=== PATIENT | female | born 1995 | race Caucasian/White ===

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

== ENCOUNTER 2017-04-21 12:26 | Emergency (ER) | payer OTHER ==
[~2017-04-21] VITALS: Ht 170.2 cm; Wt 113.4 kg
[~2017-04-21 12:26] MED LIST changes: -HYDR-2666 PO; +HYDR-2758 PO; +OXYC5CAP PO; -OXYC5CAP3 PO; +SULF1TAB24 PO
[2017-04-21 12:40] VITALS: BP 128/71
[2017-04-21] MEDS ORDERED: HYDROcodone/APAP 5/325MG 1 TAB TABLET PO ONE (13:15)
--- NOTE | 2017-04-21 14:08 | RAD ---
Indication fall, pain. Axial images through the lower thoracic and lumbar spine were obtained. The examination is limited. There is moderately extensive streak artifact associated with lower thoracic and lumbar spinal fixation hardware. Images were reformatted in the coronal and sagittal planes. No soft tissue finding is seen in the visualized abdomen or pelvis. No acute bony finding is seen. A small bone fragment, probably reflecting a calcified disc, is noted at L4-5 similar to an examination 10/02/2016. IMPRESSION: Limited study secondary to spinal fixation hardware. No acute finding seen in the visualized thoracic or lumbar spine PQRS Compliance Statement: One or more of the following individualized dose reduction techniques were utilized for this examination: 1. Automated exposure control 2. Adjustment of the mA and/or kV according to patient size 3. Use of iterative reconstruction technique
--- NOTE | 2017-04-21 14:37 | PHYS DOC ---
Past Medical History Past Medical History: Asthma Additional Past Medical Histor: RECTAL BLEEDING, HYPERKYPHOSIS, high liver enzymes, PCOS Past Surgical History: Appendectomy, Cholecystectomy, Tonsillectomy, Other Additional Past Surgical Histo: spinal fusion, LEFT ELBOW, pylonydal cyst Alcohol Use: None Drug Use: None Adult General Chief Complaint Chief Complaint: HIP PAIN HPI HPI Patient is a pleasant 21-year-old female with a history of PCO S and chronic lower back pain after complete spinal fusion which he was younger presents with a fall from standing landing on her left hip. Patient was in her normal state health when she lost her balance twisting and landing on her left hip and lower back. She's had 8 of 10 pain since. Pain is worse with range of motion and movement secondary to pain and inability to move in time patient actually urinate on herself. She denies any new numbness and tingling to her legs or bowel incontinence patient's main complaint primary is back pain with radiation to the left lower flank. She is in severe discomfort when she moves. Described as continuous and sharp. She denies any nausea, vomiting or diarrhea. Denies any night sweats, weight loss or other symptoms. Review of Systems Review of Systems Constitutional: Denies fever or chills [] Eyes: Denies change in visual acuity, redness, or eye pain [] HENT: Denies nasal congestion or sore throat [] Respiratory: Denies cough or shortness of breath [] Cardiovascular: No additional information not addressed in HPI [] GI: Denies abdominal pain, nausea, vomiting, bloody stools or diarrhea [] : Denies dysuria or hematuria [] Musculoskeletal: Denies back pain or joint pain [] Integument: Denies rash or skin lesions [] Neurologic: Denies headache, focal weakness or sensory changes [] Endocrine: Denies polyuria or polydipsia [] Current Medications Current Medications Current Medications Medications (Trade) Dose Ordered Sig/Kaelyn Start Time Stop Time Status Last Admin Dose Admin Acetaminophen/ Hydrocodone Bitart (Lortab 5/325) 2 tab 1X ONCE 04/21/17 13:15 04/21/17 13:17 DC 04/21/17 13:45 2 TAB Diazepam (Valium) 5 mg 1X ONCE 04/21/17 14:45 04/21/17 14:46 DC 04/21/17 15:12 5 MG Hydromorphone HCl (Dilaudid) 1 mg 1X ONCE 04/21/17 14:45 04/21/17 14:46 DC 04/21/17 15:13 1 MG Ondansetron HCl (Zofran) 4 mg 1X ONCE 04/21/17 14:45 04/21/17 14:46 DC 04/21/17 15:12 4 MG Allergies Allergies Allergies Coded Allergies Type Severity Reaction Last Updated Verified Fish Containing Products Allergy Intermediate Rash 12/09/16 Yes coconut oil Allergy Intermediate 12/09/16 Yes iodine Allergy Intermediate Rash 12/09/16 Yes ketorolac Allergy Intermediate Rash 12/09/16 Yes latex Allergy Intermediate Rash 12/07/16 Yes tramadol Allergy Intermediate RASH/ITCHING 12/07/16 Yes mold Allergy Unknown 12/07/16 Yes shellfish derived Adverse Reaction Intermediate 12/07/16 Yes Uncoded Allergies Type Severity Reaction Last Updated Verified INSECT BITES,DUST MITES Allergy Unknown 04/08/16 Physical Exam Physical Exam Constitutional: Well developed, well nourished, no acute distress, non-toxic appearance. [] HENT: Normocephalic, atraumatic, bilateral external ears normal, oropharynx moist, no oral exudates, nose normal. [] Eyes: PERRLA, EOMI, conjunctiva normal, no discharge. [] Neck: Normal range of motion, no tenderness, supple, no stridor. [] Cardiovascular:Heart rate regular rhythm, no murmur [] Lungs & Thorax: Bilateral breath sounds clear to auscultation [] Abdomen: Bowel sounds normal, soft, no tenderness, no masses, no pulsatile masses. [] Skin: Warm, dry, no erythema, no rash. [] Back: No tenderness, no CVA tenderness. [] Extremities: No tenderness, no cyanosis, no clubbing, ROM intact, no edema. [] Neurologic: Alert and oriented X 3, normal motor function, normal sensory function, no focal deficits noted. [] Psychologic: Affect normal, judgement normal, mood normal. [] Current Patient Data Vital Signs Vital Signs Date Time Temp Pulse Resp B/P (MAP) Pulse Ox O2 Delivery O2 Flow Rate FiO2 04/21/17 15:13 Room Air 04/21/17 13:45 18 97 04/21/17 13:30 82 04/21/17 12:40 98.5 128/71 (90 98.5 Lab Values Laboratory Tests Test 04/21/17 12:39 POC Urine HCG, Qualitative Hcg negative (Negative) EKG EKG [] Radiology/Procedures Radiology/Procedures [] [facility] [address] [place] [address] IMAGING REPORT Signed PATIENT: IRAJ MONET ACCOUNT: [id number] : 1995 LOCATION: ER AGE: 21 SEX: F EXAM STATUS: REG ER ORD. PHYSICIAN: DANTE KRAUSE MD REASON: fall trauma PROCEDURE: CT LUMBAR SPINE WO CONTRAST Indication fall, pain. Axial images through the lower thoracic and lumbar spine were obtained. The examination is limited. There is moderately extensive streak artifact associated with lower thoracic and lumbar spinal fixation hardware. Images were reformatted in the coronal and sagittal planes. No soft tissue finding is seen in the visualized abdomen or pelvis. No acute bony finding is seen. A small bone fragment, probably reflecting a calcified disc, is noted at L4-5 similar to an examination 10/02/2016. IMPRESSION: Limited study secondary to spinal fixation hardware. No acute finding seen in the visualized thoracic or lumbar spine PQRS Compliance Statement: One or more of the following individualized dose reduction techniques were utilized for this examination: 1. Automated exposure control 2. Adjustment of the mA and/or kV according to patient size 3. Use of iterative reconstruction technique DICTATED and SIGNED BY: PAUL VALENZUELA MD DATE: 04/21/17 1386 CC: DANTE KRAUSE MD; GABRIELLE DOSS MD ~ Patient's 2 view hip and pelvis films do not demonstrate any occult fracture. Time of the x-ray is 2:15 PM 2016. I was happy to share this information with the patient at bedside Course & Med Decision Making Course & Med Decision Making Pertinent Labs and Imaging studies reviewed. (See chart for details) patient Is admitted to the emergency department as above after mechanical fall from standing on her left hip and lower back. She is complaining of severe pain but no evidence of cauda equina on exam. Patient denies any UTI symptoms but had pain with movements and refused to actually allow for complete examination. We attempted use oral medications Lortab to help facilitate a better exam. Which did help but patient became increasingly nauseated. Patient had her lumbar spine CT completed which demonstrated no component of fracture or subluxation of her components in her back. Pelvis and left hip are also completed x-rays did not show any kind of fracture. On reassessment at approximately 2:30 PM patient was still having severe pain she was offered IM Valium, Zofran, and Dilaudid for her symptoms. She'll be reassessed. Patient was reassessed and feels better after IV medications. Patient was prescribed appropriate analgesics and follow up with her primary care doctor. [] Dragon Disclaimer Dragon Disclaimer This electronic medical record was generated, in whole or in part, using a voice recognition dictation system. Departure Departure Impression: Primary Impression: Musculoskeletal back pain Additional Impressions: Back contusion Flank pain Disposition: HOME, SELF-CARE Condition: IMPROVED Referrals: GABRIELLE DOSS MD (PCP) Patient Instructions: Back Pain, Adult, Chronic Back Pain, Hip Pain Additional Instructions: My discharge plan Follow up: In addition patient is asked to followup with their primary doctor, within a week for followup examination and to address patient's ongoing medical conditions. Because patient does not have a regular medical doctor, the [facility] Resource Sheet will be provided to establish care primary care. Patient is advised that in the Emergency Department primary complaints are addressed and only in light of known signs and symptoms. Patient should return immediately to the emergency department if new signs and symptoms develop or patient's condition worsens in any way. At time of discharge patient was in stable condition and had verbalized understanding of the discharge instructions. Scripts Diazepam (VALIUM) 5 Mg Tablet 5 MG PO TID for MUSCLE SPASMS for 5 Days, #15 TAB Prov: DANTE KRAUSE MD 04/21/17 Oxycodone/Apap 5-325 (PERCOCET 5-325 MG TABLET) 1 Each Tablet 1-2 TAB PO Q4-6HRS, #12 TAB Prov: DANTE KRAUSE MD 04/21/17 Problem Qualifiers DANTE KRAUSE MD Apr 21, 2017 14:37
[2017-04-21] MEDS ORDERED: DIAZ5TAB PO (14:41)
[2017-04-21] MEDS ORDERED: OXYC-323 PO (14:41)
--- NOTE | 2017-04-21 14:42 | RAD ---
Indication fall. Pain. An AP view the pelvis as well as targeted AP view and frog leg views of the left hip were obtained. No bony abnormality is seen
[2017-04-21] MEDS ORDERED: HYDROmorphone 2 MG/ML VIAL IM ONE (14:45)
[2017-04-21] MEDS ORDERED: ONDANSETRON PF 4 MG/2 ML VIAL. IM ONE (14:45)
== END 2017-04-21 15:33 | disposition home or self-care (01) ==
LOC: ER 12:26
DX: S30.0XXA Contusion of lower back and pelvis, initial encounter (principal); M25.552 Pain in left hip; R10.30 Lower abdominal pain, unspecified; G89.29 Other chronic pain; J45.909 Unspecified asthma, uncomplicated; Z98.1 Arthrodesis status; Z90.49 Acquired absence of other specified parts of digestive tract; E28.2 Polycystic ovarian syndrome; Z88.6 Allergy status to analgesic agent; Z91.041 Radiographic dye allergy status; Z91.038 Other insect allergy status; Z91.040 Latex allergy status; Z91.013 Allergy to seafood; Z91.018 Allergy to other foods; Z91.048 Other nonmedicinal substance allergy status; W18.39XA Other fall on same level, initial encounter; Y93.89 Activity, other specified; Y99.8 Other external cause status; Y92.89 Other specified places as the place of occurrence of the external cause
CPT/HCPCS: 72131; 73502; 81025; 96372; 99284; J1170; J2405; J3360

== ENCOUNTER 2017-09-29 09:09 | Emergency (ER) | payer OTHER ==
[2017-09-29 09:43] LABS: URINE HCG POC HCG NEGATIVE (Negative)
[2017-09-29 09:49] LABS: BILIRUBIN,URINE NEGATIVE (NEG); CLARITY,URINE CLOUDY; COLOR,URINE YELLOW; GLUCOSE,URINE NEGATIVE (NEG); NITRITE,URINE NEGATIVE (NEG); PROTEIN,URINE NEGATIVE (NEG-TRACE); UROBILINOGEN,URINE 0.2 mg/dL (0.2 mg/dL)
[2017-09-29 10:01] LABS: WBC,URINE >40 /HPF (0-4)
[2017-09-29 10:04] LABS: BACTERIA,URINE MANY /HPF (0-FEW)
[2017-09-29 10:09] LABS: INFLUENZA A PATIENT NEGATIVE (NEGATIVE); INFLUENZA B PATIENT NEGATIVE (NEGATIVE); OBC FLU VALID
[2017-09-29] MEDS: IPRATRPIUM/ALBUTEROL 0.5/2.5MG 3 ML NEBU. NEB ×2 (10:22)
== END 2017-09-29 10:47 | disposition home or self-care (01) ==
LOC: ER 09:09
DX: N30.01 Acute cystitis with hematuria (principal); J45.909 Unspecified asthma, uncomplicated; Z90.49 Acquired absence of other specified parts of digestive tract; Z88.6 Allergy status to analgesic agent; Z91.041 Radiographic dye allergy status; Z91.040 Latex allergy status; Z91.013 Allergy to seafood; Z88.8 Allergy status to other drugs, medicaments and biological substances; Z91.048 Other nonmedicinal substance allergy status
CPT/HCPCS: 81001; 81025; 87086; 87804; 87804-59; 94640; 99284; J7620

== ENCOUNTER 2018-02-24 21:38 | Emergency (ER) | payer OTHER ==
[2018-02-24 21:53] LABS: BILIRUBIN,URINE SMALL (NEG); CLARITY,URINE CLOUDY; COLOR,URINE ORANGE; GLUCOSE,URINE NEGATIVE (NEG); PH,URINE 6.5; PROTEIN,URINE NEGATIVE (NEG-TRACE)
[2018-02-24 21:55] LABS: URINE HCG POC HCG NEGATIVE (Negative)
[2018-02-24 22:02] LABS: BACTERIA,URINE FEW /HPF (0-FEW); NITRITE,URINE NEGATIVE (NEG); SQUAMOUS EPITHELIAL CELL,UR MOD /LPF; WBC,URINE TNTC /HPF (0-4)
[2018-02-24 22:03] LABS: AMORPHOUS SEDIMENT,UR PRESENT /HPF; TRICHOMONAS,URINE PRESENT
[2018-02-24] MEDS: MORPHINE SULFATE 4 MG/ML DISP.SYRIN. IV (23:12)
[2018-02-24] MEDS: diphenhydrAMINE 50 MG/ML VIAL IVP (23:22)
[2018-02-24] MEDS: PROCHLORPERAZINE 10 MG/2 ML VIAL. IV (23:22)
[2018-02-24] MEDS: fentaNYL PF VIAL 100 MCG/2 ML VIAL IV (23:23)
[2018-02-24] MEDS: metroNIDAZOLE 500 MG TABLET PO (23:52)
[2018-02-24] MEDS: AZITHROMYCIN 250 MG TABLET. PO (23:52)
== END 2018-02-25 00:19 | disposition home or self-care (01) ==
LOC: ER 02-25 00:19
DX: N39.0 Urinary tract infection, site not specified (principal); J45.909 Unspecified asthma, uncomplicated; Z87.442 Personal history of urinary calculi; Z90.49 Acquired absence of other specified parts of digestive tract; Z91.041 Radiographic dye allergy status; Z91.040 Latex allergy status; Z91.013 Allergy to seafood; Z88.8 Allergy status to other drugs, medicaments and biological substances; Z91.018 Allergy to other foods
CPT/HCPCS: 81001; 81025; 87491; 87591; 96365; 96375; 99284-25; J0690; J0780; J1200; J3010; Q0144

== ENCOUNTER 2018-03-21 20:57 | Inpatient (IN) | payer OTHER ==
[~2018-03-21] VITALS: Ht 172.7 cm; Wt 117.5 kg
[~2018-03-21 20:57] MED LIST changes: +AMOX1TAB61 PO; +CLOM50TA16; -CLOM50TA2; +DIAZ5TAB PO; +PROAIR HFA8.5 GM INH
[2018-03-21] MEDS ORDERED: IPRATRPIUM/ALBUTEROL 0.5/2.5MG 3 ML NEBU. NEB ONE (21:15)
[2018-03-21] MEDS ORDERED: IV NORMAL SALINE 1000ML BAG 1,000 ML IV ONE (21:15)
[2018-03-21 21:16] LABS: BILIRUBIN,URINE NEGATIVE (NEG); CLARITY,URINE CLEAR; COLOR,URINE YELLOW; NITRITE,URINE NEGATIVE (NEG); PH,URINE 7.5; PROTEIN,URINE NEGATIVE (NEG-TRACE); UROBILINOGEN,URINE 0.2 mg/dL (0.2 mg/dL)
[2018-03-21 21:19] LABS: U PREG PATIENT NEGATIVE (NEG)
[2018-03-21 21:21] LABS: BACTERIA,URINE FEW /HPF (0-FEW); RBC,URINE OCC /HPF (0-2); SQUAMOUS EPITHELIAL CELL,UR MOD /LPF
[2018-03-21] MEDS ORDERED: ALBUTEROL SULFATE 2.5 MG/3 ML NEBU. CONT NEB ONE (22:00)
[2018-03-21] MEDS ORDERED: ONDANSETRON PF 4 MG/2 ML VIAL. IV ONE (22:15)
--- NOTE | 2018-03-21 22:25 | PHYS DOC ---
Past Medical History Past Medical History: Asthma, Kidney Stone, UTI Additional Past Medical Histor: RECTAL BLEEDING, HYPERKYPHOSIS, high liver enzymes, PCOS, PRE DIABETIC Past Surgical History: Appendectomy, Cholecystectomy, Tonsillectomy, Other Additional Past Surgical Histo: spinal fusion, LEFT ELBOW, pylonydal cyst Alcohol Use: None Drug Use: None Adult General Chief Complaint Chief Complaint: SHORTNESS OF BREATH HPI HPI Patient is a 22 year old female who presents with asthma attack. Patient states she does not normally have asthma. Her last asthma attack was when she was 14 years old. She does present today stating that she has had a cough and some wheezing over the last 2 days. She reports a subjective fever earlier today as well. She does complain of some right upper abdominal pain which she thinks is only secondary to her cough. She does not have urinary symptoms. She has no nausea or vomiting. Her cough is nonproductive. Review of Systems Review of Systems Constitutional: Denies fever Eyes: Denies change in visual acuity HENT: Denies nasal congestion Respiratory: wheezing and cough Cardiovascular: No additional information GI: Denies nausea, vomiting : Denies dysuria Musculoskeletal: Denies back pain Integument: Denies rash Neurologic: Denies headache, focal weakness or sensory changes Endocrine: Denies polyuria All other systems were reviewed and found to be within normal limits, except as documented in this note. Current Medications Current Medications Current Medications Medications (Trade) Dose Ordered Sig/Kaelyn Start Time Stop Time Status Last Admin Dose Admin Albuterol Sulfate (Ventolin Neb Soln) 2.5 mg 1X ONCE 03/22/18 00:00 03/22/18 00:03 DC 03/22/18 00:11 2.5 MG Albuterol/ Ipratropium (Duoneb) 3 ml 1X ONCE 03/21/18 21:15 03/21/18 21:16 DC 03/21/18 21:24 3 ML Ceftriaxone Sodium 50 ml @ 100 mls/hr 1X ONCE 03/22/18 00:00 03/22/18 00:29 DC 03/22/18 00:22 100 MLS/HR Dexamethasone Sodium Phosphate (Decadron) 4 mg 1X ONCE 03/21/18 22:30 03/21/18 22:31 DC 03/21/18 22:28 4 MG Lorazepam (Ativan) 1 mg 1X ONCE 03/22/18 00:00 03/22/18 00:03 DC 03/22/18 00:23 1 MG Ondansetron HCl (Zofran) 4 mg 1X ONCE 03/21/18 22:15 03/21/18 22:19 DC 03/21/18 22:28 4 MG Sodium Chloride 1,000 ml @ 1,000 mls/hr 1X ONCE 03/21/18 21:15 03/21/18 22:14 DC 03/21/18 21:30 1,000 MLS/HR Allergies Allergies Allergies Coded Allergies Type Severity Reaction Last Updated Verified Fish Containing Products Allergy Intermediate Rash 12/09/16 Yes coconut oil Allergy Intermediate 12/09/16 Yes iodine Allergy Intermediate Rash 12/09/16 Yes ketorolac Allergy Intermediate Rash 12/09/16 Yes latex Allergy Intermediate Rash 12/07/16 Yes mold Allergy Intermediate 02/24/18 Yes morphine Allergy Intermediate 02/24/18 Yes tramadol Allergy Intermediate RASH/ITCHING 12/07/16 Yes fentanyl Allergy Unknown ANXIETY ATTACK 03/21/18 Yes prednisone Allergy Unknown N/V 03/21/18 Yes shellfish derived Adverse Reaction Intermediate 12/07/16 Yes Uncoded Allergies Type Severity Reaction Last Updated Verified INSECT BITES,DUST MITES Allergy Unknown 04/08/16 Physical Exam Physical Exam Constitutional: Well developed, well nourished, no acute distress, non-toxic appearance HENT: Normocephalic, atraumatic Eyes: PERRLA Neck: Normal range of motion, no tenderness Cardiovascular:Heart rate regular rhythm, no murmur Lungs & Thorax: few wheezes bilaterally, preserved air movement Abdomen: Bowel sounds normal, soft, mild TTP over RUQ but no guarding or rebound Skin: Warm, dry, no erythema Extremities: No edema Neurologic: Alert and oriented X 3 Psychologic: Affect normal Current Patient Data Vital Signs Vital Signs Date Time Temp Pulse Resp B/P (MAP) Pulse Ox O2 Delivery O2 Flow Rate FiO2 03/21/18 23:07 101 125/84 (98) 100 Room Air 03/21/18 20:58 98.4 28 98.4 Lab Values Laboratory Tests Test 03/21/18 21:03 03/21/18 21:07 03/21/18 21:25 Urine Collection Type Unknown Urine Color Yellow Urine Clarity Clear Urine pH 7.5 Urine Specific [place] 1.015 Urine Protein Negative mg/dL (NEG-TRACE) Urine Glucose (UA) Negative mg/dL (NEG) Urine Ketones (Stick) Negative mg/dL (NEG) Urine Blood Negative (NEG) Urine Nitrite Negative (NEG) Urine Bilirubin Negative (NEG) Urine Urobilinogen Dipstick 0.2 mg/dL (0.2 mg/dL) Urine Leukocyte Esterase Small (NEG) Urine RBC Occ /HPF (0-2) Urine WBC 5-10 /HPF (0-4) Urine Squamous Epithelial Cells Mod /LPF Urine Bacteria Few /HPF (0-FEW) Urine Test Negative (NEG) POC Urine HCG, Qualitative Hcg negative (Negative) White Blood Count 9.1 x10^3/uL (4.0-11.0) Red Blood Count 5.25 x10^6/uL (3.50-5.40) Hemoglobin 15.6 g/dL (12.0-15.5) H Hematocrit 44.1 % (36.0-47.0) Mean Corpuscular Volume 84 fL (79-100) Mean Corpuscular Hemoglobin 30 pg (25-35) Mean Corpuscular Hemoglobin Concent 35 g/dL (31-37) Red Cell Distribution Width 13.1 % (11.5-14.5) Platelet Count 239 x10^3/uL (140-400) Neutrophils (%) (Auto) 74 % (31-73) H Lymphocytes (%) (Auto) 18 % (24-48) L Monocytes (%) (Auto) 5 % (0-9) Eosinophils (%) (Auto) 3 % (0-3) Basophils (%) (Auto) 0 % (0-3) Neutrophils # (Auto) 6.8 x10^3uL (1.8-7.7) Lymphocytes # (Auto) 1.6 x10^3/uL (1.0-4.8) Monocytes # (Auto) 0.5 x10^3/uL (0.0-1.1) Eosinophils # (Auto) 0.2 x10^3/uL (0.0-0.7) Basophils # (Auto) 0.0 x10^3/uL (0.0-0.2) Sodium Level 134 mmol/L (136-145) L Potassium Level 4.0 mmol/L (3.5-5.1) Chloride Level 101 mmol/L (98-107) Carbon Dioxide Level 25 mmol/L (21-32) Anion Gap 8 (6-14) Blood Urea Nitrogen 8 mg/dL (7-20) Creatinine 0.8 mg/dL (0.6-1.0) Estimated GFR (Cockcroft-Gault) 91.4 Glucose Level 96 mg/dL (70-99) Calcium Level 9.7 mg/dL (8.5-10.1) Total Bilirubin 0.6 mg/dL (0.2-1.0) Direct Bilirubin 0.1 mg/dL (0.0-0.2) Aspartate Amino Transferase (AST) 75 U/L (15-37) H Alanine Aminotransferase (ALT) 107 U/L (14-59) H Alkaline Phosphatase 155 U/L (46-116) H Total Protein 8.0 g/dL (6.4-8.2) Albumin 3.9 g/dL (3.4-5.0) Lipase 96 U/L (73-393) Procalcitonin < 0.10 ng/mL (0.00-0.10) Laboratory Tests 03/21/18 21:25 Laboratory Tests 03/21/18 21:25 EKG EKG [] Radiology/Procedures Radiology/Procedures CT abd pelvis w/o contrast. No acute findings. Course & Med Decision Making Course & Med Decision Making Pertinent Labs and Imaging studies reviewed. (See chart for details) Patient is seen and examined in the ER. Will treat as asthma. No fever on arrival to the ER. In the emergency department, the patient was continually requesting pain medication. She does have an allergy to morphine. She also did not tolerated the albuterol nebulized treatments very well. They cause her to feel bad. She consistently complained of feeling nauseated despite that she was requesting food. She was given 1 DuoNeb treatment followed by one hour-long treatment followed by one additional nebulized albuterol treatment. Following all of this medication, the patient did continue to have wheezes bilaterally. Given her subjective history of fever, and. Treatment is started for community-acquired pneumonia. She was given a gram of Rocephin and 500 of azithromycin by mouth. The patient does not give a history of ongoing asthma. She states she had asthma when she was 14 years old most recently. She was also given a dose of Decadron in the emergency department. She was given multiple doses of Ativan to help counteract side effects from the albuterol treatments. Ultimately, her lung sounds did not improve dramatically with multiple treatments in the ER. Patient was admitted to the hospitalist service. Consult was placed for pulmonology to evaluate the patient. Dragon Disclaimer Dragon Disclaimer This electronic medical record was generated, in whole or in part, using a voice recognition dictation system. Departure Departure Referrals: GABREILLE DOSS MD (PCP) BLAINE HORNE DO Mar 21, 2018 22:25
[2018-03-21] MEDS ORDERED: DEXAMETHASONE SOD PHOS 4 MG/ML VIAL IV ONE (22:30)
[2018-03-21 23:10] LABS: BASO % 0 % (0-3); EOS # 0.2 x10^3/uL (0.0-0.7); EOS % 3 % (0-3); HEMATOCRIT 44.1 % (36.0-47.0); HEMOGLOBIN 15.6 g/dL (12.0-15.5); LYMPH # 1.6 x10^3/uL (1.0-4.8); LYMPH % 18 % (24-48); MEAN CORPUSCULAR HEMOGLOBIN 30 pg (25-35); MEAN CORPUSCULAR HGB CONC 35 g/dL (31-37); MEAN CORPUSCULAR VOLUME 84 fL (79-100); MONO # 0.5 x10^3/uL (0.0-1.1); MONO % 5 % (0-9); NEUT # 6.8 x10^3uL (1.8-7.7); NEUT % 74 % (31-73); PLATELET COUNT 239 x10^3/uL (140-400); RED BLOOD COUNT 5.25 x10^6/uL (3.50-5.40); RED CELL DISTRIBUTION WIDTH 13.1 % (11.5-14.5); WHITE BLOOD COUNT 9.1 x10^3/uL (4.0-11.0)
[2018-03-21 23:21] LABS: CALCIUM 9.7 mg/dL (8.5-10.1); CREATININE 0.8 mg/dL (0.6-1.0); GFR 91.4
[2018-03-21 23:27] LABS: ALBUMIN 3.9 g/dL (3.4-5.0); DIRECT BILIRUBIN 0.1 mg/dL (0.0-0.2); TOTAL BILIRUBIN 0.6 mg/dL (0.2-1.0)
[2018-03-22] VITALS (7 sets, daily range): BP systolic 100–170; BP diastolic 72–100
[2018-03-22] MEDS ORDERED: ALBUTEROL SULFATE 2.5 MG/3 ML NEBU. NEB ONE
[2018-03-22] MEDS ORDERED: ONDANSETRON PF 4 MG/2 ML VIAL. IV PRN (00:15)
[2018-03-22] MEDS ORDERED: ACETAMINOPHEN 325 MG TABLET. PO PRN (00:15)
--- NOTE | 2018-03-22 00:25 | RAD ---
Abdominal and Pelvis CT, Without Contrast: History: Right upper quadrant pain with nausea and vomiting Comparison: None. Procedure: Axial images are obtained of the abdomen and pelvis, without IV or oral contrast. CT Abdomen without Contrast: Findings: Evaluation of solid organs is limited without contrast. Evaluation of stomach and bowel is limited without oral contrast. There is beam Rashid artifact due to Chawla rods from prior fusion of the thoracolumbar spine. There has been prior cholecystectomy and appendectomy. Liver: Normal. Spleen: Normal. Pancreas: Normal. Adrenal Glands: Normal. Kidneys: Normal. There is no free air or free fluid. There is no lymphadenopathy. Impression: Please see CT Pelvis without Contrast. End Impression. CT Pelvis without Contrast: Findings: The urinary bladder appears normal. There is no free fluid. There is no lymphadenopathy. There is no pericolonic inflammation identified. Impression: No acute findings. End impression PQRS Compliance Statement: One or more of the following individualized dose reduction techniques were utilized for this examination: 1. Automated exposure control 2. Adjustment of the mA and/or kV according to patient size 3. Use of iterative reconstruction technique Electronically signed by: Luis Manuel Andrea III, MD (03/22/2018 12:20 AM) [facility]
[2018-03-22] MEDS ORDERED: AZITHROMYCIN 250 MG TABLET. PO ONE (00:45)
[2018-03-22] MEDS: IV NORMAL SALINE 1000ML BAG 1,000 ML IV SCH ×3 (02:08→20:10)
[2018-03-22] MEDS: IPRATRPIUM/ALBUTEROL 0.5/2.5MG 3 ML NEBU. NEB SCH ×4 (07:49→19:43)
--- NOTE | 2018-03-22 08:35 | RAD ---
Single view of the chest. 03/22/2018 12:10 AM Indication: WHEEZING, COUGH; HX ASTHMA Comparison: None available Findings: Low lung volumes are noted which augments the cardiomediastinal silhouette and pulmonary vasculature. No evidence of pneumothorax or pleural effusion is seen. Heart size is within normal limits. No focal consolidative infiltrate is seen. No acute osseous changes are identified. Postoperative changes to the thoracic spine noted. IMPRESSION: Low lung volumes. No other acute cardiopulmonary process is identified Electronically signed by: See Hurtado MD (03/22/2018 8:30 AM) [id number]
[2018-03-22] MEDS: diazePAM 5 MG TABLET PO SCH ×3 (09:00→20:12)
[2018-03-22] MEDS: PANTOPRAZOLE 40 MG TABLET.DR. PO SCH ×2 (09:00→12:03)
[2018-03-22] MEDS: oxyCODONE/APAP 5/325 1 TAB TABLET PO SCH ×3 (09:00→20:12)
--- NOTE | 2018-03-22 09:37 | PDOC1 ---
History and Physical Date of Admission Date of Admission DATE: 03/22/18 TIME: 09:30 Identification/Chief Complaint Chief Complaint abd pain and cannot breathe through Source Source: Caregiver, Chart review, Patient History of Present Illness History of Present Illness 22-year-old obese female, history of appendectomy and cholecystectomy about a year ago in another facility, claims that ever since cholecystectomy has been having more frequent right upper quadrant pain. In any case CT Of the Abdomen Failed to Show Any Pathology. She Claims She Does Not Have Any History of Asthma, Otherwise Well since Age 14. But Is Very Wheezy. Being Treatment for Asthma Exacerbation with Normal Chest X-Ray. Still Coughing, Smokes Less Than a Pack-A-Day, Denies Any Recent Sick Contacts or Travel. She motions to her right upper quadrant pain and this may feel a knot on her right lateral side which felt to me like some IV third lipoma that is rather deep or maybe ganglioma? Accumulation of fat? She is saying she is dry heaving and cannot take in her by mouth pills which includes some oxycodone pills. She is asking for morphine. Lots of allergy listed, we went through this one by one and she can tolerate Solu-Medrol and morphine in a nutshell. Pulmonary consulted, I will check an ultrasound abd r/o retained stones, She relays hx of always elevated LFTs since cholecystectomy., I will resume home meds, liquid diet, ADAT pending ultrasound findings, IV morphine and IV steroids. Very wheezy on exam. Abdominal pain she claims started about 2 weeks ago, some episodes of diarrhea that has resolved, no fever, some nausea but no emesis.Denies any history of IBS , but when I confronted this with her she claims she might have this Past Medical History Pulmonary: Bronchitis Past Surgical History Past Surgical History: Appendectomy, Cholecystectomy Family History Family History: Hypertension Social History Smoke: <1 pack per day ALCOHOL: rare Drugs: None Current Problem List Problem List Problems Medical Problems: (1) Pneumonia Status: Acute (2) Wheezing Status: Acute Current Medications Current Medications Current Medications Albuterol/ Ipratropium (Duoneb) 3 ml 1X ONCE NEB Last administered on at 21:24; Start 03/21/18 at 21:15; Stop 03/21/18 at 21:16; Status DC Sodium Chloride 1,000 ml @ 1,000 mls/hr 1X ONCE IV Last administered on at 21:30; Start 03/21/18 at 21:15; Stop 03/21/18 at 22:14; Status DC Albuterol Sulfate (Ventolin Neb Soln) 10 mg 1X ONCE CONT NEB Last administered on 03/21/18at 22:10; Start 03/21/18 at 22:00; Stop 03/21/18 at 22:01 ; Status DC Dexamethasone Sodium Phosphate (Decadron) 4 mg 1X ONCE IV Last administered on 03/21/18at 22:28; Start 03/21/18 at 22:30; Stop 03/21/18 at 22:31; Status DC Ondansetron HCl (Zofran) 4 mg 1X ONCE IV Last administered on 03/21/18at 22:28 ; Start 03/21/18 at 22:15; Stop 03/21/18 at 22:19; Status DC Lorazepam (Ativan) 0.5 mg 1X ONCE IV Last administered on 03/21/18at 23:07; Start 03/21/18 at 23:15; Stop 03/21/18 at 23:38; Status DC Albuterol Sulfate (Ventolin Neb Soln) 2.5 mg 1X ONCE NEB Last administered on 03/22/18at 00:11; Start 03/22/18 at 00:00; Stop 03/22/18 at 00:03; Status DC Ceftriaxone Sodium 50 ml @ 100 mls/hr 1X ONCE IV Last administered on at 00:22; Start 03/22/18 at 00:00; Stop 03/22/18 at 00:29; Status DC Lorazepam (Ativan) 1 mg 1X ONCE IV Last administered on 03/22/18at 00:23; Start 03/22/18 at 00:00; Stop 03/22/18 at 00:03; Status DC Ondansetron HCl (Zofran) 4 mg PRN Q8HRS PRN IV NAUSEA/VOMITING; Start 03/22/18 at 00:15; Stop 03/22/18 at 08:24; Status DC Sodium Chloride 1,000 ml @ 100 mls/hr Q10H IV Last administered on 03/22/18at 02:08; Start 03/22/18 at 00:15; Stop 03/23/18 at 00:14 Acetaminophen (Tylenol) 650 mg PRN Q4HRS PRN PO FEVER Last administered on 03/22at 02:05; Start 03/22/18 at 00:15; Stop 03/23/18 at 00:14 Albuterol/ Ipratropium (Duoneb) 3 ml RTQID NEB Last administered on 03/22/18at 07:49; Start 03/22/18 at 08:00; Stop 03/23/18 at 07:59 Azithromycin (Zithromax) 500 mg 1X ONCE PO Last administered on 03/22/18at 02: 07; Start 03/22/18 at 00:45; Stop 03/22/18 at 00:46; Status DC Ondansetron HCl (Zofran) 4 mg PRN Q6HRS PRN IV NAUSEA/VOMITING; Start 03/22/18 at 08:30 Guaifenesin (Robitussin Dm) 10 ml PRN Q6HRS PRN PO COUGH; Start 03/22/18 at 08: 30 Diazepam (Valium) 5 mg TID PO ; Start 03/22/18 at 09:00 Ondansetron HCl (Zofran Odt) 4 mg Q8HRS PO ; Start 03/22/18 at 14:00 Oxycodone/ Acetaminophen (Percocet 5/325) 1 tab TID PO ; Start 03/22/18 at 09:00 Pantoprazole Sodium (Protonix) 40 mg DAILYAC PO ; Start 03/22/18 at 09:00 Oxycodone HCl (Roxicodone) 10 mg PRN Q4HRS PRN PO PAIN; Start 03/22/18 at 08:45 Active Scripts Active Macrobid 100 Mg Capsule (Nitrofurantoin Monohyd/M-Cryst) 100 Mg Capsule 100 Mg PO BID 5 Days Proair Hfa Inhaler (Albuterol Sulfate) 8.5 Gm Hfa.aer.ad 1 Puff INH PRN Q6HRS PRN Macrobid 100 Mg Capsule (Nitrofurantoin Monohyd/M-Cryst) 100 Mg Capsule 1 Cap PO BID Augmentin 875-125 Tablet (Amoxicillin/Potassium Clav) 1 Each Tablet 1 Tab PO BID Zofran Odt (Ondansetron) 4 Mg Tab.rapdis 1 Tab SL Q8HRS Valium (Diazepam) 5 Mg Tablet 5 Mg PO TID 5 Days Percocet 5-325 Mg Tablet (Oxycodone/Acetaminophen) 1 Each Tablet 1-2 Tab PO Q4- 6HRS Bactrim Ds Tablet (Sulfamethoxazole/Trimethoprim) 1 Each Tablet 1 Tab PO BID Oxycodone Hcl 10 Mg Tablet 10 Mg PO Q4HRS PRN Reported No Known Medications Prior To Admisstion (Info) Each 1 Each MC Progesterone (Progesterone,Micronized) 200 Mg Capsule Clomiphene Citrate 50 Mg Tablet Omeprazole 40 Mg Capsule. 1 Cap PO DAILY Allergies Allergies: Coded Allergies: Fish Containing Products (Verified Allergy, Intermediate, Rash, 12/09/16) IV DYE coconut oil (Verified Allergy, Intermediate, 12/09/16) iodine (Verified Allergy, Intermediate, Rash, 12/09/16) ketorolac (Verified Allergy, Intermediate, Rash, 12/09/16) latex (Verified Allergy, Intermediate, Rash, 12/07/16) mold (Verified Allergy, Intermediate, 02/24/18) morphine (Verified Allergy, Intermediate, 02/24/18) tramadol (Verified Allergy, Intermediate, RASH/ITCHING, 12/07/16) fentanyl (Verified Allergy, Unknown, ANXIETY ATTACK, 03/21/18) prednisone (Verified Allergy, Unknown, N/V, 03/21/18) shellfish derived (Verified Adverse Reaction, Intermediate, 12/07/16) Uncoded Allergies: INSECT BITES,DUST MITES (Allergy, Unknown, 04/08/16) ROS Review of System As per history of present illness, the rest of ROS 14 point negative Physical Exam General: mild distress, Other (coughing when speaking in phrases with me) HEENT: Atraumatic, PERRLA, EOMI, Mucous membr. moist/pink Lungs: Normal air movement, Other (wheezing anterior and posterior skull auscultation, no crackles, no JVD) Heart: S1S2, RRR, no thrills, no rubs, no gallops, no murmurs Cardiovascular: S1, S2 Breasts: Normal, Rt breast nml w/o mass, Lt breast nml w/o mass, Nipples normal Abdomen: Normal bowel sounds, Soft, No tenderness, No hepatosplenomegaly, No masses Rectal Exam: not examined PELVIC: Nml ext genitalia Extremities: No clubbing, No cyanosis, No edema, Normal pulses, No tenderness/ swelling Skin: No rashes, No breakdown, No significant lesion Neuro: Normal gait, Normal speech, Strength at 5/5 X4 ext, Normal tone, Sensation intact, Cranial nerves 3-12 NL, Reflexes 2+ Psych/Mental Status: Mental status NL, Mood NL Vitals Vitals Vital Signs Date Time Temp Pulse Resp B/P (MAP) Pulse Ox O2 Delivery O2 Flow Rate FiO2 03/22/18 07:50 96 Room Air 03/22/18 03:00 98.0 95 20 117/88 (98) 98.0 Labs Labs Laboratory Tests Test 03/21/18 21:03 03/21/18 21:07 03/21/18 21:25 Urine Collection Type Unknown Urine Color Yellow Urine Clarity Clear Urine pH 7.5 Urine Specific [place] 1.015 Urine Protein Negative mg/dL (NEG-TRACE) Urine Glucose (UA) Negative mg/dL (NEG) Urine Ketones (Stick) Negative mg/dL (NEG) Urine Blood Negative (NEG) Urine Nitrite Negative (NEG) Urine Bilirubin Negative (NEG) Urine Urobilinogen Dipstick 0.2 mg/dL (0.2 mg/dL) Urine Leukocyte Esterase Small (NEG) Urine RBC Occ /HPF (0-2) Urine WBC 5-10 /HPF (0-4) Urine Squamous Epithelial Cells Mod /LPF Urine Bacteria Few /HPF (0-FEW) Urine Test Negative (NEG) Bedside Urine HCG, Qualitative Hcg negative (Negative) White Blood Count 9.1 x10^3/uL (4.0-11.0) Red Blood Count 5.25 x10^6/uL (3.50-5.40) Hemoglobin 15.6 g/dL (12.0-15.5) Hematocrit 44.1 % (36.0-47.0) Mean Corpuscular Volume 84 fL (79-100) Mean Corpuscular Hemoglobin 30 pg (25-35) Mean Corpuscular Hemoglobin Concent 35 g/dL (31-37) Red Cell Distribution Width 13.1 % (11.5-14.5) Platelet Count 239 x10^3/uL (140-400) Neutrophils (%) (Auto) 74 % (31-73) Lymphocytes (%) (Auto) 18 % (24-48) Monocytes (%) (Auto) 5 % (0-9) Eosinophils (%) (Auto) 3 % (0-3) Basophils (%) (Auto) 0 % (0-3) Neutrophils # (Auto) 6.8 x10^3uL (1.8-7.7) Lymphocytes # (Auto) 1.6 x10^3/uL (1.0-4.8) Monocytes # (Auto) 0.5 x10^3/uL (0.0-1.1) Eosinophils # (Auto) 0.2 x10^3/uL (0.0-0.7) Basophils # (Auto) 0.0 x10^3/uL (0.0-0.2) Sodium Level 134 mmol/L (136-145) Potassium Level 4.0 mmol/L (3.5-5.1) Chloride Level 101 mmol/L (98-107) Carbon Dioxide Level 25 mmol/L (21-32) Anion Gap 8 (6-14) Blood Urea Nitrogen 8 mg/dL (7-20) Creatinine 0.8 mg/dL (0.6-1.0) Estimated GFR (Cockcroft-Gault) 91.4 Glucose Level 96 mg/dL (70-99) Calcium Level 9.7 mg/dL (8.5-10.1) Total Bilirubin 0.6 mg/dL (0.2-1.0) Direct Bilirubin 0.1 mg/dL (0.0-0.2) Aspartate Amino Transf (AST/SGOT) 75 U/L (15-37) Alanine Aminotransferase (ALT/SGPT) 107 U/L (14-59) Alkaline Phosphatase 155 U/L (46-116) Total Protein 8.0 g/dL (6.4-8.2) Albumin 3.9 g/dL (3.4-5.0) Lipase 96 U/L (73-393) Procalcitonin < 0.10 ng/mL (0.00-0.10) Laboratory Tests Test 03/21/18 21:03 03/21/18 21:07 03/21/18 21:25 Urine Collection Type Unknown Urine Color Yellow Urine Clarity Clear Urine pH 7.5 Urine Specific [place] 1.015 Urine Protein Negative mg/dL (NEG-TRACE) Urine Glucose (UA) Negative mg/dL (NEG) Urine Ketones (Stick) Negative mg/dL (NEG) Urine Blood Negative (NEG) Urine Nitrite Negative (NEG) Urine Bilirubin Negative (NEG) Urine Urobilinogen Dipstick 0.2 mg/dL (0.2 mg/dL) Urine Leukocyte Esterase Small (NEG) Urine RBC Occ /HPF (0-2) Urine WBC 5-10 /HPF (0-4) Urine Squamous Epithelial Cells Mod /LPF Urine Bacteria Few /HPF (0-FEW) Urine Test Negative (NEG) Bedside Urine HCG, Qualitative Hcg negative (Negative) White Blood Count 9.1 x10^3/uL (4.0-11.0) Red Blood Count 5.25 x10^6/uL (3.50-5.40) Hemoglobin 15.6 g/dL (12.0-15.5) Hematocrit 44.1 % (36.0-47.0) Mean Corpuscular Volume 84 fL (79-100) Mean Corpuscular Hemoglobin 30 pg (25-35) Mean Corpuscular Hemoglobin Concent 35 g/dL (31-37) Red Cell Distribution Width 13.1 % (11.5-14.5) Platelet Count 239 x10^3/uL (140-400) Neutrophils (%) (Auto) 74 % (31-73) Lymphocytes (%) (Auto) 18 % (24-48) Monocytes (%) (Auto) 5 % (0-9) Eosinophils (%) (Auto) 3 % (0-3) Basophils (%) (Auto) 0 % (0-3) Neutrophils # (Auto) 6.8 x10^3uL (1.8-7.7) Lymphocytes # (Auto) 1.6 x10^3/uL (1.0-4.8) Monocytes # (Auto) 0.5 x10^3/uL (0.0-1.1) Eosinophils # (Auto) 0.2 x10^3/uL (0.0-0.7) Basophils # (Auto) 0.0 x10^3/uL (0.0-0.2) Sodium Level 134 mmol/L (136-145) Potassium Level 4.0 mmol/L (3.5-5.1) Chloride Level 101 mmol/L (98-107) Carbon Dioxide Level 25 mmol/L (21-32) Anion Gap 8 (6-14) Blood Urea Nitrogen 8 mg/dL (7-20) Creatinine 0.8 mg/dL (0.6-1.0) Estimated GFR (Cockcroft-Gault) 91.4 Glucose Level 96 mg/dL (70-99) Calcium Level 9.7 mg/dL (8.5-10.1) Total Bilirubin 0.6 mg/dL (0.2-1.0) Direct Bilirubin 0.1 mg/dL (0.0-0.2) Aspartate Amino Transf (AST/SGOT) 75 U/L (15-37) Alanine Aminotransferase (ALT/SGPT) 107 U/L (14-59) Alkaline Phosphatase 155 U/L (46-116) Total Protein 8.0 g/dL (6.4-8.2) Albumin 3.9 g/dL (3.4-5.0) Lipase 96 U/L (73-393) Procalcitonin < 0.10 ng/mL (0.00-0.10) VTE Prophylaxis Ordered VTE Prophylaxis Devices: Yes VTE Pharmacological Prophylaxi: Yes Assessment/Plan Assessment/Plan Likely asthma exacerbation Abdominal pain right upper quadrant area, History cholecystectomy 1 year ago History of appendectomy Morbid obesity, BMI 39 Narcotic dependence Multiple drug allergies Plan: Admit 2 MN IV steroids is okay, IV morphine is okay-I discussed with her her multiple drug allergies Liquid diet for now since still dry heaving Agree with pulmonary consult Nicotine patch when necessary Check a limited upper abdominal ultrasound right upper quadrant area check for retained stones etc. CMP if not yet done Discussed with her and VIVIAN KIRK MD Mar 22, 2018 09:37
[2018-03-22] MEDS: BENZONATATE 100 MG CAPSULE. PO SCH ×3 (10:00→20:12)
[2018-03-22] MEDS: ONDANSETRON PF 4 MG/2 ML VIAL. IV PRN ×2 (10:21→18:42)
[2018-03-22] MEDS: MORPHINE SULFATE 2 MG/ML VIAL. IV PRN ×4 (10:21→22:33)
--- NOTE | 2018-03-22 10:36 | CONS ---
DATE OF CONSULTATION: PULMONARY CONSULTATION ATTENDING PHYSICIAN: Dr. Alvarado. REASON FOR CONSULTATION: Asthma exacerbation. HISTORY OF PRESENT ILLNESS: The patient is a 22-year-old female who had asthma since childhood. However, she did not have any flare-up of her symptoms during her adult life. The patient was brought into the hospital after she had a fever at home of 101. While in the hospital, she is afebrile. She said she was coughing. The cough was nonproductive. She also had diarrhea and emesis as well. She started to have shortness of breath and wheezing. As a result, she was seen in the Emergency Room and imaging studies were performed. Chest x-ray showed poor inspiratory effort, but no definite consolidation seen. CT abdomen and pelvis with lower sections of the lung did not show any atelectasis or infiltrates. The patient states she does not take any inhalers. She does not know what triggers her asthma as she never had any flare-up. PAST MEDICAL HISTORY: Significant for history of asthma as a child, but never had any flare-up in adult life. PAST SURGICAL HISTORY: Appendectomy and a cholecystectomy. FAMILY HISTORY: Hypertension. SOCIAL HISTORY: Smoked half pack per day since age 14. REVIEW OF SYSTEMS: Twelve-point system obtained. Pertinent positives discussed in my history of present illness, otherwise noncontributory. All systems that were negative were reviewed as well. ALLERGIES: All reviewed as listed in the MRAD. MEDICATIONS: Her medications were also reviewed, including IV steroids and DuoNebs. PHYSICAL EXAMINATION: VITAL SIGNS: Reviewed. Afebrile. Pulse ox 96% on room air, blood pressure 152/88. HEENT: Sclerae nonicteric. NECK: Supple. LUNGS: With bilateral expiratory wheezes. CARDIOVASCULAR EXAMINATION: Regular rate. ABDOMEN: Soft, nontender. EXTREMITIES: With no pitting edema. LABORATORY DATA: Labs were reviewed. White cell count 9.1, hemoglobin 15.6 and platelets are 239,000. BUN 8 and creatinine 0.8. IMPRESSION: 1. Acute asthma exacerbation in a patient who had asthma as a child, but she never had any flare-up since then. This is her first flare-up. This is triggered by a viral syndrome causing viral bronchitis and GI symptoms. Ongoing smoking is also a trigger. Her chest x-ray does not show any definite consolidation or infiltrates, and CT abdomen with lower sections of the lungs does not show any parenchymal abnormalities either. She does still have mild bronchospasm. 2. Ongoing tobacco use. 3. Mild hyponatremia. 4. Elevated transaminases, could be related to hypoperfusion. Consider GI evaluation. RECOMMENDATIONS: 1. From a pulmonary standpoint, I would continue present DuoNebs. I would add Pulmicort nebulizer. 2. Continue IV steroids with gradual taper. 3. Smoking cessation counseling provided. 4. Add empiric antibiotic. 5. Follow liver function test per PCP or GI. 6. Anticipate hospitalization for 24-48 hours. 7. Discussed with RN. We will follow along with you. KATHIE CARD MD DR: FUAD/binta JOB#: [id number] / [id number] VIVIAN Maciel MD
[2018-03-22] MEDS: NICOTINE 21MG PATCH. TD PRN (11:58)
[2018-03-22] MEDS: oxyCODONE IR 5 MG TABLET PO PRN ×2 (12:02→21:04)
[2018-03-22] MEDS: methylPREDNISolone SOD SUCC PF 40 MG/ML VIAL. IV SCH ×2 (14:20→20:13)
[2018-03-22] MEDS: ONDANSETRON ODT 4 MG TAB.RAPDIS. PO SCH ×2 (14:25→20:12)
[2018-03-22] MEDS: ALPRAZolam 0.5 MG TABLET PO PRN (22:41)
--- NOTE | 2018-03-22 23:35 | RAD ---
CT Head W/O Contrast: History: fall, hit forehead, no priors Comparison: none Axial images were obtained without contrast. The benson and white matter appears normal and symmetrical for the patients age. There is no mass effect, extraaxial fluid collections or hydrocephalus. There is no gross bleed. There is no focal loss of benson-white matter distinction to suggest acute ischemia, i.e. stroke. Impression: No acute findings. RS Compliance Statement: One or more of the following individualized dose reduction techniques were utilized for this examination: 1. Automated exposure control 2. Adjustment of the mA and/or kV according to patient size 3. Use of iterative reconstruction technique Electronically signed by: Luis Manuel Andrea III, MD (03/22/2018 11:31 PM) [facility]
[2018-03-23] MEDS: oxyCODONE IR 5 MG TABLET PO PRN ×2 (01:09→06:30)
[2018-03-23] MEDS: MORPHINE SULFATE 2 MG/ML VIAL. IV PRN ×7 (02:06→23:43)
[2018-03-23] MEDS: guaiFENesin DM 200MG/20MG 10 ML SYRUP PO PRN ×2 (02:07→20:30)
[2018-03-23 03:00] VITALS: BP 134/96
[2018-03-23] MEDS ORDERED: ALBUTEROL SULFATE 2.5 MG/3 ML NEBU. NEB PRN (03:00)
[2018-03-23] MEDS: PANTOPRAZOLE 40 MG TABLET.DR. PO SCH (05:56)
[2018-03-23] MEDS: methylPREDNISolone SOD SUCC PF 40 MG/ML VIAL. IV SCH ×3 (05:56→22:38)
[2018-03-23] MEDS: ONDANSETRON ODT 4 MG TAB.RAPDIS. PO SCH ×3 (05:57→22:38)
[2018-03-23 06:26] LABS: BASO % 0 % (0-3); EOS % 0 % (0-3); HEMATOCRIT 42.9 % (36.0-47.0); HEMOGLOBIN 14.8 g/dL (12.0-15.5); LYMPH # 1.5 x10^3/uL (1.0-4.8); LYMPH % 7 % (24-48); MEAN CORPUSCULAR HEMOGLOBIN 29 pg (25-35); MEAN CORPUSCULAR HGB CONC 34 g/dL (31-37); MEAN CORPUSCULAR VOLUME 85 fL (79-100); MONO % 5 % (0-9); NEUT # 19.1 x10^3uL (1.8-7.7); NEUT % 88 % (31-73); PLATELET COUNT 291 x10^3/uL (140-400); RED BLOOD COUNT 5.03 x10^6/uL (3.50-5.40); RED CELL DISTRIBUTION WIDTH 13.6 % (11.5-14.5); WHITE BLOOD COUNT 21.6 x10^3/uL (4.0-11.0)
[2018-03-23 06:52] LABS: ALBUMIN 3.7 g/dL (3.4-5.0); ALBUMIN/GLOBULIN RATIO 0.8 (1.0-1.7); CALCIUM 9.1 mg/dL (8.5-10.1); CREATININE 0.9 mg/dL (0.6-1.0); GFR 79.8; POTASSIUM 4.4 mmol/L (3.5-5.1); TOTAL BILIRUBIN 0.4 mg/dL (0.2-1.0); TOTAL PROTEIN 8.3 g/dL (6.4-8.2)
[2018-03-23 07:00] VITALS: BP 145/97
[2018-03-23] MEDS: IPRATRPIUM/ALBUTEROL 0.5/2.5MG 3 ML NEBU. NEB SCH ×3 (07:49→19:51)
--- NOTE | 2018-03-23 08:29 | RAD ---
Ultrasound of the right upper quadrant pain abdomen 03/22/2018 CLINICAL HISTORY: Right upper quadrant abdominal pain. TECHNIQUE: A real-time ultrasound examination of the right upper quadrant of the abdomen was performed. Multiple images were obtained. FINDINGS: Comparison is made to a CT scan of the abdomen dated 03/21/2018. The gallbladder is not visualized consistent with a cholecystectomy. The common bile duct measures 5 mm in diameter which is within normal limits. No choledocholithiasis is seen. The liver is normal in size measuring 14.6 cm in length. Increased echogenicity of the liver parenchyma is seen consistent with mild fatty infiltration. No focal abnormality of the liver is noted. The pancreas is not well-visualized due to the patient's body habitus and overlying bowel gas. The right kidney is within normal limits. No free fluid is seen. IMPRESSION: 1. Post cholecystectomy. 2. Fatty infiltration of the liver. Electronically signed by: Alec Kemp MD (03/23/2018 8:25 AM) [email or web address]
[2018-03-23] MEDS: NICOTINE 21MG PATCH. TD PRN (08:44)
[2018-03-23] MEDS: diazePAM 5 MG TABLET PO SCH ×2 (08:45→14:00)
[2018-03-23] MEDS: BENZONATATE 100 MG CAPSULE. PO SCH ×4 (08:45→20:31)
[2018-03-23] MEDS: oxyCODONE/APAP 5/325 1 TAB TABLET PO SCH ×2 (08:45→14:00)
--- NOTE | 2018-03-23 09:57 | PDOC ---
PROGRESS NOTES History of Present Illness History of Present Illness Assessment/Plan Assessment/Plan Likely asthma exacerbation Abdominal pain right upper quadrant area, History cholecystectomy 1 year ago History of appendectomy Morbid obesity, BMI 39 Narcotic dependence Multiple drug allergies Plan: Admit 2 MN IV steroids cont IV morphine is okay-I discussed with her her multiple drug allergies Liquid diet pulmonary consult Nicotine patch when necessary Check a limited upper abdominal ultrasound right upper quadrant area check for retained stones etc. CMP if not yet done Discussed with her and RN Vitals Vitals Vital Signs Date Time Temp Pulse Resp B/P (MAP) Pulse Ox O2 Delivery O2 Flow Rate FiO2 03/23/18 08:45 Room Air 03/23/18 07:00 97.7 95 20 145/97 (113) 96 97.7 Physical Exam General: Oriented X3, Cooperative, mild distress, Other (coughing when speaking in phrases with me) Heart: Regular rate Lungs: Clear, Wheezing Abdomen: Normal bowel sounds, Soft, No tenderness, No hepatosplenomegaly, No masses Extremities: No clubbing, No cyanosis, No edema, Normal pulses, No tenderness/ swelling Skin: No rashes, No breakdown, No significant lesion Labs LABS Ultrasound of the right upper quadrant pain abdomen 03/22/2018 CLINICAL HISTORY: Right upper quadrant abdominal pain. TECHNIQUE: A real-time ultrasound examination of the right upper quadrant of the abdomen was performed. Multiple images were obtained. FINDINGS: Comparison is made to a CT scan of the abdomen dated 03/21/2018. The gallbladder is not visualized consistent with a cholecystectomy. The common bile duct measures 5 mm in diameter which is within normal limits. No choledocholithiasis is seen. The liver is normal in size measuring 14.6 cm in length. Increased echogenicity of the liver parenchyma is seen consistent with mild fatty infiltration. No focal abnormality of the liver is noted. The pancreas is not well-visualized due to the patient's body habitus and overlying bowel gas. The right kidney is within normal limits. No free fluid is seen. IMPRESSION: 1. Post cholecystectomy. 2. Fatty infiltration of the liver. Electronically signed by: Alec Kemp MD (03/23/2018 8:25 AM) [id number] Laboratory Tests Test 03/23/18 05:45 White Blood Count 21.6 x10^3/uL (4.0-11.0) Red Blood Count 5.03 x10^6/uL (3.50-5.40) Hemoglobin 14.8 g/dL (12.0-15.5) Hematocrit 42.9 % (36.0-47.0) Mean Corpuscular Volume 85 fL (79-100) Mean Corpuscular Hemoglobin 29 pg (25-35) Mean Corpuscular Hemoglobin Concent 34 g/dL (31-37) Red Cell Distribution Width 13.6 % (11.5-14.5) Platelet Count 291 x10^3/uL (140-400) Neutrophils (%) (Auto) 88 % (31-73) Lymphocytes (%) (Auto) 7 % (24-48) Monocytes (%) (Auto) 5 % (0-9) Eosinophils (%) (Auto) 0 % (0-3) Basophils (%) (Auto) 0 % (0-3) Neutrophils # (Auto) 19.1 x10^3uL (1.8-7.7) Lymphocytes # (Auto) 1.5 x10^3/uL (1.0-4.8) Monocytes # (Auto) 1.0 x10^3/uL (0.0-1.1) Eosinophils # (Auto) 0.0 x10^3/uL (0.0-0.7) Basophils # (Auto) 0.0 x10^3/uL (0.0-0.2) Sodium Level 136 mmol/L (136-145) Potassium Level 4.4 mmol/L (3.5-5.1) Chloride Level 102 mmol/L (98-107) Carbon Dioxide Level 23 mmol/L (21-32) Anion Gap 11 (6-14) Blood Urea Nitrogen 7 mg/dL (7-20) Creatinine 0.9 mg/dL (0.6-1.0) Estimated GFR (Cockcroft-Gault) 79.8 BUN/Creatinine Ratio 8 (6-20) Glucose Level 194 mg/dL (70-99) Calcium Level 9.1 mg/dL (8.5-10.1) Total Bilirubin 0.4 mg/dL (0.2-1.0) Aspartate Amino Transf (AST/SGOT) 26 U/L (15-37) Alanine Aminotransferase (ALT/SGPT) 69 U/L (14-59) Alkaline Phosphatase 139 U/L (46-116) Total Protein 8.3 g/dL (6.4-8.2) Albumin 3.7 g/dL (3.4-5.0) Albumin/Globulin Ratio 0.8 (1.0-1.7) Assessment and Plan Assessmemt and Plan Problems Medical Problems: (1) Pneumonia Status: Acute (2) Wheezing Status: Acute Comment Review of Relevant I have reviewed the following items leticia (where applicable) has been applied. Labs Laboratory Tests Test 03/21/18 21:03 03/21/18 21:07 03/21/18 21:25 03/23/18 05:45 Urine Collection Type Unknown Urine Color Yellow Urine Clarity Clear Urine pH 7.5 Urine Specific [place] 1.015 Urine Protein Negative mg/dL (NEG-TRACE) Urine Glucose (UA) Negative mg/dL (NEG) Urine Ketones (Stick) Negative mg/dL (NEG) Urine Blood Negative (NEG) Urine Nitrite Negative (NEG) Urine Bilirubin Negative (NEG) Urine Urobilinogen Dipstick 0.2 mg/dL (0.2 mg/dL) Urine Leukocyte Esterase Small (NEG) Urine RBC Occ /HPF (0-2) Urine WBC 5-10 /HPF (0-4) Urine Squamous Epithelial Cells Mod /LPF Urine Bacteria Few /HPF (0-FEW) Urine Test Negative (NEG) Bedside Urine HCG, Qualitative Hcg negative (Negative) White Blood Count 9.1 x10^3/uL (4.0-11.0) 21.6 x10^3/uL (4.0-11.0) Red Blood Count 5.25 x10^6/uL (3.50-5.40) 5.03 x10^6/uL (3.50-5.40) Hemoglobin 15.6 g/dL (12.0-15.5) 14.8 g/dL (12.0-15.5) Hematocrit 44.1 % (36.0-47.0) 42.9 % (36.0-47.0) Mean Corpuscular Volume 84 fL (79-100) 85 fL (79-100) Mean Corpuscular Hemoglobin 30 pg (25-35) 29 pg (25-35) Mean Corpuscular Hemoglobin Concent 35 g/dL (31-37) 34 g/dL (31-37) Red Cell Distribution Width 13.1 % (11.5-14.5) 13.6 % (11.5-14.5) Platelet Count 239 x10^3/uL (140-400) 291 x10^3/uL (140-400) Neutrophils (%) (Auto) 74 % (31-73) 88 % (31-73) Lymphocytes (%) (Auto) 18 % (24-48) 7 % (24-48) Monocytes (%) (Auto) 5 % (0-9) 5 % (0-9) Eosinophils (%) (Auto) 3 % (0-3) 0 % (0-3) Basophils (%) (Auto) 0 % (0-3) 0 % (0-3) Neutrophils # (Auto) 6.8 x10^3uL (1.8-7.7) 19.1 x10^3uL (1.8-7.7) Lymphocytes # (Auto) 1.6 x10^3/uL (1.0-4.8) 1.5 x10^3/uL (1.0-4.8) Monocytes # (Auto) 0.5 x10^3/uL (0.0-1.1) 1.0 x10^3/uL (0.0-1.1) Eosinophils # (Auto) 0.2 x10^3/uL (0.0-0.7) 0.0 x10^3/uL (0.0-0.7) Basophils # (Auto) 0.0 x10^3/uL (0.0-0.2) 0.0 x10^3/uL (0.0-0.2) Sodium Level 134 mmol/L (136-145) 136 mmol/L (136-145) Potassium Level 4.0 mmol/L (3.5-5.1) 4.4 mmol/L (3.5-5.1) Chloride Level 101 mmol/L (98-107) 102 mmol/L (98-107) Carbon Dioxide Level 25 mmol/L (21-32) 23 mmol/L (21-32) Anion Gap 8 (6-14) 11 (6-14) Blood Urea Nitrogen 8 mg/dL (7-20) 7 mg/dL (7-20) Creatinine 0.8 mg/dL (0.6-1.0) 0.9 mg/dL (0.6-1.0) Estimated GFR (Cockcroft-Gault) 91.4 79.8 Glucose Level 96 mg/dL (70-99) 194 mg/dL (70-99) Calcium Level 9.7 mg/dL (8.5-10.1) 9.1 mg/dL (8.5-10.1) Total Bilirubin 0.6 mg/dL (0.2-1.0) 0.4 mg/dL (0.2-1.0) Direct Bilirubin 0.1 mg/dL (0.0-0.2) Aspartate Amino Transf (AST/SGOT) 75 U/L (15-37) 26 U/L (15-37) Alanine Aminotransferase (ALT/SGPT) 107 U/L (14-59) 69 U/L (14-59) Alkaline Phosphatase 155 U/L (46-116) 139 U/L (46-116) Total Protein 8.0 g/dL (6.4-8.2) 8.3 g/dL (6.4-8.2) Albumin 3.9 g/dL (3.4-5.0) 3.7 g/dL (3.4-5.0) Lipase 96 U/L (73-393) Procalcitonin < 0.10 ng/mL (0.00-0.10) BUN/Creatinine Ratio 8 (6-20) Albumin/Globulin Ratio 0.8 (1.0-1.7) Laboratory Tests Test 03/23/18 05:45 White Blood Count 21.6 x10^3/uL (4.0-11.0) Red Blood Count 5.03 x10^6/uL (3.50-5.40) Hemoglobin 14.8 g/dL (12.0-15.5) Hematocrit 42.9 % (36.0-47.0) Mean Corpuscular Volume 85 fL (79-100) Mean Corpuscular Hemoglobin 29 pg (25-35) Mean Corpuscular Hemoglobin Concent 34 g/dL (31-37) Red Cell Distribution Width 13.6 % (11.5-14.5) Platelet Count 291 x10^3/uL (140-400) Neutrophils (%) (Auto) 88 % (31-73) Lymphocytes (%) (Auto) 7 % (24-48) Monocytes (%) (Auto) 5 % (0-9) Eosinophils (%) (Auto) 0 % (0-3) Basophils (%) (Auto) 0 % (0-3) Neutrophils # (Auto) 19.1 x10^3uL (1.8-7.7) Lymphocytes # (Auto) 1.5 x10^3/uL (1.0-4.8) Monocytes # (Auto) 1.0 x10^3/uL (0.0-1.1) Eosinophils # (Auto) 0.0 x10^3/uL (0.0-0.7) Basophils # (Auto) 0.0 x10^3/uL (0.0-0.2) Sodium Level 136 mmol/L (136-145) Potassium Level 4.4 mmol/L (3.5-5.1) Chloride Level 102 mmol/L (98-107) Carbon Dioxide Level 23 mmol/L (21-32) Anion Gap 11 (6-14) Blood Urea Nitrogen 7 mg/dL (7-20) Creatinine 0.9 mg/dL (0.6-1.0) Estimated GFR (Cockcroft-Gault) 79.8 BUN/Creatinine Ratio 8 (6-20) Glucose Level 194 mg/dL (70-99) Calcium Level 9.1 mg/dL (8.5-10.1) Total Bilirubin 0.4 mg/dL (0.2-1.0) Aspartate Amino Transf (AST/SGOT) 26 U/L (15-37) Alanine Aminotransferase (ALT/SGPT) 69 U/L (14-59) Alkaline Phosphatase 139 U/L (46-116) Total Protein 8.3 g/dL (6.4-8.2) Albumin 3.7 g/dL (3.4-5.0) Albumin/Globulin Ratio 0.8 (1.0-1.7) Medications Current Medications Albuterol/ Ipratropium (Duoneb) 3 ml 1X ONCE NEB Last administered on at 21:24; Start 03/21/18 at 21:15; Stop 03/21/18 at 21:16; Status DC Sodium Chloride 1,000 ml @ 1,000 mls/hr 1X ONCE IV Last administered on at 21:30; Start 03/21/18 at 21:15; Stop 03/21/18 at 22:14; Status DC Albuterol Sulfate (Ventolin Neb Soln) 10 mg 1X ONCE CONT NEB Last administered on 03/21/18at 22:10; Start 03/21/18 at 22:00; Stop 03/21/18 at 22:01 ; Status DC Dexamethasone Sodium Phosphate (Decadron) 4 mg 1X ONCE IV Last administered on 03/21/18at 22:28; Start 03/21/18 at 22:30; Stop 03/21/18 at 22:31; Status DC Ondansetron HCl (Zofran) 4 mg 1X ONCE IV Last administered on 03/21/18at 22:28 ; Start 03/21/18 at 22:15; Stop 03/21/18 at 22:19; Status DC Lorazepam (Ativan) 0.5 mg 1X ONCE IV Last administered on 03/21/18at 23:07; Start 03/21/18 at 23:15; Stop 03/21/18 at 23:38; Status DC Albuterol Sulfate (Ventolin Neb Soln) 2.5 mg 1X ONCE NEB Last administered on 03/22/18at 00:11; Start 03/22/18 at 00:00; Stop 03/22/18 at 00:03; Status DC Ceftriaxone Sodium 50 ml @ 100 mls/hr 1X ONCE IV Last administered on at 00:22; Start 03/22/18 at 00:00; Stop 03/22/18 at 00:29; Status DC Lorazepam (Ativan) 1 mg 1X ONCE IV Last administered on 03/22/18at 00:23; Start 03/22/18 at 00:00; Stop 03/22/18 at 00:03; Status DC Ondansetron HCl (Zofran) 4 mg PRN Q8HRS PRN IV NAUSEA/VOMITING; Start 03/22/18 at 00:15; Stop 03/22/18 at 08:24; Status DC Sodium Chloride 1,000 ml @ 100 mls/hr Q10H IV Last administered on 03/22/18at 10:18; Start 03/22/18 at 00:15; Stop 03/23/18 at 00:14; Status DC Acetaminophen (Tylenol) 650 mg PRN Q4HRS PRN PO FEVER Last administered on 03/22 02:05; Start 03/22/18 at 00:15; Stop 03/23/18 at 00:14; Status DC Albuterol/ Ipratropium (Duoneb) 3 ml RTQID NEB Last administered on 03/23/18 07:49; Start 03/22/18 at 08:00; Stop 03/23/18 at 07:59; Status DC Azithromycin (Zithromax) 500 mg 1X ONCE PO Last administered on 03/22/18 02: 07; Start 03/22/18 at 00:45; Stop 03/22/18 at 00:46; Status DC Ondansetron HCl (Zofran) 4 mg PRN Q6HRS PRN IV NAUSEA/VOMITING Last administered on 03/22/18at 18:42; Start 03/22/18 at 08:30 Guaifenesin (Robitussin Dm) 10 ml PRN Q6HRS PRN PO COUGH Last administered on 02:07; Start 03/22/18 at 08:30 Diazepam (Valium) 5 mg TID PO Last administered on 03/23/18 08:45; Start 03/22 at 09:00 Ondansetron HCl (Zofran Odt) 4 mg Q8HRS PO Last administered on 03/23/18 05:57 ; Start 03/22/18 at 14:00 Oxycodone/ Acetaminophen (Percocet 5/325) 1 tab TID PO Last administered on 08:45; Start 03/22/18 at 09:00 Pantoprazole Sodium (Protonix) 40 mg DAILYAC PO Last administered on 03/23/18 05:56; Start 03/22/18 at 09:00 Oxycodone HCl (Roxicodone) 10 mg PRN Q4HRS PRN PO BREAKTHRU PAIN Last administered on 03/23/18 06:30; Start 03/22/18 at 08:45 Morphine Sulfate (Morphine Sulfate) 2 mg PRN Q2HR PRN IV PAIN Last administered on 03/23/18 05:44; Start 03/22/18 at 09:30 Methylprednisolone Sodium Succinate (SOLU-Medrol 40MG VIAL) 40 mg Q8HRS IV Last administered on 03/23/18at 05:56; Start 03/22/18 at 14:00 Benzonatate (Tessalon Perle) 100 mg [id number] PO Last administered on 03/23/18at 08 :45; Start 03/22/18 at 10:00 Alprazolam (Xanax) 0.5 mg PRN Q8HRS PRN PO ANXIETY / AGITATION Last administered on 03/22/18at 22:41; Start 03/22/18 at 11:15 Nicotine (Nicoderm Cq 21mg) 1 patch PRN DAILY PRN TD SMOKING CESSATION Last administered on 03/23/18at 08:44; Start 03/22/18 at 11:15 Albuterol Sulfate (Ventolin Neb Soln) 2.5 mg PRN Q4HRS PRN NEB SHORTNESS OF BREATH; Start 03/23/18 at 03:00 Active Scripts Active Macrobid 100 Mg Capsule (Nitrofurantoin Monohyd/M-Cryst) 100 Mg Capsule 100 Mg PO BID 5 Days Proair Hfa Inhaler (Albuterol Sulfate) 8.5 Gm Hfa.aer.ad 1 Puff INH PRN Q6HRS PRN Macrobid 100 Mg Capsule (Nitrofurantoin Monohyd/M-Cryst) 100 Mg Capsule 1 Cap PO BID Augmentin 875-125 Tablet (Amoxicillin/Potassium Clav) 1 Each Tablet 1 Tab PO BID Zofran Odt (Ondansetron) 4 Mg Tab.rapdis 1 Tab SL Q8HRS Valium (Diazepam) 5 Mg Tablet 5 Mg PO TID 5 Days Percocet 5-325 Mg Tablet (Oxycodone/Acetaminophen) 1 Each Tablet 1-2 Tab PO Q4- 6HRS Bactrim Ds Tablet (Sulfamethoxazole/Trimethoprim) 1 Each Tablet 1 Tab PO BID Oxycodone Hcl 10 Mg Tablet 10 Mg PO Q4HRS PRN Reported No Known Medications Prior To Admisstion (Info) Each 1 Each MC Progesterone (Progesterone,Micronized) 200 Mg Capsule Clomiphene Citrate 50 Mg Tablet Omeprazole 40 Mg Capsule. 1 Cap PO DAILY Vitals/I & O Vital Sign - Last 24 Hours 03/22/18 03/22/18 03/22/18 03/22/18 10:21 11:00 11:56 12:02 Pulse 96 Resp 24 B/P (MAP) 142/86 (104) Pulse Ox 93 94 O2 Delivery Room Air Room Air Room Air Room Air 03/22/18 03/22/18 03/22/18 03/22/18 14:24 15:00 15:43 18:41 Temp 97.5 97.5 Pulse 106 Resp 20 B/P (MAP) 170/83 (112) Pulse Ox 94 100 94 O2 Delivery Room Air Room Air Room Air Room Air 03/22/18 03/22/18 03/22/18 03/22/18 19:00 19:44 20:00 20:12 Temp 98.0 98.0 Pulse 111 Resp 20 18 B/P (MAP) 100/72 (81) Pulse Ox 94 96 96 O2 Delivery Room Air Room Air Room Air Room Air 03/22/18 03/22/18 03/22/18 03/22/18 21:04 21:12 22:33 23:00 Temp 97.7 97.7 Pulse 99 Resp 18 18 18 20 B/P (MAP) 110/74 (86) Pulse Ox 96 96 96 94 O2 Delivery Room Air Room Air Room Air Room Air 03/23/18 03/23/18 03/23/18 03/23/18 01:09 02:06 02:09 03:00 Temp 97.4 97.4 Pulse 93 Resp 18 18 18 20 B/P (MAP) 134/96 (109) Pulse Ox 96 96 96 92 O2 Delivery Room Air Room Air Room Air 03/23/18 03/23/18 03/23/18 03/23/18 03:03 05:44 06:14 06:30 Resp 18 18 18 Pulse Ox 92 92 92 O2 Delivery Room Air Room Air Room Air Room Air 03/23/18 03/23/18 03/23/18 03/23/18 07:00 07:51 08:44 08:45 Temp 97.7 97.7 Pulse 95 Resp 20 B/P (MAP) 145/97 (113) Pulse Ox 96 O2 Delivery Room Air Room Air Room Air Room Air Intake and Output 03/22/18 03/22/18 03/23/18 15:00 23:00 07:00 Intake Total 1480 ml 360 ml 1300 ml Output Total 100 ml Balance 1380 ml 360 ml 1300 ml MENDY WARE MD Mar 23, 2018 09:57
[2018-03-23] MEDS: CETIRIZINE HCL 10 MG TABLET. PO SCH (10:30)
[2018-03-23] MEDS: ALPRAZolam 0.5 MG TABLET PO PRN ×2 (10:51→19:19)
[2018-03-23 11:00] VITALS: BP 163/76
[2018-03-23 11:06] LABS: % BANDS 2 % (0-9); % LYMPHS 7 % (24-48); % MONOS 5 % (0-10); % SEGS 86 % (35-66)
[2018-03-23 11:11] LABS: PLT ESTIMATE ADEQUATE (ADEQUATE)
[2018-03-23 15:00] VITALS: BP 136/87
--- NOTE | 2018-03-23 15:03 | PDOC ---
PULMONARY PROGRESS NOTES Subjective Patient complains of continued shortness of breath, not improved. She also complains of pain in back and anxiety worsened by holding most of anxiolytics. No toxic/irritant exposures Vitals Vital Signs Date Time Temp Pulse Resp B/P (MAP) Pulse Ox O2 Delivery O2 Flow Rate FiO2 03/23/18 11:34 97 Room Air 03/23/18 11:00 95.7 109 22 163/76 (105) 95.7 General: Alert, Oriented X4, Mild Distress Lungs: Clear, Wheezing, Other (She is able to talk in full sentances. she does have some inspiratory and airflow turbulence. She has fairly good airflow in lungs with scattered wheezing. no rales.) Cardiovascular: S1, S2 Labs Laboratory Tests Test 03/21/18 21:03 03/21/18 21:07 03/21/18 21:25 03/23/18 05:45 Urine Collection Type Unknown Urine Color Yellow Urine Clarity Clear Urine pH 7.5 Urine Specific [place] 1.015 Urine Protein Negative mg/dL (NEG-TRACE) Urine Glucose (UA) Negative mg/dL (NEG) Urine Ketones (Stick) Negative mg/dL (NEG) Urine Blood Negative (NEG) Urine Nitrite Negative (NEG) Urine Bilirubin Negative (NEG) Urine Urobilinogen Dipstick 0.2 mg/dL (0.2 mg/dL) Urine Leukocyte Esterase Small (NEG) Urine RBC Occ /HPF (0-2) Urine WBC 5-10 /HPF (0-4) Urine Squamous Epithelial Cells Mod /LPF Urine Bacteria Few /HPF (0-FEW) Urine Test Negative (NEG) Bedside Urine HCG, Qualitative Hcg negative (Negative) White Blood Count 9.1 x10^3/uL (4.0-11.0) 21.6 x10^3/uL (4.0-11.0) Red Blood Count 5.25 x10^6/uL (3.50-5.40) 5.03 x10^6/uL (3.50-5.40) Hemoglobin 15.6 g/dL (12.0-15.5) 14.8 g/dL (12.0-15.5) Hematocrit 44.1 % (36.0-47.0) 42.9 % (36.0-47.0) Mean Corpuscular Volume 84 fL (79-100) 85 fL (79-100) Mean Corpuscular Hemoglobin 30 pg (25-35) 29 pg (25-35) Mean Corpuscular Hemoglobin Concent 35 g/dL (31-37) 34 g/dL (31-37) Red Cell Distribution Width 13.1 % (11.5-14.5) 13.6 % (11.5-14.5) Platelet Count 239 x10^3/uL (140-400) 291 x10^3/uL (140-400) Neutrophils (%) (Auto) 74 % (31-73) 88 % (31-73) Lymphocytes (%) (Auto) 18 % (24-48) 7 % (24-48) Monocytes (%) (Auto) 5 % (0-9) 5 % (0-9) Eosinophils (%) (Auto) 3 % (0-3) 0 % (0-3) Basophils (%) (Auto) 0 % (0-3) 0 % (0-3) Neutrophils # (Auto) 6.8 x10^3uL (1.8-7.7) 19.1 x10^3uL (1.8-7.7) Lymphocytes # (Auto) 1.6 x10^3/uL (1.0-4.8) 1.5 x10^3/uL (1.0-4.8) Monocytes # (Auto) 0.5 x10^3/uL (0.0-1.1) 1.0 x10^3/uL (0.0-1.1) Eosinophils # (Auto) 0.2 x10^3/uL (0.0-0.7) 0.0 x10^3/uL (0.0-0.7) Basophils # (Auto) 0.0 x10^3/uL (0.0-0.2) 0.0 x10^3/uL (0.0-0.2) Sodium Level 134 mmol/L (136-145) 136 mmol/L (136-145) Potassium Level 4.0 mmol/L (3.5-5.1) 4.4 mmol/L (3.5-5.1) Chloride Level 101 mmol/L (98-107) 102 mmol/L (98-107) Carbon Dioxide Level 25 mmol/L (21-32) 23 mmol/L (21-32) Anion Gap 8 (6-14) 11 (6-14) Blood Urea Nitrogen 8 mg/dL (7-20) 7 mg/dL (7-20) Creatinine 0.8 mg/dL (0.6-1.0) 0.9 mg/dL (0.6-1.0) Estimated GFR (Cockcroft-Gault) 91.4 79.8 Glucose Level 96 mg/dL (70-99) 194 mg/dL (70-99) Calcium Level 9.7 mg/dL (8.5-10.1) 9.1 mg/dL (8.5-10.1) Total Bilirubin 0.6 mg/dL (0.2-1.0) 0.4 mg/dL (0.2-1.0) Direct Bilirubin 0.1 mg/dL (0.0-0.2) Aspartate Amino Transf (AST/SGOT) 75 U/L (15-37) 26 U/L (15-37) Alanine Aminotransferase (ALT/SGPT) 107 U/L (14-59) 69 U/L (14-59) Alkaline Phosphatase 155 U/L (46-116) 139 U/L (46-116) Total Protein 8.0 g/dL (6.4-8.2) 8.3 g/dL (6.4-8.2) Albumin 3.9 g/dL (3.4-5.0) 3.7 g/dL (3.4-5.0) Lipase 96 U/L (73-393) Procalcitonin < 0.10 ng/mL (0.00-0.10) Segmented Neutrophils % 86 % (35-66) Band Neutrophils % 2 % (0-9) Lymphocytes % 7 % (24-48) Monocytes % 5 % (0-10) Platelet Estimate Adequate (ADEQUATE) BUN/Creatinine Ratio 8 (6-20) Albumin/Globulin Ratio 0.8 (1.0-1.7) Laboratory Tests Test 03/23/18 05:45 White Blood Count 21.6 x10^3/uL (4.0-11.0) Red Blood Count 5.03 x10^6/uL (3.50-5.40) Hemoglobin 14.8 g/dL (12.0-15.5) Hematocrit 42.9 % (36.0-47.0) Mean Corpuscular Volume 85 fL (79-100) Mean Corpuscular Hemoglobin 29 pg (25-35) Mean Corpuscular Hemoglobin Concent 34 g/dL (31-37) Red Cell Distribution Width 13.6 % (11.5-14.5) Platelet Count 291 x10^3/uL (140-400) Neutrophils (%) (Auto) 88 % (31-73) Lymphocytes (%) (Auto) 7 % (24-48) Monocytes (%) (Auto) 5 % (0-9) Eosinophils (%) (Auto) 0 % (0-3) Basophils (%) (Auto) 0 % (0-3) Neutrophils # (Auto) 19.1 x10^3uL (1.8-7.7) Lymphocytes # (Auto) 1.5 x10^3/uL (1.0-4.8) Monocytes # (Auto) 1.0 x10^3/uL (0.0-1.1) Eosinophils # (Auto) 0.0 x10^3/uL (0.0-0.7) Basophils # (Auto) 0.0 x10^3/uL (0.0-0.2) Segmented Neutrophils % 86 % (35-66) Band Neutrophils % 2 % (0-9) Lymphocytes % 7 % (24-48) Monocytes % 5 % (0-10) Platelet Estimate Adequate (ADEQUATE) Sodium Level 136 mmol/L (136-145) Potassium Level 4.4 mmol/L (3.5-5.1) Chloride Level 102 mmol/L (98-107) Carbon Dioxide Level 23 mmol/L (21-32) Anion Gap 11 (6-14) Blood Urea Nitrogen 7 mg/dL (7-20) Creatinine 0.9 mg/dL (0.6-1.0) Estimated GFR (Cockcroft-Gault) 79.8 BUN/Creatinine Ratio 8 (6-20) Glucose Level 194 mg/dL (70-99) Calcium Level 9.1 mg/dL (8.5-10.1) Total Bilirubin 0.4 mg/dL (0.2-1.0) Aspartate Amino Transf (AST/SGOT) 26 U/L (15-37) Alanine Aminotransferase (ALT/SGPT) 69 U/L (14-59) Alkaline Phosphatase 139 U/L (46-116) Total Protein 8.3 g/dL (6.4-8.2) Albumin 3.7 g/dL (3.4-5.0) Albumin/Globulin Ratio 0.8 (1.0-1.7) Medications Active Scripts Medications Dose Route/Sig Max Daily Dose Days Date Category No Known Medications Prior To Admisstion (Info) Each 1 Each MC 03/21/18 Reported Macrobid 100 Mg Capsule (Nitrofurantoin Monohyd/M-Cryst) 100 Mg Capsule 100 Mg PO BID 5 02/24/18 Rx Proair Hfa Inhaler (Albuterol Sulfate) 8.5 Gm Hfa.aer.ad 1 Puff INH PRN Q6HRS PRN 09/29/17 Rx Macrobid 100 Mg Capsule (Nitrofurantoin Monohyd/M-Cryst) 100 Mg Capsule 1 Cap PO BID 09/29/17 Rx Augmentin 875-125 Tablet (Amoxicillin/Potassium Clav) 1 Each Tablet 1 Tab PO BID 06/16/17 Rx Zofran Odt (Ondansetron) 4 Mg Tab.rapdis 1 Tab SL Q8HRS 06/15/17 Rx Valium (Diazepam) 5 Mg Tablet 5 Mg PO TID 5 04/21/17 Rx Percocet 5-325 Mg Tablet (Oxycodone/Acetaminophen) 1 Each Tablet 1-2 Tab PO Q4-6HRS 04/21/17 Rx Bactrim Ds Tablet (Sulfamethoxazole/Trimethoprim) 1 Each Tablet 1 Tab PO BID 12/25/16 Rx Oxycodone Hcl 10 Mg Tablet 10 Mg PO Q4HRS PRN 12/09/16 Rx Progesterone (Progesterone,Micronized) 200 Mg Capsule 10/02/16 Reported Clomiphene Citrate 50 Mg Tablet 10/02/16 Reported Omeprazole 40 Mg Capsule. 1 Cap PO DAILY 04/09/16 Reported Impression . IMPRESSION: 1. Acute asthma exacerbation in a patient who had asthma as a child, but she never had any flare-up since then. This is her first flare-up. This may be triggered by a viral syndrome causing viral bronchitis and GI symptoms. Ongoing smoking is also a trigger. Her chest x-ray does not show any definite consolidation or infiltrates, and CT abdomen with lower sections of the lungs does not show any parenchymal abnormalities either. I also suspect that her back pain and anxiety contribute to her discomfort. She may have component of vocal cord dysfunction contributing. 2. Ongoing tobacco use. 3. Mild hyponatremia. 4. Elevated transaminases, could be related to hypoperfusion. Consider GI evaluation. Plan . 1. From a pulmonary standpoint, I would continue present DuoNebs and Pulmicort nebulizer and monteleukast. 2. Continue IV steroids. 3. Smoking cessation 4. empiric antibiotic. 5. Follow liver function test per PCP or GI. . We will follow along with you. DIA MADERA MD Mar 23, 2018 15:03
[2018-03-23 19:00] VITALS: BP 171/90
[2018-03-23] MEDS: MONTELUKAST SODIUM 10 MG TABLET. PO SCH (20:31)
[2018-03-23 23:00] VITALS: BP 138/90
[2018-03-24 03:00] VITALS: BP 115/58
[2018-03-24] MEDS: MORPHINE SULFATE 2 MG/ML VIAL. IV PRN ×8 (03:48→20:10)
[2018-03-24] MEDS: ALPRAZolam 0.5 MG TABLET PO PRN (03:48)
[2018-03-24] MEDS: guaiFENesin DM 200MG/20MG 10 ML SYRUP PO PRN (03:51)
[2018-03-24] MEDS: ONDANSETRON ODT 4 MG TAB.RAPDIS. PO SCH ×3 (06:38→21:49)
[2018-03-24] MEDS: methylPREDNISolone SOD SUCC PF 40 MG/ML VIAL. IV SCH ×3 (06:40→21:49)
[2018-03-24 07:00] VITALS: BP 116/67
[2018-03-24] MEDS: IPRATRPIUM/ALBUTEROL 0.5/2.5MG 3 ML NEBU. NEB SCH ×3 (07:29→12:22)
[2018-03-24] MEDS: BENZONATATE 100 MG CAPSULE. PO SCH ×3 (09:06→21:49)
[2018-03-24] MEDS: PANTOPRAZOLE 40 MG TABLET.DR. PO SCH (09:06)
[2018-03-24] MEDS: CETIRIZINE HCL 10 MG TABLET. PO SCH (09:06)
--- NOTE | 2018-03-24 10:15 | PDOC ---
PROGRESS NOTES History of Present Illness History of Present Illness Assessment/Plan Assessment/Plan Likely asthma exacerbation Abdominal pain right upper quadrant area, History cholecystectomy 1 year ago History of appendectomy Morbid obesity, BMI 39 Narcotic dependence Multiple drug allergies HEPATIC STEATOSIS Plan: CT CHEST IV steroids cont IV morphine STOP OTHER NARCOTICS Liquid diet pulmonary consult Nicotine patch when necessary Check a limited upper abdominal ultrasound C/W FATTY LIVER LIMIT NARCOTICS, TAPER Discussed with her and RN, DOES NOT APPEAR IN DISTRESS UNTIL I ENTERED ROOM GI CONSULTED CT CHEST TAPER NARCOTICS, VALIUM Vitals Vitals Vital Signs Date Time Temp Pulse Resp B/P (MAP) Pulse Ox O2 Delivery O2 Flow Rate FiO2 03/24/18 07:34 95 Room Air 03/24/18 07:00 97.9 95 18 116/67 (83) 97.9 Physical Exam General: Alert, Oriented X3, Cooperative, mild distress, Other (coughing when speaking in phrases with me) Heart: Regular rate, Normal S1, Normal S2 Lungs: Clear, Wheezing, Other (She is able to talk in full sentances. she does have some inspiratory and airflow turbulence. She has fairly good airflow in lungs with scattered wheezing. no rales.) Abdomen: Normal bowel sounds, Soft, No tenderness, No hepatosplenomegaly, No masses Extremities: No clubbing, No cyanosis, No edema, Normal pulses, No tenderness/ swelling Skin: No rashes, No breakdown, No significant lesion Labs LABS Abdominal and Pelvis CT, Without Contrast: History: Right upper quadrant pain with nausea and vomiting Comparison: None. Procedure: Axial images are obtained of the abdomen and pelvis, without IV or oral contrast. CT Abdomen without Contrast: Findings: Evaluation of solid organs is limited without contrast. Evaluation of stomach and bowel is limited without oral contrast. There is beam Rashid artifact due to Chawla rods from prior fusion of the thoracolumbar spine. There has been prior cholecystectomy and appendectomy. Liver: Normal. Spleen: Normal. Pancreas: Normal. Adrenal Glands: Normal. Kidneys: Normal. There is no free air or free fluid. There is no lymphadenopathy. Impression: Please see CT Pelvis without Contrast. End Impression. CT Pelvis without Contrast: Findings: The urinary bladder appears normal. There is no free fluid. There is no lymphadenopathy. There is no pericolonic inflammation identified. Impression: No acute findings. End impression PQRS Compliance Statement: One or more of the following individualized dose reduction techniques were utilized for this examination: 1. Automated exposure control 2. Adjustment of the mA and/or kV according to patient size 3. Use of iterative reconstruction technique Electronically signed by: Luis Manuel Andrea III, MD (03/22/2018 12:20 AM) [facility] Assessment and Plan Assessmemt and Plan Problems Medical Problems: (1) Pneumonia Status: Acute (2) Wheezing Status: Acute Comment Review of Relevant I have reviewed the following items leticia (where applicable) has been applied. Labs Laboratory Tests Test 03/23/18 05:45 White Blood Count 21.6 x10^3/uL (4.0-11.0) Red Blood Count 5.03 x10^6/uL (3.50-5.40) Hemoglobin 14.8 g/dL (12.0-15.5) Hematocrit 42.9 % (36.0-47.0) Mean Corpuscular Volume 85 fL (79-100) Mean Corpuscular Hemoglobin 29 pg (25-35) Mean Corpuscular Hemoglobin Concent 34 g/dL (31-37) Red Cell Distribution Width 13.6 % (11.5-14.5) Platelet Count 291 x10^3/uL (140-400) Neutrophils (%) (Auto) 88 % (31-73) Lymphocytes (%) (Auto) 7 % (24-48) Monocytes (%) (Auto) 5 % (0-9) Eosinophils (%) (Auto) 0 % (0-3) Basophils (%) (Auto) 0 % (0-3) Neutrophils # (Auto) 19.1 x10^3uL (1.8-7.7) Lymphocytes # (Auto) 1.5 x10^3/uL (1.0-4.8) Monocytes # (Auto) 1.0 x10^3/uL (0.0-1.1) Eosinophils # (Auto) 0.0 x10^3/uL (0.0-0.7) Basophils # (Auto) 0.0 x10^3/uL (0.0-0.2) Segmented Neutrophils % 86 % (35-66) Band Neutrophils % 2 % (0-9) Lymphocytes % 7 % (24-48) Monocytes % 5 % (0-10) Platelet Estimate Adequate (ADEQUATE) Sodium Level 136 mmol/L (136-145) Potassium Level 4.4 mmol/L (3.5-5.1) Chloride Level 102 mmol/L (98-107) Carbon Dioxide Level 23 mmol/L (21-32) Anion Gap 11 (6-14) Blood Urea Nitrogen 7 mg/dL (7-20) Creatinine 0.9 mg/dL (0.6-1.0) Estimated GFR (Cockcroft-Gault) 79.8 BUN/Creatinine Ratio 8 (6-20) Glucose Level 194 mg/dL (70-99) Calcium Level 9.1 mg/dL (8.5-10.1) Total Bilirubin 0.4 mg/dL (0.2-1.0) Aspartate Amino Transf (AST/SGOT) 26 U/L (15-37) Alanine Aminotransferase (ALT/SGPT) 69 U/L (14-59) Alkaline Phosphatase 139 U/L (46-116) Total Protein 8.3 g/dL (6.4-8.2) Albumin 3.7 g/dL (3.4-5.0) Albumin/Globulin Ratio 0.8 (1.0-1.7) Medications Current Medications Albuterol/ Ipratropium (Duoneb) 3 ml 1X ONCE NEB Last administered on at 21:24; Start 03/21/18 at 21:15; Stop 03/21/18 at 21:16; Status DC Sodium Chloride 1,000 ml @ 1,000 mls/hr 1X ONCE IV Last administered on at 21:30; Start 03/21/18 at 21:15; Stop 03/21/18 at 22:14; Status DC Albuterol Sulfate (Ventolin Neb Soln) 10 mg 1X ONCE CONT NEB Last administered on 03/21/18at 22:10; Start 03/21/18 at 22:00; Stop 03/21/18 at 22:01 ; Status DC Dexamethasone Sodium Phosphate (Decadron) 4 mg 1X ONCE IV Last administered on 03/21/18at 22:28; Start 03/21/18 at 22:30; Stop 03/21/18 at 22:31; Status DC Ondansetron HCl (Zofran) 4 mg 1X ONCE IV Last administered on 03/21/18at 22:28 ; Start 03/21/18 at 22:15; Stop 03/21/18 at 22:19; Status DC Lorazepam (Ativan) 0.5 mg 1X ONCE IV Last administered on 03/21/18at 23:07; Start 03/21/18 at 23:15; Stop 03/21/18 at 23:38; Status DC Albuterol Sulfate (Ventolin Neb Soln) 2.5 mg 1X ONCE NEB Last administered on 03/22/18at 00:11; Start 03/22/18 at 00:00; Stop 03/22/18 at 00:03; Status DC Ceftriaxone Sodium 50 ml @ 100 mls/hr 1X ONCE IV Last administered on at 00:22; Start 03/22/18 at 00:00; Stop 03/22/18 at 00:29; Status DC Lorazepam (Ativan) 1 mg 1X ONCE IV Last administered on 03/22/18at 00:23; Start 03/22/18 at 00:00; Stop 03/22/18 at 00:03; Status DC Ondansetron HCl (Zofran) 4 mg PRN Q8HRS PRN IV NAUSEA/VOMITING; Start 03/22/18 at 00:15; Stop 03/22/18 at 08:24; Status DC Sodium Chloride 1,000 ml @ 100 mls/hr Q10H IV Last administered on 03/22/18at 10:18; Start 03/22/18 at 00:15; Stop 03/23/18 at 00:14; Status DC Acetaminophen (Tylenol) 650 mg PRN Q4HRS PRN PO FEVER Last administered on 03/22at 02:05; Start 03/22/18 at 00:15; Stop 03/23/18 at 00:14; Status DC Albuterol/ Ipratropium (Duoneb) 3 ml RTQID NEB Last administered on 03/23/18at 07:49; Start 03/22/18 at 08:00; Stop 03/23/18 at 07:59; Status DC Azithromycin (Zithromax) 500 mg 1X ONCE PO Last administered on 03/22/18at 02: 07; Start 03/22/18 at 00:45; Stop 03/22/18 at 00:46; Status DC Ondansetron HCl (Zofran) 4 mg PRN Q6HRS PRN IV NAUSEA/VOMITING Last administered on 03/22/18 18:42; Start 03/22/18 at 08:30 Guaifenesin (Robitussin Dm) 10 ml PRN Q6HRS PRN PO COUGH Last administered on 03:51; Start 03/22/18 at 08:30 Diazepam (Valium) 5 mg TID PO Last administered on 03/23/18 08:45; Start 03/22 at 09:00; Stop 03/23/18 at 14:20; Status DC Ondansetron HCl (Zofran Odt) 4 mg Q8HRS PO Last administered on 03/24/18 06:38 ; Start 03/22/18 at 14:00 Oxycodone/ Acetaminophen (Percocet 5/325) 1 tab TID PO Last administered on 08:45; Start 03/22/18 at 09:00; Stop 03/23/18 at 14:20; Status DC Pantoprazole Sodium (Protonix) 40 mg DAILYAC PO Last administered on 03/24/18 09:06; Start 03/22/18 at 09:00 Oxycodone HCl (Roxicodone) 10 mg PRN Q4HRS PRN PO BREAKTHRU PAIN Last administered on 03/23/18 06:30; Start 03/22/18 at 08:45; Stop 03/23/18 at 14:20 ; Status DC Morphine Sulfate (Morphine Sulfate) 2 mg PRN Q2HR PRN IV PAIN Last administered on 03/24/18 09:13; Start 03/22/18 at 09:30 Methylprednisolone Sodium Succinate (SOLU-Medrol 40MG VIAL) 40 mg Q8HRS IV Last administered on 03/24/18 06:40; Start 03/22/18 at 14:00 Benzonatate (Tessalon Perle) 100 mg [id number] PO Last administered on 03/24/18 09 :06; Start 03/22/18 at 10:00 Alprazolam (Xanax) 0.5 mg PRN Q8HRS PRN PO ANXIETY / AGITATION Last administered on 03/24/18 03:48; Start 03/22/18 at 11:15 Nicotine (Nicoderm Cq 21mg) 1 patch PRN DAILY PRN TD SMOKING CESSATION Last administered on 8/15/18at 08:44; Start 03/22/18 at 11:15 Albuterol Sulfate (Ventolin Neb Soln) 2.5 mg PRN Q4HRS PRN NEB SHORTNESS OF BREATH Last administered on 03/23/18at 23:46; Start 03/23/18 at 03:00 Cetirizine HCl (ZyrTEC) 10 mg DAILY PO Last administered on 03/24/18 09:06; Start 03/23/18 at 10:30 Montelukast Sodium (Singulair) 10 mg QHS PO Last administered on 03/23/18at 20: 31; Start 03/23/18 at 21:00 Albuterol/ Ipratropium (Duoneb) 3 ml RTQID NEB Last administered on 03/24/18at 07:32; Start 03/23/18 at 16:00 Active Scripts Active Macrobid 100 Mg Capsule (Nitrofurantoin Monohyd/M-Cryst) 100 Mg Capsule 100 Mg PO BID 5 Days Proair Hfa Inhaler (Albuterol Sulfate) 8.5 Gm Hfa.aer.ad 1 Puff INH PRN Q6HRS PRN Macrobid 100 Mg Capsule (Nitrofurantoin Monohyd/M-Cryst) 100 Mg Capsule 1 Cap PO BID Augmentin 875-125 Tablet (Amoxicillin/Potassium Clav) 1 Each Tablet 1 Tab PO BID Zofran Odt (Ondansetron) 4 Mg Tab.rapdis 1 Tab SL Q8HRS Valium (Diazepam) 5 Mg Tablet 5 Mg PO TID 5 Days Percocet 5-325 Mg Tablet (Oxycodone/Acetaminophen) 1 Each Tablet 1-2 Tab PO Q4- 6HRS Bactrim Ds Tablet (Sulfamethoxazole/Trimethoprim) 1 Each Tablet 1 Tab PO BID Oxycodone Hcl 10 Mg Tablet 10 Mg PO Q4HRS PRN Reported No Known Medications Prior To Admisstion (Info) Each 1 Each MC Progesterone (Progesterone,Micronized) 200 Mg Capsule Clomiphene Citrate 50 Mg Tablet Omeprazole 40 Mg Capsule.dr 1 Cap PO DAILY Vitals/I & O Vital Sign - Last 24 Hours 03/23/18 03/23/18 03/23/18 03/23/18 10:31 10:36 11:00 11:34 Temp 95.7 95.7 Pulse 109 Resp 22 B/P (MAP) 163/76 (105) Pulse Ox 95 97 O2 Delivery Room Air Room Air Room Air Room Air 03/23/18 03/23/18 03/23/18 03/23/18 14:40 15:00 15:50 17:58 Temp 97.5 97.5 Pulse 121 Resp 16 B/P (MAP) 136/87 (103) Pulse Ox 97 97 O2 Delivery Room Air Room Air Room Air Room Air 03/23/18 03/23/18 03/23/18 03/23/18 19:00 19:52 20:00 20:31 Temp 98.1 98.1 Pulse 91 Resp 18 B/P (MAP) 171/90 (117) Pulse Ox 94 97 97 O2 Delivery Room Air Room Air Room Air Room Air 03/23/18 03/23/18 03/23/18 03/24/18 23:00 23:43 23:47 00:13 Temp 97.9 97.9 Pulse 104 Resp 17 B/P (MAP) 138/90 (106) Pulse Ox 97 97 98 O2 Delivery Room Air Room Air Room Air Room Air 03/24/18 03/24/18 03/24/18 03/24/18 03:00 03:48 06:41 07:00 Temp 97.9 97.9 97.9 97.9 Pulse 91 95 Resp 19 18 B/P (MAP) 115/58 (77) 116/67 (83) Pulse Ox 92 98 98 93 O2 Delivery Room Air Room Air Room Air Room Air 03/24/18 07:34 Pulse Ox 95 O2 Delivery Room Air Intake and Output 03/23/18 03/23/18 03/24/18 15:00 23:00 07:00 Intake Total 580 ml Balance 580 ml MENDY WARE MD Mar 24, 2018 10:15
[2018-03-24 11:00] VITALS: BP 145/95
--- NOTE | 2018-03-24 11:00 | PDOC ---
PULMONARY PROGRESS NOTES Subjective Patient complains of continued shortness of breath, not improved. She also complains of pain in back and anxiety worsened by holding most of anxiolytics. No toxic/irritant exposures Vitals Vital Signs Date Time Temp Pulse Resp B/P (MAP) Pulse Ox O2 Delivery O2 Flow Rate FiO2 03/24/18 07:34 95 Room Air 03/24/18 07:00 97.9 95 18 116/67 (83) 97.9 General: Alert, Oriented X4, Mild Distress Lungs: Wheezing (faint) Cardiovascular: S1, S2 Abdomen: Soft Neuro Exam: Alert Extremities: No Edema Skin: Warm Labs Laboratory Tests Test 03/23/18 05:45 White Blood Count 21.6 x10^3/uL (4.0-11.0) Red Blood Count 5.03 x10^6/uL (3.50-5.40) Hemoglobin 14.8 g/dL (12.0-15.5) Hematocrit 42.9 % (36.0-47.0) Mean Corpuscular Volume 85 fL (79-100) Mean Corpuscular Hemoglobin 29 pg (25-35) Mean Corpuscular Hemoglobin Concent 34 g/dL (31-37) Red Cell Distribution Width 13.6 % (11.5-14.5) Platelet Count 291 x10^3/uL (140-400) Neutrophils (%) (Auto) 88 % (31-73) Lymphocytes (%) (Auto) 7 % (24-48) Monocytes (%) (Auto) 5 % (0-9) Eosinophils (%) (Auto) 0 % (0-3) Basophils (%) (Auto) 0 % (0-3) Neutrophils # (Auto) 19.1 x10^3uL (1.8-7.7) Lymphocytes # (Auto) 1.5 x10^3/uL (1.0-4.8) Monocytes # (Auto) 1.0 x10^3/uL (0.0-1.1) Eosinophils # (Auto) 0.0 x10^3/uL (0.0-0.7) Basophils # (Auto) 0.0 x10^3/uL (0.0-0.2) Segmented Neutrophils % 86 % (35-66) Band Neutrophils % 2 % (0-9) Lymphocytes % 7 % (24-48) Monocytes % 5 % (0-10) Platelet Estimate Adequate (ADEQUATE) Sodium Level 136 mmol/L (136-145) Potassium Level 4.4 mmol/L (3.5-5.1) Chloride Level 102 mmol/L (98-107) Carbon Dioxide Level 23 mmol/L (21-32) Anion Gap 11 (6-14) Blood Urea Nitrogen 7 mg/dL (7-20) Creatinine 0.9 mg/dL (0.6-1.0) Estimated GFR (Cockcroft-Gault) 79.8 BUN/Creatinine Ratio 8 (6-20) Glucose Level 194 mg/dL (70-99) Calcium Level 9.1 mg/dL (8.5-10.1) Total Bilirubin 0.4 mg/dL (0.2-1.0) Aspartate Amino Transf (AST/SGOT) 26 U/L (15-37) Alanine Aminotransferase (ALT/SGPT) 69 U/L (14-59) Alkaline Phosphatase 139 U/L (46-116) Total Protein 8.3 g/dL (6.4-8.2) Albumin 3.7 g/dL (3.4-5.0) Albumin/Globulin Ratio 0.8 (1.0-1.7) Medications Active Scripts Medications Dose Route/Sig Max Daily Dose Days Date Category No Known Medications Prior To Admisstion (Info) Each 1 Each 03/21/18 Reported Macrobid 100 Mg Capsule (Nitrofurantoin Monohyd/M-Cryst) 100 Mg Capsule 100 Mg PO BID 5 02/24/18 Rx Proair Hfa Inhaler (Albuterol Sulfate) 8.5 Gm Hfa.aer.ad 1 Puff INH PRN Q6HRS PRN 09/29/17 Rx Macrobid 100 Mg Capsule (Nitrofurantoin Monohyd/M-Cryst) 100 Mg Capsule 1 Cap PO BID 09/29/17 Rx Augmentin 875-125 Tablet (Amoxicillin/Potassium Clav) 1 Each Tablet 1 Tab PO BID 06/16/17 Rx Zofran Odt (Ondansetron) 4 Mg Tab.rapdis 1 Tab SL Q8HRS 06/15/17 Rx Valium (Diazepam) 5 Mg Tablet 5 Mg PO TID 5 04/21/17 Rx Percocet 5-325 Mg Tablet (Oxycodone/Acetaminophen) 1 Each Tablet 1-2 Tab PO Q4-6HRS 04/21/17 Rx Bactrim Ds Tablet (Sulfamethoxazole/Trimethoprim) 1 Each Tablet 1 Tab PO BID 12/25/16 Rx Oxycodone Hcl 10 Mg Tablet 10 Mg PO Q4HRS PRN 12/09/16 Rx Progesterone (Progesterone,Micronized) 200 Mg Capsule 10/02/16 Reported Clomiphene Citrate 50 Mg Tablet 10/02/16 Reported Omeprazole 40 Mg Capsule. 1 Cap PO DAILY 04/09/16 Reported Impression . IMPRESSION: 1. Acute asthma exacerbation in a patient who had asthma as a child, but she never had any flare-up since then. This is her first flare-up. This may be triggered by a viral syndrome causing viral bronchitis and GI symptoms. Ongoing smoking is also a trigger. Her chest x-ray does not show any definite consolidation or infiltrates, and CT abdomen with lower sections of the lungs does not show any parenchymal abnormalities either. I also suspect that her back pain and anxiety contribute to her discomfort. She may have component of vocal cord dysfunction contributing. 2. Ongoing tobacco use. 3. Mild hyponatremia. 4. Elevated transaminases, could be related to hypoperfusion. Consider GI evaluation. Plan . 1. From a pulmonary standpoint, I would continue present DuoNebs and Pulmicort nebulizer and monteleukast. 2. Continue IV steroids. 3. Smoking cessation 4. empiric antibiotic. 5. Follow liver function test per PCP or GI. . We will follow along with you. 6. Pain control per PCP KATHIE CARD MD Mar 24, 2018 11:00
[2018-03-24 11:52] LABS: BASO % 0 % (0-3); EOS % 0 % (0-3); HEMATOCRIT 41.7 % (36.0-47.0); HEMOGLOBIN 14.2 g/dL (12.0-15.5); LYMPH # 1.5 x10^3/uL (1.0-4.8); LYMPH % 8 % (24-48); MEAN CORPUSCULAR HEMOGLOBIN 29 pg (25-35); MEAN CORPUSCULAR HGB CONC 34 g/dL (31-37); MEAN CORPUSCULAR VOLUME 86 fL (79-100); MONO # 0.6 x10^3/uL (0.0-1.1); MONO % 3 % (0-9); NEUT # 17.5 x10^3uL (1.8-7.7); NEUT % 89 % (31-73); PLATELET COUNT 277 x10^3/uL (140-400); RED BLOOD COUNT 4.84 x10^6/uL (3.50-5.40); RED CELL DISTRIBUTION WIDTH 13.5 % (11.5-14.5); WHITE BLOOD COUNT 19.6 x10^3/uL (4.0-11.0)
[2018-03-24 12:11] LABS: ALBUMIN 3.5 g/dL (3.4-5.0); ALBUMIN/GLOBULIN RATIO 0.9 (1.0-1.7); CALCIUM 8.6 mg/dL (8.5-10.1); CREATININE 0.8 mg/dL (0.6-1.0); GFR 91.4; POTASSIUM 3.9 mmol/L (3.5-5.1); TOTAL BILIRUBIN 0.3 mg/dL (0.2-1.0); TOTAL PROTEIN 7.6 g/dL (6.4-8.2)
[2018-03-24] MEDS: BUDESONIDE 0.5 MG/2 ML NEBU. NEB SCH ×2 (12:19→19:56)
--- NOTE | 2018-03-24 12:47 | RAD ---
CLINICAL HISTORY: WHEEZING H/O ASTHMA PREV BACK SURGERIES NO CONTRAST NO PREV . COMPARISON: CT abdomen and pelvis 03/21/2018 TECHNIQUE: CT of the chest without intravenous contrast. Coronal and sagittal reformatted images were generated. ---PQRS compliance statement - One or more of the following individualized dose reduction techniques were utilized for this study: 1. Automated exposure control 2. Adjustment of the mA and/or kV according to patient size 3. Use of iterative reconstruction technique--- FINDINGS: Lack of intravenous contrast limits evaluation of solid organs, vasculature, and lymph nodes. The heart is not enlarged. No pericardial effusion. No thoracic lymphadenopathy. Prominent anterior mediastinal soft tissue likely residual thymus. No pleural effusion or pneumothorax. No focal parenchymal airspace opacity. Central airways are patent. Cholecystectomy clips are seen. Small splenule is noted. Spinal fusion changes are partially profiled resulting in streak artifact. No definite aggressive osseous lesion is seen. IMPRESSION: 1. No focal parenchymal airspace opacity is identified. 2. Anterior mediastinal soft tissue density likely residual thymus. 3. There has been a cholecystectomy. Electronically signed by: Chris Ramos MD (03/24/2018 12:43 PM) [facility]
--- NOTE | 2018-03-24 12:56 | PDOC2 ---
GI CONSULT Reason For Consult: Hepatic steatosis HPI: HPI: 22 y/o female admitted w/ asthma exacerbation. GI asked to see re: hepatic steatosis on imaging. History of this along with history of elevated LFTs which are actually normal today except for Alk Phos 128. In the past, negative Hepatitis serologies, negative HUEY, and normal ceruloplasmin. BMI 39.4, h/o pre -diabetes, not sure about cholesterol. S/p cholecystectomy (biliary dyskinesia) . Denies alcohol use. With coughing, has had upper abdominal discomfort. Also sometimes coughs so hard she gags and throws up her food, appetite has been less as a result. H/o GERD controlled w/ omeprazole 40mg QD before breakfast. No dysphagia. Chronic diarrhea, worse after cholecystectomy, and probably also worse within the past several months. Says related to eating ("I can take 4 bites of food at a restaurant and then I have to go to the restroom") but also can occur during the night. Typically watery and yellow, rarely formed. Associated w/ intense lower abdominal cramping and sweating which usually resolves after stooling but not always. "I can just watch my stomach crunch up!" Says types of food do not make a difference. In the past has tried antibiotics, Pepto-Bismol, Imodium , Bentyl, and Colestid (thinks tried QD x 90 days after we saw in 2017) - all ineffective. Hasn't stooled today. Denies hematemesis, hematochezia, and melena. Weight fluctuates. She has concern about "celiac or IBS or some polyps." She also is still bothered with a lump on her right side - she thinks this could contribute to abnormal liver testing. Apparently tried trigger point injection in the past, ineffective. EGD and colonoscopy 04/2017: normal w/ random biopsies negative for H. pylori, celiac, and microscopic colitis. GES 06/2017: normal. Reviewed nursing notes - no witnessed emesis, apparently snacking a lot. Reviewed w/ RN - she also has not witnessed emesis but pt told her she vomits every 1-2 hours. The patient also told the nurse that she has diarrhea "01/03" - no witnessed stools today. RN says potential DC today. PMH: PMH: asthma, PCOS, UTI, anxiety, ADHD, cholecystectomy, appendectomy, tonsillectomy, pilonidal cyst removal, spinal fusion, left elbow surgery FH: Family History: DM Social History: Smoke: <1 pack per day ALCOHOL: rare Drugs: None ROS: GEN: Denies fevers, chills, sweats HEENT: Denies blurred vision, sore throat CV: Denies chest pain RESP: +wheezing +cough GI: Per HPI : Denies hematuria, dysuria ENDO: fluctuating weight NEURO: Denies confusion, dizziness MSK: Denies weakness, joint pain/swelling SKIN: Denies jaundice, pruritus Vitals: Vitals: Vital Signs Date Time Temp Pulse Resp B/P (MAP) Pulse Ox O2 Delivery O2 Flow Rate FiO2 03/24/18 12:20 Room Air 03/24/18 07:34 95 03/24/18 07:00 97.9 95 18 116/67 (83) 97.9 Labs: Labs: Laboratory Tests Test 03/24/18 11:00 White Blood Count 19.6 x10^3/uL (4.0-11.0) Red Blood Count 4.84 x10^6/uL (3.50-5.40) Hemoglobin 14.2 g/dL (12.0-15.5) Hematocrit 41.7 % (36.0-47.0) Mean Corpuscular Volume 86 fL (79-100) Mean Corpuscular Hemoglobin 29 pg (25-35) Mean Corpuscular Hemoglobin Concent 34 g/dL (31-37) Red Cell Distribution Width 13.5 % (11.5-14.5) Platelet Count 277 x10^3/uL (140-400) Neutrophils (%) (Auto) 89 % (31-73) Lymphocytes (%) (Auto) 8 % (24-48) Monocytes (%) (Auto) 3 % (0-9) Eosinophils (%) (Auto) 0 % (0-3) Basophils (%) (Auto) 0 % (0-3) Neutrophils # (Auto) 17.5 x10^3uL (1.8-7.7) Lymphocytes # (Auto) 1.5 x10^3/uL (1.0-4.8) Monocytes # (Auto) 0.6 x10^3/uL (0.0-1.1) Eosinophils # (Auto) 0.0 x10^3/uL (0.0-0.7) Basophils # (Auto) 0.0 x10^3/uL (0.0-0.2) Sodium Level 134 mmol/L (136-145) Potassium Level 3.9 mmol/L (3.5-5.1) Chloride Level 102 mmol/L (98-107) Carbon Dioxide Level 26 mmol/L (21-32) Anion Gap 6 (6-14) Blood Urea Nitrogen 14 mg/dL (7-20) Creatinine 0.8 mg/dL (0.6-1.0) Estimated GFR (Cockcroft-Gault) 91.4 BUN/Creatinine Ratio 18 (6-20) Glucose Level 219 mg/dL (70-99) Calcium Level 8.6 mg/dL (8.5-10.1) Total Bilirubin 0.3 mg/dL (0.2-1.0) Aspartate Amino Transf (AST/SGOT) 24 U/L (15-37) Alanine Aminotransferase (ALT/SGPT) 58 U/L (14-59) Alkaline Phosphatase 128 U/L (46-116) Total Protein 7.6 g/dL (6.4-8.2) Albumin 3.5 g/dL (3.4-5.0) Albumin/Globulin Ratio 0.9 (1.0-1.7) Allergies: Coded Allergies: Fish Containing Products (Verified Allergy, Intermediate, Rash, 12/09/16) IV DYE coconut oil (Verified Allergy, Intermediate, 12/09/16) iodine (Verified Allergy, Intermediate, Rash, 12/09/16) ketorolac (Verified Allergy, Intermediate, Rash, 12/09/16) latex (Verified Allergy, Intermediate, Rash, 12/07/16) mold (Verified Allergy, Intermediate, 02/24/18) morphine (Verified Allergy, Intermediate, "makes me crazy", 03/23/18) TOLERATES MORPHINE tramadol (Verified Allergy, Intermediate, RASH/ITCHING, 12/07/16) fentanyl (Verified Allergy, Mild, ANXIETY ATTACK, 03/24/18) prednisone (Verified Allergy, Mild, N/V, 03/24/18) shellfish derived (Verified Adverse Reaction, Intermediate, 12/07/16) Uncoded Allergies: INSECT BITES,DUST MITES (Allergy, Unknown, 04/08/16) Medications: Current Medications Medications (Trade) Dose Ordered Sig/Kaelyn Route PRN Reason Start Time Stop Time Status Last Admin Dose Admin Montelukast Sodium (Singulair) 10 mg QHS PO 03/23/18 21:00 03/23/18 20:31 Albuterol/ Ipratropium (Duoneb) 3 ml RTQID NEB 03/23/18 16:00 03/24/18 07:32 Budesonide (Pulmicort) 0.5 mg RTBID NEB 03/24/18 11:00 03/24/18 12:19 Imaging: Imaging: CXR 03/21/18 IMPRESSION: Low lung volumes. No other acute cardiopulmonary process is identified. CT A/P w/o contrast There is beam Rashid artifact due to Chawla rods from prior fusion of the thoracolumbar spine. There has been prior cholecystectomy and appendectomy. Liver: Normal. Spleen: Normal. Pancreas: Normal. Adrenal Glands: Normal. Kidneys: Normal. There is no free air or free fluid. There is no lymphadenopathy. The urinary bladder appears normal. There is no free fluid. There is no lymphadenopathy. There is no pericolonic inflammation identified. Impression: No acute findings. Abd US 03/22/18 The gallbladder is not visualized consistent with a cholecystectomy. The common bile duct measures 5 mm in diameter which is within normal limits. No choledocholithiasis is seen. The liver is normal in size measuring 14.6cm in length. Increased echogenicity of the liver parenchyma is seen consistent with mild fatty infiltration. No focal abnormality of the liver is noted. The pancreas is not well-visualized due to the patient's body habitus and overlying bowel gas. The right kidney is within normal limits. No free fluid is seen. IMPRESSION: 1. Post cholecystectomy. 2. Fatty infiltration of the liver. Head CT Impression: No acute findings. Chest CT 03/24/18 PENDING PE: GEN: was resting HEENT: Atraumatic, PERRL LUNGS: loud wheezing and dry coughing HEART: RRR ABD: BS quiet but present, overweight, tender RUQ and LUQ - seems muscular, lump right subcostal/flank tender EXTREMITY: No edema SKIN: No rashes, no jaundice NEURO/PSYCH: A & O 3 A/P: A/P: Asthma exacerbation Hepatic steatosis, elevated LFTs (better than usual) GERD - controlled w/ PPI, normal EGD 04/2017 IBS-D S/p cholecystectomy CRC screen - normal colonoscopy 04/2017 -- Chronic GI issues w/ past workup and treatment per HPI. Unreliable historian. Abd pain in part probably musculoskeletal from coughing. Continue PPI for GERD. Her biggest concern today is diarrhea. Will review any new ideas w/ Dr. Espinosa. ?retry Colestid ?Viberzi (but no stools charted here...) Lifestyle changes/weight loss re: hepatic steatosis. KIMBERLI CORLEY Mar 24, 2018 12:56
[2018-03-24 15:00] VITALS: BP 130/72
[2018-03-24] MEDS: IPRATROPIUM BROMIDE 0.5 MG/2.5 ML NEBU. NEB SCH ×2 (15:27→19:56)
[2018-03-24] MEDS: LEVALBUTEROL 1.25 MG/0.5 ML NEBU. NEB SCH ×2 (15:27→19:56)
[2018-03-24] MEDS ORDERED: LIDOCAINE (700MG/PATCH) PATCH. TD SCH (18:00)
[2018-03-24 19:00] VITALS: BP 136/76
[2018-03-24 19:12] LABS: BILIRUBIN,URINE NEGATIVE (NEG); CLARITY,URINE CLEAR; COLOR,URINE YELLOW; NITRITE,URINE NEGATIVE (NEG); PH,URINE 6.5; PROTEIN,URINE NEGATIVE (NEG-TRACE); UROBILINOGEN,URINE 0.2 mg/dL (0.2 mg/dL)
[2018-03-24 19:25] LABS: RBC,URINE 0 /HPF (0-2)
[2018-03-24 19:26] LABS: BACTERIA,URINE MODERATE /HPF (0-FEW); SQUAMOUS EPITHELIAL CELL,UR MOD /LPF
[2018-03-24] MEDS: MONTELUKAST SODIUM 10 MG TABLET. PO SCH (21:49)
[2018-03-24 23:00] VITALS: BP 146/85
[2018-03-24] MEDS ORDERED: MORPHINE SULFATE 10 MG/ML VIAL. IV ONE (23:00)
[2018-03-25] MEDS: MORPHINE SULFATE 2 MG/ML VIAL. IV PRN ×4 (02:28→10:30)
[2018-03-25] MEDS: ALPRAZolam 0.5 MG TABLET PO PRN ×2 (02:28→10:30)
[2018-03-25 03:06] VITALS: BP 115/77
[2018-03-25] MEDS ORDERED: PATCH REMOVAL. MC SCH (06:00)
[2018-03-25] MEDS: ONDANSETRON ODT 4 MG TAB.RAPDIS. PO SCH (06:33)
[2018-03-25] MEDS: methylPREDNISolone SOD SUCC PF 40 MG/ML VIAL. IV SCH (06:34)
[2018-03-25 07:00] VITALS: BP 104/63
[2018-03-25] MEDS: BUDESONIDE 0.5 MG/2 ML NEBU. NEB SCH (07:46)
[2018-03-25] MEDS: LEVALBUTEROL 1.25 MG/0.5 ML NEBU. NEB SCH ×2 (07:46→12:00)
[2018-03-25] MEDS: IPRATROPIUM BROMIDE 0.5 MG/2.5 ML NEBU. NEB SCH ×2 (07:46→12:00)
[2018-03-25] MEDS: CETIRIZINE HCL 10 MG TABLET. PO SCH (07:58)
[2018-03-25] MEDS: PANTOPRAZOLE 40 MG TABLET.DR. PO SCH (07:58)
[2018-03-25] MEDS: BENZONATATE 100 MG CAPSULE. PO SCH (08:07)
[2018-03-25 10:41] VITALS: BP 117/59
[2018-03-25] MEDS ORDERED: NAPROXEN 500 MG TABLET PO SCH (11:00)
--- NOTE | 2018-03-25 11:07 | PDOC ---
Subjective: Subjective: In a lot of pain - body hurts, having back spasms. Breathing is "crappy." Vomits about 10 min after eating - can't really say if food or bile. Had an "okay" stool yesterday. Says was told to ask me about pain meds. Objective: Objective: Reviewed w/ RN - no witnessed emesis, ordered two breakfast trays, just gave pain meds. D/w Dr. Alvarado - discharge? Vital Signs: Vital Signs Date Time Temp Pulse Resp B/P (MAP) Pulse Ox O2 Delivery O2 Flow Rate FiO2 03/25/18 10:41 97.7 43 19 117/59 (78) 96 Room Air 97.7 Labs: Laboratory Tests Test 03/24/18 18:30 Urine Collection Type Unknown Urine Color Yellow Urine Clarity Clear Urine pH 6.5 Urine Specific [place] >=1.030 Urine Protein Negative mg/dL Urine Glucose (UA) 100 mg/dL Urine Ketones (Stick) Negative mg/dL Urine Blood Negative Urine Nitrite Negative Urine Bilirubin Negative Urine Urobilinogen Dipstick 0.2 mg/dL Urine Leukocyte Esterase Moderate Urine RBC 0 /HPF Urine WBC 11-20 /HPF Urine Squamous Epithelial Cells Mod /LPF Urine Bacteria Moderate /HPF Urine Mucus Slight /LPF PE: GEN: NAD, was asleep LUNGS: less coughing and wheezing HEART: RRR ABD: BS+, doesn't seem as tender NEURO/PSYCH: A & O 3 A/P: Asthma exacerbation, chronic pain GERD, IBS-D, hepatic steatosis and elevated LFTs -- DC per primary. Diet and exercise for hepatic steatosis. Continue PPI for GERD. Retry [place] if diarrhea an issue. KIMBERLI CORLEY Mar 25, 2018 11:07
--- NOTE | 2018-03-25 11:09 | PDOC ---
PROGRESS NOTES Chief Complaint Chief Complaint Assessment/Plan Assessment/Plan Likely asthma exacerbation Abdominal pain right upper quadrant area, neg work up History cholecystectomy 1 year ago History of appendectomy Morbid obesity, BMI 39 Narcotic dependence Multiple drug allergies HEPATIC STEATOSIS NARC SEEKING BEHAVIOR History of Present Illness History of Present Illness Still very wheezy Unfortunately narcs seeking behavior Has gotten 23 doses of morphine in the last 2 days which corresponds to every 2 hours as ordered Request for morphine to be increased to 5 mg I have provided all her results of lab tests and x-rays. I was roderick with my discussion with her that I'm stopping the need for morphine. As there is no reason. I can give her NSAIDs. She was very disappointed with this Very wheezy so after discussion with pulmonary we decided to keep the patient. Plan Increase his steroids to 60 IV every 8 from 40 IV every 8 DC morphine No narcotics please NSAIDs twice a day scheduled Already on Lidoderm patch-claims no relief If she decides to leave that she has signed AMA papers- dw RN and pt Vitals Vitals Vital Signs Date Time Temp Pulse Resp B/P (MAP) Pulse Ox O2 Delivery O2 Flow Rate FiO2 03/25/18 10:41 97.7 43 19 117/59 (78) 96 Room Air 97.7 Physical Exam General: Alert, Oriented X3, Cooperative, mild distress, Other (coughing when speaking in phrases with me) Heart: Regular rate, Normal S1, Normal S2 Lungs: Wheezing (faint) Abdomen: Normal bowel sounds, Soft, No tenderness, No hepatosplenomegaly, No masses Extremities: No clubbing, No cyanosis, No edema, Normal pulses, No tenderness/ swelling Skin: No rashes, No breakdown, No significant lesion Labs LABS Laboratory Tests Test 03/24/18 18:30 Urine Collection Type Unknown Urine Color Yellow Urine Clarity Clear Urine pH 6.5 Urine Specific [place] >=1.030 Urine Protein Negative mg/dL (NEG-TRACE) Urine Glucose (UA) 100 mg/dL (NEG) Urine Ketones (Stick) Negative mg/dL (NEG) Urine Blood Negative (NEG) Urine Nitrite Negative (NEG) Urine Bilirubin Negative (NEG) Urine Urobilinogen Dipstick 0.2 mg/dL (0.2 mg/dL) Urine Leukocyte Esterase Moderate (NEG) Urine RBC 0 /HPF (0-2) Urine WBC 11-20 /HPF (0-4) Urine Squamous Epithelial Cells Mod /LPF Urine Bacteria Moderate /HPF (0-FEW) Urine Mucus Slight /LPF Review of Systems Review of Systems wheezy and disappointed with my plan hence limited ROS Assessment and Plan Assessmemt and Plan Problems Medical Problems: (1) Pneumonia Status: Acute (2) Wheezing Status: Acute Comment Review of Relevant I have reviewed the following items leticia (where applicable) has been applied. Labs Laboratory Tests Test 03/24/18 11:00 03/24/18 18:30 White Blood Count 19.6 x10^3/uL (4.0-11.0) Red Blood Count 4.84 x10^6/uL (3.50-5.40) Hemoglobin 14.2 g/dL (12.0-15.5) Hematocrit 41.7 % (36.0-47.0) Mean Corpuscular Volume 86 fL (79-100) Mean Corpuscular Hemoglobin 29 pg (25-35) Mean Corpuscular Hemoglobin Concent 34 g/dL (31-37) Red Cell Distribution Width 13.5 % (11.5-14.5) Platelet Count 277 x10^3/uL (140-400) Neutrophils (%) (Auto) 89 % (31-73) Lymphocytes (%) (Auto) 8 % (24-48) Monocytes (%) (Auto) 3 % (0-9) Eosinophils (%) (Auto) 0 % (0-3) Basophils (%) (Auto) 0 % (0-3) Neutrophils # (Auto) 17.5 x10^3uL (1.8-7.7) Lymphocytes # (Auto) 1.5 x10^3/uL (1.0-4.8) Monocytes # (Auto) 0.6 x10^3/uL (0.0-1.1) Eosinophils # (Auto) 0.0 x10^3/uL (0.0-0.7) Basophils # (Auto) 0.0 x10^3/uL (0.0-0.2) Sodium Level 134 mmol/L (136-145) Potassium Level 3.9 mmol/L (3.5-5.1) Chloride Level 102 mmol/L (98-107) Carbon Dioxide Level 26 mmol/L (21-32) Anion Gap 6 (6-14) Blood Urea Nitrogen 14 mg/dL (7-20) Creatinine 0.8 mg/dL (0.6-1.0) Estimated GFR (Cockcroft-Gault) 91.4 BUN/Creatinine Ratio 18 (6-20) Glucose Level 219 mg/dL (70-99) Calcium Level 8.6 mg/dL (8.5-10.1) Total Bilirubin 0.3 mg/dL (0.2-1.0) Aspartate Amino Transf (AST/SGOT) 24 U/L (15-37) Alanine Aminotransferase (ALT/SGPT) 58 U/L (14-59) Alkaline Phosphatase 128 U/L (46-116) Total Protein 7.6 g/dL (6.4-8.2) Albumin 3.5 g/dL (3.4-5.0) Albumin/Globulin Ratio 0.9 (1.0-1.7) Urine Collection Type Unknown Urine Color Yellow Urine Clarity Clear Urine pH 6.5 Urine Specific [place] >=1.030 Urine Protein Negative mg/dL (NEG-TRACE) Urine Glucose (UA) 100 mg/dL (NEG) Urine Ketones (Stick) Negative mg/dL (NEG) Urine Blood Negative (NEG) Urine Nitrite Negative (NEG) Urine Bilirubin Negative (NEG) Urine Urobilinogen Dipstick 0.2 mg/dL (0.2 mg/dL) Urine Leukocyte Esterase Moderate (NEG) Urine RBC 0 /HPF (0-2) Urine WBC 11-20 /HPF (0-4) Urine Squamous Epithelial Cells Mod /LPF Urine Bacteria Moderate /HPF (0-FEW) Urine Mucus Slight /LPF Laboratory Tests Test 03/24/18 18:30 Urine Collection Type Unknown Urine Color Yellow Urine Clarity Clear Urine pH 6.5 Urine Specific [place] >=1.030 Urine Protein Negative mg/dL (NEG-TRACE) Urine Glucose (UA) 100 mg/dL (NEG) Urine Ketones (Stick) Negative mg/dL (NEG) Urine Blood Negative (NEG) Urine Nitrite Negative (NEG) Urine Bilirubin Negative (NEG) Urine Urobilinogen Dipstick 0.2 mg/dL (0.2 mg/dL) Urine Leukocyte Esterase Moderate (NEG) Urine RBC 0 /HPF (0-2) Urine WBC 11-20 /HPF (0-4) Urine Squamous Epithelial Cells Mod /LPF Urine Bacteria Moderate /HPF (0-FEW) Urine Mucus Slight /LPF Medications Current Medications Albuterol/ Ipratropium (Duoneb) 3 ml 1X ONCE NEB Last administered on at 21:24; Start 03/21/18 at 21:15; Stop 03/21/18 at 21:16; Status DC Sodium Chloride 1,000 ml @ 1,000 mls/hr 1X ONCE IV Last administered on at 21:30; Start 03/21/18 at 21:15; Stop 03/21/18 at 22:14; Status DC Albuterol Sulfate (Ventolin Neb Soln) 10 mg 1X ONCE CONT NEB Last administered on 03/21/18at 22:10; Start 03/21/18 at 22:00; Stop 03/21/18 at 22:01 ; Status DC Dexamethasone Sodium Phosphate (Decadron) 4 mg 1X ONCE IV Last administered on 03/21/18at 22:28; Start 03/21/18 at 22:30; Stop 03/21/18 at 22:31; Status DC Ondansetron HCl (Zofran) 4 mg 1X ONCE IV Last administered on 03/21/18at 22:28 ; Start 03/21/18 at 22:15; Stop 03/21/18 at 22:19; Status DC Lorazepam (Ativan) 0.5 mg 1X ONCE IV Last administered on 03/21/18at 23:07; Start 03/21/18 at 23:15; Stop 03/21/18 at 23:38; Status DC Albuterol Sulfate (Ventolin Neb Soln) 2.5 mg 1X ONCE NEB Last administered on 03/22/18at 00:11; Start 03/22/18 at 00:00; Stop 03/22/18 at 00:03; Status DC Ceftriaxone Sodium 50 ml @ 100 mls/hr 1X ONCE IV Last administered on at 00:22; Start 03/22/18 at 00:00; Stop 03/22/18 at 00:29; Status DC Lorazepam (Ativan) 1 mg 1X ONCE IV Last administered on 03/22/18at 00:23; Start 03/22/18 at 00:00; Stop 03/22/18 at 00:03; Status DC Ondansetron HCl (Zofran) 4 mg PRN Q8HRS PRN IV NAUSEA/VOMITING; Start 03/22/18 at 00:15; Stop 03/22/18 at 08:24; Status DC Sodium Chloride 1,000 ml @ 100 mls/hr Q10H IV Last administered on 03/22/18at 10:18; Start 03/22/18 at 00:15; Stop 03/23/18 at 00:14; Status DC Acetaminophen (Tylenol) 650 mg PRN Q4HRS PRN PO FEVER Last administered on 03/22at 02:05; Start 03/22/18 at 00:15; Stop 03/23/18 at 00:14; Status DC Albuterol/ Ipratropium (Duoneb) 3 ml RTQID NEB Last administered on 03/23/18at 07:49; Start 03/22/18 at 08:00; Stop 03/23/18 at 07:59; Status DC Azithromycin (Zithromax) 500 mg 1X ONCE PO Last administered on 03/22/18at 02: 07; Start 03/22/18 at 00:45; Stop 03/22/18 at 00:46; Status DC Ondansetron HCl (Zofran) 4 mg PRN Q6HRS PRN IV NAUSEA/VOMITING Last administered on 03/22/18at 18:42; Start 03/22/18 at 08:30 Guaifenesin (Robitussin Dm) 10 ml PRN Q6HRS PRN PO COUGH Last administered on at 03:51; Start 03/22/18 at 08:30 Diazepam (Valium) 5 mg TID PO Last administered on 03/23/18at 08:45; Start 03/22 at 09:00; Stop 03/23/18 at 14:20; Status DC Ondansetron HCl (Zofran Odt) 4 mg Q8HRS PO Last administered on 03/25/18at 06:33 ; Start 03/22/18 at 14:00 Oxycodone/ Acetaminophen (Percocet 5/325) 1 tab TID PO Last administered on at 08:45; Start 03/22/18 at 09:00; Stop 03/23/18 at 14:20; Status DC Pantoprazole Sodium (Protonix) 40 mg DAILYAC PO Last administered on 03/25/18at 07:58; Start 03/22/18 at 09:00 Oxycodone HCl (Roxicodone) 10 mg PRN Q4HRS PRN PO BREAKTHRU PAIN Last administered on 03/23/18at 06:30; Start 03/22/18 at 08:45; Stop 03/23/18 at 14:20 ; Status DC Morphine Sulfate (Morphine Sulfate) 2 mg PRN Q2HR PRN IV PAIN Last administered on 03/25/18at 10:30; Start 03/22/18 at 09:30; Stop 03/25/18 at 10:55 ; Status DC Methylprednisolone Sodium Succinate (SOLU-Medrol 40MG VIAL) 40 mg Q8HRS IV Last administered on 03/25/18at 06:34; Start 03/22/18 at 14:00; Stop 03/25/18 at 10:55; Status DC Benzonatate (Tessalon Perle) 100 mg [id number] PO Last administered on 03/25/18at 08 :07; Start 03/22/18 at 10:00 Alprazolam (Xanax) 0.5 mg PRN Q8HRS PRN PO ANXIETY / AGITATION Last administered on 03/25/18at 10:30; Start 03/22/18 at 11:15 Nicotine (Nicoderm Cq 21mg) 1 patch PRN DAILY PRN TD SMOKING CESSATION Last administered on 03/23/18at 08:44; Start 03/22/18 at 11:15 Albuterol Sulfate (Ventolin Neb Soln) 2.5 mg PRN Q4HRS PRN NEB SHORTNESS OF BREATH Last administered on 03/23/18at 23:46; Start 03/23/18 at 03:00; Stop 03/24 at 13:54; Status DC Cetirizine HCl (ZyrTEC) 10 mg DAILY PO Last administered on 03/25/18at 07:58; Start 03/23/18 at 10:30 Montelukast Sodium (Singulair) 10 mg QHS PO Last administered on 03/24/18at 21: 49; Start 03/23/18 at 21:00 Albuterol/ Ipratropium (Duoneb) 3 ml RTQID NEB Last administered on 03/24/18at 07:32; Start 03/23/18 at 16:00; Stop 03/24/18 at 13:54; Status DC Budesonide (Pulmicort) 0.5 mg RTBID NEB Last administered on 03/25/18at 07:46; Start 03/24/18 at 11:00 Levalbuterol HCl (Xopenex) 1.25 mg RTQID NEB Last administered on 03/25/18at 07: 46; Start 03/24/18 at 16:00 Ipratropium [place] (Atrovent) 0.5 mg RTQID NEB Last administered on 03/25/18at 07:46; Start 03/24/18 at 16:00 Lidocaine (Lidoderm) 1 patch Q24H TD Last administered on 03/24/18at 17:38; Start 03/24/18 at 18:00 Miscellaneous (Lidoderm Patch Removal) 1 ea Q24H MC Last administered on at 06:00; Start 03/25/18 at 06:00 Morphine Sulfate (Morphine Sulfate) 5 mg 1X ONCE IV Last administered on at 22:37; Start 03/24/18 at 23:00; Stop 03/24/18 at 23:01; Status DC Active Scripts Active Macrobid 100 Mg Capsule (Nitrofurantoin Monohyd/M-Cryst) 100 Mg Capsule 100 Mg PO BID 5 Days Proair Hfa Inhaler (Albuterol Sulfate) 8.5 Gm Hfa.aer.ad 1 Puff INH PRN Q6HRS PRN Macrobid 100 Mg Capsule (Nitrofurantoin Monohyd/M-Cryst) 100 Mg Capsule 1 Cap PO BID Augmentin 875-125 Tablet (Amoxicillin/Potassium Clav) 1 Each Tablet 1 Tab PO BID Zofran Odt (Ondansetron) 4 Mg Tab.rapdis 1 Tab SL Q8HRS Valium (Diazepam) 5 Mg Tablet 5 Mg PO TID 5 Days Percocet 5-325 Mg Tablet (Oxycodone/Acetaminophen) 1 Each Tablet 1-2 Tab PO Q4- 6HRS Bactrim Ds Tablet (Sulfamethoxazole/Trimethoprim) 1 Each Tablet 1 Tab PO BID Oxycodone Hcl 10 Mg Tablet 10 Mg PO Q4HRS PRN Reported No Known Medications Prior To Admisstion (Info) Each 1 Each MC Progesterone (Progesterone,Micronized) 200 Mg Capsule Clomiphene Citrate 50 Mg Tablet Omeprazole 40 Mg Capsule.dr 1 Cap PO DAILY Vitals/I & O Vital Sign - Last 24 Hours 03/24/18 03/24/18 03/24/18 03/24/18 11:15 12:20 15:00 15:28 Temp 98.1 98.1 Pulse 94 Resp 18 B/P (MAP) 130/72 (91) Pulse Ox 95 O2 Delivery Room Air Room Air Room Air 03/24/18 03/24/18 03/24/18 03/24/18 17:41 19:00 19:57 20:00 Temp 98.2 98.2 Pulse 92 Resp 20 B/P (MAP) 136/76 (96) Pulse Ox 97 85 O2 Delivery Room Air Room Air Room Air Room Air 03/24/18 03/24/18 03/24/18 03/24/18 20:10 22:37 23:00 23:07 Temp 98.2 98.2 Pulse 81 Resp 20 B/P (MAP) 146/85 (105) Pulse Ox 85 85 95 95 O2 Delivery Room Air Room Air Room Air Room Air 03/25/18 03/25/18 03/25/18 03/25/18 02:28 02:58 03:06 05:41 Temp 97.7 97.7 Pulse 83 Resp 20 18 B/P (MAP) 115/77 (90) Pulse Ox 95 96 96 96 O2 Delivery Room Air Room Air Room Air 03/25/18 03/25/18 03/25/18 03/25/18 07:00 07:49 07:51 07:59 Temp 97.5 97.5 Pulse 70 Resp 19 B/P (MAP) 104/63 (77) Pulse Ox 94 98 98 O2 Delivery Room Air Room Air Room Air Room Air 03/25/18 03/25/18 03/25/18 03/25/18 08:00 10:29 10:30 10:41 Temp 97.7 97.7 Pulse 43 Resp 19 B/P (MAP) 117/59 (78) Pulse Ox 96 O2 Delivery Room Air Room Air Room Air Room Air Intake and Output 03/24/18 03/24/18 03/25/18 15:00 23:00 07:00 Intake Total 380 ml Balance 380 ml VIVIAN JOHNSON MD Mar 25, 2018 11:09
[2018-03-25] MEDS ORDERED: methylPREDNISolone SOD SUCC PF 40 MG/ML VIAL. IV SCH (11:15)
[2018-03-25] MEDS ORDERED: ALBUTEROL SULFATE 2.5 MG/3 ML NEBU. NEB PRN (11:15)
--- NOTE | 2018-03-25 11:18 | PDOC ---
PULMONARY PROGRESS NOTES Subjective Still wheezing, demanding pain meds Vitals Vital Signs Date Time Temp Pulse Resp B/P (MAP) Pulse Ox O2 Delivery O2 Flow Rate FiO2 03/25/18 10:41 97.7 43 19 117/59 (78) 96 Room Air 97.7 General: Alert, Oriented X4, Mild Distress Lungs: Wheezing (bilateral) Cardiovascular: S1, S2 Abdomen: Soft Neuro Exam: Alert Extremities: No Edema Skin: Warm Labs Laboratory Tests Test 03/24/18 11:00 03/24/18 18:30 White Blood Count 19.6 x10^3/uL (4.0-11.0) Red Blood Count 4.84 x10^6/uL (3.50-5.40) Hemoglobin 14.2 g/dL (12.0-15.5) Hematocrit 41.7 % (36.0-47.0) Mean Corpuscular Volume 86 fL (79-100) Mean Corpuscular Hemoglobin 29 pg (25-35) Mean Corpuscular Hemoglobin Concent 34 g/dL (31-37) Red Cell Distribution Width 13.5 % (11.5-14.5) Platelet Count 277 x10^3/uL (140-400) Neutrophils (%) (Auto) 89 % (31-73) Lymphocytes (%) (Auto) 8 % (24-48) Monocytes (%) (Auto) 3 % (0-9) Eosinophils (%) (Auto) 0 % (0-3) Basophils (%) (Auto) 0 % (0-3) Neutrophils # (Auto) 17.5 x10^3uL (1.8-7.7) Lymphocytes # (Auto) 1.5 x10^3/uL (1.0-4.8) Monocytes # (Auto) 0.6 x10^3/uL (0.0-1.1) Eosinophils # (Auto) 0.0 x10^3/uL (0.0-0.7) Basophils # (Auto) 0.0 x10^3/uL (0.0-0.2) Sodium Level 134 mmol/L (136-145) Potassium Level 3.9 mmol/L (3.5-5.1) Chloride Level 102 mmol/L (98-107) Carbon Dioxide Level 26 mmol/L (21-32) Anion Gap 6 (6-14) Blood Urea Nitrogen 14 mg/dL (7-20) Creatinine 0.8 mg/dL (0.6-1.0) Estimated GFR (Cockcroft-Gault) 91.4 BUN/Creatinine Ratio 18 (6-20) Glucose Level 219 mg/dL (70-99) Calcium Level 8.6 mg/dL (8.5-10.1) Total Bilirubin 0.3 mg/dL (0.2-1.0) Aspartate Amino Transf (AST/SGOT) 24 U/L (15-37) Alanine Aminotransferase (ALT/SGPT) 58 U/L (14-59) Alkaline Phosphatase 128 U/L (46-116) Total Protein 7.6 g/dL (6.4-8.2) Albumin 3.5 g/dL (3.4-5.0) Albumin/Globulin Ratio 0.9 (1.0-1.7) Urine Collection Type Unknown Urine Color Yellow Urine Clarity Clear Urine pH 6.5 Urine Specific [place] >=1.030 Urine Protein Negative mg/dL (NEG-TRACE) Urine Glucose (UA) 100 mg/dL (NEG) Urine Ketones (Stick) Negative mg/dL (NEG) Urine Blood Negative (NEG) Urine Nitrite Negative (NEG) Urine Bilirubin Negative (NEG) Urine Urobilinogen Dipstick 0.2 mg/dL (0.2 mg/dL) Urine Leukocyte Esterase Moderate (NEG) Urine RBC 0 /HPF (0-2) Urine WBC 11-20 /HPF (0-4) Urine Squamous Epithelial Cells Mod /LPF Urine Bacteria Moderate /HPF (0-FEW) Urine Mucus Slight /LPF Laboratory Tests Test 03/24/18 18:30 Urine Collection Type Unknown Urine Color Yellow Urine Clarity Clear Urine pH 6.5 Urine Specific [place] >=1.030 Urine Protein Negative mg/dL (NEG-TRACE) Urine Glucose (UA) 100 mg/dL (NEG) Urine Ketones (Stick) Negative mg/dL (NEG) Urine Blood Negative (NEG) Urine Nitrite Negative (NEG) Urine Bilirubin Negative (NEG) Urine Urobilinogen Dipstick 0.2 mg/dL (0.2 mg/dL) Urine Leukocyte Esterase Moderate (NEG) Urine RBC 0 /HPF (0-2) Urine WBC 11-20 /HPF (0-4) Urine Squamous Epithelial Cells Mod /LPF Urine Bacteria Moderate /HPF (0-FEW) Urine Mucus Slight /LPF Medications Active Scripts Medications Dose Route/Sig Max Daily Dose Days Date Category No Known Medications Prior To Admisstion (Info) Each 1 Each MC 03/21/18 Reported Macrobid 100 Mg Capsule (Nitrofurantoin Monohyd/M-Cryst) 100 Mg Capsule 100 Mg PO BID 5 02/24/18 Rx Proair Hfa Inhaler (Albuterol Sulfate) 8.5 Gm Hfa.aer.ad 1 Puff INH PRN Q6HRS PRN 09/29/17 Rx Macrobid 100 Mg Capsule (Nitrofurantoin Monohyd/M-Cryst) 100 Mg Capsule 1 Cap PO BID 09/29/17 Rx Augmentin 875-125 Tablet (Amoxicillin/Potassium Clav) 1 Each Tablet 1 Tab PO BID 06/16/17 Rx Zofran Odt (Ondansetron) 4 Mg Tab.rapdis 1 Tab SL Q8HRS 06/15/17 Rx Valium (Diazepam) 5 Mg Tablet 5 Mg PO TID 5 04/21/17 Rx Percocet 5-325 Mg Tablet (Oxycodone/Acetaminophen) 1 Each Tablet 1-2 Tab PO Q4-6HRS 04/21/17 Rx Bactrim Ds Tablet (Sulfamethoxazole/Trimethoprim) 1 Each Tablet 1 Tab PO BID 12/25/16 Rx Oxycodone Hcl 10 Mg Tablet 10 Mg PO Q4HRS PRN 12/09/16 Rx Progesterone (Progesterone,Micronized) 200 Mg Capsule 10/02/16 Reported Clomiphene Citrate 50 Mg Tablet 10/02/16 Reported Omeprazole 40 Mg Capsule. 1 Cap PO DAILY 04/09/16 Reported Impression . 1. Acute asthma exacerbation in a patient who had asthma as a child, but she never had any flare-up since then. This is her first flare-up. This may be triggered by a viral syndrome causing viral bronchitis and GI symptoms. Ongoing smoking is also a trigger. Her chest x-ray does not show any definite consolidation or infiltrates, and CT abdomen with lower sections of the lungs does not show any parenchymal abnormalities either. I also suspect that her back pain and anxiety contribute to her discomfort. She may have component of vocal cord dysfunction , still wheezing 2. Ongoing tobacco use. 3. Mild hyponatremia. 4. Elevated transaminases, could be related to hypoperfusion. Consider GI evaluation. Plan . 1. Still wheezing, Nebs changed to Xopenex/ atrovent. continue Pulmicort nebulizer and monteleukast. 2. Continue IV steroids. 3. Smoking cessation 4. empiric antibiotic. 5. Follow liver function test per PCP or GI. 6. Pain control per PCP Not ready for home as she is still wheezing . she wants to leave AMA as she is asking for her narcotics. She may leave AMA d/w KATHIE BEYER MD Mar 25, 2018 11:18
[2018-03-25] MEDS ORDERED: IPRATRPIUM/ALBUTEROL 0.5/2.5MG 3 ML NEBU. NEB SCH (12:00)
[2018-03-26 05:24] LABS: IGG1 814 mg/dL (248-810); IGG2 391 mg/dL (130-555); IGG3 48 mg/dL (15-102); IGG4 163 mg/dL (2-96); TOTAL IGG 1345 mg/dL (700-1600)
== END 2018-03-25 11:00 | disposition left against medical advice (07) | DRG 202 ==
LOC: ER 20:57 → 5 SOUTH 03-22 00:05 → OBSVTOIN 03-23 14:22
PROVIDERS: ADMIT Internal Medicine; ATTEND Internal Medicine
DX: J45.901 Unspecified asthma with (acute) exacerbation (principal); E87.1 Hypo-osmolality and hyponatremia; F11.20 Opioid dependence, uncomplicated; B34.9 Viral infection, unspecified; E28.2 Polycystic ovarian syndrome; E66.01 Morbid (severe) obesity due to excess calories; F17.210 Nicotine dependence, cigarettes, uncomplicated; F41.9 Anxiety disorder, unspecified; F90.9 Attention-deficit hyperactivity disorder, unspecified type; G47.33 Obstructive sleep apnea (adult) (pediatric); G89.29 Other chronic pain; K21.9 Gastro-esophageal reflux disease without esophagitis; K58.0 Irritable bowel syndrome with diarrhea; K76.0 Fatty (change of) liver, not elsewhere classified; Z53.21 Procedure and treatment not carried out due to patient leaving prior to being seen by health care provider; R74.0 Nonspecific elevation of levels of transaminase and lactic acid dehydrogenase [LDH]; Z87.440 Personal history of urinary (tract) infections; Z82.49 Family history of ischemic heart disease and other diseases of the circulatory system; Z83.3 Family history of diabetes mellitus; Z87.442 Personal history of urinary calculi; Z90.49 Acquired absence of other specified parts of digestive tract; Z98.1 Arthrodesis status; Z90.89 Acquired absence of other organs; Z91.041 Radiographic dye allergy status; Z91.040 Latex allergy status; Z88.5 Allergy status to narcotic agent; Z91.013 Allergy to seafood; Z88.8 Allergy status to other drugs, medicaments and biological substances; Z91.018 Allergy to other foods; Z71.6 Tobacco abuse counseling
CPT/HCPCS: 36415; 70450; 71045; 71250; 74176; 76705; 80048; 80053; 80076; 81001; 81025; 82784; 82787; 83690; 84145; 85007; 85025; 87086; 94640; 94644; 94760; 96361; 96365; 96375; 96376; G0378; G0379; J0690; J1100; J2060; J2270; J2405; J2920; J7030; J7613; J7620; J7626; J7644; Q0144; Q0162; 99285-25

== ENCOUNTER 2018-11-08 17:58 | Inpatient (IN) | payer OTHER ==
[~2018-11-08] VITALS: Ht 177.8 cm; Wt 108.9 kg
[~2018-11-08 17:58] MED LIST changes: +ALBU2.5V8 INH; -HYDR-2758 PO; +HYDR-2761 PO; +HYDR-3164 PO; -HYDR-971 PO; -OXYC-323 PO; +OXYC1TAB15 PO; -PROAIR HFA8.5 GM INH
[2018-11-08] MEDS ORDERED: IPRATRPIUM/ALBUTEROL 0.5/2.5MG 3 ML NEBU. NEB ONE (18:15)
[2018-11-08] MEDS ORDERED: DEXAMETHASONE SOD PHOS 20 MG/5 ML VIAL. IV ONE (18:30)
[2018-11-08] MEDS ORDERED: ACETAMINOPHEN 500 MG TABLET PO ONE (18:30)
[2018-11-08 18:34] LABS: BASO # 0.1 x10^3/uL (0.0-0.2); BASO % 1 % (0-3); EOS # 0.3 x10^3/uL (0.0-0.7); EOS % 3 % (0-3); LYMPH # 2.5 x10^3/uL (1.0-4.8); LYMPH % 21 % (24-48); MEAN CORPUSCULAR HEMOGLOBIN 30 pg (25-35); MEAN CORPUSCULAR HGB CONC 35 g/dL (31-37); MEAN CORPUSCULAR VOLUME 85 fL (79-100); MONO # 0.8 x10^3/uL (0.0-1.1); MONO % 7 % (0-9); NEUT # 8.2 x10^3uL (1.8-7.7); NEUT % 68 % (31-73); PLATELET COUNT 242 x10^3/uL (140-400); RED BLOOD COUNT 5.41 x10^6/uL (3.50-5.40); RED CELL DISTRIBUTION WIDTH 13.9 % (11.5-14.5); WHITE BLOOD COUNT 11.9 x10^3/uL (4.0-11.0)
--- NOTE | 2018-11-08 18:39 | PHYS DOC ---
Past Medical History Past Medical History: Asthma, Kidney Stone, UTI Additional Past Medical Histor: RECTAL BLEEDING, HYPERKYPHOSIS, high liver enzymes, PCOS, PRE DIABETIC Past Surgical History: Appendectomy, Cholecystectomy, Tonsillectomy, Other Additional Past Surgical Histo: spinal fusion, LEFT ELBOW, pylonydal cyst Smoking: Cigarettes, 1 Pack Per Day Alcohol Use: Occasionally Drug Use: None Adult General Chief Complaint Chief Complaint: ASTHMA HPI HPI Patient is a 23 year old female who presents with shortness of breath. Patient states that she has had nasal congestion and a nonproductive cough for the past three days and began having shortness of breath last night. Patient states that she began experiencing midsternal chest pain about four hours prior to ED arrival. Patient states that the pain is stabbing in nature, worse with deep inspiration, and rates it to be a 8/10 currently. Patient is unsure if she has had a fever at home. She reports a headache which she believes is due to working hard to breathe. Patient reports four episodes of nonbloody, nonbilious vomiting today. Patient reports having a similar episode about one year ago for which she was treated with a steroid injection in the ED. Patient did not receive the influenza vaccination this year. Patient denies a history of blood clots in herself or her family members. Review of Systems Review of Systems Constitutional: Denies chills and night swears. Eyes: Denies change in redness, or eye pain. HENT: Denies sore throat or ear pain. Respiratory: Reports cough and shortness of breath. Cardiovascular: Reports chest pain. Denies palpitations. GI: Denies abdominal pain. Reports chronic diarrhea. : Denies dysuria or hematuria. Musculoskeletal: Denies back pain or joint pain. Integument: Denies rash or skin lesions. Neurologic: Denies focal weakness or sensory changes. Complete systems were reviewed and found to be within normal limits, except as documented in this note. Current Medications Current Medications Current Medications Medications (Trade) Dose Ordered Sig/Kaelyn Start Time Stop Time Status Last Admin Dose Admin Acetaminophen (Tylenol) 650 mg PRN Q4HRS PRN 11/08/18 20:30 11/09/18 20:29 UNV Albuterol Sulfate (Ventolin Neb Soln) 2.5 mg PRN Q4HRS PRN 11/08/18 20:15 UNV Albuterol/ Ipratropium (Duoneb) 3 ml RTQID 11/09/18 08:00 11/10/18 07:59 UNV Clonidine HCl (Catapres) 0.1 mg PRN Q6HRS PRN 11/08/18 20:15 Dexamethasone Sodium Phosphate (Decadron) 10 mg 1X ONCE 11/08/18 18:30 11/08/18 18:31 DC 11/08/18 18:50 10 MG Diphenhydramine HCl (Benadryl) 25 mg 1X ONCE 11/08/18 20:45 11/08/18 20:46 UNV Docusate Sodium (Colace) 100 mg PRN BID PRN 11/08/18 20:15 Guaifenesin (Robitussin) 200 mg PRN Q4HRS PRN 11/08/18 20:15 UNV Levalbuterol HCl (Xopenex) 1.25 mg 1X ONCE 11/08/18 20:30 11/08/18 20:31 DC 11/08/18 20:29 1.25 MG Levofloxacin/ Dextrose 150 ml @ 100 mls/hr 1X ONCE 11/08/18 19:15 11/08/18 20:44 11/08/18 20:00 100 MLS/HR Lorazepam (Ativan) 0.5 mg PRN Q4HRS PRN 11/08/18 20:15 UNV Methylprednisolone Sodium Succinate (SOLU-Medrol 40MG VIAL) 40 mg Q8HRS 11/08/18 22:00 Ondansetron HCl (Zofran) 4 mg PRN Q8HRS PRN 11/08/18 20:30 11/09/18 20:29 UNV Piperacillin Sod/ Tazobactam Sod 4.5 gm/Sodium Chloride 100 ml @ 200 mls/hr 1X ONCE 11/08/18 20:00 11/08/18 20:29 DC Sodium Monofluorophosphate (Fleet Adult) 133 ml PRN DAILY PRN 11/08/18 20:15 Sodium Chloride 500 ml @ 500 mls/hr 1X ONCE 11/08/18 20:00 11/08/18 20:59 Zolpidem Tartrate (Ambien) 5 mg PRN QHS PRN 11/08/18 20:15 Allergies Allergies Allergies Coded Allergies Type Severity Reaction Last Updated Verified Fish Containing Products Allergy Intermediate Rash 11/08/18 Yes coconut oil Allergy Intermediate 11/08/18 Yes iodine Allergy Intermediate Rash 11/08/18 Yes ketorolac Allergy Intermediate Rash 11/08/18 Yes latex Allergy Intermediate Rash 11/08/18 Yes mold Allergy Intermediate 11/08/18 Yes morphine Allergy Intermediate "makes me crazy" 11/08/18 Yes tramadol Allergy Intermediate RASH/ITCHING 11/08/18 Yes fentanyl Allergy Mild ANXIETY ATTACK 11/08/18 Yes prednisone Allergy Mild N/V 11/08/18 Yes shellfish derived Adverse Reaction Intermediate 11/08/18 Yes Uncoded Allergies Type Severity Reaction Last Updated Verified INSECT BITES,DUST MITES Allergy Unknown 04/08/16 Physical Exam Physical Exam Constitutional: Well developed, well nourished, in mild distress. HENT: Normocephalic, atraumatic,oropharynx moist. Eyes: PERRL, conjunctiva normal without erythema. Neck: Normal range of motion, no tenderness, supple. Cardiovascular: Tachycardic. No murmur. Lungs & Thorax: Scattered crackles diffusely. Tachypneic. Abdomen: Soft, no tenderness on palpation. No rebound or guarding. Skin: Warm, dry, no rash. Back: No tenderness, no CVA tenderness. Extremities: No tenderness, ROM intact, no edema. Neurologic: Alert and oriented X 3, normal motor function, normal sensory function, no focal deficits noted. Psychologic: Affect normal. Speech normal. Current Patient Data Vital Signs Vital Signs Date Time Temp Pulse Resp B/P (MAP) Pulse Ox O2 Delivery O2 Flow Rate FiO2 11/08/18 20:29 100 Room Air 11/08/18 18:00 98.0 92 40 142/92 (109) 98.0 Lab Values Laboratory Tests Test 11/08/18 18:10 11/08/18 18:20 11/08/18 19:15 Influenza Type A Antigen Negative (NEGATIVE) Influenza Type B Antigen Negative (NEGATIVE) White Blood Count 11.9 x10^3/uL (4.0-11.0) H Red Blood Count 5.41 x10^6/uL (3.50-5.40) H Hemoglobin 16.0 g/dL (12.0-15.5) H Hematocrit 46.0 % (36.0-47.0) Mean Corpuscular Volume 85 fL (79-100) Mean Corpuscular Hemoglobin 30 pg (25-35) Mean Corpuscular Hemoglobin Concent 35 g/dL (31-37) Red Cell Distribution Width 13.9 % (11.5-14.5) Platelet Count 242 x10^3/uL (140-400) Neutrophils (%) (Auto) 68 % (31-73) Lymphocytes (%) (Auto) 21 % (24-48) L Monocytes (%) (Auto) 7 % (0-9) Eosinophils (%) (Auto) 3 % (0-3) Basophils (%) (Auto) 1 % (0-3) Neutrophils # (Auto) 8.2 x10^3uL (1.8-7.7) H Lymphocytes # (Auto) 2.5 x10^3/uL (1.0-4.8) Monocytes # (Auto) 0.8 x10^3/uL (0.0-1.1) Eosinophils # (Auto) 0.3 x10^3/uL (0.0-0.7) Basophils # (Auto) 0.1 x10^3/uL (0.0-0.2) Sodium Level 139 mmol/L (136-145) Potassium Level 3.6 mmol/L (3.5-5.1) Chloride Level 100 mmol/L (98-107) Carbon Dioxide Level 24 mmol/L (21-32) Anion Gap 15 (6-14) H Blood Urea Nitrogen 10 mg/dL (7-20) Creatinine 0.8 mg/dL (0.6-1.0) Estimated GFR (Cockcroft-Gault) 90.5 BUN/Creatinine Ratio 13 (6-20) Glucose Level 94 mg/dL (70-99) Lactic Acid Level 2.3 mmol/L (0.4-2.0) H Calcium Level 9.4 mg/dL (8.5-10.1) Total Bilirubin 0.9 mg/dL (0.2-1.0) Aspartate Amino Transferase (AST) 77 U/L (15-37) H Alanine Aminotransferase (ALT) 141 U/L (14-59) H Alkaline Phosphatase 183 U/L (46-116) H Total Protein 8.1 g/dL (6.4-8.2) Albumin 3.9 g/dL (3.4-5.0) Albumin/Globulin Ratio 0.9 (1.0-1.7) L Serum Test, Qualitative Negative (NEG) POC Urine HCG, Qualitative Hcg negative (Negative) Laboratory Tests 11/08/18 18:20 Laboratory Tests 11/08/18 18:20 EKG EKG [] Radiology/Procedures Radiology/Procedures [] Impressions: PROCEDURE: CHEST PA & LATERAL PROCEDURE: CHEST PA LATERAL CLINICAL INDICATION: SOA COMPARISON: None FINDINGS: No pneumothorax identified. Cardiac and mediastinal contours unremarkable. No pulmonary consolidation or acute airspace disease. No acute osseous abnormalities identified. Posterior fixation device is seen in the thoracic spine. IMPRESSION: No pulmonary consolidation or acute airspace disease. Course & Med Decision Making Course & Med Decision Making Pertinent Labs and Imaging studies reviewed. (See chart for details) Patient is a 23 year old female who presents to the ED complaining of shortness of breath assocaited with chest pain that is worse on inspiration. Due to history of asthma, vital signs, and physical examination findings a septic work up was initiated. White count noted to be slightly elevated at 11.9. CXR does not reveal any acute process. Dragon Disclaimer Dragon Disclaimer This electronic medical record was generated, in whole or in part, using a voice recognition dictation system. Departure Departure Impression: Primary Impression: Sepsis Additional Impressions: Asthma Bronchitis Disposition: 01 HOME, SELF-CARE Condition: STABLE Referrals: GABRIELLE DOSS MD (PCP) Problem Qualifiers Primary Impression: Sepsis Sepsis type: sepsis due to unspecified organism Qualified Codes: A41.9 - Sepsis, unspecified organism Additional Impressions: Asthma Asthma severity: moderate Asthma persistence: persistent Asthma complication type: with acute exacerbation Qualified Codes: J45.41 - Moderate persistent asthma with (acute) exacerbation KAYLA VLEAZQUEZ DO Nov 08, 2018 18:39
[2018-11-08 18:45] LABS: CALCIUM 9.4 mg/dL (8.5-10.1); CREATININE 0.8 mg/dL (0.6-1.0); GFR 90.5; POTASSIUM 3.6 mmol/L (3.5-5.1)
[2018-11-08 18:50] LABS: PREG TEST PT QUAL NEGATIVE (NEG)
[2018-11-08 19:00] LABS: ALBUMIN 3.9 g/dL (3.4-5.0); ALBUMIN/GLOBULIN RATIO 0.9 (1.0-1.7); TOTAL BILIRUBIN 0.9 mg/dL (0.2-1.0); TOTAL PROTEIN 8.1 g/dL (6.4-8.2)
[2018-11-08 19:02] LABS: INFLUENZA A PATIENT NEGATIVE (NEGATIVE); INFLUENZA B PATIENT NEGATIVE (NEGATIVE)
[2018-11-08] MEDS ORDERED: IV NORMAL SALINE 1000ML BAG 1,000 ML IV ONE ×2 (19:15)
--- NOTE | 2018-11-08 19:21 | RAD ---
PROCEDURE: CHEST PA LATERAL CLINICAL INDICATION: SOA COMPARISON: None FINDINGS: No pneumothorax identified. Cardiac and mediastinal contours unremarkable. No pulmonary consolidation or acute airspace disease. No acute osseous abnormalities identified. Posterior fixation device is seen in the thoracic spine. IMPRESSION: No pulmonary consolidation or acute airspace disease. Electronically signed by: Harley Obrien DO (11/08/2018 7:18 PM) [facility]
[2018-11-08] MEDS ORDERED: IV NORMAL SALINE 500ML BAG 500 ML IV ONE (20:00)
[2018-11-08] MEDS ORDERED: ONDANSETRON PF 4 MG/2 ML VIAL. IV ONE (20:00)
[2018-11-08] MEDS ORDERED: PIPERACILLIN/TAZOBACTAM 4.5 GM in IV NORMAL SALINE 100ML 100 ML IV ONE (20:00)
[2018-11-08] MEDS ORDERED: SODIUM PHOSPHATES 19/7GM 133 ML ENEMA. PR PRN (20:15)
[2018-11-08] MEDS ORDERED: ALBUTEROL SULFATE 2.5 MG/3 ML NEBU. NEB PRN (20:15)
[2018-11-08] MEDS ORDERED: guaiFENesin ORAL 200 MG/10 ML LIQUID. PO PRN (20:15)
[2018-11-08] MEDS ORDERED: ACETAMINOPHEN 325 MG TABLET. PO PRN ×2 (20:15→20:30)
[2018-11-08] MEDS ORDERED: DOCUSATE SODIUM 100 MG CAPSULE. PO PRN (20:15)
[2018-11-08] MEDS ORDERED: ZOLPIDEM 5 MG TABLET. PO PRN (20:15)
[2018-11-08] MEDS ORDERED: cloNIDine HCL 0.1 MG TABLET PO PRN (20:15)
[2018-11-08] MEDS ORDERED: ONDANSETRON PF 4 MG/2 ML VIAL. IV PRN (20:30)
[2018-11-08] MEDS ORDERED: LEVALBUTEROL 1.25 MG/0.5 ML NEBU. NEB ONE (20:30)
[2018-11-08] MEDS ORDERED: diphenhydrAMINE 50 MG/ML VIAL IVP ONE ×2 (21:00→23:00)
--- NOTE | 2018-11-08 21:39 | PDOC1 ---
History and Physical Date of Admission Date of Admission 11/08/2018 Identification/Chief Complaint Chief Complaint I cannot breathe Problems: (1) Asthma Source Source: Chart review, Patient History of Present Illness History of Present Illness Patient is a 23-year-old female with past medical history of asthma and anxiety who was in her usual state of health until approximately one week prior to her admission when she started complaining of territory tract infection symptoms with sneezing and cough no productive at the beginning and sequentially with clear sputum, patient denies having intubated in the past for asthma attacks she is currently in acute distress due to chest discomfort from her cough effort. Pain is reproducible sharp especially when pressed on her rib cage. 9 out of 10 in intensity with no radiation to arm or jaw no radiation to the back patient has some nausea associated with the symptoms no sensation of impending doom no diaphoresis has been reported but she has had chills. She denies pleurisy workup in the emergency department has been benign but given her respiratory distress were asked to admit the patient for further evaluation. She denies sick contacts she does not have pets at home denies being exposed to fumes. No changes to her medications recently. No other concerns voiced patient has not tried somewhat medicated at home and due to the progressive nature off her symptoms she came to the emergency department for evaluation. Past Medical History Pulmonary: Bronchitis Past Surgical History Past Surgical History: Appendectomy, Cholecystectomy Family History Family History: Hypertension Social History ALCOHOL: rare Drugs: None Current Problem List Problem List Problems Medical Problems: (1) Bronchitis Status: Acute (2) Sepsis Status: Acute Current Medications Current Medications Current Medications Medications (Trade) Dose Ordered Sig/Kaelyn Start Time Stop Time Status Last Admin Dose Admin Acetaminophen (Tylenol) 650 mg PRN Q4HRS PRN 11/08/18 20:30 11/08/18 20:55 DC Albuterol Sulfate (Ventolin Neb Soln) 2.5 mg PRN Q4HRS PRN 11/08/18 20:15 Albuterol/ Ipratropium (Duoneb) 3 ml RTQID 11/09/18 08:00 11/10/18 07:59 Clonidine HCl (Catapres) 0.1 mg PRN Q6HRS PRN 11/08/18 20:15 Dexamethasone Sodium Phosphate (Decadron) 10 mg 1X ONCE 11/08/18 18:30 11/08/18 18:31 DC 11/08/18 18:50 10 MG Diphenhydramine HCl (Benadryl) 25 mg 1X ONCE 11/08/18 21:00 11/08/18 21:01 DC 11/08/18 20:56 25 MG Docusate Sodium (Colace) 100 mg PRN BID PRN 11/08/18 20:15 Guaifenesin (Robitussin) 200 mg PRN Q4HRS PRN 11/08/18 20:15 Levalbuterol HCl (Xopenex) 1.25 mg 1X ONCE 11/08/18 20:30 11/08/18 20:31 DC 11/08/18 20:29 1.25 MG Levofloxacin/ Dextrose 150 ml @ 100 mls/hr 1X ONCE 11/08/18 19:15 11/08/18 20:44 DC 11/08/18 20:00 100 MLS/HR Lorazepam (Ativan) 0.5 mg PRN Q4HRS PRN 11/08/18 20:15 Methylprednisolone Sodium Succinate (SOLU-Medrol 40MG VIAL) 40 mg Q8HRS 11/08/18 22:00 Ondansetron HCl (Zofran) 4 mg PRN Q8HRS PRN 11/08/18 20:30 11/08/18 20:55 DC Piperacillin Sod/ Tazobactam Sod 4.5 gm/Sodium Chloride 100 ml @ 200 mls/hr 1X ONCE 11/08/18 20:00 11/08/18 20:29 DC Sodium Monofluorophosphate (Fleet Adult) 133 ml PRN DAILY PRN 11/08/18 20:15 Sodium Chloride 500 ml @ 500 mls/hr 1X ONCE 11/08/18 20:00 11/08/18 20:59 DC Zolpidem Tartrate (Ambien) 5 mg PRN QHS PRN 11/08/18 20:15 Allergies Allergies Allergies Coded Allergies Type Severity Reaction Last Updated Verified Fish Containing Products Allergy Intermediate Rash 11/08/18 Yes coconut oil Allergy Intermediate 11/08/18 Yes iodine Allergy Intermediate Rash 11/08/18 Yes ketorolac Allergy Intermediate Rash 11/08/18 Yes latex Allergy Intermediate Rash 11/08/18 Yes mold Allergy Intermediate 11/08/18 Yes morphine Allergy Intermediate "makes me crazy" 11/08/18 Yes tramadol Allergy Intermediate RASH/ITCHING 11/08/18 Yes fentanyl Allergy Mild ANXIETY ATTACK 11/08/18 Yes prednisone Allergy Mild N/V 11/08/18 Yes shellfish derived Adverse Reaction Intermediate 11/08/18 Yes Uncoded Allergies Type Severity Reaction Last Updated Verified INSECT BITES,DUST MITES Allergy Unknown 04/08/16 ROS Review of System CONSTITUTIONAL: No fever or chills EYES: No recent changes SKIN: No rash or itching CARDIOVASCULAR: No chest pain, syncope, palpitations, or edema RESPIRATORY: + SOB and cough GASTROINTESTINAL: No nausea, vomiting or abdominal pain NEUROLOGICAL: No headaches or weakness ENDOCRINE: No cold or heat intolerance GENITOURINARY: No urgency or frequency of urination MUSCULOSKELETAL: No back pain or joint pain LYMPHATICS: No enlarged lymph nodes PSYCHIATRIC: No anxiety or depression Physical Exam Physical Exam GEN.: Acute respiratory distress. Alert and oriented. HEENT: Head is normocephalic, atraumatic NECK: Supple. LUNGS: Coarse to auscultation with expiratory wheezing. HEART: RRR, S1, S2 present. Peripheral pulses intact ABDOMEN: Soft, nontender. Positive bowel sounds. EXTREMITIES: Without any cyanosis. NEUROLOGIC: Normal speech, normal tone PSYCHIATRIC: Normal affect, normal mood. SKIN: No ulcerations Vitals Vitals Vital Signs Date Time Temp Pulse Resp B/P (MAP) Pulse Ox O2 Delivery O2 Flow Rate FiO2 11/08/18 20:29 100 Room Air 11/08/18 18:00 98.0 92 40 142/92 (109) 98.0 Labs Labs Laboratory Tests Test 11/08/18 18:10 11/08/18 18:20 11/08/18 19:15 Influenza Type A Antigen Negative (NEGATIVE) Influenza Type B Antigen Negative (NEGATIVE) White Blood Count 11.9 x10^3/uL (4.0-11.0) Red Blood Count 5.41 x10^6/uL (3.50-5.40) Hemoglobin 16.0 g/dL (12.0-15.5) Hematocrit 46.0 % (36.0-47.0) Mean Corpuscular Volume 85 fL (79-100) Mean Corpuscular Hemoglobin 30 pg (25-35) Mean Corpuscular Hemoglobin Concent 35 g/dL (31-37) Red Cell Distribution Width 13.9 % (11.5-14.5) Platelet Count 242 x10^3/uL (140-400) Neutrophils (%) (Auto) 68 % (31-73) Lymphocytes (%) (Auto) 21 % (24-48) Monocytes (%) (Auto) 7 % (0-9) Eosinophils (%) (Auto) 3 % (0-3) Basophils (%) (Auto) 1 % (0-3) Neutrophils # (Auto) 8.2 x10^3uL (1.8-7.7) Lymphocytes # (Auto) 2.5 x10^3/uL (1.0-4.8) Monocytes # (Auto) 0.8 x10^3/uL (0.0-1.1) Eosinophils # (Auto) 0.3 x10^3/uL (0.0-0.7) Basophils # (Auto) 0.1 x10^3/uL (0.0-0.2) Sodium Level 139 mmol/L (136-145) Potassium Level 3.6 mmol/L (3.5-5.1) Chloride Level 100 mmol/L (98-107) Carbon Dioxide Level 24 mmol/L (21-32) Anion Gap 15 (6-14) Blood Urea Nitrogen 10 mg/dL (7-20) Creatinine 0.8 mg/dL (0.6-1.0) Estimated GFR (Cockcroft-Gault) 90.5 BUN/Creatinine Ratio 13 (6-20) Glucose Level 94 mg/dL (70-99) Lactic Acid Level 2.3 mmol/L (0.4-2.0) Calcium Level 9.4 mg/dL (8.5-10.1) Total Bilirubin 0.9 mg/dL (0.2-1.0) Aspartate Amino Transf (AST/SGOT) 77 U/L (15-37) Alanine Aminotransferase (ALT/SGPT) 141 U/L (14-59) Alkaline Phosphatase 183 U/L (46-116) Total Protein 8.1 g/dL (6.4-8.2) Albumin 3.9 g/dL (3.4-5.0) Albumin/Globulin Ratio 0.9 (1.0-1.7) Serum Test, Qualitative Negative (NEG) Bedside Urine HCG, Qualitative Hcg negative (Negative) Laboratory Tests Test 11/08/18 18:10 11/08/18 18:20 11/08/18 19:15 Influenza Type A Antigen Negative (NEGATIVE) Influenza Type B Antigen Negative (NEGATIVE) White Blood Count 11.9 x10^3/uL (4.0-11.0) Red Blood Count 5.41 x10^6/uL (3.50-5.40) Hemoglobin 16.0 g/dL (12.0-15.5) Hematocrit 46.0 % (36.0-47.0) Mean Corpuscular Volume 85 fL (79-100) Mean Corpuscular Hemoglobin 30 pg (25-35) Mean Corpuscular Hemoglobin Concent 35 g/dL (31-37) Red Cell Distribution Width 13.9 % (11.5-14.5) Platelet Count 242 x10^3/uL (140-400) Neutrophils (%) (Auto) 68 % (31-73) Lymphocytes (%) (Auto) 21 % (24-48) Monocytes (%) (Auto) 7 % (0-9) Eosinophils (%) (Auto) 3 % (0-3) Basophils (%) (Auto) 1 % (0-3) Neutrophils # (Auto) 8.2 x10^3uL (1.8-7.7) Lymphocytes # (Auto) 2.5 x10^3/uL (1.0-4.8) Monocytes # (Auto) 0.8 x10^3/uL (0.0-1.1) Eosinophils # (Auto) 0.3 x10^3/uL (0.0-0.7) Basophils # (Auto) 0.1 x10^3/uL (0.0-0.2) Sodium Level 139 mmol/L (136-145) Potassium Level 3.6 mmol/L (3.5-5.1) Chloride Level 100 mmol/L (98-107) Carbon Dioxide Level 24 mmol/L (21-32) Anion Gap 15 (6-14) Blood Urea Nitrogen 10 mg/dL (7-20) Creatinine 0.8 mg/dL (0.6-1.0) Estimated GFR (Cockcroft-Gault) 90.5 BUN/Creatinine Ratio 13 (6-20) Glucose Level 94 mg/dL (70-99) Lactic Acid Level 2.3 mmol/L (0.4-2.0) Calcium Level 9.4 mg/dL (8.5-10.1) Total Bilirubin 0.9 mg/dL (0.2-1.0) Aspartate Amino Transf (AST/SGOT) 77 U/L (15-37) Alanine Aminotransferase (ALT/SGPT) 141 U/L (14-59) Alkaline Phosphatase 183 U/L (46-116) Total Protein 8.1 g/dL (6.4-8.2) Albumin 3.9 g/dL (3.4-5.0) Albumin/Globulin Ratio 0.9 (1.0-1.7) Serum Test, Qualitative Negative (NEG) Bedside Urine HCG, Qualitative Hcg negative (Negative) VTE Prophylaxis Ordered VTE Prophylaxis Devices: Yes VTE Pharmacological Prophylaxi: Yes Assessment/Plan Assessment/Plan Acute asthma exacerbation Chest pain secondary to costochondritis Mild transaminitis most likely secondary to body habitus and fatty liver most likely Leukocytosis with predominance of lymphocytes leading to believe that she might be having a viral infection as culprit for her acute asthma exacerbation Plan: Admit to medical floor Immunization therapy Solu Medrol IV Supportive measures Mobic for costochondritis Resume home meds once available for review DVT prophylaxis with heparin Further recommendations based on the clinical course Problem Qualifiers (1) Asthma: Asthma severity: moderate Asthma persistence: persistent Asthma complication type: with acute exacerbation Qualified Codes: J45.41 - Moderate persistent asthma with (acute) exacerbation JOSE WILLIAM MD Nov 08, 2018 21:39
[2018-11-08] MEDS: MELOXICAM 7.5 MG TABLET PO SCH (22:00)
[2018-11-08] MEDS ORDERED: diphenhydrAMINE HCL 25 MG CAPSULE PO PRN (22:15)
[2018-11-08] MEDS: ONDANSETRON PF 4 MG/2 ML VIAL. IV PRN (22:27)
[2018-11-08] MEDS: methylPREDNISolone SOD SUCC PF 40 MG/ML VIAL. IV SCH (22:37)
[2018-11-08] MEDS: NICOTINE 21MG PATCH. TD SCH (23:10)
[2018-11-08 23:16] VITALS: BP 125/68
--- NOTE | 2018-11-09 01:04 | NUR ---
Patient arrived to the floor approximately 5 via w/c accompanied by her friend and an ER Nurse. Upon arrival, she immediately asked for anxiety medication. The nurse notified her that she had oral Ativan and also Tylenol for pain because she reported having pain. Patient was hyperventilating at this time, and crying. Said she can not keep anything down to her stomach she will throw up. Said her Anxiety is really bad and she wants some anxiety medications along with Benadryl IV. Continued saying that she is not allergic to Morphine, although it is listed as one of her many allergies. Dr Morris paged, and he called right away. Gave a one time order for IV Ativan, and advised to keep the oral Benadryl. Patient notified of the new orders, IV Zofran given along with IV Ativan. Patient continued to cry almost hysterically, saying she wants a Cigarette and IV Benadryl. Dr Morris was paged again, gave a one time order for IV Benadryl and Nicotine patch. Patient continued to cry and saying that those medications are not helping her, and if she does not get enough medications she will leave and go to a different Hospital. The doctor notified of those concerns and he said it was okay if the patient wanted to sign AMA papers. When the patient notified of the Doctor's decision, she got up off the floor where she was sitting at this time, and said she will make some phone calls, and this will be "another bad review for this Hospital". She continued to stay in her room, said that she will try oral medications at this time. She does not have a ride to go home.
[2018-11-09] MEDS: LORazepam 0.5 MG TABLET PO PRN ×3 (01:30→15:32)
[2018-11-09 03:25] VITALS: BP 108/66
--- NOTE | 2018-11-09 05:38 | NUR ---
Patient has been quiet since she received her oral Ativan and Ambien. She reports that she threw up those medications in the toilet and flushed them. No evidence of emesis noted at this time.
[2018-11-09] MEDS: methylPREDNISolone SOD SUCC PF 40 MG/ML VIAL. IV SCH ×3 (06:31→21:40)
[2018-11-09 07:00] VITALS: BP 114/79
[2018-11-09] MEDS: ONDANSETRON PF 4 MG/2 ML VIAL. IV PRN ×2 (08:08→15:32)
[2018-11-09] MEDS: MELOXICAM 7.5 MG TABLET PO SCH ×2 (08:08→20:21)
[2018-11-09] MEDS: NICOTINE 21MG PATCH. TD SCH (08:13)
[2018-11-09] MEDS: IPRATRPIUM/ALBUTEROL 0.5/2.5MG 3 ML NEBU. NEB SCH ×4 (08:29→20:05)
[2018-11-09] MEDS ORDERED: MAGNESIUM SULFATE 2GM 50 ML IV STA (09:03)
[2018-11-09] MEDS: BUTORPHANOL 2 MG/ML VIAL. IV PRN ×4 (09:24→21:41)
[2018-11-09 10:57] VITALS: BP 132/73
--- NOTE | 2018-11-09 11:37 | PDOC ---
PROGRESS NOTES Chief Complaint Chief Complaint SOB, anxiety History of Present Illness History of Present Illness Patient is anxious, has shortness of breath with mild respiratory distress, and chest wall pain. She continues to have expiratory wheezing after breathing treatment. Administered MgSO4 2 g, ativan 1 mg, and Stadol 1 g IV with improvement of anxiety and shortness of breath. Vitals Vitals Vital Signs Date Time Temp Pulse Resp B/P (MAP) Pulse Ox O2 Delivery O2 Flow Rate FiO2 11/09/18 10:57 98.6 118 28 132/73 (92) 99 Venturi Mask 7.0 98.6 Physical Exam General: Alert, Oriented X3, mild distress Heart: Normal S1, Normal S2, No murmurs, Other (tachycardic) Lungs: Wheezing (expiratory) Abdomen: Normal bowel sounds, Soft, No tenderness Extremities: No clubbing, No cyanosis, No edema Skin: No rashes, No breakdown, No significant lesion Labs LABS Laboratory Tests Test 11/08/18 18:10 11/08/18 18:20 11/08/18 19:15 11/08/18 22:15 Influenza Type A Antigen Negative (NEGATIVE) Influenza Type B Antigen Negative (NEGATIVE) White Blood Count 11.9 x10^3/uL (4.0-11.0) Red Blood Count 5.41 x10^6/uL (3.50-5.40) Hemoglobin 16.0 g/dL (12.0-15.5) Hematocrit 46.0 % (36.0-47.0) Mean Corpuscular Volume 85 fL (79-100) Mean Corpuscular Hemoglobin 30 pg (25-35) Mean Corpuscular Hemoglobin Concent 35 g/dL (31-37) Red Cell Distribution Width 13.9 % (11.5-14.5) Platelet Count 242 x10^3/uL (140-400) Neutrophils (%) (Auto) 68 % (31-73) Lymphocytes (%) (Auto) 21 % (24-48) Monocytes (%) (Auto) 7 % (0-9) Eosinophils (%) (Auto) 3 % (0-3) Basophils (%) (Auto) 1 % (0-3) Neutrophils # (Auto) 8.2 x10^3uL (1.8-7.7) Lymphocytes # (Auto) 2.5 x10^3/uL (1.0-4.8) Monocytes # (Auto) 0.8 x10^3/uL (0.0-1.1) Eosinophils # (Auto) 0.3 x10^3/uL (0.0-0.7) Basophils # (Auto) 0.1 x10^3/uL (0.0-0.2) Sodium Level 139 mmol/L (136-145) Potassium Level 3.6 mmol/L (3.5-5.1) Chloride Level 100 mmol/L (98-107) Carbon Dioxide Level 24 mmol/L (21-32) Anion Gap 15 (6-14) Blood Urea Nitrogen 10 mg/dL (7-20) Creatinine 0.8 mg/dL (0.6-1.0) Estimated GFR (Cockcroft-Gault) 90.5 BUN/Creatinine Ratio 13 (6-20) Glucose Level 94 mg/dL (70-99) Lactic Acid Level 2.3 mmol/L (0.4-2.0) 2.2 mmol/L (0.4-2.0) Calcium Level 9.4 mg/dL (8.5-10.1) Total Bilirubin 0.9 mg/dL (0.2-1.0) Aspartate Amino Transf (AST/SGOT) 77 U/L (15-37) Alanine Aminotransferase (ALT/SGPT) 141 U/L (14-59) Alkaline Phosphatase 183 U/L (46-116) Total Protein 8.1 g/dL (6.4-8.2) Albumin 3.9 g/dL (3.4-5.0) Albumin/Globulin Ratio 0.9 (1.0-1.7) Serum Test, Qualitative Negative (NEG) Bedside Urine HCG, Qualitative Hcg negative (Negative) Test 11/09/18 10:32 Glucose (Fingerstick) 125 mg/dL (70-99) Review of Systems Review of Systems as per above Assessment and Plan Assessmemt and Plan Problems Medical Problems: (1) Bronchitis Status: Acute (2) Sepsis Status: Acute Assessment: Asthma exacerbation Chest wall pain secondary to costochondritis Anxiety mild transaminitis Leukocytosis Tobaccoism Plan: Magnesium Sulfate 2 g IV given with improvement of bronchospasm Solumedrol IV q8 hr Ativan 1 mg q6 hr prn for anxiety Stadol 1 g q6 hr prn for moderate-severe chest wall pain Duonebs as scheduled Nicotine patch prn CXR shows no acute process, patient afebrile, will hold off on antibiotics now - given Zosyn and Levaquin X1 on 11/08/18 monitor labs Telemetry PT/OT DVT ppx Comment Review of Relevant I have reviewed the following items leticia (where applicable) has been applied. Labs Laboratory Tests Test 11/08/18 18:10 11/08/18 18:20 11/08/18 19:15 11/08/18 22:15 Influenza Type A Antigen Negative (NEGATIVE) Influenza Type B Antigen Negative (NEGATIVE) White Blood Count 11.9 x10^3/uL (4.0-11.0) Red Blood Count 5.41 x10^6/uL (3.50-5.40) Hemoglobin 16.0 g/dL (12.0-15.5) Hematocrit 46.0 % (36.0-47.0) Mean Corpuscular Volume 85 fL (79-100) Mean Corpuscular Hemoglobin 30 pg (25-35) Mean Corpuscular Hemoglobin Concent 35 g/dL (31-37) Red Cell Distribution Width 13.9 % (11.5-14.5) Platelet Count 242 x10^3/uL (140-400) Neutrophils (%) (Auto) 68 % (31-73) Lymphocytes (%) (Auto) 21 % (24-48) Monocytes (%) (Auto) 7 % (0-9) Eosinophils (%) (Auto) 3 % (0-3) Basophils (%) (Auto) 1 % (0-3) Neutrophils # (Auto) 8.2 x10^3uL (1.8-7.7) Lymphocytes # (Auto) 2.5 x10^3/uL (1.0-4.8) Monocytes # (Auto) 0.8 x10^3/uL (0.0-1.1) Eosinophils # (Auto) 0.3 x10^3/uL (0.0-0.7) Basophils # (Auto) 0.1 x10^3/uL (0.0-0.2) Sodium Level 139 mmol/L (136-145) Potassium Level 3.6 mmol/L (3.5-5.1) Chloride Level 100 mmol/L (98-107) Carbon Dioxide Level 24 mmol/L (21-32) Anion Gap 15 (6-14) Blood Urea Nitrogen 10 mg/dL (7-20) Creatinine 0.8 mg/dL (0.6-1.0) Estimated GFR (Cockcroft-Gault) 90.5 BUN/Creatinine Ratio 13 (6-20) Glucose Level 94 mg/dL (70-99) Lactic Acid Level 2.3 mmol/L (0.4-2.0) 2.2 mmol/L (0.4-2.0) Calcium Level 9.4 mg/dL (8.5-10.1) Total Bilirubin 0.9 mg/dL (0.2-1.0) Aspartate Amino Transf (AST/SGOT) 77 U/L (15-37) Alanine Aminotransferase (ALT/SGPT) 141 U/L (14-59) Alkaline Phosphatase 183 U/L (46-116) Total Protein 8.1 g/dL (6.4-8.2) Albumin 3.9 g/dL (3.4-5.0) Albumin/Globulin Ratio 0.9 (1.0-1.7) Serum Test, Qualitative Negative (NEG) Bedside Urine HCG, Qualitative Hcg negative (Negative) Test 11/09/18 10:32 Glucose (Fingerstick) 125 mg/dL (70-99) Laboratory Tests Test 11/08/18 18:10 11/08/18 18:20 11/08/18 19:15 11/08/18 22:15 Influenza Type A Antigen Negative (NEGATIVE) Influenza Type B Antigen Negative (NEGATIVE) White Blood Count 11.9 x10^3/uL (4.0-11.0) Red Blood Count 5.41 x10^6/uL (3.50-5.40) Hemoglobin 16.0 g/dL (12.0-15.5) Hematocrit 46.0 % (36.0-47.0) Mean Corpuscular Volume 85 fL (79-100) Mean Corpuscular Hemoglobin 30 pg (25-35) Mean Corpuscular Hemoglobin Concent 35 g/dL (31-37) Red Cell Distribution Width 13.9 % (11.5-14.5) Platelet Count 242 x10^3/uL (140-400) Neutrophils (%) (Auto) 68 % (31-73) Lymphocytes (%) (Auto) 21 % (24-48) Monocytes (%) (Auto) 7 % (0-9) Eosinophils (%) (Auto) 3 % (0-3) Basophils (%) (Auto) 1 % (0-3) Neutrophils # (Auto) 8.2 x10^3uL (1.8-7.7) Lymphocytes # (Auto) 2.5 x10^3/uL (1.0-4.8) Monocytes # (Auto) 0.8 x10^3/uL (0.0-1.1) Eosinophils # (Auto) 0.3 x10^3/uL (0.0-0.7) Basophils # (Auto) 0.1 x10^3/uL (0.0-0.2) Sodium Level 139 mmol/L (136-145) Potassium Level 3.6 mmol/L (3.5-5.1) Chloride Level 100 mmol/L (98-107) Carbon Dioxide Level 24 mmol/L (21-32) Anion Gap 15 (6-14) Blood Urea Nitrogen 10 mg/dL (7-20) Creatinine 0.8 mg/dL (0.6-1.0) Estimated GFR (Cockcroft-Gault) 90.5 BUN/Creatinine Ratio 13 (6-20) Glucose Level 94 mg/dL (70-99) Lactic Acid Level 2.3 mmol/L (0.4-2.0) 2.2 mmol/L (0.4-2.0) Calcium Level 9.4 mg/dL (8.5-10.1) Total Bilirubin 0.9 mg/dL (0.2-1.0) Aspartate Amino Transf (AST/SGOT) 77 U/L (15-37) Alanine Aminotransferase (ALT/SGPT) 141 U/L (14-59) Alkaline Phosphatase 183 U/L (46-116) Total Protein 8.1 g/dL (6.4-8.2) Albumin 3.9 g/dL (3.4-5.0) Albumin/Globulin Ratio 0.9 (1.0-1.7) Serum Test, Qualitative Negative (NEG) Bedside Urine HCG, Qualitative Hcg negative (Negative) Test 11/09/18 10:32 Glucose (Fingerstick) 125 mg/dL (70-99) Medications Current Medications Albuterol/ Ipratropium (Duoneb) 3 ml 1X ONCE NEB Last administered on 18:18; Start 11/08/18 at 18:15; Stop 11/08/18 at 18:16; Status DC Dexamethasone Sodium Phosphate (Decadron) 10 mg 1X ONCE IV Last administered on 11/08/18at 18:50; Start 11/08/18 at 18:30; Stop 11/08/18 at 18:31; Status DC Acetaminophen (Tylenol) 500 mg 1X ONCE PO ; Start 11/08/18 at 18:30; Stop at 18:31; Status DC Sodium Chloride 1,000 ml @ 1,000 mls/hr 1X ONCE IV Last administered on 20:00; Start 11/08/18 at 19:15; Stop 11/08/18 at 20:14; Status DC Levofloxacin/ Dextrose 150 ml @ 100 mls/hr 1X ONCE IV Last administered on 20:00; Start 11/08/18 at 19:15; Stop 11/08/18 at 20:44; Status DC Sodium Chloride 1,000 ml @ 1,000 mls/hr 1X ONCE IV Last administered on at 20:00; Start 11/08/18 at 19:15; Stop 11/08/18 at 20:14; Status DC Ondansetron HCl (Zofran) 4 mg 1X ONCE IV Last administered on 11/08/18 20:00; Start 11/08/18 at 20:00; Stop 11/08/18 at 20:01; Status DC Lorazepam (Ativan) 0.5 mg 1X ONCE IV Last administered on 11/08/18at 20:00; Start 11/08/18 at 20:00; Stop 11/08/18 at 20:01; Status DC Piperacillin Sod/ Tazobactam Sod 4.5 gm/Sodium Chloride 100 ml @ 200 mls/hr 1X ONCE IV Last administered on 11/08/18at 22:33; Start 11/08/18 at 20:00; Stop 11/08/18 at 20:29; Status DC Sodium Chloride 500 ml @ 500 mls/hr 1X ONCE IV Last administered on 11/08/18at 20:00; Start 11/08/18 at 20:00; Stop 11/08/18 at 20:59; Status DC Ondansetron HCl (Zofran) 4 mg PRN Q4HRS PRN IV NAUSEA/VOMITING Last administered on 11/09/18 08:08; Start 11/08/18 at 20:15 Zolpidem Tartrate (Ambien) 5 mg PRN QHS PRN PO INSOMNIA Last administered on 01:30; Start 11/08/18 at 20:15 Acetaminophen (Tylenol) 650 mg PRN Q4HRS PRN PO TEMP OVER 100.4F OR MILD PAIN; Start 11/08/18 at 20:15 Clonidine HCl (Catapres) 0.1 mg PRN Q6HRS PRN PO SBP>160 OR DBP>90; Start at 20:15 Sodium Monofluorophosphate (Fleet Adult) 133 ml PRN DAILY PRN [place] CONSTIPATION; Start 11/08/18 at 20:15 Docusate Sodium (Colace) 100 mg PRN BID PRN PO CONSTIPATION; Start 11/08/18 at 20:15 Albuterol Sulfate (Ventolin Neb Soln) 2.5 mg PRN Q4HRS PRN NEB SHORTNESS OF BREATH; Start 11/08/18 at 20:15 Guaifenesin (Robitussin) 200 mg PRN Q4HRS PRN PO COUGH 1ST CHOICE; Start at 20:15 Lorazepam (Ativan) 0.5 mg PRN Q4HRS PRN PO ANXIETY / AGITATION Last administered on 11/09/18 08:08; Start 11/08/18 at 20:15 Methylprednisolone Sodium Succinate (SOLU-Medrol 40MG VIAL) 40 mg Q8HRS IV Last administered on 11/09/18 06:31; Start 11/08/18 at 22:00 Levalbuterol HCl (Xopenex) 1.25 mg 1X ONCE NEB Last administered on 11/08/18at 20:29; Start 11/08/18 at 20:30; Stop 11/08/18 at 20:31; Status DC Ondansetron HCl (Zofran) 4 mg PRN Q8HRS PRN IV NAUSEA/VOMITING 1ST CHOICE; Start 11/08/18 at 20:30; Stop 11/08/18 at 20:55; Status DC Acetaminophen (Tylenol) 650 mg PRN Q4HRS PRN PO FEVER; Start 11/08/18 at 20:30; Stop 11/08/18 at 20:55; Status DC Albuterol/ Ipratropium (Duoneb) 3 ml RTQID NEB Last administered on 11/09/18 08 :29; Start 11/09/18 at 08:00; Stop 11/10/18 at 07:59 Diphenhydramine HCl (Benadryl) 25 mg 1X ONCE IVP Last administered on 20:56; Start 11/08/18 at 21:00; Stop 11/08/18 at 21:01; Status DC Meloxicam (Mobic) 7.5 mg BID PO Last administered on 11/09/18 08:08; Start 11/08 at 22:00 Lorazepam (Ativan) 0.5 mg 1X ONCE IV Last administered on 11/08/18 22:27; Start 11/08/18 at 22:30; Stop 11/08/18 at 22:31; Status DC Diphenhydramine HCl (Benadryl) 25 mg PRN Q6HRS PRN PO ITCHING Last administered on 11/09/18 08:08; Start 11/08/18 at 22:15 Nicotine (Nicoderm Cq 21mg) 1 patch DAILY TD Last administered on 11/08/18 23: 10; Start 11/08/18 at 23:00 Diphenhydramine HCl (Benadryl) 25 mg 1X ONCE IVP Last administered on at 23:08; Start 11/08/18 at 23:00; Stop 11/08/18 at 23:01; Status DC Magnesium Sulfate 50 ml @ 25 mls/hr 1X STAT IV Last administered on 11/09/18 09:13; Start 11/09/18 at 09:03; Stop 11/09/18 at 11:02; Status DC Butorphanol Tartrate (Stadol) 2 mg PRN Q4HRS PRN IV PAIN Last administered on at 09:24; Start 11/09/18 at 09:15 Lorazepam (Ativan) 2 mg PRN Q4HRS PRN IV ANXIETY / AGITATION Last administered on 11/09/18at 09:24; Start 11/09/18 at 09:15 Active Scripts Active Macrobid 100 Mg Capsule (Nitrofurantoin Monohyd/M-Cryst) 100 Mg Capsule 100 Mg PO BID 5 Days Proair Hfa Inhaler (Albuterol Sulfate) 8.5 Gm Hfa.aer.ad 1 Puff INH PRN Q6HRS PRN Macrobid 100 Mg Capsule (Nitrofurantoin Monohyd/M-Cryst) 100 Mg Capsule 1 Cap PO BID Augmentin 875-125 Tablet (Amoxicillin/Potassium Clav) 1 Each Tablet 1 Tab PO BID Zofran Odt (Ondansetron) 4 Mg Tab.rapdis 1 Tab SL Q8HRS Valium (Diazepam) 5 Mg Tablet 5 Mg PO TID 5 Days Percocet 5-325 Mg Tablet (Oxycodone/Acetaminophen) 1 Each Tablet 1-2 Tab PO Q4- 6HRS Bactrim Ds Tablet (Sulfamethoxazole/Trimethoprim) 1 Each Tablet 1 Tab PO BID Oxycodone Hcl 10 Mg Tablet 10 Mg PO Q4HRS PRN Reported No Known Medications Prior To Admisstion (Info) Each 1 Each MC Progesterone (Progesterone,Micronized) 200 Mg Capsule Clomiphene Citrate 50 Mg Tablet Omeprazole 40 Mg Capsule. 1 Cap PO DAILY Vitals/I & O Vital Sign - Last 24 Hours 11/08/18 11/08/18 11/08/18 11/08/18 18:00 18:07 18:24 19:13 Temp 98.0 98.0 Pulse 92 97 87 Resp 40 B/P (MAP) 142/92 (109) 142/92 (109) 115/56 (75) Pulse Ox 98 97 98 97 O2 Delivery Room Air Room Air 11/08/18 11/08/18 11/08/18 11/08/18 20:07 20:29 22:00 23:16 Temp 99.1 99.1 Pulse 101 94 Resp 20 B/P (MAP) 134/81 (98) 125/68 (87) Pulse Ox 97 100 97 O2 Delivery Room Air Room Air Room Air 11/09/18 11/09/18 11/09/18 11/09/18 03:25 07:00 08:00 08:29 Temp 98.7 98.7 98.7 98.7 Pulse 107 107 Resp 20 20 B/P (MAP) 108/66 (80) 114/79 (91) Pulse Ox 91 93 95 O2 Delivery Room Air Room Air Nasal Cannula Room Air O2 Flow Rate 2.0 11/09/18 11/09/18 09:24 10:57 Temp 98.6 98.6 Pulse 118 Resp 20 28 B/P (MAP) 132/73 (92) Pulse Ox 99 O2 Delivery Nasal Cannula Venturi Mask O2 Flow Rate 2.0 7.0 Intake and Output 11/08/18 11/08/18 11/09/18 14:59 22:59 06:59 Intake Total 100 ml Balance 100 ml DANGELO ROBLES III DO Nov 09, 2018 11:37
--- NOTE | 2018-11-09 13:48 | NUR ---
SW following pt for anticipated dc needs. Chart reviewed. Pt lives at home with family. No discharge recommendation and SW needs noted at this time.
--- NOTE | 2018-11-09 17:02 | NUR ---
Patient has threatened to leave AMA twice during this RN's shift. This RN would not allow patient to go outside to her grandma's car to grab personal belongings due to respiratory distress symptoms and intact IV. Patient threatened to leave AMA, charge nurse notified. Charge nurse talked to patient, patient decided to stay. Patient then threatened to leave AMA again after being notified we do not carry iphone chargers on the floor. Charge nurse notified and reiterated there are no chargers on the floor. Patients says she will call around to see if she can find a hot metal charger.
[2018-11-09 19:53] VITALS: BP 136/86
[2018-11-09 23:19] VITALS: BP 123/64
--- NOTE | 2018-11-10 00:15 | NUR ---
Patient signing out AMA. She stated she felt like we were doing anything for her after she was unable to receive pain medication despite receiving pain medication at approximately 2145. Patient is refusing to sign AMA MD glenys notified. Escorted by security and nursing staff.
[2018-11-10] MEDS ORDERED: FENT1PAT17 TP (20:37)
[2018-11-10] MEDS ORDERED: ALPR0.5T PO (20:37)
[2018-11-10] MEDS ORDERED: METH4TAB2 PO (20:37)
[2018-11-10] MEDS ORDERED: VENTOLIN HFA18 GM INH (20:37)
[2018-11-10] MEDS ORDERED: AZIT250T PO (20:37)
== END 2018-11-10 00:18 | disposition left against medical advice (07) | DRG 872 ==
LOC: ER 17:58 → 6 SOUTH 20:20
PROVIDERS: ADMIT Internal Medicine; ATTEND Internal Medicine
DX: A41.9 Sepsis, unspecified organism (principal); J45.901 Unspecified asthma with (acute) exacerbation; M94.0 Chondrocostal junction syndrome [Tietze]; E28.2 Polycystic ovarian syndrome; F17.210 Nicotine dependence, cigarettes, uncomplicated; F41.9 Anxiety disorder, unspecified; Z82.49 Family history of ischemic heart disease and other diseases of the circulatory system; Z87.442 Personal history of urinary calculi; Z90.49 Acquired absence of other specified parts of digestive tract; Z88.8 Allergy status to other drugs, medicaments and biological substances; Z88.6 Allergy status to analgesic agent; Z91.041 Radiographic dye allergy status; Z91.040 Latex allergy status; Z88.5 Allergy status to narcotic agent; Z91.013 Allergy to seafood; Z98.1 Arthrodesis status
CPT/HCPCS: 36415; 71046; 80053; 81025; 82962; 83605; 84703; 85025; 87040; 87804; 94640; 94760; 96361; 96374; 96375; J1100; J1200; J1956; J2060; J2405; J2543; J2920; J3475; J7030; J7040; J7620; Q0163; 99285-25

== ENCOUNTER 2018-11-10 18:48 | Emergency (ER) | payer OTHER ==
[~2018-11-10] VITALS: Ht 177.8 cm; Wt 113.4 kg
[2018-11-10 19:27] VITALS: BP 126/65
[2018-11-10] MEDS ORDERED: methylPREDNISolone SOD SUCC PF 125 MG/2 ML VIAL. IM ONE (19:45)
[2018-11-10] MEDS ORDERED: diazePAM 5 MG TABLET PO ONE (19:45)
[2018-11-10] MEDS ORDERED: HYDROcodon/APAP 7.5/325MG ORAL 15 ML SOLUTION PO ONE (19:45)
[2018-11-10] MEDS ORDERED: IPRATRPIUM/ALBUTEROL 0.5/2.5MG 3 ML NEBU. NEB ONE (19:45)
--- NOTE | 2018-11-10 20:06 | PHYS DOC ---
Past Medical History Past Medical History: Asthma, Kidney Stone, UTI Additional Past Medical Histor: RECTAL BLEEDING, HYPERKYPHOSIS, high liver enzymes, PCOS, PRE DIABETIC (ANDREA ARIAS UNIVERSITY TEACHER) Past Surgical History: Appendectomy, Cholecystectomy, Tonsillectomy, Other Additional Past Surgical Histo: spinal fusion, LEFT ELBOW, pylonydal cyst (ANDREA ARIAS UNIVERSITY TEACHER) Alcohol Use: None Drug Use: None (ANDREA ARIAS APRN) Adult General Chief Complaint Chief Complaint: ASTHMA HPI HPI Patient is a 23 year old female with history of asthma, back surgery, who presents to the ED today complaining of cough and shortness of breath due to her asthma that began 4 days ago. Patient states she was hospitalized a day ago , she states she left the hospital because her IV was high. Nurse's notes from her floor nurse shows patient left AGAINST MEDICAL ADVICE because she was complaining they are not giving her pain medications. She had to be escorted out of the building by security. Patient is in the ED asking if we can put an IV to be placed for her to get IV pain medicines, mother states she prefers we do not give patient any IV medicines or put an IV. I offered IM shots, she states she does not want any IM injections because she is afraid of needles. I have spent almost 20 minutes talking to patient and mother, patient continued to refuse any oral medications, she states she wants something for pain and anxiety but will not take any pills. She is also refusing IM shots. After a long conversation patient agreed to IM solumedrol, Valium PO, Lortab liquid form and Zofran ODT. When I went to evaluate patient, she had refuse the Solu-Medrol. At this point as to patient what that she weren't from a scene the emergency room considering she is refusing everything but still wanting similar medicines as an IV. Mother continues to state we should not put in IV on patient. Patient was given a DuoNeb treatment. She states she is feeling better. We discussed options including staining of leaving. Mother states she is okay going at home with patient if we can give her something for anxiety as well as something for her chronic pain. I offered patient fentanyl patches, Xanax, Medrol Dosepak, albuterol breathing treatments and Z pack Mother stated she will also give patient recently next. Mother also stated she take patient to Dr. Newman's office for follow-up. (ANDREA ARIAS APRN) Review of Systems Review of Systems Constitutional: Denies fever or chills [] Eyes: Denies change in visual acuity, redness, or eye pain [] HENT: Denies nasal congestion or sore throat [] Respiratory: Reports cough and shortness of breath [] Cardiovascular: No additional information not addressed in HPI [] GI: Denies abdominal pain, nausea, vomiting, bloody stools or diarrhea [] : Denies dysuria or hematuria [] Musculoskeletal: Denies back pain or joint pain [] Integument: Denies rash or skin lesions [] Neurologic: Denies headache, focal weakness or sensory changes [] All other systems were reviewed and found to be within normal limits, except as documented in this note. (ANDREA ARIAS APRN) Current Medications Current Medications Current Medications Medications (Trade) Dose Ordered Sig/Kaelyn Start Time Stop Time Status Last Admin Dose Admin Acetaminophen/ Hydrocodone Bitart (Lortab 7.5-325/ 15ml Oral Solution) 15 ml 1X ONCE 11/10/18 19:45 11/10/18 19:49 DC 11/10/18 19:45 15 ML Albuterol/ Ipratropium (Duoneb) 3 ml 1X ONCE 11/10/18 19:45 11/10/18 19:46 DC 11/10/18 20:06 3 ML Diazepam (Valium) 5 mg 1X ONCE 11/10/18 19:45 11/10/18 19:46 DC 11/10/18 19:53 5 MG Fentanyl (Duragesic 100mcg/Hr Patch) 1 patch Q3DAYS 11/10/18 21:00 11/10/18 21:00 DC 11/10/18 20:52 1 PATCH Methylprednisolone Sodium Succinate (SOLU-Medrol 125MG VIAL) 125 mg 1X ONCE 11/10/18 19:45 11/10/18 19:47 DC (KAYLA VELAZQUEZ DO) Allergies Allergies Allergies Coded Allergies Type Severity Reaction Last Updated Verified Fish Containing Products Allergy Intermediate Rash 11/08/18 Yes coconut oil Allergy Intermediate 11/08/18 Yes iodine Allergy Intermediate Rash 11/08/18 Yes ketorolac Allergy Intermediate Rash 11/08/18 Yes latex Allergy Intermediate Rash 11/08/18 Yes mold Allergy Intermediate 11/08/18 Yes tramadol Allergy Intermediate RASH/ITCHING 11/08/18 Yes prednisone Allergy Mild N/V 11/08/18 Yes shellfish derived Adverse Reaction Intermediate 11/08/18 Yes Uncoded Allergies Type Severity Reaction Last Updated Verified INSECT BITES,DUST MITES Allergy Unknown 04/08/16 (KAYLA VELAZQUEZ DO) Physical Exam Physical Exam Constitutional: Well developed, well nourished, no acute distress, non-toxic appearance. [] HENT: Normocephalic, atraumatic, bilateral external ears normal, oropharynx moist, no oral exudates, nose normal. [] Eyes: PERRLA, EOMI, conjunctiva normal, no discharge. [] Neck: Normal range of motion, no tenderness, supple, no stridor. [] Cardiovascular:Heart rate regular rhythm, no murmur [] Lungs & Thorax: Lungs sounds coarse. Patient refusing to cough, she states it's going to make her chest hurt. Abdomen: Bowel sounds normal, soft, no tenderness, no masses, no pulsatile masses. [] Skin: Warm, dry, no erythema, no rash. [] Back: No tenderness, no CVA tenderness. [] Extremities: No tenderness, no cyanosis, no clubbing, ROM intact, no edema. [] Neurologic: Alert and oriented X 3, normal motor function, normal sensory function, no focal deficits noted. [] Psychologic: Affect normal, judgement normal, mood normal. [] (ANDREA ARIAS APRN) Current Patient Data Vital Signs Vital Signs Date Time Temp Pulse Resp B/P (MAP) Pulse Ox O2 Delivery O2 Flow Rate FiO2 11/10/18 20:52 16 98 Room Air 11/10/18 19:27 98.5 88 126/65 (85) 98.5 (KAYLA VELAZQUEZ DO) EKG EKG [] (ANDREA ARIAS APRN) Radiology/Procedures Radiology/Procedures [] (ANDREA ARIAS APRN) Course & Med Decision Making Course & Med Decision Making Pertinent Labs and Imaging studies reviewed. (See chart for details) Please see history of present illness (ANDREA ARIAS APRN) Dragon Disclaimer Dragon Disclaimer This electronic medical record was generated, in whole or in part, using a voice recognition dictation system. (ANDREA ARIAS APRN) Departure Departure Impression: Primary Impression: Asthma exacerbation Additional Impression: Chronic back pain Disposition: HOME, SELF-CARE Condition: STABLE Referrals: GABRIELLE DOSS MD (PCP) WEN NEWMAN MD follow up as soon as you can Patient Instructions: Asthma, Adult, Back Pain, Adult Additional Instructions: You were evaluated in the emergency room for asthma exacerbation. We highly encourage you to cough and take deep breaths. Take the medicines as ordered. Please follow up with Dr. Newman as soon as you can Scripts Fentanyl (FENTANYL 50mcg/hr) 1 Each Patch.td72 1 PATCH TP Q3DAYS, #3 PATCH Prov: ANDREA ARIAS MAGUI 11/10/18 Methylprednisolone (MEDROL) 4 Mg Tab.ds.pk 1 PKG PO UD, #1 PKG Prov: ANDREA ARIAS MAGUI 11/10/18 Albuterol Sulfate (VENTOLIN HFA INHALER) 18 Gm Hfa.aer.ad 2 PUFF INH Q4HRS for FOR ASTHMA, #1 INHALER 0 Refills Prov: HANYGabrielleANDREA APRN 11/10/18 Azithromycin (ZITHROMAX) 250 Mg Tablet 1 PKG PO UD, #1 PKG Prov: ANDREA ARIAS MAGUI 11/10/18 Alprazolam (XANAX) 0.5 Mg Tablet 1 TAB PO TID, #20 TAB Prov: ANDREA ARIAS MAGUI 11/10/18 Attending Signature Attending Signature I have reviewed the PA/DIRECTOR LEARNING SERVICES's note and plan of care. I was available for consultation as needed during the patient's visit in the emergency department. I agree with the clinical impression, plan, and disposition. (KAYLA VELAZQUEZ DO) Problem Qualifiers Primary Impression: Asthma exacerbation Asthma severity: mild Asthma persistence: intermittent Qualified Codes: J45.21 - Mild intermittent asthma with (acute) exacerbation Additional Impression: Chronic back pain Back pain location: low back pain Back pain laterality: bilateral Sciatica presence: without sciatica Qualified Codes: M54.5 - Low back pain; G89.29 - Other chronic pain HUGOANDREA KILGORE Nov 10, 2018 20:06 KAYLA VELAZQUEZ DO Nov 27, 2018 17:05
[2018-11-10] MEDS ORDERED: AZIT250T PO (20:37)
[2018-11-10] MEDS ORDERED: METH4TAB2 PO (20:37)
[2018-11-10] MEDS ORDERED: VENTOLIN HFA18 GM INH (20:37)
[2018-11-10] MEDS ORDERED: ALPR0.5T PO (20:37)
[2018-11-10] MEDS ORDERED: FENT1PAT17 TP (20:37)
[2018-11-10] MEDS ORDERED: fentaNYL 100MCG/HR PATCH 1 PATCH PATCH TD SCH (21:00)
--- NOTE | 2018-11-10 21:36 | RAD ---
CHEST PA LATERAL CLINICAL INDICATION: ER PATIENT. NON PRODUCTIVE COUGH, AUDIBLE RUMBLING, SHORTNESS OF AIR, BILATERAL RIB MARGIN PAIN FROM COUGH. PRIOR XRAY. COMPARISON: 09/10/2018 FINDINGS: Heart is normal in size. Lungs are clear. No pneumothorax or pleural effusion. Visualized bony thorax within normal limits. Posterior fixation hardware is seen in the thoracic spine. IMPRESSION: No acute pulmonary process. Electronically signed by: Harley Obrien DO (11/10/2018 9:34 PM) [facility]
== END 2018-11-10 20:55 | disposition home or self-care (01) ==
LOC: ER 18:48
DX: J45.901 Unspecified asthma with (acute) exacerbation (principal); G89.29 Other chronic pain; M54.5 Low back pain; Z87.440 Personal history of urinary (tract) infections; Z90.89 Acquired absence of other organs; Z90.49 Acquired absence of other specified parts of digestive tract; Z88.5 Allergy status to narcotic agent; Z88.6 Allergy status to analgesic agent; Z91.041 Radiographic dye allergy status; Z91.013 Allergy to seafood; Z91.018 Allergy to other foods; Z91.038 Other insect allergy status
CPT/HCPCS: 71046; 94640; 99284; J7620

== ENCOUNTER 2018-12-13 22:47 | Emergency (ER) | payer OTHER ==
[~2018-12-13] VITALS: Ht 175.3 cm; Wt 113.4 kg
[~2018-12-13 22:47] MED LIST changes: +ALPR0.5T PO; +AZIT250T PO; +FENT1PAT17 TP; +METH4TAB2 PO; +VENTOLIN HFA18 GM INH
[2018-12-13 23:21] LABS: BILIRUBIN,URINE NEGATIVE (NEG); CLARITY,URINE CLEAR; COLOR,URINE YELLOW; NITRITE,URINE NEGATIVE (NEG); PROTEIN,URINE NEGATIVE (NEG-TRACE); UROBILINOGEN,URINE 0.2 mg/dL (0.2 mg/dL)
[2018-12-13 23:27] LABS: BACTERIA,URINE FEW /HPF (0-FEW); RBC,URINE OCC /HPF (0-2); SQUAMOUS EPITHELIAL CELL,UR MOD /LPF
[2018-12-13 23:42] LABS: BASO % 1 % (0-3); EOS # 0.2 x10^3/uL (0.0-0.7); EOS % 2 % (0-3); HEMATOCRIT 43.2 % (36.0-47.0); HEMOGLOBIN 14.8 g/dL (12.0-15.5); LYMPH # 2.5 x10^3/uL (1.0-4.8); LYMPH % 29 % (24-48); MEAN CORPUSCULAR HEMOGLOBIN 29 pg (25-35); MEAN CORPUSCULAR HGB CONC 34 g/dL (31-37); MEAN CORPUSCULAR VOLUME 86 fL (79-100); MONO # 0.5 x10^3/uL (0.0-1.1); MONO % 6 % (0-9); NEUT # 5.7 x10^3uL (1.8-7.7); NEUT % 64 % (31-73); PLATELET COUNT 207 x10^3/uL (140-400); RED BLOOD COUNT 5.02 x10^6/uL (3.50-5.40); RED CELL DISTRIBUTION WIDTH 13.7 % (11.5-14.5); WHITE BLOOD COUNT 8.9 x10^3/uL (4.0-11.0)
[2018-12-13] MEDS ORDERED: ONDANSETRON PF 4 MG/2 ML VIAL. IV ONE (23:45)
[2018-12-13] MEDS ORDERED: IV NORMAL SALINE 1000ML BAG 1,000 ML IV ONE (23:45)
[2018-12-13] MEDS ORDERED: FAMOTIDINE 20 MG/2 ML VIAL IVP ONE (23:45)
--- NOTE | 2018-12-13 23:45 | PHYS DOC ---
Past Medical History Past Medical History: Anxiety, Asthma, Kidney Stone, UTI Additional Past Medical Histor: RECTAL BLEEDING, HYPERKYPHOSIS, high liver enzymes, PCOS, PRE DIABETIC Past Surgical History: Appendectomy, Cholecystectomy, Tonsillectomy, Other Additional Past Surgical Histo: spinal fusion, LEFT ELBOW, pylonydal cyst Smoking: Cigarettes Alcohol Use: Occasionally Drug Use: None Adult General Chief Complaint Chief Complaint: BLOODY STOOL HPI HPI Patient is a 23 year old female who presents with bloody diarrhea for the last 3 days. She states that she has 8-10 soft stools daily since her cholecystectomy 2 years ago and this has been the case recently but now she is noticing bright red blood mixed and coating her stools. She states that blood has been "filling the toilet" and has since been wearing a pad that will soak with bright red blood. She also has been experiencing lower abdominal pain that is crampy with intermittent sharp pains. This pain becomes worse after she has passed a bowel movement. She has been nauseous but denies vomiting, chest pain, fever, chills, recent travel or sick contacts. Reports mild dizziness. She has a history of PCOS and has not had a menstrual period, aside from light spotting, since age 16. Review of Systems Review of Systems Constitutional: Denies fever or chills [] Eyes: Denies blurred vision or diplopia [] HENT: Denies nasal congestion or sore throat [] Respiratory: Denies cough or shortness of breath [] Cardiovascular: Denies chest pain or palpitations [] GI: Reports abdominal pain, hematochezia, nausea. Denies vomiting. [] : Denies dysuria or hematuria [] Integument: Denies rash or skin lesions [] Neurologic: Denies dizziness or changes in sensation [] Complete review of systems found to be within normal limits, except as documented in this note. Current Medications Current Medications Current Medications Medications (Trade) Dose Ordered Sig/Kaelyn Start Time Stop Time Status Last Admin Dose Admin Famotidine (Pepcid Vial) 20 mg 1X ONCE 12/13/18 23:45 12/13/18 23:46 DC 12/13/18 23:40 20 MG Ondansetron HCl (Zofran) 4 mg 1X ONCE 12/13/18 23:45 12/13/18 23:46 DC 12/13/18 23:41 4 MG Sodium Chloride 1,000 ml @ 1,000 mls/hr 1X ONCE 12/13/18 23:45 12/14/18 00:44 12/13/18 23:41 1,000 MLS/HR Allergies Allergies Allergies Coded Allergies Type Severity Reaction Last Updated Verified Fish Containing Products Allergy Intermediate Rash 11/08/18 Yes coconut oil Allergy Intermediate 11/08/18 Yes iodine Allergy Intermediate Rash 11/08/18 Yes ketorolac Allergy Intermediate Rash 11/08/18 Yes latex Allergy Intermediate Rash 11/08/18 Yes mold Allergy Intermediate 11/08/18 Yes tramadol Allergy Intermediate RASH/ITCHING 11/08/18 Yes prednisone Allergy Mild N/V 11/08/18 Yes shellfish derived Adverse Reaction Intermediate 11/08/18 Yes Uncoded Allergies Type Severity Reaction Last Updated Verified INSECT BITES,DUST MITES Allergy Unknown 04/08/16 Physical Exam Physical Exam Constitutional: Well developed, obese, no acute distress, non-toxic appearance. [] HENT: Normocephalic, atraumatic, oropharynx moist. [] Eyes: EOMI, sclera white, no conjunctival pallor. [] Cardiovascular:Heart rate regular rhythm, no murmur [] Lungs & Thorax: Bilateral breath sounds clear to auscultation [] Abdomen: Bowel soft, mild tenderness in RUQ and LUQ, focal tenderness to palpation in RLQ and LLQ with voluntary guarding. No rebound tenderness or rigidity. [] Skin: Warm, dry, no erythema, no rash. [] Back: Midline surgical scar along length of spine, no tenderness. [] Extremities: Radial pulses +2/4 b/l, cap refill < 2s[] Neurologic: Alert and oriented, no focal deficits noted. [] Psychologic: Affect normal, judgement normal, mood normal. [] Current Patient Data Vital Signs Vital Signs Date Time Temp Pulse Resp B/P (MAP) Pulse Ox O2 Delivery O2 Flow Rate FiO2 12/14/18 00:03 62 20 124/65 (84) 98 Room Air 12/13/18 22:57 99.9 99.9 Lab Values Laboratory Tests Test 12/13/18 23:05 12/13/18 23:09 12/13/18 23:25 Urine Collection Type Unknown Urine Color Yellow Urine Clarity Clear Urine pH 6.0 Urine Specific [place] 1.010 Urine Protein Negative mg/dL (NEG-TRACE) Urine Glucose (UA) Negative mg/dL (NEG) Urine Ketones (Stick) Negative mg/dL (NEG) Urine Blood Moderate (NEG) Urine Nitrite Negative (NEG) Urine Bilirubin Negative (NEG) Urine Urobilinogen Dipstick 0.2 mg/dL (0.2 mg/dL) Urine Leukocyte Esterase Trace (NEG) Urine RBC Occ /HPF (0-2) Urine WBC 1-4 /HPF (0-4) Urine Squamous Epithelial Cells Mod /LPF Urine Bacteria Few /HPF (0-FEW) POC Urine HCG, Qualitative Hcg negative (Negative) White Blood Count 8.9 x10^3/uL (4.0-11.0) Red Blood Count 5.02 x10^6/uL (3.50-5.40) Hemoglobin 14.8 g/dL (12.0-15.5) Hematocrit 43.2 % (36.0-47.0) Mean Corpuscular Volume 86 fL (79-100) Mean Corpuscular Hemoglobin 29 pg (25-35) Mean Corpuscular Hemoglobin Concent 34 g/dL (31-37) Red Cell Distribution Width 13.7 % (11.5-14.5) Platelet Count 207 x10^3/uL (140-400) Neutrophils (%) (Auto) 64 % (31-73) Lymphocytes (%) (Auto) 29 % (24-48) Monocytes (%) (Auto) 6 % (0-9) Eosinophils (%) (Auto) 2 % (0-3) Basophils (%) (Auto) 1 % (0-3) Neutrophils # (Auto) 5.7 x10^3uL (1.8-7.7) Lymphocytes # (Auto) 2.5 x10^3/uL (1.0-4.8) Monocytes # (Auto) 0.5 x10^3/uL (0.0-1.1) Eosinophils # (Auto) 0.2 x10^3/uL (0.0-0.7) Basophils # (Auto) 0.0 x10^3/uL (0.0-0.2) Sodium Level 139 mmol/L (136-145) Potassium Level 3.6 mmol/L (3.5-5.1) Chloride Level 101 mmol/L (98-107) Carbon Dioxide Level 29 mmol/L (21-32) Anion Gap 9 (6-14) Blood Urea Nitrogen 12 mg/dL (7-20) Creatinine 0.8 mg/dL (0.6-1.0) Estimated GFR (Cockcroft-Gault) 90.5 BUN/Creatinine Ratio 15 (6-20) Glucose Level 149 mg/dL (70-99) H Calcium Level 9.0 mg/dL (8.5-10.1) Total Bilirubin 0.4 mg/dL (0.2-1.0) Aspartate Amino Transferase (AST) 61 U/L (15-37) H Alanine Aminotransferase (ALT) 117 U/L (14-59) H Alkaline Phosphatase 123 U/L (46-116) H Total Protein 7.2 g/dL (6.4-8.2) Albumin 3.9 g/dL (3.4-5.0) Albumin/Globulin Ratio 1.2 (1.0-1.7) Lipase 122 U/L (73-393) Laboratory Tests 12/13/18 23:25 Laboratory Tests 12/13/18 23:25 EKG EKG [] Radiology/Procedures Radiology/Procedures [] Course & Med Decision Making Course & Med Decision Making Pertinent Labs and Imaging studies reviewed. (See chart for details) [] Dragon Disclaimer Dragon Disclaimer This electronic medical record was generated, in whole or in part, using a voice recognition dictation system. Departure Departure Impression: Primary Impression: Abdominal pain Additional Impression: Rectal bleed Disposition: HOME, SELF-CARE Condition: STABLE Referrals: GABRIELLE DOSS MD (PCP) ANGIE ACOSTA MD Patient Instructions: Abdominal Pain (Nonspecific), Rectal Bleeding, Dvon-di-Arvx Scripts Hyoscyamine Sulfate (LEVSIN-SL) 0.125 Mg Tab.subl 1-2 TAB SL PRN Q4HRS, #20 TAB Prov: KAYLA VELAZQUEZ DO 12/14/18 Hydrocortisone Acetate (ANUSOL-HC) 25 Mg Supp.rect 1 SUPP RC BID, #14 SUPP Prov: KAYLA VELAZQUEZ DO 12/14/18 Problem Qualifiers Primary Impression: Abdominal pain Abdominal location: lower abdomen, unspecified Qualified Codes: R10.30 - Lower abdominal pain, unspecified KAYLA VELAZQUEZ DO December 13, 2018 23:45
[2018-12-13 23:55] LABS: CREATININE 0.8 mg/dL (0.6-1.0); GFR 90.5; POTASSIUM 3.6 mmol/L (3.5-5.1)
[2018-12-14] LABS: ALBUMIN 3.9 g/dL (3.4-5.0); ALBUMIN/GLOBULIN RATIO 1.2 (1.0-1.7); TOTAL BILIRUBIN 0.4 mg/dL (0.2-1.0); TOTAL PROTEIN 7.2 g/dL (6.4-8.2)
--- NOTE | 2018-12-14 00:01 | RAD ---
EXAM: Abdomen and pelvis CT without intravenous contrast. HISTORY: Pain. Hematochezia. TECHNIQUE: Computed tomographic images of the abdomen and pelvis were obtained without contrast. Multiplanar reformatting was performed. *One or more of the following individualized dose reduction techniques were utilized for this examination: 1. Automated exposure control. 2. Adjustment of the mA and/or kV according to patient size. 3. Use of iterative reconstruction technique. COMPARISON: 03/21/2018. FINDINGS: Evaluation of the lower thorax demonstrates no infiltrate or pleural effusion. The heart is normal in size. No hepatic lesion is seen. The gallbladder is surgically absent. The pancreas is unremarkable. The spleen is upper normal in size. The adrenal glands are unremarkable. The kidneys are unremarkable. The appendix is surgically absent. No abnormally thickened or dilated loop of bowel is seen. The urinary bladder and uterus are unremarkable. There are prominent ovaries, within physiologic limits for a premenopausal female. There is no lymphadenopathy. There is no suspicious osseous lesion. There is instrumented fusion at T9-L3. IMPRESSION: No acute abdominal or pelvic finding. Electronically signed by: Joan Kelly MD (12/13/2018 11:58 PM) [facility]
[2018-12-14] MEDS ORDERED: HYOS0.1265 SL (00:24)
[2018-12-14] MEDS ORDERED: HYDR25SU18 RC (00:24)
[2018-12-14 00:33] VITALS: BP 133/64
== END 2018-12-14 00:52 | disposition home or self-care (01) ==
LOC: ER 22:47
DX: K62.5 Hemorrhage of anus and rectum (principal); R10.31 Right lower quadrant pain; R10.32 Left lower quadrant pain; R19.7 Diarrhea, unspecified; R42 Dizziness and giddiness; J45.909 Unspecified asthma, uncomplicated; Z87.440 Personal history of urinary (tract) infections; Z87.442 Personal history of urinary calculi; F17.210 Nicotine dependence, cigarettes, uncomplicated; Z90.49 Acquired absence of other specified parts of digestive tract; Z90.89 Acquired absence of other organs; Z91.013 Allergy to seafood; Z91.040 Latex allergy status; Z88.6 Allergy status to analgesic agent; Z88.5 Allergy status to narcotic agent; Z88.8 Allergy status to other drugs, medicaments and biological substances; Z91.018 Allergy to other foods
CPT/HCPCS: 36415; 74176; 80053; 81001; 81025; 83690; 85025; 87086; 96361; 96374; 96375; 99285; J2405; J3490; J7030

== ENCOUNTER 2019-04-27 15:09 | Inpatient (IN) | payer OTHER ==
[~2019-04-27] VITALS: Ht 162.6 cm; Wt 111.3 kg
[~2019-04-27 15:09] MED LIST changes: +HYDR25SU18 RC; +HYOS0.1265 SL; +ONDA4TAB12 PO; +PROG200C10; -PROG200C2
[2019-04-27] MEDS ORDERED: DEXAMETHASONE 4 MG TABLET PO STA (15:49)
--- NOTE | 2019-04-27 15:55 | PHYS DOC ---
Past Medical History Past Medical History: Anxiety, Asthma, Kidney Stone, UTI Additional Past Medical Histor: RECTAL BLEEDING, HYPERKYPHOSIS, high liver enzymes, PCOS, PRE DIABETIC (KAYLA CONTRERAS APRN) Past Surgical History: Appendectomy, Cholecystectomy, Tonsillectomy, Other Additional Past Surgical Histo: spinal fusion, LEFT ELBOW, pylonydal cyst (KAYLA CONTRERAS APRN) Alcohol Use: Occasionally Drug Use: None (KAYLA CONTRERAS APRN) Adult General Chief Complaint Chief Complaint: COUGH HPI HPI Patient is a 23 year old female that presents with shortness of breath and chest congestion. The patient states she's been short of breath since 3 AM this morning she was woken out of her sleep. The patient went to urgent care prior to arrival received 3 breathing treatments but was still short of breath and told to come to the ER. The patient states that she not had steroids before. Reports pain 3 out of 10 in severity and sharp. (KAYLA CONTRERAS APRN) Review of Systems Review of Systems Constitutional: Denies fever or chills [] Eyes: Denies change in visual acuity, redness, or eye pain [] HENT: Denies nasal congestion or sore throat [] Respiratory: Denies cough or shortness of breath [] Cardiovascular: No additional information not addressed in HPI [] GI: Denies abdominal pain, nausea, vomiting, bloody stools or diarrhea [] : Denies dysuria or hematuria [] Musculoskeletal: Denies back pain or joint pain [] Integument: Denies rash or skin lesions [] Neurologic: Denies headache, focal weakness or sensory changes [] Endocrine: Denies polyuria or polydipsia [] All other systems were reviewed and found to be within normal limits, except as documented in this note. (KAYLA CONTRERAS APRN) Current Medications Current Medications Current Medications Medications (Trade) Dose Ordered Sig/Kaelyn Start Time Stop Time Status Last Admin Dose Admin Albuterol Sulfate (Ventolin Neb Soln) 10 mg 1X ONCE 04/27/19 16:00 04/27/19 16:01 DC 04/27/19 15:55 10 MG Alprazolam (Xanax) 0.5 mg 1X ONCE 04/27/19 16:15 04/27/19 16:16 DC 04/27/19 16:16 0.5 MG Dexamethasone (Decadron) 10 mg 1X STAT 04/27/19 15:49 04/27/19 15:50 DC 04/27/19 16:04 10 MG Diphenhydramine HCl (Benadryl) 25 mg 1X ONCE 04/27/19 18:00 04/27/19 18:01 DC 04/27/19 17:48 25 MG Magnesium Sulfate/ Dextrose 100 ml @ 100 mls/hr 1X ONCE 04/27/19 17:00 04/27/19 17:59 DC 04/27/19 17:48 100 MLS/HR Methylprednisolone Sodium Succinate (SOLU-Medrol 125MG VIAL) 125 mg 1X ONCE 04/27/19 17:15 04/27/19 17:16 DC 04/27/19 18:18 125 MG Sodium Chloride 1,000 ml @ 1,000 mls/hr 1X ONCE 04/27/19 17:15 04/27/19 18:14 DC 04/27/19 17:48 1,000 MLS/HR (AUNG MANZO MD) Allergies Allergies Allergies Coded Allergies Type Severity Reaction Last Updated Verified Fish Containing Products Allergy Intermediate Rash 11/08/18 Yes coconut oil Allergy Intermediate 11/08/18 Yes iodine Allergy Intermediate Rash 11/08/18 Yes ketorolac Allergy Intermediate Rash 11/08/18 Yes latex Allergy Intermediate Rash 11/08/18 Yes mold Allergy Intermediate 11/08/18 Yes tramadol Allergy Intermediate RASH/ITCHING 11/08/18 Yes prednisone Allergy Mild N/V 11/08/18 Yes shellfish derived Adverse Reaction Intermediate 11/08/18 Yes Uncoded Allergies Type Severity Reaction Last Updated Verified INSECT BITES,DUST MITES Allergy Unknown 04/08/16 (AUNG MANZO MD) Physical Exam Physical Exam Constitutional: Well developed, well nourished, no acute distress, non-toxic appearance. [] HENT: Normocephalic, atraumatic, bilateral external ears normal, oropharynx moist, no oral exudates, nose normal. [] Eyes: PERRLA, EOMI, conjunctiva normal, no discharge. [] Neck: Normal range of motion, no tenderness, supple, no stridor. [] Cardiovascular:Heart rate regular rhythm, no murmur [] Lungs & Thorax: Bilateral breath sounds rhonchi and wheezing diffusely. Abdomen: Bowel sounds normal, soft, no tenderness, no masses, no pulsatile masses. [] Skin: Warm, dry, no erythema, no rash. [] Back: No tenderness, no CVA tenderness. [] Extremities: No tenderness, no cyanosis, no clubbing, ROM intact, no edema. [] Neurologic: Alert and oriented X 3, normal motor function, normal sensory function, no focal deficits noted. [] Psychologic: Affect normal, judgement normal, mood normal. [] (KAYLA CONTRERAS APRN) Current Patient Data Vital Signs Vital Signs Date Time Temp Pulse Resp B/P (MAP) Pulse Ox O2 Delivery O2 Flow Rate FiO2 04/27/19 18:28 67 24 129/80 (96) 97 Room Air 04/27/19 15:36 98.4 98.4 (AUNG MANZO MD) EKG EKG [] (KAYLA CONTRERAS APRN) Radiology/Procedures Radiology/Procedures [][facility] [address] [place] [address] IMAGING REPORT Signed PATIENT: IRAJ MONET RACCOUNT: [id number] : 1995 LOCATION: ER AGE: 23 SEX: F EXAM STATUS: REG ER ORD. PHYSICIAN: KAYLA CONTRERAS APRN REASON: Short of breath, lung souds PROCEDURE: CHEST PA & LATERAL Chest, PA and Lateral: Technique: PA and lateral views of the chest were obtained. History: Shortness of breath. Comparison: 11/10/2018. Findings: The heart and pulmonary vasculature appear within normal limits. The lungs are clear. The pleural margins are clear. Impression: No acute chest process is seen. Electronically signed by: Scar King MD (04/27/2019 4:06 PM) [facility] DICTATED and SIGNED BY: SCAR KING MD DATE: 04/27/19 1609 (KAYLA CONTRERAS APRN) Course & Med Decision Making Course & Med Decision Making Pertinent Labs and Imaging studies reviewed. (See chart for details) Will get hour long treatment, chest x-ray and Decadron. Patient is still short of breath and breath sounds are filled with rhonchi. Will give IV fluids, magnesium, and solumedrol. After magnesium patient is still short of breath. Will admit to Dr. Palafox. Discussed case at 1920 and he agrees to admission. (KAYLA CONTRERAS APRN) Course & Med Decision Making I was not involved in the care of this patient after 1800 on 04/27/19. (AUNG MANZO MD) Dragon Disclaimer Dragon Disclaimer This electronic medical record was generated, in whole or in part, using a voice recognition dictation system. (KAYLA CONTRERAS APRN) Departure Departure Impression: Primary Impression: Asthma exacerbation Disposition: ADMITTED INPATIENT Admitting Physician: PROSPER (KAYLA CONTRERAS APRN) Condition: GUARDED Referrals: GABRIELLE DOSS MD (PCP) KAYLA CONTRERAS APRN Apr 27, 2019 15:55 AUNG MANZO MD Apr 29, 2019 06:17
[2019-04-27] MEDS ORDERED: ALBUTEROL SULFATE 2.5 MG/3 ML NEBU. CONT NEB ONE (16:00)
--- NOTE | 2019-04-27 16:08 | RAD ---
Chest, PA and Lateral: Technique: PA and lateral views of the chest were obtained. History: Shortness of breath. Comparison: 11/10/2018. Findings: The heart and pulmonary vasculature appear within normal limits. The lungs are clear. The pleural margins are clear. Impression: No acute chest process is seen. Electronically signed by: Scar King MD (04/27/2019 4:06 PM) [facility]
[2019-04-27] MEDS ORDERED: ALPRAZolam 0.5 MG TABLET PO ONE (16:15)
[2019-04-27] MEDS ORDERED: MAGNESIUM SULFATE 1GM 100 ML IV ONE (17:00)
[2019-04-27] MEDS ORDERED: IV NORMAL SALINE 1000ML BAG 1,000 ML IV ONE (17:15)
[2019-04-27] MEDS ORDERED: methylPREDNISolone SOD SUCC PF 125 MG/2 ML VIAL. IV ONE (17:15)
[2019-04-27] MEDS ORDERED: diphenhydrAMINE 50 MG/ML VIAL IVP ONE (18:00)
--- NOTE | 2019-04-27 19:29 | PDOC1 ---
History and Physical Date of Admission Date of Admission DATE: 04/27/19 TIME: 19:29 Identification/Chief Complaint Chief Complaint SEEN IN ER, FAILED CONSERVATIVE RX 23 year old female that presents with shortness of breath and chest congestion. The patient states she's been short of breath since 3 AM this morning she was woken out of her sleep. went to urgent care prior to arrival received 3 breathing treatments but was sti ll short of breath and told to come to the ER. The patient states that she not had steroids before. Past Medical History Past Medical History Past Medical History Past Medical History Past Medical History: Anxiety, Asthma, Kidney Stone, UTI Additional Past Medical Histor: RECTAL BLEEDING, HYPERKYPHOSIS, high liver enzymes, PCOS, PRE DIABETIC Past Surgical History: Appendectomy, Cholecystectomy, Tonsillectomy, Other Additional Past Surgical Histo: spinal fusion, LEFT ELBOW, pylonydal cyst Alcohol Use: Occasionally Drug Use: None FHX OBESITY Pulmonary: Bronchitis Past Surgical History Past Surgical History: Appendectomy, Cholecystectomy Family History Family History: Hypertension Social History Smoke: No ALCOHOL: rare Drugs: None Current Problem List Problem List Problems Medical Problems: (1) Asthma exacerbation Status: Acute Current Medications Current Medications Current Medications Albuterol Sulfate (Ventolin Neb Soln) 10 mg 1X ONCE CONT NEB Last administered on 04/27/19at 15:55; Start 04/27/19 at 16:00; Stop 04/27/19 at 16:01; Status DC Dexamethasone (Decadron) 10 mg 1X STAT PO Last administered on 04/27/19at 16:04; Start 04/27/19 at 15:49; Stop 04/27/19 at 15:50; Status DC Alprazolam (Xanax) 0.5 mg 1X ONCE PO Last administered on 04/27/19at 16:16; Start 04/27/19 at 16:15; Stop 04/27/19 at 16:16; Status DC Magnesium Sulfate/ Dextrose 100 ml @ 100 mls/hr 1X ONCE IV Last administered on 04/27/19at 17:48; Start 04/27/19 at 17:00; Stop 04/27/19 at 17:59; Status DC Methylprednisolone Sodium Succinate (SOLU-Medrol 125MG VIAL) 125 mg 1X ONCE IV Last administered on 04/27/19at 18:18; Start 04/27/19 at 17:15; Stop 04/27/19 at 17:16; Status DC Sodium Chloride 1,000 ml @ 1,000 mls/hr 1X ONCE IV Last administered on 04/27/19at 17:48; Start 04/27/19 at 17:15; Stop 04/27/19 at 18:14; Status DC Diphenhydramine HCl (Benadryl) 25 mg 1X ONCE IVP Last administered on 04/27/19at 17:48; Start 04/27/19 at 18:00; Stop 04/27/19 at 18:01; Status DC Lorazepam (Ativan Inj) 2 mg 1X ONCE IV Last administered on 04/27/19at 19:04; Start 04/27/19 at 19:00; Stop 04/27/19 at 19:01; Status DC Ondansetron HCl (Zofran) 4 mg PRN Q8HRS PRN IV NAUSEA/VOMITING; Start 04/27/19 at 19:30; Stop 04/28/19 at 19:29 Morphine Sulfate (Morphine Sulfate) 2 mg PRN Q2HR PRN IV PAIN; Start 04/27/19 a t 19:30; Stop 04/28/19 at 19:29 Albuterol/ Ipratropium (Duoneb) 3 ml RTQID NEB ; Start 04/27/19 at 20:00; Stop 04/28/19 at 19:59 Active Scripts Active Ondansetron Odt (Ondansetron) 4 Mg Tab.rapdis 1 Tab PO PRN Q6-8HRS PRN Levsin-Sl (Hyoscyamine Sulfate) 0.125 Mg Tab.subl 1-2 Tab SL PRN Q4HRS Anusol-Hc (Hydrocortisone Acetate) 25 Mg Supp.rect 1 Supp RC BID FENTANYL 50mcg/hr (Fentanyl) 1 Each Patch.td72 1 Patch TP Q3DAYS Medrol (Methylprednisolone) 4 Mg Tab.ds.pk 1 Pkg PO UD Ventolin Hfa Inhaler (Albuterol Sulfate) 18 Gm Hfa.aer.ad 2 Puff INH Q4HRS Zithromax (Azithromycin) 250 Mg Tablet 1 Pkg PO UD Xanax (Alprazolam) 0.5 Mg Tablet 1 Tab PO TID Macrobid 100 Mg Capsule (Nitrofurantoin Monohyd/M-Cryst) 100 Mg Capsule 100 Mg PO BID 5 Days Proair Hfa Inhaler (Albuterol Sulfate) 8.5 Gm Hfa.aer.ad 1 Puff INH PRN Q6HRS PRN Macrobid 100 Mg Capsule (Nitrofurantoin Monohyd/M-Cryst) 100 Mg Capsule 1 Cap PO BID Augmentin 875-125 Tablet (Amoxicillin/Potassium Clav) 1 Each Tablet 1 Tab PO BID Zofran Odt (Ondansetron) 4 Mg Tab.rapdis 1 Tab SL Q8HRS Valium (Diazepam) 5 Mg Tablet 5 Mg PO TID 5 Days Percocet 5-325 Mg Tablet (Oxycodone/Acetaminophen) 1 Each Tablet 1-2 Tab PO Q4-6HRS Bactrim Ds Tablet (Sulfamethoxazole/Trimethoprim) 1 Each Tablet 1 Tab PO BID Oxycodone Hcl Immed.release (Oxycodone Hcl) 10 Mg Tablet 10 Mg PO Q4HRS PRN Reported No Known Medications Prior To Admisstion (Info) Each 1 Each MC Progesterone (Progesterone,Micronized) 200 Mg Capsule Clomiphene Citrate 50 Mg Tablet Omeprazole 40 Mg Capsule. 1 Cap PO DAILY Allergies Allergies: Coded Allergies: Fish Containing Products (Verified Allergy, Intermediate, Rash, 11/08/18) IV DYE coconut oil (Verified Allergy, Intermediate, 11/08/18) iodine (Verified Allergy, Intermediate, Rash, 11/08/18) ketorolac (Verified Allergy, Intermediate, Rash, 11/08/18) latex (Verified Allergy, Intermediate, Rash, 11/08/18) mold (Verified Allergy, Intermediate, 11/08/18) tramadol (Verified Allergy, Intermediate, RASH/ITCHING, 11/08/18) prednisone (Verified Allergy, Mild, N/V, 11/08/18) shellfish derived (Verified Adverse Reaction, Intermediate, 11/08/18) Uncoded Allergies: INSECT BITES,DUST MITES (Allergy, Unknown, 04/08/16) ROS Review of System Review of Systems Review of Systems Constitutional: Denies fever or chills [] Eyes: Denies change in visual acuity, redness, or eye pain [] HENT: Denies nasal congestion or sore throat [] Respiratory: Denies cough or shortness of breath [] Cardiovascular: No additional information not addressed in HPI [] GI: Denies abdominal pain, nausea, vomiting, bloody stools or diarrhea [] : Denies dysuria or hematuria [] Musculoskeletal: Denies back pain or joint pain [] Integument: Denies rash or skin lesions [] Neurologic: Denies headache, focal weakness or sensory changes [] Endocrine: Denies polyuria or polydipsia [] 14 PT systems were reviewed and found to be within normal limits, except as documented Physical Exam Physical Exam Physical Exam Physical Exam Constitutional: Well developed, well nourished, no acute distress, non-toxic appearance. [] HENT: Normocephalic, atraumatic, bilateral external ears normal, oropharynx moist, no oral exudates, nose normal. [] Eyes: PERRLA, EOMI, conjunctiva normal, no discharge. [] Neck: Normal range of motion, no tenderness, supple, no stridor. [] Cardiovascular:Heart rate regular rhythm, no murmur [] Lungs & Thorax: Bilateral breath sounds rhonchi and wheezing diffusely. Abdomen: Bowel sounds normal, soft, no tenderness, no masses, no pulsatile masses. [] Skin: Warm, dry, no erythema, no rash. [] Back: No tenderness, no CVA tenderness. [] Extremities: No tenderness, no cyanosis, no clubbing, ROM intact, no edema. [] Neurologic: Alert and oriented X 3, normal motor function, normal sensory function, no focal deficits noted. [] Psychologic: Affect normal, judgement normal, mood normal. [] General: Alert, Oriented X3, Cooperative, No acute distress HEENT: Atraumatic, PERRLA, Mucous membr. moist/pink Heart: RRR Breasts: Not examined Abdomen: Soft Rectal Exam: not examined PELVIC: Examination not indicated Extremities: No cyanosis Neuro: Normal speech, Sensation intact, Cranial nerves 3-12 NL Psych/Mental Status: Mental status NL, Mood NL Vitals Vitals Vital Signs Date Time Temp Pulse Resp B/P (MAP) Pulse Ox O2 Delivery O2 Flow Rate FiO2 04/27/19 18:28 67 24 129/80 (96) 97 Room Air 04/27/19 15:36 98.4 98.4 Images Images EX: F EXAM STATUS: REG ER ORD. PHYSICIAN: KAYLA CONTRERAS APRN REASON: Short of breath, lung souds PROCEDURE: CHEST PA & LATERAL Chest, PA and Lateral: Technique: PA and lateral views of the chest were obtained. History: Shortness of breath. Comparison: 11/10/2018. Findings: The heart and pulmonary vasculature appear within normal limits. The lungs are clear. The pleural margins are clear. Impression: No acute chest process is seen. Electronically signed by: Scar King MD (04/27/2019 4:06 PM) [place] [id number] VTE Prophylaxis Ordered VTE Prophylaxis Devices: No VTE Pharmacological Prophylaxi: Yes Assessment/Plan Assessment/Plan Impression: Asthma exacerbation, ACUTE STATUS ASTHMATICUS MORBID OBESITY Hepatic steatosis, elevated LFTs GERD - controlled w/ PPI, normal EGD 04/2017 IBS S/p cholecystectomy TOBACCO ABUSE ADMITTED IV STEROID TAPER NEBS Q 4 HRS DVT PROPHYLAXIS PULM CONSULT DVT PROPHYLAXIS BUDESONIDE 0.5 MG BID NEBS SINGULAIR 10MG PO Q HS SMOKING CESSATION NEEDED, EDUCATED 62 MIN PT EXAM, CHART REVIEW, > 50% OF TIME SPENT WITH EXAM, CHART REVIEW, PT CARE COORDINATION MENDY WARE MD Apr 27, 2019 19:29
[2019-04-27] MEDS ORDERED: ONDANSETRON PF 4 MG/2 ML VIAL. IV PRN (19:30)
[2019-04-27] MEDS ORDERED: ALBUTEROL SULFATE 2.5 MG/3 ML NEBU. NEB PRN (20:00)
[2019-04-27] MEDS ORDERED: MAG HYDROX/ALUMINUM HYD/SIMETH 30 ML ORAL.SUSP PO PRN (20:00)
[2019-04-27] MEDS: BUDESONIDE 0.5 MG/2 ML NEBU. NEB SCH (20:00)
[2019-04-27] MEDS ORDERED: 0.9 % SODIUM CHLORIDE 10 ML DISP.SYRIN. IV PRN (20:00)
[2019-04-27] MEDS: IPRATRPIUM/ALBUTEROL 0.5/2.5MG 3 ML NEBU. NEB SCH ×2 (20:00→22:03)
[2019-04-27] MEDS ORDERED: DOCUSATE SODIUM 100 MG CAPSULE. PO PRN (20:00)
[2019-04-27] MEDS ORDERED: cloNIDine HCL 0.1 MG TABLET PO PRN (20:00)
[2019-04-27 21:43] VITALS: BP 137/91
[2019-04-27] MEDS: MONTELUKAST SODIUM 10 MG TABLET. PO SCH (21:43)
[2019-04-27] MEDS: methylPREDNISolone SOD SUCC PF 125 MG/2 ML VIAL. IV SCH (21:43)
[2019-04-27] MEDS: IV NORMAL SALINE 1000ML BAG 1,000 ML IV SCH (21:44)
[2019-04-27] MEDS: MORPHINE SULFATE 2 MG/ML VIAL. IV PRN (21:50)
[2019-04-27 23:13] VITALS: BP 118/71
[2019-04-28] MEDS ORDERED: NICOTINE 21MG PATCH. TD SCH (00:15)
[2019-04-28] MEDS: MORPHINE SULFATE 2 MG/ML VIAL. IV PRN ×10 (02:04→22:32)
[2019-04-28 02:50] VITALS: BP 128/84
[2019-04-28] MEDS: methylPREDNISolone SOD SUCC PF 125 MG/2 ML VIAL. IV SCH ×3 (06:00→20:24)
[2019-04-28] MEDS: IPRATRPIUM/ALBUTEROL 0.5/2.5MG 3 ML NEBU. NEB SCH ×2 (06:48→14:55)
[2019-04-28] MEDS: BUDESONIDE 0.5 MG/2 ML NEBU. NEB SCH ×2 (06:48→20:06)
[2019-04-28 07:00] VITALS: BP 143/96
[2019-04-28] MEDS ORDERED: DULO30CA2 PO (08:08)
[2019-04-28] MEDS: IV NORMAL SALINE 1000ML BAG 1,000 ML IV SCH ×2 (08:44→16:00)
[2019-04-28] MEDS: NICOTINE 21MG PATCH. TD SCH (08:46)
[2019-04-28] MEDS: ENOXAPARIN 40 MG/0.4 ML SYRINGE. SQ SCH (08:47)
--- NOTE | 2019-04-28 08:53 | NUR ---
pt requests iv be paused for now,positional and causing her distres. Pt hard stick and does not want to be stuck again.IVF paused per pt request.
--- NOTE | 2019-04-28 09:29 | PDOC ---
Provider Note Provider Note Hem/Onc consult Requested by Dr Palafox for anemia. Interviewed pt and reviewed old labs/records. Pt not aware of anemia. Await cbc from this admission and I will f/u. See dictation [id number] DEION ADAME MD Apr 28, 2019 09:29
[2019-04-28 09:59] LABS: BASO # 0.1 x10^3/uL (0.0-0.2); BASO % 1 % (0-3); EOS % 0 % (0-3); HEMATOCRIT 42.5 % (36.0-47.0); HEMOGLOBIN 14.7 g/dL (12.0-15.5); LYMPH # 0.9 x10^3/uL (1.0-4.8); LYMPH % 7 % (24-48); MEAN CORPUSCULAR HEMOGLOBIN 30 pg (25-35); MEAN CORPUSCULAR HGB CONC 35 g/dL (31-37); MEAN CORPUSCULAR VOLUME 86 fL (79-100); MONO # 0.1 x10^3/uL (0.0-1.1); MONO % 1 % (0-9); NEUT # 12.5 x10^3/uL (1.8-7.7); NEUT % 92 % (31-73); PLATELET COUNT 229 x10^3/uL (140-400); RED BLOOD COUNT 4.94 x10^6/uL (3.50-5.40); RED CELL DISTRIBUTION WIDTH 13.4 % (11.5-14.5); WHITE BLOOD COUNT 13.5 x10^3/uL (4.0-11.0)
[2019-04-28 10:16] LABS: CALCIUM 8.9 mg/dL (8.5-10.1); CREATININE 0.9 mg/dL (0.6-1.0); POTASSIUM 3.5 mmol/L (3.5-5.1)
--- NOTE | 2019-04-28 10:21 | PDOC ---
PROGRESS NOTES History of Present Illness History of Present Illness VTE Prophylaxis Ordered VTE Prophylaxis Devices: No VTE Pharmacological Prophylaxi: Yes Assessment/Plan Assessment/Plan Impression: Asthma exacerbation, ACUTE, severe hx dust mite allergy, house dust allergy STATUS ASTHMATICUS, slow to improve MORBID OBESITY Hepatic steatosis, elevated LFTs GERD - controlled w/ PPI, normal EGD 04/2017 IBS S/p cholecystectomy TOBACCO ABUSE anxiety disorder ADMITTED IV STEROID TAPER NEBS Q 4 HRS DVT PROPHYLAXIS PULM CONSULT DVT PROPHYLAXIS BUDESONIDE 0.5 MG BID NEBS SINGULAIR 10MG PO Q HS SMOKING CESSATION NEEDED, EDUCATED buspar 10mg po bid 38 MIN PT EXAM, CHART REVIEW, > 50% OF TIME SPENT WITH EXAM, CHART REVIEW, PT CARE COORDINATION Vitals Vitals Vital Signs Date Time Temp Pulse Resp B/P (MAP) Pulse Ox O2 Delivery O2 Flow Rate FiO2 04/28/19 10:04 20 95 Room Air 04/28/19 07:00 97.6 106 143/96 (112) 97.6 Physical Exam General: Alert, Oriented X3, Cooperative, No acute distress, mild distress Heart: Regular rate Lungs: Wheezing Abdomen: Normal bowel sounds, Soft, No tenderness Extremities: No cyanosis, No edema Skin: No significant lesion Labs LABS Laboratory Tests Test 04/28/19 09:50 White Blood Count 13.5 x10^3/uL (4.0-11.0) Red Blood Count 4.94 x10^6/uL (3.50-5.40) Hemoglobin 14.7 g/dL (12.0-15.5) Hematocrit 42.5 % (36.0-47.0) Mean Corpuscular Volume 86 fL (79-100) Mean Corpuscular Hemoglobin 30 pg (25-35) Mean Corpuscular Hemoglobin Concent 35 g/dL (31-37) Red Cell Distribution Width 13.4 % (11.5-14.5) Platelet Count 229 x10^3/uL (140-400) Neutrophils (%) (Auto) 92 % (31-73) Lymphocytes (%) (Auto) 7 % (24-48) Monocytes (%) (Auto) 1 % (0-9) Eosinophils (%) (Auto) 0 % (0-3) Basophils (%) (Auto) 1 % (0-3) Neutrophils # (Auto) 12.5 x10^3/uL (1.8-7.7) Lymphocytes # (Auto) 0.9 x10^3/uL (1.0-4.8) Monocytes # (Auto) 0.1 x10^3/uL (0.0-1.1) Eosinophils # (Auto) 0.0 x10^3/uL (0.0-0.7) Basophils # (Auto) 0.1 x10^3/uL (0.0-0.2) Sodium Level 143 mmol/L (136-145) Potassium Level 3.5 mmol/L (3.5-5.1) Chloride Level 107 mmol/L (98-107) Carbon Dioxide Level 22 mmol/L (21-32) Anion Gap 14 (6-14) Blood Urea Nitrogen 7 mg/dL (7-20) Creatinine 0.9 mg/dL (0.6-1.0) Estimated GFR (Cockcroft-Gault) 79.0 BUN/Creatinine Ratio 8 (6-20) Glucose Level 207 mg/dL (70-99) Calcium Level 8.9 mg/dL (8.5-10.1) Assessment and Plan Assessmemt and Plan Problems Medical Problems: (1) Asthma exacerbation Status: Acute (2) GERD (gastroesophageal reflux disease) Status: Chronic (3) Hepatic steatosis Status: Chronic (4) IBS (irritable bowel syndrome) Status: Chronic (5) Morbid obesity Status: Chronic (6) Status asthmaticus Status: Acute (7) Tobacco abuse Status: Chronic Comment Review of Relevant I have reviewed the following items leticia (where applicable) has been applied. Labs Laboratory Tests Test 04/28/19 09:50 White Blood Count 13.5 x10^3/uL (4.0-11.0) Red Blood Count 4.94 x10^6/uL (3.50-5.40) Hemoglobin 14.7 g/dL (12.0-15.5) Hematocrit 42.5 % (36.0-47.0) Mean Corpuscular Volume 86 fL (79-100) Mean Corpuscular Hemoglobin 30 pg (25-35) Mean Corpuscular Hemoglobin Concent 35 g/dL (31-37) Red Cell Distribution Width 13.4 % (11.5-14.5) Platelet Count 229 x10^3/uL (140-400) Neutrophils (%) (Auto) 92 % (31-73) Lymphocytes (%) (Auto) 7 % (24-48) Monocytes (%) (Auto) 1 % (0-9) Eosinophils (%) (Auto) 0 % (0-3) Basophils (%) (Auto) 1 % (0-3) Neutrophils # (Auto) 12.5 x10^3/uL (1.8-7.7) Lymphocytes # (Auto) 0.9 x10^3/uL (1.0-4.8) Monocytes # (Auto) 0.1 x10^3/uL (0.0-1.1) Eosinophils # (Auto) 0.0 x10^3/uL (0.0-0.7) Basophils # (Auto) 0.1 x10^3/uL (0.0-0.2) Sodium Level 143 mmol/L (136-145) Potassium Level 3.5 mmol/L (3.5-5.1) Chloride Level 107 mmol/L (98-107) Carbon Dioxide Level 22 mmol/L (21-32) Anion Gap 14 (6-14) Blood Urea Nitrogen 7 mg/dL (7-20) Creatinine 0.9 mg/dL (0.6-1.0) Estimated GFR (Cockcroft-Gault) 79.0 BUN/Creatinine Ratio 8 (6-20) Glucose Level 207 mg/dL (70-99) Calcium Level 8.9 mg/dL (8.5-10.1) Laboratory Tests Test 04/28/19 09:50 White Blood Count 13.5 x10^3/uL (4.0-11.0) Red Blood Count 4.94 x10^6/uL (3.50-5.40) Hemoglobin 14.7 g/dL (12.0-15.5) Hematocrit 42.5 % (36.0-47.0) Mean Corpuscular Volume 86 fL (79-100) Mean Corpuscular Hemoglobin 30 pg (25-35) Mean Corpuscular Hemoglobin Concent 35 g/dL (31-37) Red Cell Distribution Width 13.4 % (11.5-14.5) Platelet Count 229 x10^3/uL (140-400) Neutrophils (%) (Auto) 92 % (31-73) Lymphocytes (%) (Auto) 7 % (24-48) Monocytes (%) (Auto) 1 % (0-9) Eosinophils (%) (Auto) 0 % (0-3) Basophils (%) (Auto) 1 % (0-3) Neutrophils # (Auto) 12.5 x10^3/uL (1.8-7.7) Lymphocytes # (Auto) 0.9 x10^3/uL (1.0-4.8) Monocytes # (Auto) 0.1 x10^3/uL (0.0-1.1) Eosinophils # (Auto) 0.0 x10^3/uL (0.0-0.7) Basophils # (Auto) 0.1 x10^3/uL (0.0-0.2) Sodium Level 143 mmol/L (136-145) Potassium Level 3.5 mmol/L (3.5-5.1) Chloride Level 107 mmol/L (98-107) Carbon Dioxide Level 22 mmol/L (21-32) Anion Gap 14 (6-14) Blood Urea Nitrogen 7 mg/dL (7-20) Creatinine 0.9 mg/dL (0.6-1.0) Estimated GFR (Cockcroft-Gault) 79.0 BUN/Creatinine Ratio 8 (6-20) Glucose Level 207 mg/dL (70-99) Calcium Level 8.9 mg/dL (8.5-10.1) Medications Current Medications Albuterol Sulfate (Ventolin Neb Soln) 10 mg 1X ONCE CONT NEB Last administered on 04/27/19at 15:55; Start 04/27/19 at 16:00; Stop 04/27/19 at 16:01; Status DC Dexamethasone (Decadron) 10 mg 1X STAT PO Last administered on 04/27/19at 16:04; Start 04/27/19 at 15:49; Stop 04/27/19 at 15:50; Status DC Alprazolam (Xanax) 0.5 mg 1X ONCE PO Last administered on 04/27/19at 16:16; Start 04/27/19 at 16:15; Stop 04/27/19 at 16:16; Status DC Magnesium Sulfate/ Dextrose 100 ml @ 100 mls/hr 1X ONCE IV Last administered on 04/27/19at 17:48; Start 04/27/19 at 17:00; Stop 04/27/19 at 17:59; Status DC Methylprednisolone Sodium Succinate (SOLU-Medrol 125MG VIAL) 125 mg 1X ONCE IV Last administered on 04/27/19at 18:18; Start 04/27/19 at 17:15; Stop 04/27/19 at 17:16; Status DC Sodium Chloride 1,000 ml @ 1,000 mls/hr 1X ONCE IV Last administered on 04/27/19at 17:48; Start 04/27/19 at 17:15; Stop 04/27/19 at 18:14; Status DC Diphenhydramine HCl (Benadryl) 25 mg 1X ONCE IVP Last administered on 04/27/19at 17:48; Start 04/27/19 at 18:00; Stop 04/27/19 at 18:01; Status DC Lorazepam (Ativan Inj) 2 mg 1X ONCE IV Last administered on 04/27/19at 19:04; Start 04/27/19 at 19:00; Stop 04/27/19 at 19:01; Status DC Ondansetron HCl (Zofran) 4 mg PRN Q8HRS PRN IV NAUSEA/VOMITING; Start 04/27/19 at 19:30; Stop 04/27/19 at 19:54; Status DC Morphine Sulfate (Morphine Sulfate) 2 mg PRN Q2HR PRN IV PAIN Last administered on 04/28/19at 08:49; Start 04/27/19 at 19:30; Stop 04/28/19 at 19:29 Albuterol/ Ipratropium (Duoneb) 3 ml RTQID NEB Last administered on 04/28/19at 06:48; Start 04/27/19 at 20:00; Stop 04/28/19 at 19:59 Methylprednisolone Sodium Succinate (SOLU-Medrol 125MG VIAL) 125 mg Q8HRS IV Last administered on 04/28/19at 06:32; Start 04/27/19 at 22:00 Budesonide (Pulmicort) 0.5 mg RTBID NEB Last administered on 04/28/19at 06:48; Start 04/27/19 at 20:00 Montelukast Sodium (Singulair) 10 mg QHS PO Last administered on 04/27/19at 21:50; Start 04/27/19 at 21:00 Sodium Chloride (Normal Saline Flush) 3 ml QSHIFT PRN IV AFTER MEDS AND BLOOD DRAWS; Start 04/27/19 at 20:00 Sodium Chloride 1,000 ml @ 100 mls/hr Q10H IV Last administered on 04/28/19at 08:49; Start 04/27/19 at 20:00 Ondansetron HCl (Zofran) 4 mg PRN Q4HRS PRN IV NAUSEA/VOMITING; Start 04/27/19 at 20:00 Acetaminophen (Tylenol) 650 mg PRN Q4HRS PRN PO TEMP OVER 100.4F OR MILD PAIN; Start 04/27/19 at 20:00 Al Hydroxide/Mg Hydroxide (Mylanta Plus Xs) 30 ml PRN DAILY PRN PO HEARTBURN / GAS; Start 04/27/19 at 20:00 Clonidine HCl (Catapres) 0.1 mg PRN Q6HRS PRN PO SBP>160 OR DBP>90; Start 04/27/19 at 20:00 Docusate Sodium (Colace) 100 mg PRN BID PRN PO CONSTIPATION; Start 04/27/19 at 20:00 Albuterol Sulfate (Ventolin Neb Soln) 2.5 mg PRN Q4HRS PRN NEB SHORTNESS OF BREATH Last administered on 04/28/19at 03:41; Start 04/27/19 at 20:00 Guaifenesin (Robitussin) 200 mg PRN Q4HRS PRN PO COUGH; Start 04/27/19 at 20:00 Enoxaparin Sodium (Lovenox 40mg Syringe) 40 mg DAILY SQ ; Start 04/28/19 at 09:00 Guaifenesin (Mucinex) 1,200 mg BID PO Last administered on 04/28/19at 08:49; Start 04/27/19 at 21:00 Nicotine (Nicoderm Cq 21mg) 1 patch DAILY TD ; Start 04/28/19 at 00:15; Stop 04/28/19 at 02:29; Status DC Nicotine (Nicoderm Cq 21mg) 1 patch DAILY TD Last administered on 04/28/19at 08:49; Start 04/28/19 at 09:00 Active Scripts Active Proair Hfa Inhaler (Albuterol Sulfate) 8.5 Gm Hfa.aer.ad 1 Puff INH PRN Q6HRS PRN Reported Cymbalta (Duloxetine Hcl) 30 Mg Capsule. 1 Cap PO DAILY Vitals/I & O Vital Sign - Last 24 Hours 04/27/19 04/27/19 04/27/19 04/27/19 15:36 15:55 18:28 19:00 Temp 98.4 98.4 Pulse 93 67 74 Resp 22 24 B/P (MAP) 154/81 (105) 129/80 (96) 89/52 (64) Pulse Ox 93 96 97 97 O2 Delivery Room Air Room Air Room Air Room Air 04/27/19 04/27/19 04/27/19 04/27/19 19:30 21:00 21:43 21:50 Temp 97.6 97.6 Pulse 90 95 Resp 18 22 B/P (MAP) 105/74 (84) 137/91 (106) Pulse Ox 97 98 O2 Delivery Room Air Room Air Room Air Room Air 04/27/19 04/27/19 04/28/19 04/28/19 22:04 23:13 00:11 02:04 Temp 97.6 97.6 Pulse 90 Resp 20 18 18 B/P (MAP) 118/71 (87) Pulse Ox 95 94 95 O2 Delivery Room Air Room Air Room Air 04/28/19 04/28/19 04/28/19 04/28/19 02:50 03:43 04:11 04:14 Pulse 88 Resp 24 20 B/P (MAP) 128/84 (99) Pulse Ox 99 96 96 96 O2 Delivery Room Air Room Air Room Air Room Air 04/28/19 04/28/19 04/28/19 04/28/19 06:36 06:46 06:50 07:00 Temp 97.6 97.6 Pulse 106 Resp 22 24 20 B/P (MAP) 143/96 (112) Pulse Ox 95 100 O2 Delivery Room Air Room Air Room Air 04/28/19 04/28/19 04/28/19 04/28/19 07:27 08:00 08:49 10:04 Resp 20 20 20 Pulse Ox 95 95 95 O2 Delivery Room Air Room Air Room Air Room Air Intake and Output 04/27/19 04/28/19 04/28/19 16:59 00:59 08:59 Intake Total 500 ml 300 ml Balance 500 ml 300 ml MENDY WARE MD Apr 28, 2019 10:21
[2019-04-28 10:23] LABS: ALBUMIN 3.7 g/dL (3.4-5.0); ALBUMIN/GLOBULIN RATIO 0.9 (1.0-1.7); TOTAL BILIRUBIN 0.3 mg/dL (0.2-1.0); TOTAL PROTEIN 7.8 g/dL (6.4-8.2)
[2019-04-28 11:00] VITALS: BP 134/80
[2019-04-28 11:29] LABS: % BANDS 6 % (0-9); % LYMPHS 3 % (24-48); % MONOS 1 % (0-10); % SEGS 90 % (35-66); PLT ESTIMATE ADEQUATE (ADEQUATE)
[2019-04-28] MEDS: busPIRone 10 MG TABLET. PO SCH ×2 (12:04→20:16)
[2019-04-28] MEDS: guaiFENesin ORAL 200 MG/10 ML LIQUID. PO PRN ×2 (13:37→20:16)
[2019-04-28] MEDS: ACETAMINOPHEN 325 MG TABLET. PO PRN (13:37)
[2019-04-28] MEDS ORDERED: diphenhydrAMINE HCL 25 MG CAPSULE PO ONE (14:15)
[2019-04-28] MEDS: ONDANSETRON PF 4 MG/2 ML VIAL. IV PRN (14:35)
[2019-04-28] MEDS: CETIRIZINE HCL 10 MG TABLET. PO SCH (14:36)
[2019-04-28] MEDS: ALPRAZolam 0.5 MG TABLET PO PRN ×2 (14:36→22:32)
[2019-04-28 15:00] VITALS: BP 131/73
[2019-04-28 19:42] VITALS: BP 150/91
[2019-04-28] MEDS: MONTELUKAST SODIUM 10 MG TABLET. PO SCH (20:16)
[2019-04-28 23:24] VITALS: BP 124/43
[2019-04-29] VITALS (7 sets, daily range): BP systolic 101–137; BP diastolic 54–85
--- NOTE | 2019-04-29 01:40 | CONS ---
DATE OF CONSULTATION: 04/28/2019 HEMATOLOGY AND ONCOLOGY CONSULTATION REPORT CONSULTATION REQUESTED BY: Dr. Arturo Palafox. REASON FOR CONSULTATION: Anemia. HISTORY OF PRESENT ILLNESS: The patient is a 23-year-old female who presented to [facility] on 04/27/2019 with cough, dyspnea and chest congestion that started on 04/27/2019. She was woken out of her sleep because of these symptoms. She went to urgent care and she received three breathing treatments, which did not relieve her symptoms and hence she came in to [facility] Emergency Room. She was admitted for exacerbation of bronchial asthma. Dr. Palafox requested a Hematology consultation for anemia. The patient denies any history of hematemesis, melena or hematochezia. No hemoptysis or hematuria. No nose bleeds or gum bleeding. No history of heavy menstrual cycles. She reports that she has polycystic ovarian disease and she does not have regular period. She is not aware of any prior history of anemia. There are no labs available during this admission as it was difficult to get IV access. Prior hemoglobin level on 03/18/2019 was 15.1. PAST MEDICAL HISTORY: Anxiety, asthma, kidney stones, UTI, rectal bleeding, elevated liver enzymes, polycystic ovarian disease. She is a prediabetic. PAST SURGICAL HISTORY: Appendectomy, cholecystectomy, tonsillectomy, spinal fusion. FAMILY HISTORY: Positive for hypertension. SOCIAL HISTORY: No smoking or alcohol abuse. REVIEW OF SYSTEMS: A 12-point review of system was performed. Pertinent positives are mentioned in the history of present illness. Rest of the system review is negative. PHYSICAL EXAMINATION: GENERAL APPEARANCE: The patient is a 23-year-old female who is in no acute cardiorespiratory distress. VITAL SIGNS: Blood pressure 143/96, temperature 97.6. HEAD: Atraumatic, normocephalic. EYES: No icterus. NECK: Supple. CHEST: Bilaterally symmetrical. HEART: S1, S2 normal. ABDOMEN: Soft, nontender. CENTRAL NERVOUS SYSTEM: No focal deficits. LYMPHATICS: No lymphadenopathy. SKIN: No rashes. PSYCHOLOGIC: Mood and affect are appropriate. MUSCULOSKELETAL: No joint effusions. LABORATORY DATA: CBC from this admission is still pending. Reviewed old record on 03/18/2019, her hemoglobin was 15.1 with a WBC of 9.4 and a platelet count of 216. IMPRESSION AND PLAN: 1. Acute exacerbation of bronchial asthma. Continue management per Dr. Arturo Palafox. She has been given steroids. 2. Polycystic ovarian disease. 3. Anemia. I was asked to see the patient for persistent anemia. The patient is not aware of any prior history of anemia. CBC is still pending from this admission. DEION ADAME MD DR: RADHA/binta JOB#: [id number] / [id number] SAVI
[2019-04-29] MEDS: IV NORMAL SALINE 1000ML BAG 1,000 ML IV SCH (02:00)
[2019-04-29] MEDS: MORPHINE SULFATE 2 MG/ML VIAL. IV PRN ×6 (02:46→22:27)
[2019-04-29] MEDS: guaiFENesin ORAL 200 MG/10 ML LIQUID. PO PRN (02:46)
--- NOTE | 2019-04-29 07:39 | PDOC ---
PROGRESS NOTES History of Present Illness History of Present Illness VTE Prophylaxis Ordered VTE Prophylaxis Devices: No VTE Pharmacological Prophylaxi: Yes Assessment/Plan Assessment/Plan Impression: Asthma exacerbation, ACUTE, severe hx dust mite allergy, house dust allergy STATUS ASTHMATICUS, slow to improve MORBID OBESITY Hepatic steatosis, elevated LFTs GERD - controlled w/ PPI, normal EGD 04/2017 IBS S/p cholecystectomy TOBACCO ABUSE anxiety disorder ADMITTED NEBS Q 4 HRS DVT PROPHYLAXIS PULM CONSULT DVT PROPHYLAXIS BUDESONIDE 0.5 MG BID NEBS SINGULAIR 10MG PO Q HS SMOKING CESSATION NEEDED, EDUCATED buspar 10mg po bid iv steroid taper 37 MIN PT EXAM, CHART REVIEW, > 50% OF TIME SPENT WITH EXAM, CHART REVIEW, PT CARE COORDINATION Vitals Vitals Vital Signs Date Time Temp Pulse Resp B/P (MAP) Pulse Ox O2 Delivery O2 Flow Rate FiO2 04/29/19 03:54 97.8 72 18 101/59 (73) 97 Room Air 97.8 Physical Exam General: Alert, Oriented X3, Cooperative, No acute distress, mild distress Heart: Regular rate, No murmurs Lungs: Wheezing, Other (coarse) Abdomen: Normal bowel sounds, Soft, No tenderness Extremities: No cyanosis, No edema Skin: No rashes, No significant lesion Labs LABS Laboratory Tests Test 04/28/19 09:50 White Blood Count 13.5 x10^3/uL (4.0-11.0) Red Blood Count 4.94 x10^6/uL (3.50-5.40) Hemoglobin 14.7 g/dL (12.0-15.5) Hematocrit 42.5 % (36.0-47.0) Mean Corpuscular Volume 86 fL (79-100) Mean Corpuscular Hemoglobin 30 pg (25-35) Mean Corpuscular Hemoglobin Concent 35 g/dL (31-37) Red Cell Distribution Width 13.4 % (11.5-14.5) Platelet Count 229 x10^3/uL (140-400) Neutrophils (%) (Auto) 92 % (31-73) Lymphocytes (%) (Auto) 7 % (24-48) Monocytes (%) (Auto) 1 % (0-9) Eosinophils (%) (Auto) 0 % (0-3) Basophils (%) (Auto) 1 % (0-3) Neutrophils # (Auto) 12.5 x10^3/uL (1.8-7.7) Lymphocytes # (Auto) 0.9 x10^3/uL (1.0-4.8) Monocytes # (Auto) 0.1 x10^3/uL (0.0-1.1) Eosinophils # (Auto) 0.0 x10^3/uL (0.0-0.7) Basophils # (Auto) 0.1 x10^3/uL (0.0-0.2) Segmented Neutrophils % 90 % (35-66) Band Neutrophils % 6 % (0-9) Lymphocytes % 3 % (24-48) Monocytes % 1 % (0-10) Platelet Estimate Adequate (ADEQUATE) Sodium Level 143 mmol/L (136-145) Potassium Level 3.5 mmol/L (3.5-5.1) Chloride Level 107 mmol/L (98-107) Carbon Dioxide Level 22 mmol/L (21-32) Anion Gap 14 (6-14) Blood Urea Nitrogen 7 mg/dL (7-20) Creatinine 0.9 mg/dL (0.6-1.0) Estimated GFR (Cockcroft-Gault) 79.0 BUN/Creatinine Ratio 8 (6-20) Glucose Level 207 mg/dL (70-99) Calcium Level 8.9 mg/dL (8.5-10.1) Total Bilirubin 0.3 mg/dL (0.2-1.0) Aspartate Amino Transf (AST/SGOT) 35 U/L (15-37) Alanine Aminotransferase (ALT/SGPT) 90 U/L (14-59) Alkaline Phosphatase 122 U/L (46-116) Total Protein 7.8 g/dL (6.4-8.2) Albumin 3.7 g/dL (3.4-5.0) Albumin/Globulin Ratio 0.9 (1.0-1.7) Assessment and Plan Assessmemt and Plan Problems Medical Problems: (1) Asthma exacerbation Status: Acute (2) GERD (gastroesophageal reflux disease) Status: Chronic (3) Hepatic steatosis Status: Chronic (4) IBS (irritable bowel syndrome) Status: Chronic (5) Morbid obesity Status: Chronic (6) Status asthmaticus Status: Acute (7) Tobacco abuse Status: Chronic Comment Review of Relevant I have reviewed the following items leticia (where applicable) has been applied. Labs Laboratory Tests Test 04/28/19 09:50 White Blood Count 13.5 x10^3/uL (4.0-11.0) Red Blood Count 4.94 x10^6/uL (3.50-5.40) Hemoglobin 14.7 g/dL (12.0-15.5) Hematocrit 42.5 % (36.0-47.0) Mean Corpuscular Volume 86 fL (79-100) Mean Corpuscular Hemoglobin 30 pg (25-35) Mean Corpuscular Hemoglobin Concent 35 g/dL (31-37) Red Cell Distribution Width 13.4 % (11.5-14.5) Platelet Count 229 x10^3/uL (140-400) Neutrophils (%) (Auto) 92 % (31-73) Lymphocytes (%) (Auto) 7 % (24-48) Monocytes (%) (Auto) 1 % (0-9) Eosinophils (%) (Auto) 0 % (0-3) Basophils (%) (Auto) 1 % (0-3) Neutrophils # (Auto) 12.5 x10^3/uL (1.8-7.7) Lymphocytes # (Auto) 0.9 x10^3/uL (1.0-4.8) Monocytes # (Auto) 0.1 x10^3/uL (0.0-1.1) Eosinophils # (Auto) 0.0 x10^3/uL (0.0-0.7) Basophils # (Auto) 0.1 x10^3/uL (0.0-0.2) Segmented Neutrophils % 90 % (35-66) Band Neutrophils % 6 % (0-9) Lymphocytes % 3 % (24-48) Monocytes % 1 % (0-10) Platelet Estimate Adequate (ADEQUATE) Sodium Level 143 mmol/L (136-145) Potassium Level 3.5 mmol/L (3.5-5.1) Chloride Level 107 mmol/L (98-107) Carbon Dioxide Level 22 mmol/L (21-32) Anion Gap 14 (6-14) Blood Urea Nitrogen 7 mg/dL (7-20) Creatinine 0.9 mg/dL (0.6-1.0) Estimated GFR (Cockcroft-Gault) 79.0 BUN/Creatinine Ratio 8 (6-20) Glucose Level 207 mg/dL (70-99) Calcium Level 8.9 mg/dL (8.5-10.1) Total Bilirubin 0.3 mg/dL (0.2-1.0) Aspartate Amino Transf (AST/SGOT) 35 U/L (15-37) Alanine Aminotransferase (ALT/SGPT) 90 U/L (14-59) Alkaline Phosphatase 122 U/L (46-116) Total Protein 7.8 g/dL (6.4-8.2) Albumin 3.7 g/dL (3.4-5.0) Albumin/Globulin Ratio 0.9 (1.0-1.7) Laboratory Tests Test 04/28/19 09:50 White Blood Count 13.5 x10^3/uL (4.0-11.0) Red Blood Count 4.94 x10^6/uL (3.50-5.40) Hemoglobin 14.7 g/dL (12.0-15.5) Hematocrit 42.5 % (36.0-47.0) Mean Corpuscular Volume 86 fL (79-100) Mean Corpuscular Hemoglobin 30 pg (25-35) Mean Corpuscular Hemoglobin Concent 35 g/dL (31-37) Red Cell Distribution Width 13.4 % (11.5-14.5) Platelet Count 229 x10^3/uL (140-400) Neutrophils (%) (Auto) 92 % (31-73) Lymphocytes (%) (Auto) 7 % (24-48) Monocytes (%) (Auto) 1 % (0-9) Eosinophils (%) (Auto) 0 % (0-3) Basophils (%) (Auto) 1 % (0-3) Neutrophils # (Auto) 12.5 x10^3/uL (1.8-7.7) Lymphocytes # (Auto) 0.9 x10^3/uL (1.0-4.8) Monocytes # (Auto) 0.1 x10^3/uL (0.0-1.1) Eosinophils # (Auto) 0.0 x10^3/uL (0.0-0.7) Basophils # (Auto) 0.1 x10^3/uL (0.0-0.2) Segmented Neutrophils % 90 % (35-66) Band Neutrophils % 6 % (0-9) Lymphocytes % 3 % (24-48) Monocytes % 1 % (0-10) Platelet Estimate Adequate (ADEQUATE) Sodium Level 143 mmol/L (136-145) Potassium Level 3.5 mmol/L (3.5-5.1) Chloride Level 107 mmol/L (98-107) Carbon Dioxide Level 22 mmol/L (21-32) Anion Gap 14 (6-14) Blood Urea Nitrogen 7 mg/dL (7-20) Creatinine 0.9 mg/dL (0.6-1.0) Estimated GFR (Cockcroft-Gault) 79.0 BUN/Creatinine Ratio 8 (6-20) Glucose Level 207 mg/dL (70-99) Calcium Level 8.9 mg/dL (8.5-10.1) Total Bilirubin 0.3 mg/dL (0.2-1.0) Aspartate Amino Transf (AST/SGOT) 35 U/L (15-37) Alanine Aminotransferase (ALT/SGPT) 90 U/L (14-59) Alkaline Phosphatase 122 U/L (46-116) Total Protein 7.8 g/dL (6.4-8.2) Albumin 3.7 g/dL (3.4-5.0) Albumin/Globulin Ratio 0.9 (1.0-1.7) Medications Current Medications Albuterol Sulfate (Ventolin Neb Soln) 10 mg 1X ONCE CONT NEB Last administered on 04/27/19at 15:55; Start 04/27/19 at 16:00; Stop 04/27/19 at 16:01; Status DC Dexamethasone (Decadron) 10 mg 1X STAT PO Last administered on 04/27/19at 16:04; Start 04/27/19 at 15:49; Stop 04/27/19 at 15:50; Status DC Alprazolam (Xanax) 0.5 mg 1X ONCE PO Last administered on 04/27/19at 16:16; Start 04/27/19 at 16:15; Stop 04/27/19 at 16:16; Status DC Magnesium Sulfate/ Dextrose 100 ml @ 100 mls/hr 1X ONCE IV Last administered on 04/27/19at 17:48; Start 04/27/19 at 17:00; Stop 04/27/19 at 17:59; Status DC Methylprednisolone Sodium Succinate (SOLU-Medrol 125MG VIAL) 125 mg 1X ONCE IV Last administered on 04/27/19at 18:18; Start 04/27/19 at 17:15; Stop 04/27/19 at 17:16; Status DC Sodium Chloride 1,000 ml @ 1,000 mls/hr 1X ONCE IV Last administered on 04/27/19at 17:48; Start 04/27/19 at 17:15; Stop 04/27/19 at 18:14; Status DC Diphenhydramine HCl (Benadryl) 25 mg 1X ONCE IVP Last administered on 04/27/19at 17:48; Start 04/27/19 at 18:00; Stop 04/27/19 at 18:01; Status DC Lorazepam (Ativan Inj) 2 mg 1X ONCE IV Last administered on 04/27/19at 19:04; Start 04/27/19 at 19:00; Stop 04/27/19 at 19:01; Status DC Ondansetron HCl (Zofran) 4 mg PRN Q8HRS PRN IV NAUSEA/VOMITING; Start 04/27/19 at 19:30; Stop 04/27/19 at 19:54; Status DC Morphine Sulfate (Morphine Sulfate) 2 mg PRN Q2HR PRN IV PAIN Last administered on 04/28/19at 18:27; Start 04/27/19 at 19:30; Stop 04/28/19 at 19:29; Status DC Albuterol/ Ipratropium (Duoneb) 3 ml RTQID NEB Last administered on 04/28/19at 14:55; Start 04/27/19 at 20:00; Stop 04/28/19 at 19:59; Status DC Methylprednisolone Sodium Succinate (SOLU-Medrol 125MG VIAL) 125 mg Q8HRS IV Last administered on 04/28/19at 20:24; Start 04/27/19 at 22:00 Budesonide (Pulmicort) 0.5 mg RTBID NEB Last administered on 04/28/19at 20:06; Start 04/27/19 at 20:00 Montelukast Sodium (Singulair) 10 mg QHS PO Last administered on 04/28/19at 20:24; Start 04/27/19 at 21:00 Sodium Chloride (Normal Saline Flush) 3 ml QSHIFT PRN IV AFTER MEDS AND BLOOD DRAWS; Start 04/27/19 at 20:00 Sodium Chloride 1,000 ml @ 100 mls/hr Q10H IV Last administered on 04/28/19 08:49; Start 04/27/19 at 20:00 Ondansetron HCl (Zofran) 4 mg PRN Q4HRS PRN IV NAUSEA/VOMITING Last administered on 04/28/19at 14:36; Start 04/27/19 at 20:00 Acetaminophen (Tylenol) 650 mg PRN Q4HRS PRN PO TEMP OVER 100.4F OR MILD PAIN Last administered on 04/28/19at 13:39; Start 04/27/19 at 20:00 Al Hydroxide/Mg Hydroxide (Mylanta Plus Xs) 30 ml PRN DAILY PRN PO HEARTBURN / GAS; Start 04/27/19 at 20:00 Clonidine HCl (Catapres) 0.1 mg PRN Q6HRS PRN PO SBP>160 OR DBP>90; Start 04/27/19 at 20:00 Docusate Sodium (Colace) 100 mg PRN BID PRN PO CONSTIPATION; Start 04/27/19 at 20:00 Albuterol Sulfate (Ventolin Neb Soln) 2.5 mg PRN Q4HRS PRN NEB SHORTNESS OF BREATH Last administered on 04/28/19at 03:41; Start 04/27/19 at 20:00 Guaifenesin (Robitussin) 200 mg PRN Q4HRS PRN PO COUGH Last administered on 04/29/19at 02:46; Start 04/27/19 at 20:00 Enoxaparin Sodium (Lovenox 40mg Syringe) 40 mg DAILY SQ ; Start 04/28/19 at 09:00 Guaifenesin (Mucinex) 1,200 mg BID PO Last administered on 04/28/19at 08:49; Start 04/27/19 at 21:00 Nicotine (Nicoderm Cq 21mg) 1 patch DAILY TD ; Start 04/28/19 at 00:15; Stop 04/28/19 at 02:29; Status DC Nicotine (Nicoderm Cq 21mg) 1 patch DAILY TD Last administered on 04/28/19at 08:49; Start 04/28/19 at 09:00 Buspirone HCl (Buspar) 10 mg BID PO Last administered on 04/28/19at 20:24; Start 04/28/19 at 12:00 Cetirizine HCl (ZyrTEC) 10 mg DAILY PO Last administered on 04/28/19at 14:36; Start 04/28/19 at 14:15 Diphenhydramine HCl (Benadryl) 25 mg 1X ONCE PO Last administered on 04/28/19at 14:36; Start 04/28/19 at 14:15; Stop 04/28/19 at 14:16; Status DC Alprazolam (Xanax) 0.5 mg PRN Q8HRS PRN PO ANXIETY / AGITATION Last administered on 04/28/19at 22:32; Start 04/28/19 at 14:15 Morphine Sulfate (Morphine Sulfate) 2 mg PRN Q2HR PRN IV PAIN Last administered on 04/29/19at 02:46; Start 04/28/19 at 14:30 Active Scripts Active Proair Hfa Inhaler (Albuterol Sulfate) 8.5 Gm Hfa.aer.ad 1 Puff INH PRN Q6HRS PRN Reported Cymbalta (Duloxetine Hcl) 30 Mg Capsule.dr Lopez Cap PO DAILY Vitals/I & O Vital Sign - Last 24 Hours 04/28/19 04/28/19 04/28/19 04/28/19 08:00 08:49 10:04 11:00 Temp 98.1 98.1 Pulse 102 Resp 20 20 20 B/P (MAP) 134/80 (98) Pulse Ox 95 95 95 O2 Delivery Room Air Room Air Room Air Room Air 04/28/19 04/28/19 04/28/19 04/28/19 11:46 13:20 13:46 14:27 Resp 20 20 20 Pulse Ox 95 95 95 95 O2 Delivery Room Air Room Air Room Air Room Air 04/28/19 04/28/19 04/28/19 04/28/19 14:55 15:00 16:22 17:02 Temp 98.2 98.2 Pulse 87 Resp 18 18 20 B/P (MAP) 131/73 (92) Pulse Ox 97 97 97 O2 Delivery Room Air Room Air Room Air Room Air 04/28/19 04/28/19 04/28/19 04/28/19 18:27 19:02 19:42 20:07 Temp 99.0 99.0 Pulse 92 Resp 20 20 24 B/P (MAP) 150/91 (110) Pulse Ox 97 97 92 97 O2 Delivery Room Air Room Air Room Air Room Air 04/28/19 04/28/19 04/28/19 04/29/19 20:10 20:24 23:24 03:37 Temp 97.9 97.9 Pulse 76 Resp 16 B/P (MAP) 124/43 (70) Pulse Ox 98 O2 Delivery Room Air Room Air Room Air Room Air 04/29/19 03:54 Temp 97.8 97.8 Pulse 72 Resp 18 B/P (MAP) 101/59 (73) Pulse Ox 97 O2 Delivery Room Air Intake and Output 04/28/19 04/28/19 04/29/19 15:00 23:00 07:00 Intake Total 480 ml 300 ml Balance 480 ml 300 ml MENDY WARE MD Apr 29, 2019 07:39
[2019-04-29] MEDS: CETIRIZINE HCL 10 MG TABLET. PO SCH (08:01)
[2019-04-29] MEDS: methylPREDNISolone SOD SUCC PF 125 MG/2 ML VIAL. IV SCH ×3 (08:01→20:10)
[2019-04-29] MEDS: ENOXAPARIN 40 MG/0.4 ML SYRINGE. SQ SCH ×2 (08:02→20:34)
[2019-04-29] MEDS: busPIRone 10 MG TABLET. PO SCH ×2 (08:03→20:11)
[2019-04-29] MEDS: NICOTINE 21MG PATCH. TD SCH (08:03)
[2019-04-29] MEDS: BUDESONIDE 0.5 MG/2 ML NEBU. NEB SCH ×2 (08:04→18:42)
[2019-04-29] MEDS: IPRATRPIUM/ALBUTEROL 0.5/2.5MG 3 ML NEBU. NEB SCH ×4 (08:10→18:41)
[2019-04-29] MEDS: ALPRAZolam 0.5 MG TABLET PO PRN ×2 (08:17→17:36)
[2019-04-29] MEDS: ONDANSETRON PF 4 MG/2 ML VIAL. IV PRN (08:17)
[2019-04-29] MEDS ORDERED: IV DEXTROSE 5% 250 ML BAG. IV PRN (11:45)
[2019-04-29] MEDS ORDERED: DEXTROSE 50% 25 GM / 50ML DISP.SYRIN. IV PRN (11:45)
[2019-04-29] MEDS: INSULIN LISPRO 300 UNITS/3 ML VIAL. SQ SCH ×3 (12:00→21:45)
[2019-04-29] MEDS: diphenhydrAMINE 50 MG/ML VIAL IVP PRN ×2 (13:06→20:10)
[2019-04-29] MEDS: DOXYCYCLINE HYCLATE 100 MG TABLET PO SCH ×2 (13:36→20:12)
--- NOTE | 2019-04-29 15:31 | CONS ---
DATE OF CONSULTATION: PULMONARY CONSULTATION HISTORY OF PRESENT ILLNESS: This is a 23-year-old female who is seen for status asthmaticus. 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 She was hospitalized frequently as a child. She was never intubated. In recent years, she has not been having frequent problems with asthma. She has not been hospitalized or had Emergency Room visits for several years. The patient started smoking tobacco at the age of 14 and unfortunately continues to smoke. Typically, she smokes 7 or 8 cigarettes per day. She has multiple pets including cats. There is no known mold or chemical irritants in the home. There are multiple other smokers in the home, although they go outside to smoke. She has not been on any asthma therapy up until this recent episode. She notes that she developed a fever and purulent cough several days ago. She started having more shortness of breath and wheezing. She had been to urgent care prior to coming to the [facility]. Her symptoms progressed. Since admission, she has been treated with doxycycline, methylprednisolone 125 mg every 8 hours, and nebulized albuterol plus ipratropium, and montelukast. She does not believe that she is better or worse. PAST MEDICAL HISTORY: Significant for anxiety, polycystic ovarian disease, and chronic back pain with a spinal fusion. She also states that she has been told that she has celiac disease. She has had a hysterectomy and an appendectomy. FAMILY HISTORY: Negative for asthma or allergic rhinitis. She has 2 siblings and no children. SOCIAL HISTORY: See above tobacco smoke exposure. 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 She is not in any toxic environments to her knowledge. REVIEW OF SYSTEMS: A 12-point review of systems was obtained. She complains of diffuse pain in her back and chest. She has nausea. She has a greasy stools. She also has chronic fatigue. Otherwise, the 12-point review of systems was negative. PHYSICAL EXAMINATION: GENERAL: Reveals a female who is in mild distress. VITAL SIGNS: She is afebrile. Her heart rate is 80 per minute and regular. Her respiratory rate is 20 per minute with a prolonged exhalation phase, but without accessory muscle use. She is able to speak in full sentences. Her blood pressure is 112/55. Her oxygen saturation is 94% on room air at rest. HEENT: Unremarkable. NECK: There is no JVD or lymphadenopathy. CHEST: She has equal breath sounds with scattered wheezes throughout both lungs. There are no rales, rhonchi or rubs. CARDIOVASCULAR: She has a regular rate and rhythm without murmur or gallop. ABDOMEN: Soft, without masses or organomegaly. EXTREMITIES: There is no cyanosis, clubbing or edema. NEUROLOGIC: She is alert, oriented and appropriate. Cranial nerves, motor, and coordination are all grossly intact. LABORATORY DATA: She had a chest x-ray that did not reveal any acute infiltrates. Her white blood cell count was 13,500. She did not have any eosinophilia. IMPRESSION: 1. Status asthmaticus. 2. Tobacco abuse. PLAN: I agree with the systemic steroids and inhaled bronchodilators. I agree with her broad spectrum antibiotics (doxycycline). If she improves, I would start to taper her steroids significantly. buttermaker continuous churn it is most important that she stop smoking tobacco entirely. I did discuss that with her. Her enthusiasm for that is modest at best. I also discussed limiting her exposure to her pets. Long-term, I would recommend that she be on inhaled steroids for at least several months. She has not had frequent exacerbations, but the severity and recalcitrant of this episode warrant inhaled steroid therapy for at least several months. I will follow along with you. Thank you for the consultation. If you have any questions, please do not hesitate to contact me. DIA MADERA MD DR: COSTA/binta JOB#: [id number] / [id number]
[2019-04-29] MEDS ORDERED: hydrOXYzine 10 MG TABLET PO PRN (19:45)
[2019-04-29] MEDS: MONTELUKAST SODIUM 10 MG TABLET. PO SCH (20:11)
[2019-04-29] MEDS: LACTOBACILLUS RHAMNOSUS GG 1 CAPSULE. PO SCH (20:12)
[2019-04-29] MEDS ORDERED: MONTELUKAST SODIUM 10 MG TABLET. PO SCH (21:00)
[2019-04-30] MEDS: MORPHINE SULFATE 2 MG/ML VIAL. IV PRN ×2 (02:18→05:47)
[2019-04-30] MEDS: diphenhydrAMINE 50 MG/ML VIAL IVP PRN ×2 (02:18→21:29)
[2019-04-30 03:05] VITALS: BP 116/71
[2019-04-30] MEDS: methylPREDNISolone SOD SUCC PF 125 MG/2 ML VIAL. IV SCH ×4 (05:47→21:17)
[2019-04-30 06:54] LABS: BASO % 0 % (0-3); EOS % 0 % (0-3); HEMOGLOBIN 14.3 g/dL (12.0-15.5); LYMPH # 1.4 x10^3/uL (1.0-4.8); LYMPH % 7 % (24-48); MEAN CORPUSCULAR HEMOGLOBIN 30 pg (25-35); MEAN CORPUSCULAR HGB CONC 34 g/dL (31-37); MEAN CORPUSCULAR VOLUME 87 fL (79-100); MONO # 0.5 x10^3/uL (0.0-1.1); MONO % 3 % (0-9); NEUT # 17.7 x10^3/uL (1.8-7.7); NEUT % 90 % (31-73); PLATELET COUNT 227 x10^3/uL (140-400); RED CELL DISTRIBUTION WIDTH 13.7 % (11.5-14.5); WHITE BLOOD COUNT 19.6 x10^3/uL (4.0-11.0)
[2019-04-30 06:55] LABS: ALBUMIN 3.3 g/dL (3.4-5.0); ALBUMIN/GLOBULIN RATIO 0.8 (1.0-1.7); CALCIUM 9.1 mg/dL (8.5-10.1); CREATININE 0.7 mg/dL (0.6-1.0); GFR 105.6; POTASSIUM 4.2 mmol/L (3.5-5.1); TOTAL BILIRUBIN 0.3 mg/dL (0.2-1.0); TOTAL PROTEIN 7.2 g/dL (6.4-8.2)
[2019-04-30 07:30] VITALS: BP 124/66
[2019-04-30] MEDS: INSULIN LISPRO 300 UNITS/3 ML VIAL. SQ SCH ×4 (07:30→21:00)
--- NOTE | 2019-04-30 08:23 | PDOC ---
PROGRESS NOTES History of Present Illness History of Present Illness VTE Prophylaxis Ordered VTE Prophylaxis Devices: No VTE Pharmacological Prophylaxi: Yes Assessment/Plan Assessment/Plan Impression: Asthma exacerbation, ACUTE, severe hx dust mite allergy, house dust allergy STATUS ASTHMATICUS, slow to improve MORBID OBESITY Hepatic steatosis, elevated LFTs GERD - controlled w/ PPI, normal EGD 04/2017 IBS S/p cholecystectomy TOBACCO ABUSE anxiety disorder ADMITTED NEBS Q 4 HRS DVT PROPHYLAXIS PULM CONSULT DVT PROPHYLAXIS BUDESONIDE 0.5 MG BID NEBS SINGULAIR 10MG PO Q HS SMOKING CESSATION NEEDED, EDUCATED buspar 10mg po bid iv steroid taper 80 MG Q 8 HRS 38 MIN PT EXAM, CHART REVIEW, > 50% OF TIME SPENT WITH EXAM, CHART REVIEW, PT CARE COORDINATION Vitals Vitals Vital Signs Date Time Temp Pulse Resp B/P (MAP) Pulse Ox O2 Delivery O2 Flow Rate FiO2 04/30/19 06:19 18 98 Room Air 04/30/19 03:05 98.3 64 116/71 (86) 98.3 Physical Exam General: Alert, Oriented X3, Cooperative, No acute distress, mild distress Heart: Regular rate, No murmurs Lungs: Wheezing, Other (coarse) Abdomen: Normal bowel sounds, Soft, No tenderness Extremities: No cyanosis, No edema Skin: No rashes, No significant lesion Labs LABS Laboratory Tests Test 04/29/19 10:35 04/29/19 16:37 04/29/19 20:16 04/30/19 05:40 Glucose (Fingerstick) 223 mg/dL (70-99) 179 mg/dL (70-99) 255 mg/dL (70-99) White Blood Count 19.6 x10^3/uL (4.0-11.0) Red Blood Count 4.80 x10^6/uL (3.50-5.40) Hemoglobin 14.3 g/dL (12.0-15.5) Hematocrit 42.0 % (36.0-47.0) Mean Corpuscular Volume 87 fL (79-100) Mean Corpuscular Hemoglobin 30 pg (25-35) Mean Corpuscular Hemoglobin Concent 34 g/dL (31-37) Red Cell Distribution Width 13.7 % (11.5-14.5) Platelet Count 227 x10^3/uL (140-400) Neutrophils (%) (Auto) 90 % (31-73) Lymphocytes (%) (Auto) 7 % (24-48) Monocytes (%) (Auto) 3 % (0-9) Eosinophils (%) (Auto) 0 % (0-3) Basophils (%) (Auto) 0 % (0-3) Neutrophils # (Auto) 17.7 x10^3/uL (1.8-7.7) Lymphocytes # (Auto) 1.4 x10^3/uL (1.0-4.8) Monocytes # (Auto) 0.5 x10^3/uL (0.0-1.1) Eosinophils # (Auto) 0.0 x10^3/uL (0.0-0.7) Basophils # (Auto) 0.0 x10^3/uL (0.0-0.2) Sodium Level 139 mmol/L (136-145) Potassium Level 4.2 mmol/L (3.5-5.1) Chloride Level 105 mmol/L (98-107) Carbon Dioxide Level 23 mmol/L (21-32) Anion Gap 11 (6-14) Blood Urea Nitrogen 14 mg/dL (7-20) Creatinine 0.7 mg/dL (0.6-1.0) Estimated GFR (Cockcroft-Gault) 105.6 BUN/Creatinine Ratio 20 (6-20) Glucose Level 125 mg/dL (70-99) Calcium Level 9.1 mg/dL (8.5-10.1) Total Bilirubin 0.3 mg/dL (0.2-1.0) Aspartate Amino Transf (AST/SGOT) 20 U/L (15-37) Alanine Aminotransferase (ALT/SGPT) 52 U/L (14-59) Alkaline Phosphatase 99 U/L (46-116) Total Protein 7.2 g/dL (6.4-8.2) Albumin 3.3 g/dL (3.4-5.0) Albumin/Globulin Ratio 0.8 (1.0-1.7) Assessment and Plan Assessmemt and Plan Problems Medical Problems: (1) Asthma exacerbation Status: Acute (2) GERD (gastroesophageal reflux disease) Status: Chronic (3) Hepatic steatosis Status: Chronic (4) IBS (irritable bowel syndrome) Status: Chronic (5) Morbid obesity Status: Chronic (6) Status asthmaticus Status: Acute (7) Tobacco abuse Status: Chronic Comment Review of Relevant I have reviewed the following items leticia (where applicable) has been applied. Labs Laboratory Tests Test 04/28/19 09:50 04/29/19 10:35 04/29/19 16:37 04/29/19 20:16 White Blood Count 13.5 x10^3/uL (4.0-11.0) Red Blood Count 4.94 x10^6/uL (3.50-5.40) Hemoglobin 14.7 g/dL (12.0-15.5) Hematocrit 42.5 % (36.0-47.0) Mean Corpuscular Volume 86 fL (79-100) Mean Corpuscular Hemoglobin 30 pg (25-35) Mean Corpuscular Hemoglobin Concent 35 g/dL (31-37) Red Cell Distribution Width 13.4 % (11.5-14.5) Platelet Count 229 x10^3/uL (140-400) Neutrophils (%) (Auto) 92 % (31-73) Lymphocytes (%) (Auto) 7 % (24-48) Monocytes (%) (Auto) 1 % (0-9) Eosinophils (%) (Auto) 0 % (0-3) Basophils (%) (Auto) 1 % (0-3) Neutrophils # (Auto) 12.5 x10^3/uL (1.8-7.7) Lymphocytes # (Auto) 0.9 x10^3/uL (1.0-4.8) Monocytes # (Auto) 0.1 x10^3/uL (0.0-1.1) Eosinophils # (Auto) 0.0 x10^3/uL (0.0-0.7) Basophils # (Auto) 0.1 x10^3/uL (0.0-0.2) Segmented Neutrophils % 90 % (35-66) Band Neutrophils % 6 % (0-9) Lymphocytes % 3 % (24-48) Monocytes % 1 % (0-10) Platelet Estimate Adequate (ADEQUATE) Sodium Level 143 mmol/L (136-145) Potassium Level 3.5 mmol/L (3.5-5.1) Chloride Level 107 mmol/L (98-107) Carbon Dioxide Level 22 mmol/L (21-32) Anion Gap 14 (6-14) Blood Urea Nitrogen 7 mg/dL (7-20) Creatinine 0.9 mg/dL (0.6-1.0) Estimated GFR (Cockcroft-Gault) 79.0 BUN/Creatinine Ratio 8 (6-20) Glucose Level 207 mg/dL (70-99) Calcium Level 8.9 mg/dL (8.5-10.1) Total Bilirubin 0.3 mg/dL (0.2-1.0) Aspartate Amino Transf (AST/SGOT) 35 U/L (15-37) Alanine Aminotransferase (ALT/SGPT) 90 U/L (14-59) Alkaline Phosphatase 122 U/L (46-116) Total Protein 7.8 g/dL (6.4-8.2) Albumin 3.7 g/dL (3.4-5.0) Albumin/Globulin Ratio 0.9 (1.0-1.7) Glucose (Fingerstick) 223 mg/dL (70-99) 179 mg/dL (70-99) 255 mg/dL (70-99) Test 04/30/19 05:40 White Blood Count 19.6 x10^3/uL (4.0-11.0) Red Blood Count 4.80 x10^6/uL (3.50-5.40) Hemoglobin 14.3 g/dL (12.0-15.5) Hematocrit 42.0 % (36.0-47.0) Mean Corpuscular Volume 87 fL (79-100) Mean Corpuscular Hemoglobin 30 pg (25-35) Mean Corpuscular Hemoglobin Concent 34 g/dL (31-37) Red Cell Distribution Width 13.7 % (11.5-14.5) Platelet Count 227 x10^3/uL (140-400) Neutrophils (%) (Auto) 90 % (31-73) Lymphocytes (%) (Auto) 7 % (24-48) Monocytes (%) (Auto) 3 % (0-9) Eosinophils (%) (Auto) 0 % (0-3) Basophils (%) (Auto) 0 % (0-3) Neutrophils # (Auto) 17.7 x10^3/uL (1.8-7.7) Lymphocytes # (Auto) 1.4 x10^3/uL (1.0-4.8) Monocytes # (Auto) 0.5 x10^3/uL (0.0-1.1) Eosinophils # (Auto) 0.0 x10^3/uL (0.0-0.7) Basophils # (Auto) 0.0 x10^3/uL (0.0-0.2) Sodium Level 139 mmol/L (136-145) Potassium Level 4.2 mmol/L (3.5-5.1) Chloride Level 105 mmol/L (98-107) Carbon Dioxide Level 23 mmol/L (21-32) Anion Gap 11 (6-14) Blood Urea Nitrogen 14 mg/dL (7-20) Creatinine 0.7 mg/dL (0.6-1.0) Estimated GFR (Cockcroft-Gault) 105.6 BUN/Creatinine Ratio 20 (6-20) Glucose Level 125 mg/dL (70-99) Calcium Level 9.1 mg/dL (8.5-10.1) Total Bilirubin 0.3 mg/dL (0.2-1.0) Aspartate Amino Transf (AST/SGOT) 20 U/L (15-37) Alanine Aminotransferase (ALT/SGPT) 52 U/L (14-59) Alkaline Phosphatase 99 U/L (46-116) Total Protein 7.2 g/dL (6.4-8.2) Albumin 3.3 g/dL (3.4-5.0) Albumin/Globulin Ratio 0.8 (1.0-1.7) Laboratory Tests Test 04/29/19 10:35 04/29/19 16:37 04/29/19 20:16 04/30/19 05:40 Glucose (Fingerstick) 223 mg/dL (70-99) 179 mg/dL (70-99) 255 mg/dL (70-99) White Blood Count 19.6 x10^3/uL (4.0-11.0) Red Blood Count 4.80 x10^6/uL (3.50-5.40) Hemoglobin 14.3 g/dL (12.0-15.5) Hematocrit 42.0 % (36.0-47.0) Mean Corpuscular Volume 87 fL (79-100) Mean Corpuscular Hemoglobin 30 pg (25-35) Mean Corpuscular Hemoglobin Concent 34 g/dL (31-37) Red Cell Distribution Width 13.7 % (11.5-14.5) Platelet Count 227 x10^3/uL (140-400) Neutrophils (%) (Auto) 90 % (31-73) Lymphocytes (%) (Auto) 7 % (24-48) Monocytes (%) (Auto) 3 % (0-9) Eosinophils (%) (Auto) 0 % (0-3) Basophils (%) (Auto) 0 % (0-3) Neutrophils # (Auto) 17.7 x10^3/uL (1.8-7.7) Lymphocytes # (Auto) 1.4 x10^3/uL (1.0-4.8) Monocytes # (Auto) 0.5 x10^3/uL (0.0-1.1) Eosinophils # (Auto) 0.0 x10^3/uL (0.0-0.7) Basophils # (Auto) 0.0 x10^3/uL (0.0-0.2) Sodium Level 139 mmol/L (136-145) Potassium Level 4.2 mmol/L (3.5-5.1) Chloride Level 105 mmol/L (98-107) Carbon Dioxide Level 23 mmol/L (21-32) Anion Gap 11 (6-14) Blood Urea Nitrogen 14 mg/dL (7-20) Creatinine 0.7 mg/dL (0.6-1.0) Estimated GFR (Cockcroft-Gault) 105.6 BUN/Creatinine Ratio 20 (6-20) Glucose Level 125 mg/dL (70-99) Calcium Level 9.1 mg/dL (8.5-10.1) Total Bilirubin 0.3 mg/dL (0.2-1.0) Aspartate Amino Transf (AST/SGOT) 20 U/L (15-37) Alanine Aminotransferase (ALT/SGPT) 52 U/L (14-59) Alkaline Phosphatase 99 U/L (46-116) Total Protein 7.2 g/dL (6.4-8.2) Albumin 3.3 g/dL (3.4-5.0) Albumin/Globulin Ratio 0.8 (1.0-1.7) Medications Current Medications Albuterol Sulfate (Ventolin Neb Soln) 10 mg 1X ONCE CONT NEB Last administered on 04/27/19at 15:55; Start 04/27/19 at 16:00; Stop 04/27/19 at 16:01; Status DC Dexamethasone (Decadron) 10 mg 1X STAT PO Last administered on 04/27/19at 16:04; Start 04/27/19 at 15:49; Stop 04/27/19 at 15:50; Status DC Alprazolam (Xanax) 0.5 mg 1X ONCE PO Last administered on 04/27/19at 16:16; Start 04/27/19 at 16:15; Stop 04/27/19 at 16:16; Status DC Magnesium Sulfate/ Dextrose 100 ml @ 100 mls/hr 1X ONCE IV Last administered on 04/27/19at 17:48; Start 04/27/19 at 17:00; Stop 04/27/19 at 17:59; Status DC Methylprednisolone Sodium Succinate (SOLU-Medrol 125MG VIAL) 125 mg 1X ONCE IV Last administered on 04/27/19at 18:18; Start 04/27/19 at 17:15; Stop 04/27/19 at 17:16; Status DC Sodium Chloride 1,000 ml @ 1,000 mls/hr 1X ONCE IV Last administered on 04/27/19at 17:48; Start 04/27/19 at 17:15; Stop 04/27/19 at 18:14; Status DC Diphenhydramine HCl (Benadryl) 25 mg 1X ONCE IVP Last administered on 04/27/19 at 17:48; Start 04/27/19 at 18:00; Stop 04/27/19 at 18:01; Status DC Lorazepam (Ativan Inj) 2 mg 1X ONCE IV Last administered on 04/27/19at 19:04; Start 04/27/19 at 19:00; Stop 04/27/19 at 19:01; Status DC Ondansetron HCl (Zofran) 4 mg PRN Q8HRS PRN IV NAUSEA/VOMITING; Start 04/27/19 at 19:30; Stop 04/27/19 at 19:54; Status DC Morphine Sulfate (Morphine Sulfate) 2 mg PRN Q2HR PRN IV PAIN Last administered on 04/28/19at 18:27; Start 04/27/19 at 19:30; Stop 04/28/19 at 19:29; Status DC Albuterol/ Ipratropium (Duoneb) 3 ml RTQID NEB Last administered on 04/28/19at 14:55; Start 04/27/19 at 20:00; Stop 04/28/19 at 19:59; Status DC Methylprednisolone Sodium Succinate (SOLU-Medrol 125MG VIAL) 125 mg Q8HRS IV Last administered on 04/30/19at 05:47; Start 04/27/19 at 22:00 Budesonide (Pulmicort) 0.5 mg RTBID NEB Last administered on 04/29/19at 18:44; Start 04/27/19 at 20:00 Montelukast Sodium (Singulair) 10 mg QHS PO Last administered on 04/29/19at 20:22; Start 04/27/19 at 21:00 Sodium Chloride (Normal Saline Flush) 3 ml QSHIFT PRN IV AFTER MEDS AND BLOOD DRAWS; Start 04/27/19 at 20:00 Sodium Chloride 1,000 ml @ 100 mls/hr Q10H IV Last administered on 04/28/19at 08:49; Start 04/27/19 at 20:00; Stop 04/29/19 at 11:40; Status DC Ondansetron HCl (Zofran) 4 mg PRN Q4HRS PRN IV NAUSEA/VOMITING Last administered on 04/29/19 08:19; Start 04/27/19 at 20:00 Acetaminophen (Tylenol) 650 mg PRN Q4HRS PRN PO TEMP OVER 100.4F OR MILD PAIN Last administered on 04/28/19at 13:39; Start 04/27/19 at 20:00 Al Hydroxide/Mg Hydroxide (Mylanta Plus Xs) 30 ml PRN DAILY PRN PO HEARTBURN / GAS; Start 04/27/19 at 20:00 Clonidine HCl (Catapres) 0.1 mg PRN Q6HRS PRN PO SBP>160 OR DBP>90; Start 04/27/19 at 20:00 Docusate Sodium (Colace) 100 mg PRN BID PRN PO CONSTIPATION; Start 04/27/19 at 20:00 Albuterol Sulfate (Ventolin Neb Soln) 2.5 mg PRN Q4HRS PRN NEB SHORTNESS OF BREATH Last administered on 04/28/19at 03:41; Start 04/27/19 at 20:00 Guaifenesin (Robitussin) 200 mg PRN Q4HRS PRN PO COUGH Last administered on 04/29/19 02:46; Start 04/27/19 at 20:00 Enoxaparin Sodium (Lovenox 40mg Syringe) 40 mg DAILY SQ ; Start 04/28/19 at 09:00; Stop 04/29/19 at 14:10; Status DC Guaifenesin (Mucinex) 1,200 mg BID PO Last administered on 04/29/19at 20:22; Start 04/27/19 at 21:00 Nicotine (Nicoderm Cq 21mg) 1 patch DAILY TD ; Start 04/28/19 at 00:15; Stop 04/28/19 at 02:29; Status DC Nicotine (Nicoderm Cq 21mg) 1 patch DAILY TD Last administered on 04/28/19at 08:49; Start 04/28/19 at 09:00 Buspirone HCl (Buspar) 10 mg BID PO Last administered on 04/29/19at 20:22; Start 04/28/19 at 12:00 Cetirizine HCl (ZyrTEC) 10 mg DAILY PO Last administered on 04/29/19at 08:03; Start 04/28/19 at 14:15 Diphenhydramine HCl (Benadryl) 25 mg 1X ONCE PO Last administered on 04/28/19 14:36; Start 04/28/19 at 14:15; Stop 04/28/19 at 14:16; Status DC Alprazolam (Xanax) 0.5 mg PRN Q8HRS PRN PO ANXIETY / AGITATION Last administered on 04/29/19at 17:36; Start 04/28/19 at 14:15; Stop 04/29/19 at 19:51; Status DC Morphine Sulfate (Morphine Sulfate) 2 mg PRN Q2HR PRN IV PAIN Last administered on 04/30/19 05:47; Start 04/28/19 at 14:30 Albuterol/ Ipratropium (Duoneb) 3 ml RTQID NEB Last administered on 04/29/19at 18:44; Start 04/29/19 at 08:10 Diphenhydramine HCl (Benadryl) 25 mg PRN Q6HRS PRN IVP ITCHING Last administered on 04/30/19at 02:18; Start 04/29/19 at 11:45 Doxycycline Hyclate (Vibra-Tab) 100 mg BID PO Last administered on 04/29/19at 20:22; Start 04/29/19 at 12:30 Insulin Human Lispro (HumaLOG) 0-5 UNITS TIDWMEALS SQ ; Start 04/29/19 at 12:00; Stop 04/29/19 at 21:43; Status DC Dextrose (Dextrose 50%-Water Syringe) 12.5 gm PRN Q15MIN PRN IV SEE COMMENTS; Start 04/29/19 at 11:45 Dextrose 250 ml PRN Q15MIN PRN IV SEE COMMENTS; Start 04/29/19 at 11:45 Enoxaparin Sodium (Lovenox 40mg Syringe) 40 mg BID SQ ; Start 04/29/19 at 21:00 Lactobacillus Rhamnosus (Culturelle) 1 cap BID PO Last administered on 04/29/19at 20:22; Start 04/29/19 at 21:00 Hydroxyzine HCl (Atarax) 10 mg PRN Q6HRS PRN PO anxiety Last administered on 04/29/19at 20:22; Start 04/29/19 at 19:45 Montelukast Sodium (Singulair) 10 mg QHS PO ; Start 04/29/19 at 21:00; Stop 04/29/19 at 19:55; Status DC Insulin Human Lispro (HumaLOG) 0-5 UNITS QIDACHS SQ ; Start 04/29/19 at 21:45 Active Scripts Active Proair Hfa Inhaler (Albuterol Sulfate) 8.5 Gm Hfa.aer.ad 1 Puff INH PRN Q6HRS PRN Reported Cymbalta (Duloxetine Hcl) 30 Mg Capsule. 1 Cap PO DAILY Vitals/I & O Vital Sign - Last 24 Hours 04/29/19 04/29/19 04/29/19 04/29/19 09:01 11:14 11:54 14:00 Temp 97.8 98.3 97.8 98.3 Pulse 85 80 Resp 20 20 B/P (MAP) 112/54 (73) 112/55 (74) Pulse Ox 98 97 94 O2 Delivery Room Air Room Air Room Air Room Air 04/29/19 04/29/19 04/29/19 04/29/19 14:17 15:00 17:29 17:41 Temp 97.9 97.9 Pulse 67 Resp 20 B/P (MAP) 126/64 (84) Pulse Ox 98 98 O2 Delivery Room Air Room Air Room Air Room Air 04/29/19 04/29/19 04/29/19 04/29/19 18:44 18:46 19:00 19:22 Temp 97.8 97.8 Pulse 84 Resp 20 B/P (MAP) 137/83 (101) Pulse Ox 99 95 O2 Delivery Room Air Room Air Room Air Room Air 04/29/19 04/29/19 04/29/19 04/29/19 20:15 20:22 21:02 22:27 Resp 18 18 18 Pulse Ox 95 95 95 O2 Delivery Room Air Room Air Room Air Room Air 04/29/19 04/29/19 04/30/19 04/30/19 22:58 23:00 02:18 03:01 Temp 98.2 98.2 Pulse 74 Resp 18 20 18 18 B/P (MAP) 131/85 (100) Pulse Ox 95 95 95 95 O2 Delivery Room Air Room Air Room Air Room Air 04/30/19 04/30/19 04/30/19 03:05 05:47 06:19 Temp 98.3 98.3 Pulse 64 Resp 18 18 18 B/P (MAP) 116/71 (86) Pulse Ox 98 98 98 O2 Delivery Room Air Room Air Room Air Intake and Output 04/29/19 04/29/19 04/30/19 15:00 23:00 07:00 Intake Total 200 ml Balance 200 ml MENDY WARE MD Apr 30, 2019 08:23
[2019-04-30] MEDS: DOXYCYCLINE HYCLATE 100 MG TABLET PO SCH ×2 (08:40→21:18)
[2019-04-30] MEDS: busPIRone 10 MG TABLET. PO SCH ×2 (08:40→21:18)
[2019-04-30] MEDS: LACTOBACILLUS RHAMNOSUS GG 1 CAPSULE. PO SCH ×2 (08:41→21:18)
[2019-04-30] MEDS: CETIRIZINE HCL 10 MG TABLET. PO SCH (08:41)
[2019-04-30] MEDS: HYDROcodone/APAP 5/325MG 1 TAB TABLET PO PRN ×2 (08:55→16:13)
[2019-04-30] MEDS: BUDESONIDE 0.5 MG/2 ML NEBU. NEB SCH ×2 (08:57→20:00)
[2019-04-30] MEDS: IPRATRPIUM/ALBUTEROL 0.5/2.5MG 3 ML NEBU. NEB SCH ×4 (08:57→20:00)
[2019-04-30] MEDS: ENOXAPARIN 40 MG/0.4 ML SYRINGE. SQ SCH ×4 (09:00→21:25)
[2019-04-30] MEDS: NICOTINE 21MG PATCH. TD SCH (09:00)
--- NOTE | 2019-04-30 09:38 | NUR ---
pt refusing finger sticks. insulin nonadmin
[2019-04-30 11:48] VITALS: BP 107/54
[2019-04-30] MEDS ORDERED: diphenhydrAMINE HCL 25 MG CAPSULE PO PRN (12:15)
[2019-04-30] MEDS: ACETAMINOPHEN 325 MG TABLET. PO PRN (12:33)
--- NOTE | 2019-04-30 15:14 | PDOC ---
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 She was hospitalized frequently as a child. She was never intubated. In recent years, she has not been having frequent problems with asthma. She has not been hospitalized or had Emergency Room visits for several years. The patient started smoking tobacco at the age of 14 and unfortunately continues to smoke. Typically, she smokes 7 or 8 cigarettes per day. She has multiple pets including cats. There is no known mold or chemical irritants in the home. There are multiple other smokers in the home, although they go outside to smoke. She has not been on any asthma therapy up until this recent episode. She notes that she developed a fever and purulent cough several days ago. She started having more shortness of breath and wheezing. She had been to urgent care prior to coming to the [facility]. Her symptoms progressed. Since admission, she has been treated with doxycycline, methylprednisolone 125 mg every 8 hours, and nebulized albuterol plus ipratropium, and montelukast. She is nervous and agitated. she states she is no better and wants to go home. I discussed real estate utilization officer the importance of smoking cessation, but she was pretty negative about that possibility. PAST MEDICAL HISTORY: Significant for anxiety, polycystic ovarian disease, and chronic back pain with a spinal fusion. She also states that she has been told that she has celiac disease. She has had a hysterectomy and an appendectomy. FAMILY HISTORY: Negative for asthma or allergic rhinitis. She has 2 siblings and no children. SOCIAL HISTORY: See above tobacco smoke exposure. 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 She is not in any toxic environments to her knowledge. Vitals Vital Signs Date Time Temp Pulse Resp B/P (MAP) Pulse Ox O2 Delivery O2 Flow Rate FiO2 04/30/19 11:48 98.2 83 16 107/54 (71) 95 Room Air 98.2 General: Alert, Oriented X4, Mild Distress Lungs: Wheezing, Other (coarse) Cardiovascular: S1, S2 Abdomen: Soft Extremities: No Edema Labs Laboratory Tests Test 04/29/19 10:35 04/29/19 16:37 04/29/19 20:16 04/30/19 05:40 Glucose (Fingerstick) 223 mg/dL (70-99) 179 mg/dL (70-99) 255 mg/dL (70-99) White Blood Count 19.6 x10^3/uL (4.0-11.0) Red Blood Count 4.80 x10^6/uL (3.50-5.40) Hemoglobin 14.3 g/dL (12.0-15.5) Hematocrit 42.0 % (36.0-47.0) Mean Corpuscular Volume 87 fL (79-100) Mean Corpuscular Hemoglobin 30 pg (25-35) Mean Corpuscular Hemoglobin Concent 34 g/dL (31-37) Red Cell Distribution Width 13.7 % (11.5-14.5) Platelet Count 227 x10^3/uL (140-400) Neutrophils (%) (Auto) 90 % (31-73) Lymphocytes (%) (Auto) 7 % (24-48) Monocytes (%) (Auto) 3 % (0-9) Eosinophils (%) (Auto) 0 % (0-3) Basophils (%) (Auto) 0 % (0-3) Neutrophils # (Auto) 17.7 x10^3/uL (1.8-7.7) Lymphocytes # (Auto) 1.4 x10^3/uL (1.0-4.8) Monocytes # (Auto) 0.5 x10^3/uL (0.0-1.1) Eosinophils # (Auto) 0.0 x10^3/uL (0.0-0.7) Basophils # (Auto) 0.0 x10^3/uL (0.0-0.2) Sodium Level 139 mmol/L (136-145) Potassium Level 4.2 mmol/L (3.5-5.1) Chloride Level 105 mmol/L (98-107) Carbon Dioxide Level 23 mmol/L (21-32) Anion Gap 11 (6-14) Blood Urea Nitrogen 14 mg/dL (7-20) Creatinine 0.7 mg/dL (0.6-1.0) Estimated GFR (Cockcroft-Gault) 105.6 BUN/Creatinine Ratio 20 (6-20) Glucose Level 125 mg/dL (70-99) Calcium Level 9.1 mg/dL (8.5-10.1) Total Bilirubin 0.3 mg/dL (0.2-1.0) Aspartate Amino Transf (AST/SGOT) 20 U/L (15-37) Alanine Aminotransferase (ALT/SGPT) 52 U/L (14-59) Alkaline Phosphatase 99 U/L (46-116) Total Protein 7.2 g/dL (6.4-8.2) Albumin 3.3 g/dL (3.4-5.0) Albumin/Globulin Ratio 0.8 (1.0-1.7) Test 04/30/19 11:55 Glucose (Fingerstick) 150 mg/dL (70-99) Laboratory Tests Test 04/29/19 16:37 04/29/19 20:16 04/30/19 05:40 04/30/19 11:55 Glucose (Fingerstick) 179 mg/dL (70-99) 255 mg/dL (70-99) 150 mg/dL (70-99) White Blood Count 19.6 x10^3/uL (4.0-11.0) Red Blood Count 4.80 x10^6/uL (3.50-5.40) Hemoglobin 14.3 g/dL (12.0-15.5) Hematocrit 42.0 % (36.0-47.0) Mean Corpuscular Volume 87 fL (79-100) Mean Corpuscular Hemoglobin 30 pg (25-35) Mean Corpuscular Hemoglobin Concent 34 g/dL (31-37) Red Cell Distribution Width 13.7 % (11.5-14.5) Platelet Count 227 x10^3/uL (140-400) Neutrophils (%) (Auto) 90 % (31-73) Lymphocytes (%) (Auto) 7 % (24-48) Monocytes (%) (Auto) 3 % (0-9) Eosinophils (%) (Auto) 0 % (0-3) Basophils (%) (Auto) 0 % (0-3) Neutrophils # (Auto) 17.7 x10^3/uL (1.8-7.7) Lymphocytes # (Auto) 1.4 x10^3/uL (1.0-4.8) Monocytes # (Auto) 0.5 x10^3/uL (0.0-1.1) Eosinophils # (Auto) 0.0 x10^3/uL (0.0-0.7) Basophils # (Auto) 0.0 x10^3/uL (0.0-0.2) Sodium Level 139 mmol/L (136-145) Potassium Level 4.2 mmol/L (3.5-5.1) Chloride Level 105 mmol/L (98-107) Carbon Dioxide Level 23 mmol/L (21-32) Anion Gap 11 (6-14) Blood Urea Nitrogen 14 mg/dL (7-20) Creatinine 0.7 mg/dL (0.6-1.0) Estimated GFR (Cockcroft-Gault) 105.6 BUN/Creatinine Ratio 20 (6-20) Glucose Level 125 mg/dL (70-99) Calcium Level 9.1 mg/dL (8.5-10.1) Total Bilirubin 0.3 mg/dL (0.2-1.0) Aspartate Amino Transf (AST/SGOT) 20 U/L (15-37) Alanine Aminotransferase (ALT/SGPT) 52 U/L (14-59) Alkaline Phosphatase 99 U/L (46-116) Total Protein 7.2 g/dL (6.4-8.2) Albumin 3.3 g/dL (3.4-5.0) Albumin/Globulin Ratio 0.8 (1.0-1.7) Medications Active Scripts Medications Dose Route/Sig Max Daily Dose Days Date Category Cymbalta (Duloxetine Hcl) 30 Mg Capsule.dr Lopez Cap PO DAILY 04/28/19 Reported Proair Hfa Inhaler (Albuterol Sulfate) 8.5 Gm Hfa.aer.ad 1 Puff INH PRN Q6HRS PRN 09/29/17 Rx Impression . IMPRESSION: 1. Status asthmaticus. 2. Tobacco abuse. 3. anxiety Plan . PLAN: I agree with the systemic steroids and inhaled bronchodilators. I agree with her broad spectrum antibiotics (doxycycline). If she improves, I would start to taper her steroids significantly. detention it is most important that she stop smoking tobacco entirely. I did discuss that with her. Her enthusiasm for that is not good. I also discussed limiting her exposure to her pets. Long-term, I would recommend that she be on inhaled steroids for at least several months. She has not had frequent exacerbations, but the severity and recalcitrant of this episode warrant inhaled steroid therapy for at least several months. I We will follow along with you. Thank you for the consultation. If you have any questions, please do not hesitate to contact me. DIA MADERA MD Apr 30, 2019 15:14
[2019-04-30] MEDS ORDERED: diphenhydrAMINE 50 MG/ML VIAL IVP PRN (15:15)
[2019-04-30 15:41] VITALS: BP 137/77
[2019-04-30] MEDS ORDERED: diphenhydrAMINE 50 MG/ML VIAL IVP ONE (15:45)
[2019-04-30 19:00] VITALS: BP 121/71
[2019-04-30] MEDS: MONTELUKAST SODIUM 10 MG TABLET. PO SCH (21:18)
[2019-05-01] MEDS: HYDROcodone/APAP 5/325MG 1 TAB TABLET PO PRN ×2 (02:15→08:35)
[2019-05-01] MEDS: diphenhydrAMINE 50 MG/ML VIAL IVP PRN (05:55)
[2019-05-01] MEDS: methylPREDNISolone SOD SUCC PF 125 MG/2 ML VIAL. IV SCH (05:56)
[2019-05-01 06:06] VITALS: BP 157/101
[2019-05-01] MEDS: INSULIN LISPRO 300 UNITS/3 ML VIAL. SQ SCH (07:30)
[2019-05-01] MEDS: IPRATRPIUM/ALBUTEROL 0.5/2.5MG 3 ML NEBU. NEB SCH (08:00)
[2019-05-01] MEDS: BUDESONIDE 0.5 MG/2 ML NEBU. NEB SCH (08:00)
[2019-05-01] MEDS: busPIRone 10 MG TABLET. PO SCH (08:35)
[2019-05-01] MEDS: LACTOBACILLUS RHAMNOSUS GG 1 CAPSULE. PO SCH (08:35)
[2019-05-01] MEDS: CETIRIZINE HCL 10 MG TABLET. PO SCH (08:35)
[2019-05-01] MEDS: DOXYCYCLINE HYCLATE 100 MG TABLET PO SCH (08:35)
[2019-05-01] MEDS: NICOTINE 21MG PATCH. TD SCH (08:36)
[2019-05-01] MEDS ORDERED: BUDE0.5A NEB (09:48)
[2019-05-01] MEDS ORDERED: Nicotine 21MG TD (09:48)
[2019-05-01] MEDS ORDERED: DOXY100T PO (09:48)
[2019-05-01] MEDS ORDERED: MONT10TA49 PO (09:48)
[2019-05-01] MEDS ORDERED: CETI10TA16 PO (09:48)
[2019-05-01] MEDS ORDERED: HYDR-2761 PO (09:48)
[2019-05-01] MEDS ORDERED: GUAI600T47 PO (09:48)
--- NOTE | 2019-05-01 09:55 | PDOC3 ---
Discharge Summary Visit Information Date of Admission: Apr 27, 2019 Date of Discharge: May 01, 2019 Admitting Diagnosis Comment: asthma exacerbation No PNA on CXR Depression NOS NORmal CXR Final Diagnosis Problems Medical Problems: (1) Anxiety Status: Chronic (2) Asthma exacerbation Status: Acute (3) GERD (gastroesophageal reflux disease) Status: Chronic (4) Hepatic steatosis Status: Chronic (5) IBS (irritable bowel syndrome) Status: Chronic (6) Morbid obesity Status: Chronic (7) Status asthmaticus Status: Acute (8) Tobacco abuse Status: Chronic Brief Hospital Course Allergies Allergies Coded Allergies Type Severity Reaction Last Updated Verified Fish Containing Products Allergy Intermediate Rash 11/08/18 Yes coconut oil Allergy Intermediate 11/08/18 Yes iodine Allergy Intermediate Rash 11/08/18 Yes ketorolac Allergy Intermediate Rash 11/08/18 Yes latex Allergy Intermediate Rash 11/08/18 Yes mold Allergy Intermediate 11/08/18 Yes tramadol Allergy Intermediate RASH/ITCHING 11/08/18 Yes prednisone Allergy Mild N/V 11/08/18 Yes shellfish derived Adverse Reaction Intermediate 11/08/18 Yes Uncoded Allergies Type Severity Reaction Last Updated Verified INSECT BITES,DUST MITES Allergy Unknown 04/08/16 Vital Signs Vital Signs Date Time Temp Pulse Resp B/P (MAP) Pulse Ox O2 Delivery O2 Flow Rate FiO2 05/01/19 09:36 Room Air 05/01/19 06:06 97.1 77 20 157/101 (119) 97 97.1 Lab Results Laboratory Tests Test 04/29/19 10:35 04/29/19 16:37 04/29/19 20:16 04/30/19 05:40 Glucose (Fingerstick) 223 mg/dL (70-99) 179 mg/dL (70-99) 255 mg/dL (70-99) White Blood Count 19.6 x10^3/uL (4.0-11.0) Red Blood Count 4.80 x10^6/uL (3.50-5.40) Hemoglobin 14.3 g/dL (12.0-15.5) Hematocrit 42.0 % (36.0-47.0) Mean Corpuscular Volume 87 fL (79-100) Mean Corpuscular Hemoglobin 30 pg (25-35) Mean Corpuscular Hemoglobin Concent 34 g/dL (31-37) Red Cell Distribution Width 13.7 % (11.5-14.5) Platelet Count 227 x10^3/uL (140-400) Neutrophils (%) (Auto) 90 % (31-73) Lymphocytes (%) (Auto) 7 % (24-48) Monocytes (%) (Auto) 3 % (0-9) Eosinophils (%) (Auto) 0 % (0-3) Basophils (%) (Auto) 0 % (0-3) Neutrophils # (Auto) 17.7 x10^3/uL (1.8-7.7) Lymphocytes # (Auto) 1.4 x10^3/uL (1.0-4.8) Monocytes # (Auto) 0.5 x10^3/uL (0.0-1.1) Eosinophils # (Auto) 0.0 x10^3/uL (0.0-0.7) Basophils # (Auto) 0.0 x10^3/uL (0.0-0.2) Sodium Level 139 mmol/L (136-145) Potassium Level 4.2 mmol/L (3.5-5.1) Chloride Level 105 mmol/L (98-107) Carbon Dioxide Level 23 mmol/L (21-32) Anion Gap 11 (6-14) Blood Urea Nitrogen 14 mg/dL (7-20) Creatinine 0.7 mg/dL (0.6-1.0) Estimated GFR (Cockcroft-Gault) 105.6 BUN/Creatinine Ratio 20 (6-20) Glucose Level 125 mg/dL (70-99) Calcium Level 9.1 mg/dL (8.5-10.1) Total Bilirubin 0.3 mg/dL (0.2-1.0) Aspartate Amino Transf (AST/SGOT) 20 U/L (15-37) Alanine Aminotransferase (ALT/SGPT) 52 U/L (14-59) Alkaline Phosphatase 99 U/L (46-116) Total Protein 7.2 g/dL (6.4-8.2) Albumin 3.3 g/dL (3.4-5.0) Albumin/Globulin Ratio 0.8 (1.0-1.7) Test 04/30/19 11:55 04/30/19 17:17 05/01/19 06:04 Glucose (Fingerstick) 150 mg/dL (70-99) 132 mg/dL (70-99) 98 mg/dL (70-99) Laboratory Tests Test 04/30/19 11:55 04/30/19 17:17 05/01/19 06:04 Glucose (Fingerstick) 150 mg/dL (70-99) 132 mg/dL (70-99) 98 mg/dL (70-99) Brief Hospital Course Ms. 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, CXR normal, Took days to make her feel better but actually still junky sounding but she wishes to dc - and im ok with that, I wrote her all rx we were giving, doxy, pred, pulmicort etc She requested some xanax and work excuse I gave a week's rest notice COnsults; pulmo Proc; none dc < 30 Discharge Information Condition at Discharge: Improved, Stable Disposition/Orders: D/C to Home Scheduled Budesonide (Budesonide) 0.5 Mg/2 Ml Ampul.neb, 0.5 MG NEB RTBID for asthma for 30 Days, #1 Prescribed by: VIVIAN JOHNSON on 05/01/19947 Cetirizine Hcl (Cetirizine Hcl) 10 Mg Tablet, 10 MG PO DAILY for allergies, #30 Prescribed by: VIVIAN JOHNSON on 05/01/1948 Doxycycline Hyclate (Doxycycline Hyclate) 100 Mg Tablet, 100 MG PO BID for cute bronchitis for 7 Days, #14 Prescribed by: VIVIAN JOHNSON on 05/01/19947 Duloxetine Hcl (Cymbalta) 30 Mg Capsule.dr, 1 CAP PO DAILY for depression, #30 Ref 5 (Reported) Entered as Reported by: SULLY MCKENZIE on 04/28/19807 Last Taken: Unknown Dose on 04/23/19 0800 Last Action: New Order on 04/28/19807 by SULLY MCKENZIE Guaifenesin (Mucinex) 600 Mg Tablet.er, 1,200 MG PO BID for cough for 10 Days, #40 Prescribed by: VIVIAN JOHNSON on 05/01/19947 Montelukast Sodium (Montelukast Sodium Tablet ) 10 Mg Tablet, 10 MG PO QHS for asthma, #30 Prescribed by: VIVIAN JOHNSON on 05/01/19947 [Nicotine 21MG] 1 PATCH PATCH, 1 PATCH TD DAILY for smoking cesssation, #10 Prescribed by: VIVIAN JOHNSON on 05/01/1948 Scheduled PRN Albuterol Sulfate (Proair Hfa Inhaler) 8.5 Gm Hfa.aer.ad, 1 PUFF INH PRN Q6HRS PRN for SHORTNESS OF BREATH, #1 Ref 0 Prescribed by: MILAGROS HALEY APRN on 09/29/17 1026 Last Taken: Unknown Dose on 04/26/19 0300 Last Action: Last Taken Edited on 04/28/19 0805 by SULLY MCKENZIE Hydrocodone Bit/Acetaminophen (Hydrocodone-Apap 5-325 ) 1 Tab Tablet, 1 TAB PO PRN Q4HRS PRN for MODERATE PAIN, #20 Prescribed by: VIVIAN JOHNSON on 05/01/19947 VIVIAN JOHNSON MD May 01, 2019 09:55
--- NOTE | 2019-05-01 11:55 | NUR ---
Discharge Note: Patient was discharged home with self care. Patients IV was discontinued without any complications per JOSE. Patient was given discharge summary/instructions, follow-ups, prescriptions and educational material. Patient was educated to quit smoking and patient stated she was going to light up about 4 cigarettes as soon as she left the building. Patient ambulated to the main entrance with all personal belongings accompanied by JOSE Aguilera, where her grandmother was waiting for her to take her home.
== END 2019-05-01 12:00 | disposition home or self-care (01) | DRG 202 ==
LOC: ER 15:09 → 6 SOUTH 18:50 → 5 SOUTH 04-29 14:10
PROVIDERS: ADMIT Family Medicine; ATTEND Family Medicine
DX: J45.902 Unspecified asthma with status asthmaticus (principal); Z68.41 Body mass index [BMI] 40.0-44.9, adult; E66.01 Morbid (severe) obesity due to excess calories; K21.9 Gastro-esophageal reflux disease without esophagitis; Z88.2 Allergy status to sulfonamides; Z88.8 Allergy status to other drugs, medicaments and biological substances; Z91.040 Latex allergy status; Z91.013 Allergy to seafood; D64.9 Anemia, unspecified; F17.210 Nicotine dependence, cigarettes, uncomplicated; F32.9 Major depressive disorder, single episode, unspecified; G89.29 Other chronic pain; F41.9 Anxiety disorder, unspecified; K58.9 Irritable bowel syndrome, unspecified; K76.0 Fatty (change of) liver, not elsewhere classified; K90.0 Celiac disease; Z79.51 Long term (current) use of inhaled steroids; Z79.899 Other long term (current) drug therapy; Z82.49 Family history of ischemic heart disease and other diseases of the circulatory system; Z87.442 Personal history of urinary calculi; Z90.49 Acquired absence of other specified parts of digestive tract; Z98.1 Arthrodesis status; Z90.710 Acquired absence of both cervix and uterus
CPT/HCPCS: 36415; 71046; 80053; 82962; 85007; 85025; 94640; 94760; 96374; 96375; J1200; J1650; J1815; J2060; J2270; J2405; J2930; J3475; J7030; J7613; J7620; J7626; J8540; Q0163; 99285-25; G0378

== ENCOUNTER 2019-06-05 13:09 | Emergency (ER) | payer OTHER ==
[~2019-06-05] VITALS: Ht 175.3 cm; Wt 109.1 kg
[~2019-06-05 13:09] MED LIST changes: +BUDE0.5A NEB; +CETI10TA16 PO; +DOXY100T PO; +DULO30CA2 PO; +GUAI600T47 PO; +MONT10TA49 PO; +Nicotine 21MG TD; +OMEP40CA45 PO; -OMEP40CA5 PO
[2019-06-05 13:21] VITALS: BP 154/104
[2019-06-05] MEDS ORDERED: HYDR-3164 PO (14:14)
[2019-06-05] MEDS ORDERED: GABA600T7 PO (14:14)
[2019-06-05] MEDS ORDERED: MUPI22OI2 TP (14:14)
[2019-06-05] MEDS ORDERED: CEPH500T PO (14:14)
--- NOTE | 2019-06-05 14:15 | PHYS DOC ---
Past Medical History Past Medical History: Anxiety, Asthma, Kidney Stone, UTI Additional Past Medical Histor: RECTAL BLEEDING, HYPERKYPHOSIS, high liver enzymes, PCOS, PRE DIABETIC Past Surgical History: Appendectomy, Cholecystectomy, Tonsillectomy, Other Additional Past Surgical Histo: spinal fusion, LEFT ELBOW, pylonydal cyst Additional Information: 08/10 ppd Alcohol Use: Occasionally Drug Use: None Adult General Chief Complaint Chief Complaint: SKIN RASH/ABSCESS HPI HPI Patient is a 23 year old female who presents to the ED today complaining of a blistery rash on the back of her scalp that began yesterday, patient states her father is admitted in the hospital with cellulitis on his lower extremity. Patient denies any fever. Review of Systems Review of Systems Constitutional: Denies fever or chills [] Musculoskeletal: Denies back pain or joint pain [] Integument: Reports rash to the back of the head Neurologic: Denies headache, focal weakness or sensory changes [] All other systems were reviewed and found to be within normal limits, except as documented in this note. Allergies Allergies Allergies Coded Allergies Type Severity Reaction Last Updated Verified Fish Containing Products Allergy Intermediate Rash 11/08/18 Yes coconut oil Allergy Intermediate 11/08/18 Yes iodine Allergy Intermediate Rash 11/08/18 Yes ketorolac Allergy Intermediate Rash 11/08/18 Yes latex Allergy Intermediate Rash 11/08/18 Yes mold Allergy Intermediate 11/08/18 Yes tramadol Allergy Intermediate RASH/ITCHING 11/08/18 Yes prednisone Allergy Mild N/V 11/08/18 Yes shellfish derived Adverse Reaction Intermediate 11/08/18 Yes Uncoded Allergies Type Severity Reaction Last Updated Verified INSECT BITES,DUST MITES Allergy Unknown 04/08/16 Physical Exam Physical Exam Constitutional: Well developed, well nourished, no acute distress, non-toxic appearance. [] Skin: Exam difficult because patient would not let me touch the back of her head with the affected lesions. There is small amount of erythematous rash on both sides of the back of the scalp, they could be cellulitis, I doubt this is shingles considering it is crossing midline. Back: No tenderness, no CVA tenderness. [] Extremities: No tenderness, no cyanosis, no clubbing, ROM intact, no edema. [] Neurologic: Alert and oriented X 3, normal motor function, normal sensory function, no focal deficits noted. [] Psychologic: Affect normal, judgement normal, mood normal. [] Current Patient Data Vital Signs Vital Signs Date Time Temp Pulse Resp B/P (MAP) Pulse Ox O2 Delivery O2 Flow Rate FiO2 06/05/19 13:21 98.9 96 16 154/104 (121) 99 Room Air 98.9 EKG EKG [] Radiology/Procedures Radiology/Procedures [] Course & Med Decision Making Course & Med Decision Making Pertinent Labs and Imaging studies reviewed. (See chart for details) This is a 23-year-old female patient presenting to the ED today with a rash on the back of the head, rash had to examine because patient will not let me touch it due to pain. The area looks like cellulitis I doubt his shingles considering its crossing midline scalp. Will discharge patient on Bactroban ointment and oral cephalexin. Follow-up with PCP and gis physical scientist in 2 weeks Romelia Disclaimer Dragon Disclaimer This electronic medical record was generated, in whole or in part, using a voice recognition dictation system. Departure Departure Impression: Primary Impression: Cellulitis Disposition: 01 HOME, SELF-CARE Condition: STABLE Referrals: GABRIELLE DOSS MD (PCP) follow up with your doctor next week ABRAM CORONADO MD follow up next week Patient Instructions: Cellulitis, [id number] Additional Instructions: You were evaluated in the medicine for a rash, we wrote to several medications, take them as prescribed. Try and maintain good hand hygiene. Avoid picking on this rashes. Scripts Gabapentin (GABAPENTIN) 600 Mg Tablet 600 MG PO TID for NEUROGENIC PAIN, #30 TAB Prov: ANDREA ARIAS APRN 06/05/19 Mupirocin (MUPIROCIN OINTMENT) 22 Gm Oint...g. 1 JESS TP TID for WOUND CARE, #1 TUBE Prov: ANDREA ARIAS APRN 06/05/19 Cephalexin (CEPHALEXIN) 500 Mg Tablet 1 TAB PO TID, #30 TAB Prov: ANDREA ARIAS APRN 06/05/19 Problem Qualifiers Primary Impression: Cellulitis Site of cellulitis: head Qualified Codes: L03.811 - Cellulitis of head [any part, except face] ANDREA ARIAS APRN Jun 05, 2019 14:15
[2019-06-06] MEDS ORDERED: ONDA4TAB7 PO (03:59)
== END 2019-06-05 14:18 | disposition home or self-care (01) ==
LOC: ER 13:09
DX: L03.811 Cellulitis of head [any part, except face] (principal); F17.200 Nicotine dependence, unspecified, uncomplicated; F41.9 Anxiety disorder, unspecified; J45.909 Unspecified asthma, uncomplicated; Z87.442 Personal history of urinary calculi; Z90.89 Acquired absence of other organs; Z90.49 Acquired absence of other specified parts of digestive tract; Z91.041 Radiographic dye allergy status; Z91.040 Latex allergy status; Z88.5 Allergy status to narcotic agent; Z91.013 Allergy to seafood; Z88.8 Allergy status to other drugs, medicaments and biological substances; Z91.09 Other allergy status, other than to drugs and biological substances
CPT/HCPCS: 99283

== ENCOUNTER 2019-06-06 01:17 | Emergency (ER) | payer OTHER ==
[~2019-06-06] VITALS: Ht 175.3 cm; Wt 108.9 kg
[~2019-06-06 01:17] MED LIST changes: +CEPH500T PO; +GABA600T7 PO; +MUPI22OI2 TP
[2019-06-06 01:55] LABS: BASO # 0.1 x10^3/uL (0.0-0.2); BASO % 1 % (0-3); EOS # 0.1 x10^3/uL (0.0-0.7); EOS % 1 % (0-3); HEMOGLOBIN 15.9 g/dL (12.0-15.5); LYMPH # 1.6 x10^3/uL (1.0-4.8); LYMPH % 16 % (24-48); MEAN CORPUSCULAR HEMOGLOBIN 31 pg (25-35); MEAN CORPUSCULAR HGB CONC 35 g/dL (31-37); MEAN CORPUSCULAR VOLUME 86 fL (79-100); MONO # 0.7 x10^3/uL (0.0-1.1); MONO % 7 % (0-9); NEUT # 7.5 x10^3/uL (1.8-7.7); NEUT % 76 % (31-73); PLATELET COUNT 193 x10^3/uL (140-400); RED BLOOD COUNT 5.21 x10^6/uL (3.50-5.40); RED CELL DISTRIBUTION WIDTH 13.8 % (11.5-14.5); WHITE BLOOD COUNT 9.9 x10^3/uL (4.0-11.0)
[2019-06-06] MEDS ORDERED: ONDANSETRON PF 4 MG/2 ML VIAL. IV ONE (02:00)
[2019-06-06 02:03] LABS: CALCIUM 9.2 mg/dL (8.5-10.1); CREATININE 0.9 mg/dL (0.6-1.0); POTASSIUM 3.7 mmol/L (3.5-5.1)
--- NOTE | 2019-06-06 02:03 | PHYS DOC ---
Past Medical History Past Medical History: Anxiety, Asthma, Kidney Stone, UTI Additional Past Medical Histor: RECTAL BLEEDING, HYPERKYPHOSIS, high liver enzymes, PCOS, PRE DIABETIC Past Surgical History: Appendectomy, Cholecystectomy, Tonsillectomy, Other Additional Past Surgical Histo: spinal fusion, LEFT ELBOW, pylonydal cyst Alcohol Use: Occasionally Drug Use: None Adult General Chief Complaint Chief Complaint: NAUSEA/VOMITING/DIARRHA HPI HPI Patient is a 23 year old female who presents to the ED with a chief complaint of nausea and vomiting. Patient states that she was seen earlier today for burning in her head. She was diagnosed with cellulitis and discharged home on cephalexin and bacitracin ointment. Patient states that she did not fill her prescription yet and was going to do it that she started having vomiting. Patient states that she is a history of previous episodes of cellulitis. Patient does admit to being an active smoker. Review of Systems Review of Systems Constitutional: Denies fever or chills [] Eyes: Denies change in visual acuity, redness, or eye pain [] HENT: Denies nasal congestion or sore throat [] Respiratory: Denies cough or shortness of breath [] Cardiovascular: Denies chest pain GI: Denies abdominal pain but complains of nausea and vomiting. : Denies dysuria or hematuria [] Musculoskeletal: Denies back pain or joint pain [] Integument: Patient complains of rash and her scalp Neurologic: Denies headache, focal weakness or sensory changes [] All other systems were reviewed and found to be within normal limits, except as documented in this note. Current Medications Current Medications Current Medications Medications (Trade) Dose Ordered Sig/Kaelyn Start Time Stop Time Status Last Admin Dose Admin Ondansetron HCl (Zofran Odt) 4 mg 1X ONCE 06/06/19 04:00 06/06/19 04:01 UNV Ondansetron HCl (Zofran) 4 mg 1X ONCE 06/06/19 02:00 06/06/19 02:01 DC 06/06/19 01:57 4 MG Sodium Chloride 1,000 ml @ 1,000 mls/hr 1X ONCE 06/06/19 03:00 06/06/19 03:59 DC Allergies Allergies Allergies Coded Allergies Type Severity Reaction Last Updated Verified Fish Containing Products Allergy Intermediate Rash 11/08/18 Yes coconut oil Allergy Intermediate 11/08/18 Yes iodine Allergy Intermediate Rash 11/08/18 Yes ketorolac Allergy Intermediate Rash 11/08/18 Yes latex Allergy Intermediate Rash 11/08/18 Yes mold Allergy Intermediate 11/08/18 Yes tramadol Allergy Intermediate RASH/ITCHING 11/08/18 Yes prednisone Allergy Mild N/V 11/08/18 Yes shellfish derived Adverse Reaction Intermediate 11/08/18 Yes Uncoded Allergies Type Severity Reaction Last Updated Verified INSECT BITES,DUST MITES Allergy Unknown 04/08/16 Physical Exam Physical Exam Constitutional: Well developed, well nourished, no acute distress, non-toxic appearance. [] HENT: Normocephalic, atraumatic Eyes: PERRLA, EOMI, conjunctiva normal, no discharge. [] Neck: Normal range of motion, no tenderness, supple Cardiovascular:Heart rate regular rhythm Lungs & Thorax: Bilateral breath sounds clear to auscultation [] Abdomen: RUQ tenderness Skin: Nonblanching maculopapular rash that is diffuse in the scalp. Rash crosses midline. Extremities: No tenderness, no cyanosis, no clubbing, ROM intact Neurologic: Alert and oriented X 3 Current Patient Data Vital Signs Vital Signs Date Time Temp Pulse Resp B/P (MAP) Pulse Ox O2 Delivery O2 Flow Rate FiO2 06/06/19 01:22 98.8 99 14 146/88 (107) 99 Room Air 98.8 Lab Values Laboratory Tests Test 06/06/19 01:49 06/06/19 02:29 06/06/19 02:32 White Blood Count 9.9 x10^3/uL (4.0-11.0) Red Blood Count 5.21 x10^6/uL (3.50-5.40) Hemoglobin 15.9 g/dL (12.0-15.5) H Hematocrit 45.0 % (36.0-47.0) Mean Corpuscular Volume 86 fL (79-100) Mean Corpuscular Hemoglobin 31 pg (25-35) Mean Corpuscular Hemoglobin Concent 35 g/dL (31-37) Red Cell Distribution Width 13.8 % (11.5-14.5) Platelet Count 193 x10^3/uL (140-400) Neutrophils (%) (Auto) 76 % (31-73) H Lymphocytes (%) (Auto) 16 % (24-48) L Monocytes (%) (Auto) 7 % (0-9) Eosinophils (%) (Auto) 1 % (0-3) Basophils (%) (Auto) 1 % (0-3) Neutrophils # (Auto) 7.5 x10^3/uL (1.8-7.7) Lymphocytes # (Auto) 1.6 x10^3/uL (1.0-4.8) Monocytes # (Auto) 0.7 x10^3/uL (0.0-1.1) Eosinophils # (Auto) 0.1 x10^3/uL (0.0-0.7) Basophils # (Auto) 0.1 x10^3/uL (0.0-0.2) Sodium Level 141 mmol/L (136-145) Potassium Level 3.7 mmol/L (3.5-5.1) Chloride Level 102 mmol/L (98-107) Carbon Dioxide Level 25 mmol/L (21-32) Anion Gap 14 (6-14) Blood Urea Nitrogen 11 mg/dL (7-20) Creatinine 0.9 mg/dL (0.6-1.0) Estimated GFR (Cockcroft-Gault) 79.0 BUN/Creatinine Ratio 12 (6-20) Glucose Level 98 mg/dL (70-99) Calcium Level 9.2 mg/dL (8.5-10.1) Total Bilirubin 1.5 mg/dL (0.2-1.0) H Aspartate Amino Transferase (AST) 138 U/L (15-37) H Alanine Aminotransferase (ALT) 177 U/L (14-59) H Alkaline Phosphatase 135 U/L (46-116) H Total Protein 8.3 g/dL (6.4-8.2) H Albumin 4.2 g/dL (3.4-5.0) Albumin/Globulin Ratio 1.0 (1.0-1.7) Urine Collection Type Unknown Urine Color Wilma Urine Clarity Turbid Urine pH 6.0 Urine Specific Stewart >=1.030 Urine Protein 30 mg/dL (NEG-TRACE) Urine Glucose (UA) Negative mg/dL (NEG) Urine Ketones (Stick) 15 mg/dL (NEG) Urine Blood Trace (NEG) Urine Nitrite Negative (NEG) Urine Bilirubin Small (NEG) Urine Urobilinogen Dipstick 1.0 mg/dL (0.2 mg/dL) Urine Leukocyte Esterase Moderate (NEG) Urine RBC 1-2 /HPF (0-2) Urine WBC 11-20 /HPF (0-4) Urine Squamous Epithelial Cells Mod /LPF Urine Bacteria Few /HPF (0-FEW) Urine Mucus Marked /LPF Urine Trichomonas Present Urine Test Negative (NEG) POC Urine HCG, Qualitative Hcg negative (Negative) Laboratory Tests 06/06/19 01:49 Laboratory Tests 06/06/19 01:49 EKG EKG [] Radiology/Procedures Radiology/Procedures Ordered CT abdomen/pelvis Impressions: CT shows no acute disease Course & Med Decision Making Course & Med Decision Making Pertinent Labs reviewed. (See chart for details) Ordered labs, UA, urine . Labs are within normal limits except liver function tests that are elevated compared to previous Patient describes pain as burning in her scalp. Does not like shingles as rash crosses the midline. Ordered CT scan of the abdomen and pelvis without contrast as patient has all ergy. CT does not show any acute disease. Patient denies dysuria or frequency Patient will be discharged home with Zofran Patient is instructed to take the antibiotic as prescribed. Discussed results and plan of care with patient. Patient is instructed to follow up with PCP in one to 2 days. Appropriate discharge instructions given to patient to return to the ED or to seek immediate medical evaluation. Patient is instructed to return to the ED if symptoms worsen or if any concerns. Dragon Disclaimer Dragon Disclaimer This electronic medical record was generated, in whole or in part, using a voice recognition dictation system. Departure Departure Impression: Primary Impression: Cellulitis Additional Impressions: Elevated LFTs Nausea & vomiting Disposition: 01 HOME, SELF-CARE Condition: IMPROVED Referrals: GABRIELLE DOSS MD (PCP) Patient Instructions: Cellulitis, [id number], Nausea and Vomiting Additional Instructions: Discussed results and plan of care with patient. Patient is instructed to follow up with PCP in one to 2 days. Appropriate discharge instructions given to patient to return to the ED or to seek immediate medical evaluation. Patient is instructed to return to the ED if symptoms worsen or if any concerns. Scripts Ondansetron Hcl (ZOFRAN) 4 Mg Tablet 4 MG PO PRN TID PRN for NAUSEA, #12 nausea/vomiting Prov: RICHMOND RUBIO DO 06/06/19 Problem Qualifiers RICHMOND RUBIO DO Jun 06, 2019 02:03
[2019-06-06 02:09] LABS: ALBUMIN 4.2 g/dL (3.4-5.0); TOTAL BILIRUBIN 1.5 mg/dL (0.2-1.0); TOTAL PROTEIN 8.3 g/dL (6.4-8.2)
[2019-06-06 02:37] LABS: BILIRUBIN,URINE SMALL (NEG); CLARITY,URINE TURBID; COLOR,URINE AMBER; NITRITE,URINE NEGATIVE (NEG); PROTEIN,URINE 30 mg/dL (NEG-TRACE)
[2019-06-06 02:40] LABS: U PREG PATIENT NEGATIVE (NEG)
[2019-06-06 02:47] LABS: SQUAMOUS EPITHELIAL CELL,UR MOD /LPF
[2019-06-06 02:48] LABS: BACTERIA,URINE FEW /HPF (0-FEW); TRICHOMONAS,URINE PRESENT
[2019-06-06] MEDS ORDERED: IV NORMAL SALINE 1000ML BAG 1,000 ML IV ONE (03:00)
--- NOTE | 2019-06-06 03:28 | RAD ---
Abdominal and Pelvis CT, Without Contrast: History: Pain and elevated LFTs Comparison: None. Procedure: Axial images are obtained of the abdomen and pelvis, without IV or oral contrast. Oral Contrast: No Findings: Evaluation of solid organs is limited without contrast. Evaluation of stomach and bowel is limited without oral contrast. There is beam Rashid artifact due to prior fusion of T9-L3 with bilateral pedicle screws and posterior fusion rods. Liver: Normal. Spleen: Normal. Pancreas: Normal. Adrenal Glands: Normal. Kidneys: Normal. There is no free air or free fluid. There is no lymphadenopathy. The urinary bladder is collapsed. The appendix is not seen and may have been removed. There is no pericolonic inflammation identified. Impression: No acute findings. End impression PQRS Compliance Statement: One or more of the following individualized dose reduction techniques were utilized for this examination: 1. Automated exposure control 2. Adjustment of the mA and/or kV according to patient size 3. Use of iterative reconstruction technique Electronically signed by: Luis Manuel Andrea III, MD (06/06/2019 3:25 AM) [id number]
[2019-06-06] MEDS ORDERED: ONDA4TAB7 PO (03:59)
[2019-06-06 04:09] VITALS: BP 132/67
[2019-06-06] MEDS ORDERED: ONDANSETRON ODT 4 MG TAB.RAPDIS. PO ONE (04:15)
== END 2019-06-06 04:09 | disposition home or self-care (01) ==
LOC: ER 01:17
DX: L03.811 Cellulitis of head [any part, except face] (principal); R11.2 Nausea with vomiting, unspecified; R94.5 Abnormal results of liver function studies; J45.909 Unspecified asthma, uncomplicated; Z90.89 Acquired absence of other organs; Z90.49 Acquired absence of other specified parts of digestive tract; F17.200 Nicotine dependence, unspecified, uncomplicated; Z88.6 Allergy status to analgesic agent; Z91.030 Bee allergy status; Z91.040 Latex allergy status; Z91.013 Allergy to seafood; Z88.8 Allergy status to other drugs, medicaments and biological substances; Z91.018 Allergy to other foods
CPT/HCPCS: 36415; 74176; 80053; 81001; 81025; 85025; 87086; 96361; 96374; 99285; J2405; J7030; Q0162

== ENCOUNTER 2019-09-07 04:55 | Emergency (ER) | payer SELFPAY ==
[~2019-09-07] VITALS: Ht 175.3 cm; Wt 110.0 kg
--- NOTE | 2019-09-07 06:16 | PHYS DOC ---
Past Medical History Past Medical History: Anxiety, Asthma, Kidney Stone, UTI Additional Past Medical Histor: RECTAL BLEEDING, HYPERKYPHOSIS, high liver enzymes, PCOS, PRE DIABETIC, PID Past Surgical History: Appendectomy, Cholecystectomy, Tonsillectomy, Other Additional Past Surgical Histo: spinal fusion, LEFT ELBOW, pylonydal cyst Alcohol Use: Occasionally Drug Use: None Adult General Chief Complaint Chief Complaint: PELVIC PAIN HPI HPI Patient is a 24 year old female presented to ER today for evaluation of pelvic pain that been off and on for a month. Patient also complaints of vaginal discharge. The pain get worse with sexual intercourse or any Movement. Patient has history of appendectomy, cholecystectomy. Patient also has history of PID in the past. She felt like she has the fever. She felt nauseous. Patient denies any diarrhea. And she also complaints of pain with urination. All other ROS is negative unless otherwise noted in HPI Review of Systems Review of Systems See above Current Medications Current Medications Current Medications Medications (Trade) Dose Ordered Sig/Kaelyn Start Time Stop Time Status Last Admin Dose Admin Azithromycin (Zithromax) 1,000 mg 1X ONCE 09/07/19 07:00 09/07/19 07:01 DC 09/07/19 07:05 1,000 MG Ceftriaxone Sodium (Rocephin) 1 gm 1X ONCE 09/07/19 07:00 09/07/19 07:01 DC 09/07/19 07:06 1 GM Hydroxyzine HCl (Atarax) 25 mg 1X ONCE 09/07/19 07:30 09/07/19 07:31 DC 09/07/19 07:37 25 MG Morphine Sulfate (Morphine Sulfate) 4 mg 1X ONCE 09/07/19 07:30 09/07/19 07:31 DC 09/07/19 07:38 4 MG Allergies Allergies Allergies Coded Allergies Type Severity Reaction Last Updated Verified Fish Containing Products Allergy Intermediate Rash 11/08/18 Yes coconut oil Allergy Intermediate 11/08/18 Yes iodine Allergy Intermediate Rash 11/08/18 Yes ketorolac Allergy Intermediate Rash 11/08/18 Yes latex Allergy Intermediate Rash 11/08/18 Yes mold Allergy Intermediate 11/08/18 Yes tramadol Allergy Intermediate RASH/ITCHING 11/08/18 Yes prednisone Allergy Mild N/V 11/08/18 Yes shellfish derived Adverse Reaction Intermediate 11/08/18 Yes Uncoded Allergies Type Severity Reaction Last Updated Verified INSECT BITES,DUST MITES Allergy Unknown 04/08/16 Physical Exam Physical Exam See above Constitutional: Well developed, well nourished, no acute distress, non-toxic appearance. [] HENT: Normocephalic, atraumatic, bilateral external ears normal, oropharynx moist, no oral exudates, nose normal. [] Eyes: PERRLA, EOMI, conjunctiva normal, no discharge. [] Neck: Normal range of motion, no tenderness, supple, no stridor. [] Cardiovascular:Heart rate regular rhythm, no murmur [] Lungs & Thorax: Bilateral breath sounds clear to auscultation [] Abdomen: Bowel sounds normal, soft, There is tenderness at the suprapubic area, no masses, no pulsatile masses. [] Skin: Warm, dry, no erythema, no rash. [] Back: No tenderness, no CVA tenderness. [] Extremities: No tenderness, no cyanosis, no clubbing, ROM intact, no edema. [] Neurologic: Alert and oriented X 3, normal motor function, normal sensory function, no focal deficits noted. [] Psychologic: Affect normal, judgement normal, mood normal. /PELVIC: NO EXTERNAL VAGINAL RASH, THERE IS MODERATE CLOUDY DISCHARGE, CERVIX IS FRIABLE, THERE IS CERVICAL MOTION TENDERNESS, BILATERAL ADNEXA TENDERNESS TO PALPATION. Current Patient Data Vital Signs Vital Signs Date Time Temp Pulse Resp B/P (MAP) Pulse Ox O2 Delivery O2 Flow Rate FiO2 09/07/19 07:38 20 97 Room Air 09/07/19 07:33 80 09/07/19 05:07 98.0 115/78 (90) 98.0 Lab Values Laboratory Tests Test 09/07/19 06:04 09/07/19 06:06 09/07/19 06:38 Urine Collection Type Unknown Urine Color Yellow Urine Clarity Cloudy Urine pH 6.5 Urine Specific [place] 1.020 Urine Protein 100 mg/dL (NEG-TRACE) Urine Glucose (UA) Negative mg/dL (NEG) Urine Ketones (Stick) 15 mg/dL (NEG) Urine Blood Moderate (NEG) Urine Nitrite Negative (NEG) Urine Bilirubin Small (NEG) Urine Urobilinogen Dipstick 1.0 mg/dL (0.2 mg/dL) Urine Leukocyte Esterase Moderate (NEG) Urine RBC 3-5 /HPF (0-2) Urine WBC 20-40 /HPF (0-4) Urine Squamous Epithelial Cells Many /LPF Urine Bacteria 0 /HPF (0-FEW) Urine Mucus Marked /LPF Urine Trichomonas Present POC Urine HCG, Qualitative Hcg negative (Negative) White Blood Count 9.4 x10^3/uL (4.0-11.0) Red Blood Count 5.18 x10^6/uL (3.50-5.40) Hemoglobin 15.5 g/dL (12.0-15.5) Hematocrit 44.7 % (36.0-47.0) Mean Corpuscular Volume 86 fL (79-100) Mean Corpuscular Hemoglobin 30 pg (25-35) Mean Corpuscular Hemoglobin Concent 35 g/dL (31-37) Red Cell Distribution Width 13.0 % (11.5-14.5) Platelet Count 263 x10^3/uL (140-400) Neutrophils (%) (Auto) 54 % (31-73) Lymphocytes (%) (Auto) 38 % (24-48) Monocytes (%) (Auto) 6 % (0-9) Eosinophils (%) (Auto) 1 % (0-3) Basophils (%) (Auto) 1 % (0-3) Neutrophils # (Auto) 5.1 x10^3/uL (1.8-7.7) Lymphocytes # (Auto) 3.6 x10^3/uL (1.0-4.8) Monocytes # (Auto) 0.5 x10^3/uL (0.0-1.1) Eosinophils # (Auto) 0.1 x10^3/uL (0.0-0.7) Basophils # (Auto) 0.1 x10^3/uL (0.0-0.2) Sodium Level 144 mmol/L (136-145) Potassium Level 3.4 mmol/L (3.5-5.1) L Chloride Level 104 mmol/L (98-107) Carbon Dioxide Level 29 mmol/L (21-32) Anion Gap 11 (6-14) Blood Urea Nitrogen 7 mg/dL (7-20) Creatinine 1.0 mg/dL (0.6-1.0) Estimated GFR (Cockcroft-Gault) 69.3 BUN/Creatinine Ratio 7 (6-20) Glucose Level 106 mg/dL (70-99) H Calcium Level 9.0 mg/dL (8.5-10.1) Total Bilirubin 0.4 mg/dL (0.2-1.0) Aspartate Amino Transferase (AST) 109 U/L (15-37) H Alanine Aminotransferase (ALT) 123 U/L (14-59) H Alkaline Phosphatase 148 U/L (46-116) H Total Protein 7.5 g/dL (6.4-8.2) Albumin 3.8 g/dL (3.4-5.0) Albumin/Globulin Ratio 1.0 (1.0-1.7) Laboratory Tests 09/07/19 06:38 Laboratory Tests 09/07/19 06:38 EKG EKG [] Radiology/Procedures Radiology/Procedures [][facility] [address] [place] [address] IMAGING REPORT Signed PATIENT: IRAJ MONET RACCOUNT: [id number] : 1995 LOCATION: ER AGE: 24 SEX: F EXAM STATUS: REG ER ORD. PHYSICIAN: LASHAWN CASTRO DO REASON: lower abdominal pain PROCEDURE: CT ABDOMEN PELVIS WO CONTRAST CT abdomen and pelvis without contrast PQRS statement: CT scans at this facility use dose reduction including either automated exposure control, iterative reconstructions, and /or weight based radiation dosing via mA and kV modification when appropriate to reduce radiation dose to as low as reasonably achievable. HISTORY: Lower abdominal pain. Pelvic pain. Dysuria. COMPARISON: CT abdomen and pelvis June 06, 2019. Abdomen findings: Thoracolumbar fusion with pedicle screws and rods T9-L3. Lung bases unremarkable. Cholecystectomy. Liver, spleen, pancreas, adrenal glands and kidneys are unremarkable. No urinary calculi or hydronephrosis. Appendectomy. No obstruction or inflammation of the GI tract. No abdominal fluid. L4-L5 disc bulge and endplate spurring with moderate to severe spinal canal stenosis. There is also a L3-L4 disc bulge and posterior ligament flavum thickening which may contribute to moderate to severe spinal canal stenosis as well. Pelvis findings: Ovaries subjectively mildly prominent in size symmetrically, similar to prior imaging. Uterus, bladder, rectum and bones are unremarkable. No pelvic fluid. IMPRESSION: No acute process. Stable exam. Electronically signed by: Marie Watts MD (09/07/2019 7:24 AM) [facility] DICTATED and SIGNED BY: MARIE WATTS MD DATE: 09/07/19723 Course & Med Decision Making Course & Med Decision Making Pertinent Labs and Imaging studies reviewed. (See chart for details) [] Dragon Disclaimer Dragon Disclaimer This electronic medical record was generated, in whole or in part, using a voice recognition dictation system. Departure Departure Impression: Primary Impression: Pelvic inflammatory disease (PID) Additional Impression: Trichomonal cystitis Disposition: HOME, SELF-CARE Condition: STABLE Referrals: NO PCP (PCP) FOLLOW UP WITH YOUR DOCTOR NEXT WEEK. Patient Instructions: Pelvic Inflammatory Disease, Trichomoniasis Additional Instructions: Thank you for visiting our Emergency Department. We appreciate you trusting us with your care. If any additional problems come up don't hesitate to return to visit us. Please follow up with your primary care provider so they can plan additional care if needed and know about the problem that you had. If symptoms worsen come back to the Emergency Department. Any concerning symptoms that start such as chest pain, shortness of air, weakness or numbness on one side of the body, running high fevers or any other concerning symptoms return to the ER. Scripts Naproxen Sodium (ANAPROX DS) 550 Mg Tablet 1 TAB PO PRN BID PRN for PAIN for 15 Days, #30 TAB 0 Refills Prov: LASHAWN CASTRO DO 09/07/19 Doxycycline Hyclate (DOXYCYCLINE HYCLATE) 100 Mg Capsule 1 CAP PO BID, #20 CAP Prov: LASHAWN CASTRO DO 09/07/19 Metronidazole (FLAGYL) 500 Mg Tablet 1 TAB PO BID, #14 TAB Prov: LASHAWN CASTRO DO 09/07/19 Problem Qualifiers LASHAWN CASTRO DO Sep 07, 2019 06:16
[2019-09-07 06:45] LABS: BASO # 0.1 x10^3/uL (0.0-0.2); BASO % 1 % (0-3); EOS # 0.1 x10^3/uL (0.0-0.7); EOS % 1 % (0-3); HEMATOCRIT 44.7 % (36.0-47.0); HEMOGLOBIN 15.5 g/dL (12.0-15.5); LYMPH # 3.6 x10^3/uL (1.0-4.8); LYMPH % 38 % (24-48); MEAN CORPUSCULAR HEMOGLOBIN 30 pg (25-35); MEAN CORPUSCULAR HGB CONC 35 g/dL (31-37); MEAN CORPUSCULAR VOLUME 86 fL (79-100); MONO # 0.5 x10^3/uL (0.0-1.1); MONO % 6 % (0-9); NEUT # 5.1 x10^3/uL (1.8-7.7); NEUT % 54 % (31-73); PLATELET COUNT 263 x10^3/uL (140-400); RED BLOOD COUNT 5.18 x10^6/uL (3.50-5.40); WHITE BLOOD COUNT 9.4 x10^3/uL (4.0-11.0)
[2019-09-07 06:54] LABS: GFR 69.3; POTASSIUM 3.4 mmol/L (3.5-5.1)
[2019-09-07] MEDS ORDERED: AZITHROMYCIN 250 MG TABLET. PO ONE (07:00)
[2019-09-07] MEDS ORDERED: cefTRIAXone IV Push 1 GM VIAL. IVP ONE (07:00)
[2019-09-07 07:01] LABS: ALBUMIN 3.8 g/dL (3.4-5.0); TOTAL BILIRUBIN 0.4 mg/dL (0.2-1.0); TOTAL PROTEIN 7.5 g/dL (6.4-8.2)
[2019-09-07 07:06] LABS: BACTERIA,URINE 0 /HPF (0-FEW); BILIRUBIN,URINE SMALL (NEG); CLARITY,URINE CLOUDY; COLOR,URINE YELLOW; NITRITE,URINE NEGATIVE (NEG); PH,URINE 6.5; PROTEIN,URINE 100 mg/dL (NEG-TRACE); WBC,URINE 20-40 /HPF (0-4)
[2019-09-07 07:07] LABS: SQUAMOUS EPITHELIAL CELL,UR MANY /LPF; TRICHOMONAS,URINE PRESENT
--- NOTE | 2019-09-07 07:27 | RAD ---
CT abdomen and pelvis without contrast PQRS statement: CT scans at this facility use dose reduction including either automated exposure control, iterative reconstructions, and /or weight based radiation dosing via mA and kV modification when appropriate to reduce radiation dose to as low as reasonably achievable. HISTORY: Lower abdominal pain. Pelvic pain. Dysuria. COMPARISON: CT abdomen and pelvis June 06, 2019. Abdomen findings: Thoracolumbar fusion with pedicle screws and rods T9-L3. Lung bases unremarkable. Cholecystectomy. Liver, spleen, pancreas, adrenal glands and kidneys are unremarkable. No urinary calculi or hydronephrosis. Appendectomy. No obstruction or inflammation of the GI tract. No abdominal fluid. L4-L5 disc bulge and endplate spurring with moderate to severe spinal canal stenosis. There is also a L3-L4 disc bulge and posterior ligament flavum thickening which may contribute to moderate to severe spinal canal stenosis as well. Pelvis findings: Ovaries subjectively mildly prominent in size symmetrically, similar to prior imaging. Uterus, bladder, rectum and bones are unremarkable. No pelvic fluid. IMPRESSION: No acute process. Stable exam. Electronically signed by: Remy Watts MD (09/07/2019 7:24 AM) [facility]
[2019-09-07] MEDS ORDERED: MORPHINE SULFATE 4 MG/ML VIAL. IV ONE (07:30)
[2019-09-07] MEDS ORDERED: hydrOXYzine 25 MG TABLET PO ONE (07:30)
[2019-09-07 07:33] VITALS: BP 101/55
[2019-09-07] MEDS ORDERED: DOXY100C2 PO (08:10)
[2019-09-07] MEDS ORDERED: METR500T PO (08:10)
[2019-09-07] MEDS ORDERED: NAPR-682 PO (08:10)
[2019-09-08 19:09] LABS: GC PROBE Negative (Negative)
== END 2019-09-07 08:38 | disposition home or self-care (01) ==
LOC: ER 04:55
DX: N73.9 Female pelvic inflammatory disease, unspecified (principal); A59.03 Trichomonal cystitis and urethritis; R11.0 Nausea; R10.2 Pelvic and perineal pain; R30.9 Painful micturition, unspecified; F41.9 Anxiety disorder, unspecified; J45.909 Unspecified asthma, uncomplicated; E28.2 Polycystic ovarian syndrome; Z90.89 Acquired absence of other organs; Z90.49 Acquired absence of other specified parts of digestive tract; Z98.890 Other specified postprocedural states; Z87.442 Personal history of urinary calculi; Z91.013 Allergy to seafood; Z91.018 Allergy to other foods; Z88.6 Allergy status to analgesic agent; Z91.040 Latex allergy status; Z77.120 Contact with and (suspected) exposure to mold (toxic); Z88.1 Allergy status to other antibiotic agents; Z79.899 Other long term (current) drug therapy
CPT/HCPCS: 36415; 74176; 80053; 81001; 81025; 85025; 87086; 87491; 87591; 96374; 96375; 99285; J0696; J2270; Q0111; Q0144

== ENCOUNTER 2019-12-28 12:54 | Emergency (ER) | payer SELFPAY ==
[~2019-12-28] VITALS: Ht 172.7 cm; Wt 113.6 kg
[~2019-12-28 12:54] MED LIST changes: +DOXY100C2 PO; +METR500T PO; +NAPR-682 PO
[2019-12-28 13:42] VITALS: BP 137/83
[2019-12-28] MEDS ORDERED: ONDANSETRON PF 4 MG/2 ML VIAL. ONE (13:50)
[2019-12-28] MEDS ORDERED: TAMSULOSIN 0.4 MG CAP.ER.24H. PO ONE (14:00)
[2019-12-28] MEDS ORDERED: ONDANSETRON PF 4 MG/2 ML VIAL. IVP ONE ×2 (14:00)
[2019-12-28] MEDS ORDERED: fentaNYL PF VIAL 100 MCG/2 ML VIAL IVP ONE (14:00)
[2019-12-28] MEDS ORDERED: IV NORMAL SALINE 1000ML BAG 1,000 ML IV ONE ×2 (14:00)
[2019-12-28] MEDS ORDERED: MORPHINE SULFATE 2 MG/ML VIAL. IV ONE (14:00)
[2019-12-28 14:02] LABS: BILIRUBIN,URINE NEGATIVE (NEG); COLOR,URINE YELLOW; NITRITE,URINE NEGATIVE (NEG); PH,URINE 6.5 (<5.0-8.0); PROTEIN,URINE 30 mg/dL (NEG-TRACE); UROBILINOGEN,URINE 0.2 mg/dL (0.2 mg/dL)
[2019-12-28 14:09] LABS: CLARITY,URINE HAZY
[2019-12-28 14:10] LABS: BASO % 0 % (0-3); EOS # 0.2 x10^3/uL (0.0-0.7); EOS % 2 % (0-3); HEMATOCRIT 46.5 % (36.0-47.0); LYMPH # 2.7 x10^3/uL (1.0-4.8); LYMPH % 30 % (24-48); MEAN CORPUSCULAR HEMOGLOBIN 31 pg (25-35); MEAN CORPUSCULAR HGB CONC 34 g/dL (31-37); MEAN CORPUSCULAR VOLUME 89 fL (79-100); MONO # 0.7 x10^3/uL (0.0-1.1); MONO % 7 % (0-9); NEUT # 5.6 x10^3/uL (1.8-7.7); NEUT % 61 % (31-73); PLATELET COUNT 239 x10^3/uL (140-400); RED BLOOD COUNT 5.24 x10^6/uL (3.50-5.40); RED CELL DISTRIBUTION WIDTH 12.7 % (11.5-14.5); WHITE BLOOD COUNT 9.2 x10^3/uL (4.0-11.0)
[2019-12-28 14:12] LABS: BACTERIA,URINE MANY /HPF (0-FEW); SQUAMOUS EPITHELIAL CELL,UR MANY /LPF
[2019-12-28 14:18] LABS: BARBITURATES NEG (NEG); BENZODIAZEPINES POS (NEG); CANNABINOIDS NEG (NEG); COCAINE POS (NEG); METHADONE NEG (NEG); OPIATES POS (NEG); PHENCYCLIDINE NEG (NEG)
[2019-12-28 14:24] LABS: AMPHETAMINE/METHAMPHETAMINE NEG (NEG)
--- NOTE | 2019-12-28 14:43 | PHYS DOC ---
Past Medical History Past Medical History: Anxiety, Asthma, Kidney Stone, UTI Additional Past Medical Histor: RECTAL BLEEDING, HYPERKYPHOSIS, high liver enzymes, PCOS, PRE DIABETIC, PID Past Surgical History: Appendectomy, Cholecystectomy, Tonsillectomy, Other Additional Past Surgical Histo: spinal fusion, LEFT ELBOW, pylonydal cyst Smoking Status: Current Every Day Smoker Alcohol Use: Occasionally Drug Use: None General Adult EDM: Chief Complaint: FLANK PAIN HPI: HPI: Patient is a 24 year old female with history of asthma, kidney stones, anxiety and UTI who presents to the ED today complaining of 10 out of 10 left flank pain that began an hour prior to coming to the ED. Patient is also complaining of nausea and vomiting. Denies any fever. Patient was in the waiting room sitting in no distress. She was somewhat brought to room 5 and started wailing and screaming asking for pain medicine. Review of Systems: Review of Systems: Constitutional: Denies fever or chills. [] Eyes: Denies change in visual acuity. [] HENT: Denies nasal congestion or sore throat. [] Respiratory: Denies cough or shortness of breath. [] Cardiovascular: Denies chest pain or edema. [] GI: Denies abdominal pain, nausea, vomiting, bloody stools or diarrhea. [] : Reports left flank pain Musculoskeletal: Denies back pain or joint pain. [] Integument: Denies rash. [] Neurologic: Denies headache, focal weakness or sensory changes. [] Psychiatric: Reports hx of anxiety. [] Heart Score: Risk Factors: Risk Factors: DM, Current or recent (<one month) smoker, HTN, HLP, family history of CAD, obesity. Risk Scores: Score 0 - 3: 2.5% MACE over next 6 weeks - Discharge Home Score 4 - 6: 20.3% MACE over next 6 weeks - Admit for Clinical Observation Score 7 - 10: 72.7% MACE over next 6 weeks - Early Invasive Strategies Current Medications: Current Medications Medications (Trade) Dose Ordered Sig/Kaelyn Start Time Stop Time Status Last Admin Dose Admin Fentanyl Citrate (Fentanyl 2ml Vial) 50 mcg 1X ONCE 12/28/19 14:00 12/28/19 14:07 DC Morphine Sulfate (Morphine Sulfate) 2 mg 1X ONCE 12/28/19 14:00 12/28/19 14:01 DC 12/28/19 14:12 2 MG Ondansetron HCl (Zofran) 4 mg 1X ONCE 12/28/19 14:00 12/28/19 14:07 DC Sodium Chloride 1,000 ml @ 1,000 mls/hr 1X ONCE 12/28/19 14:00 12/28/19 14:59 Tamsulosin HCl (Flomax) 0.4 mg 1X ONCE 12/28/19 14:00 12/28/19 14:07 DC 12/28/19 14:12 0.4 MG Allergies: Allergies: Allergies Coded Allergies Type Severity Reaction Last Updated Verified Fish Containing Products Allergy Intermediate Rash 11/08/18 Yes coconut oil Allergy Intermediate 11/08/18 Yes iodine Allergy Intermediate Rash 11/08/18 Yes ketorolac Allergy Intermediate Rash 11/08/18 Yes latex Allergy Intermediate Rash 11/08/18 Yes mold Allergy Intermediate 11/08/18 Yes tramadol Allergy Intermediate RASH/ITCHING 11/08/18 Yes prednisone Allergy Mild N/V 11/08/18 Yes shellfish derived Adverse Reaction Intermediate 11/08/18 Yes Uncoded Allergies Type Severity Reaction Last Updated Verified INSECT BITES,DUST MITES Allergy Unknown 04/08/16 Physical Exam: PE: Constitutional: Well developed, well nourished, no acute distress, non-toxic appearance. [] HENT: Normocephalic, atraumatic, bilateral external ears normal, oropharynx moist, no oral exudates, nose normal. [] Eyes: PERRLA, EOMI, conjunctiva normal, no discharge. [] Neck: Normal range of motion, no tenderness, supple, no stridor. [] Cardiovascular:Heart rate regular rhythm, no murmur [] Lungs & Thorax: Bilateral breath sounds clear to auscultation [] Abdomen: Bowel sounds normal, soft, no tenderness, no masses, no pulsatile masses. [] Skin: Warm, dry, no erythema, no rash. [] Back: Old healed surgical incision noted throughout to the spine. No tenderness, mild left CVA tenderness. [] Extremities: No tenderness, no cyanosis, no clubbing, ROM intact, no edema. [] Neurologic: Alert and oriented X 3, normal motor function, normal sensory function, no focal deficits noted. [] Psychologic: Patient is very anxious, wailing and screaming Current Patient Data: Labs: Laboratory Tests Test 12/28/19 12:50 12/28/19 13:23 12/28/19 13:30 Urine Collection Type Unknown Urine Color Yellow Urine Clarity Hazy Urine pH 6.5 (<5.0-8.0) Urine Specific [place] 1.020 (1.000-1.030) Urine Protein 30 mg/dL (NEG-TRACE) Urine Glucose (UA) Negative mg/dL (NEG) Urine Ketones (Stick) Negative mg/dL (NEG) Urine Blood Small (NEG) Urine Nitrite Negative (NEG) Urine Bilirubin Negative (NEG) Urine Urobilinogen Dipstick 0.2 mg/dL (0.2 mg/dL) Urine Leukocyte Esterase Moderate (NEG) Urine RBC 6-10 /HPF (0-2) Urine WBC 5-10 /HPF (0-4) Urine Squamous Epithelial Cells Many /LPF Urine Bacteria Many /HPF (0-FEW) Urine Mucus Mod /LPF Urine Opiates Screen Pos (NEG) Urine Methadone Screen Neg (NEG) Urine Barbiturates Neg (NEG) Urine Phencyclidine Screen Neg (NEG) Urine Amphetamine/Methamphetamine Neg (NEG) Urine Benzodiazepines Screen Pos (NEG) Urine Cocaine Screen Pos (NEG) Urine Cannabinoids Screen Neg (NEG) Urine Ethyl Alcohol Neg (NEG) POC Urine HCG, Qualitative Hcg negative (Negative) White Blood Count 9.2 x10^3/uL (4.0-11.0) Red Blood Count 5.24 x10^6/uL (3.50-5.40) Hemoglobin 16.0 g/dL (12.0-15.5) H Hematocrit 46.5 % (36.0-47.0) Mean Corpuscular Volume 89 fL (79-100) Mean Corpuscular Hemoglobin 31 pg (25-35) Mean Corpuscular Hemoglobin Concent 34 g/dL (31-37) Red Cell Distribution Width 12.7 % (11.5-14.5) Platelet Count 239 x10^3/uL (140-400) Neutrophils (%) (Auto) 61 % (31-73) Lymphocytes (%) (Auto) 30 % (24-48) Monocytes (%) (Auto) 7 % (0-9) Eosinophils (%) (Auto) 2 % (0-3) Basophils (%) (Auto) 0 % (0-3) Neutrophils # (Auto) 5.6 x10^3/uL (1.8-7.7) Lymphocytes # (Auto) 2.7 x10^3/uL (1.0-4.8) Monocytes # (Auto) 0.7 x10^3/uL (0.0-1.1) Eosinophils # (Auto) 0.2 x10^3/uL (0.0-0.7) Basophils # (Auto) 0.0 x10^3/uL (0.0-0.2) Laboratory Tests 12/28/19 13:30 Vital Signs: Vital Signs Date Time Temp Pulse Resp B/P (MAP) Pulse Ox O2 Delivery O2 Flow Rate FiO2 12/28/19 14:12 16 98 Room Air 12/28/19 13:42 97.8 94 137/83 (101) 97.8 EKG: EKG: [] Radiology/Procedures: Radiology/Procedures: [] Course & Med Decision Making: Course & Med Decision Making Pertinent Labs and Imaging studies reviewed. (See chart for details) This is a 24-year-old female patient presenting to the ED today complaining of left flank pain that began yesterday. Patient is in the room wailing and screaming in pain. Nausea medicine was ordered, pain medicine was ordered, IV fluids were ordered and flomax. CAT scan of the abdomen and pelvis were ordered. Urine analysis noted for UTI. CBC with a normal WBC. USD noted for opiates, benzodiapines and coccaine Patient requested to leave AGAINST MEDICAL ADVICE, i went to talk to her to see what the issue was, she requested alprazolam for anxiety. Inquired from her how many milligrams she takes so I can order it for her, she states she does not know she has to call her grand mother for the right dose because she has not taken it today, but she states she does not want to stay in the ED anymore, she wanted her IV removed or she will yank it out herself, she started pulling the IV out herself. I offered her medicine for UTI considering she has an active infection, she stated she does not want to wait for any prescriptions, she continued to remove her IV out, nursing staff went to the room, she was given her AMA paperwork which she signed on left, she is alert oriented able to make her own decisions with no distress and understands the risk of leaving AMA. Romelia Disclaimer: Romelia Disclaimer: This electronic medical record was generated, in whole or in part, using a voice recognition dictation system. Departure Departure Impression: Primary Impression: UTI (urinary tract infection) Qualified Codes: N39.0 - Urinary tract infection, site not specified; R31.9 - Hematuria, unspecified Additional Impression: Drug abuse Disposition: 07 AGAINST MEDICAL ADVICE Condition: STABLE Referrals: NO PCP (PCP) ANDREA ARIAS [employer] INSPECTOR December 28, 2019 14:43
[2019-12-28 14:45] LABS: ALBUMIN 3.8 g/dL (3.4-5.0); GFR 69.3; POTASSIUM 4.3 mmol/L (3.5-5.1); TOTAL BILIRUBIN 0.7 mg/dL (0.2-1.0); TOTAL PROTEIN 7.6 g/dL (6.4-8.2)
--- NOTE | 2019-12-28 14:46 | RAD ---
CT ABDOMEN PELVIS WO CONTRAST Indication: Left flank pain, history of kidney stones Exposure: One or more of the following individualized dose reduction techniques were utilized for this examination: 1. Automated exposure control 2. Adjustment of the mA and/or kV according to patient size 3. Use of iterative reconstruction technique. Comparison: 09/07/2019 Technique: No intravenous contrast given. No oral contrast per request. Findings: Evaluation of solid viscera, bowel and vasculature is compromised by the noncontrast technique. Spinal fixation rods through the thoracolumbar spine with pedicle screws resulting in metal streak artifact which may limit accuracy of the exam. Lung bases are clear. The visualized liver and spleen appear grossly unremarkable. Visualized pancreas appears unremarkable. No definite adrenal mass. No evidence of renal calculus. No evidence of right hydronephrosis. The left renal pelvis is slightly dilated, particularly as compared with the prior exam. The left ureter is also slightly dilated as compatible with the prior study. Tiny 2 mm calcification at the left ureterovesical junction, series 2, image 225, compatible with a calculus. No evidence of perinephric fatty stranding. The gallbladder appears surgically absent. No evidence of aortic aneurysm. No evidence of pathologic lymph node enlargement. No significant small bowel distention or gastric distention is seen. No evidence to suggest acute colitis. Appendix is not visualized. No evidence of ascites or pneumoperitoneum. The urinary bladder is not distended. No definite wall thickening. No evidence of pelvic mass. The ovaries are prominent in size bilaterally, similar to the previous exam. Degenerative spondylosis of the lumbar spine with stenosis. IMPRESSION: 1. Findings are compatible with a mildly obstructive 2 mm calculus at the left ureterovesical junction. 2. Other findings appear similar to prior study. Electronically signed by: Raul Byrd MD (12/28/2019 2:43 PM) [id number]
== END 2019-12-28 14:30 | disposition left against medical advice (07) ==
LOC: ER 12:54
DX: N39.0 Urinary tract infection, site not specified (principal); R31.9 Hematuria, unspecified; F19.10 Other psychoactive substance abuse, uncomplicated; R11.2 Nausea with vomiting, unspecified; J45.909 Unspecified asthma, uncomplicated; F17.200 Nicotine dependence, unspecified, uncomplicated; Z90.49 Acquired absence of other specified parts of digestive tract; Z90.89 Acquired absence of other organs; Z87.442 Personal history of urinary calculi; Z88.5 Allergy status to narcotic agent; Z88.6 Allergy status to analgesic agent; Z91.013 Allergy to seafood; Z91.040 Latex allergy status; Z91.018 Allergy to other foods; Z91.038 Other insect allergy status; Z88.8 Allergy status to other drugs, medicaments and biological substances
CPT/HCPCS: 36415; 74176; 80053; 80307; 81001; 81025; 83690; 85025; 87086; 96361; 96374; 96375; 99284; G0480; J2270; J2405; J7030

== ENCOUNTER 2020-05-13 21:32 | Emergency (ER) | payer SELFPAY ==
[~2020-05-13] VITALS: Ht 175.3 cm; Wt 100.0 kg
[2020-05-13 21:40] VITALS: BP 131/88
[2020-05-13] MEDS ORDERED: DEXAMETHASONE SOD PHOS 20 MG/5 ML VIAL. IVP ONE (23:00)
--- NOTE | 2020-05-13 23:18 | RAD ---
AP chest x-ray HISTORY: Shortness of breath and wheezing. COMPARISON: Chest x-ray April 27, 2019. FINDINGS: Thoracolumbar fusion rods. Heart size normal. Mediastinal silhouette is normal. No pneumothorax, pulmonary opacities or pleural effusions. Bones are unremarkable. IMPRESSION: No acute process. Electronically signed by: Remy Watts MD (05/13/2020 11:15 PM) [facility]
--- NOTE | 2020-05-14 01:19 | PHYS DOC ---
Past Medical History Past Medical History: Anxiety, Asthma, Cystic Fibrosis, Kidney Stone, UTI, Additional Disease Additional Past Medical Histor: RECTAL BLEEDING, HYPERKYPHOSIS, high liver enzymes, PCOS, PRE DIABETIC, PID Past Surgical History: Appendectomy, Cholecystectomy, Tonsillectomy, Other Additional Past Surgical Histo: spinal fusion, LEFT ELBOW, pylonydal cyst Smoking Status: Current Every Day Smoker Additional Information: Alcohol Use: Occasionally Drug Use: None General Adult EDM: Chief Complaint: SORE THROAT HPI: HPI: Patient is 24-year-old female with past medical history of asthma who presents to the emergency emergency room with chills, sweats, cough, chest pain, wheezing. This started over the last several days. History is significantly limited due to patient's anxiety and uncooperativeness. Review of Systems: Review of Systems: Unable to obtain due to patient's anxiety Heart Score: Risk Factors: Risk Factors: DM, Current or recent (<one month) smoker, HTN, HLP, family history of CAD, obesity. Risk Scores: Score 0 - 3: 2.5% MACE over next 6 weeks - Discharge Home Score 4 - 6: 20.3% MACE over next 6 weeks - Admit for Clinical Observation Score 7 - 10: 72.7% MACE over next 6 weeks - Early Invasive Strategies Current Medications: Current Medications Medications (Trade) Dose Ordered Sig/Kaelyn Start Time Stop Time Status Last Admin Dose Admin Dexamethasone Sodium Phosphate (Decadron) 10 mg 1X ONCE 05/13/20 23:00 05/13/20 23:04 DC Allergies: Allergies: Allergies Coded Allergies Type Severity Reaction Last Updated Verified Fish Containing Products Allergy Intermediate Rash 11/08/18 Yes coconut oil Allergy Intermediate 11/08/18 Yes iodine Allergy Intermediate Rash 11/08/18 Yes ketorolac Allergy Intermediate Rash 11/08/18 Yes latex Allergy Intermediate Rash 11/08/18 Yes mold Allergy Intermediate 11/08/18 Yes tramadol Allergy Intermediate RASH/ITCHING 11/08/18 Yes prednisone Allergy Mild N/V 11/08/18 Yes shellfish derived Adverse Reaction Intermediate 11/08/18 Yes Uncoded Allergies Type Severity Reaction Last Updated Verified INSECT BITES,DUST MITES Allergy Unknown 04/08/16 Physical Exam: PE: General: Awake, alert, moderate distress. Well Nourished, well hydrated. Uncooperative HEENT: Atraumatic, EOMI, PERRL, airway patent, moist oral mucosa Neck: Supple, trachea midline Respiratory: Diffuse expiratory wheezing, accessory muscle use, no tachypnea, no respiratory distress CV: Tachycardia, no murmur, cap refill <2 GI: Soft, nondistended, nontender, no masses MSK: No obvious deformities Skin: Warm, dry, intact Neuro: A&O x3, speech NL, sensory and motor grossly intact, no focal deficits Psych: N tearful, anxious, not suicidal or homicidal Current Patient Data: Labs: Laboratory Tests Test 05/13/20 21:58 POC Urine HCG, Qualitative Hcg negative (Negative) Vital Signs: Vital Signs Date Time Temp Pulse Resp B/P (MAP) Pulse Ox O2 Delivery O2 Flow Rate FiO2 05/13/20 21:40 98.7 113 24 131/88 (102) 98 Room Air 98.7 EKG: EKG: [] Radiology/Procedures: Radiology/Procedures: [] Course & Med Decision Making: Course & Med Decision Making Pertinent Labs and Imaging studies reviewed. (See chart for details) Patient is a 24 year old female who presents to the Emergency Room with cough, shortness of breath, wheezing, URI symptoms. Upon arrival there is concern that the patient may have coronavirus with an asthma exacerbation. Other differential includes pneumonia or other viral syndrome. Patient was very upset that no one could be in her room with her. It was discussed with her that due to the concern of possible coronavirus she was unable to have guests. Patient refused to have a coronavirus swab done. She states that the only coronavirus test she will do is a blood test. Discussed with patient that we do not have that capability and that blood tests are to see if you had already had it previously and not sure if you currently have it. While IV was being placed patient started screaming and pulling away. Patient states that unless we give her Xanax she will not allow us to do any testing or any kind of treatment on her. I have discussed with her that the way that she is breathing it is not safe to give benzodiazepines at this time. I have offered her medical treatment including IV steroids, magnesium, DuoNeb treatments. I do think that patient would benefit from these. Patient refuses to have anything done and states she just wants to go home. I discussed with the patient that at a minimum I would like to provide her with a prescription for steroids for an asthma exacerbation at home. Patient states that she does not need those because she has several prescriptions at home that she is never taken. At this time she would like to leave AGAINST MEDICAL ADVICE. I have discussed the benefits of staying for a full work up and treatment and the patient would like to leave. I discussed the risks of leaving including but not limited to , permenant end-organ damage, worsening of condition, respiratory arrest and patient stated understanding. Patient refuses to sign out. She states she does not want any paperwork. She states she is just going to walk out. I again offered her treatment and help and patient states that unless we can give her Xanax we cannot do anything to help treat her. Romelia Disclaimer: Romelia Disclaimer: This electronic medical record was generated, in whole or in part, using a voice recognition dictation system. Departure Departure Impression: Primary Impression: Asthma exacerbation Disposition: 07 AGAINST MEDICAL ADVICE Referrals: NO PCP (PCP) JAMES SARMIENTO MD May 14, 2020 01:19
== END 2020-05-14 00:30 | disposition left against medical advice (07) ==
LOC: ER 21:32
DX: J45.901 Unspecified asthma with (acute) exacerbation (principal); R05 Cough; R07.89 Other chest pain; F41.9 Anxiety disorder, unspecified; F17.200 Nicotine dependence, unspecified, uncomplicated; Z87.442 Personal history of urinary calculi; Z90.89 Acquired absence of other organs; Z90.49 Acquired absence of other specified parts of digestive tract; Z98.890 Other specified postprocedural states; Z91.013 Allergy to seafood; Z91.040 Latex allergy status; Z88.8 Allergy status to other drugs, medicaments and biological substances
CPT/HCPCS: 71045; 81025; 99283

== ENCOUNTER 2021-01-03 01:45 | Emergency (ER) | payer SELFPAY ==
[~2021-01-03] VITALS: Ht 172.7 cm; Wt 100.0 kg
[2021-01-03 02:23] LABS: BILIRUBIN,URINE NEGATIVE (NEG); CLARITY,URINE CLEAR; COLOR,URINE YELLOW; NITRITE,URINE NEGATIVE (NEG); PH,URINE 6.5 (<5.0-8.0); PROTEIN,URINE NEGATIVE (NEG-TRACE)
[2021-01-03 02:29] LABS: RBC,URINE OCC /HPF (0-2)
[2021-01-03 02:30] LABS: BACTERIA,URINE MOD /HPF (0-FEW); WBC,URINE 20-40 /HPF (0-4)
[2021-01-03] MEDS: MORPHINE SULFATE 10 MG/ML VIAL. IV ONE (02:59)
[2021-01-03 03:01] LABS: BASO # 0.1 x10^3/uL (0.0-0.2); BASO % 1 % (0-3); EOS # 0.2 x10^3/uL (0.0-0.7); EOS % 3 % (0-3); HEMATOCRIT 38.8 % (36.0-47.0); HEMOGLOBIN 13.7 g/dL (12.0-15.5); LYMPH # 3.3 x10^3/uL (1.0-4.8); LYMPH % 39 % (24-48); MEAN CORPUSCULAR HEMOGLOBIN 31 pg (25-35); MEAN CORPUSCULAR HGB CONC 35 g/dL (31-37); MEAN CORPUSCULAR VOLUME 88 fL (79-100); MONO # 0.5 x10^3/uL (0.0-1.1); MONO % 6 % (0-9); NEUT # 4.6 x10^3/uL (1.8-7.7); NEUT % 53 % (31-73); PLATELET COUNT 231 x10^3/uL (140-400); RED CELL DISTRIBUTION WIDTH 12.1 % (11.5-14.5); WHITE BLOOD COUNT 8.7 x10^3/uL (4.0-11.0)
[2021-01-03 03:18] LABS: CALCIUM 8.3 mg/dL (8.5-10.1); CREATININE 0.8 mg/dL (0.6-1.0); GFR 88.9; POTASSIUM 3.4 mmol/L (3.5-5.1)
--- NOTE | 2021-01-03 03:58 | RAD ---
Ultrasound pelvis complete and transvaginal ultrasound pelvis HISTORY: Pelvic pain Sonographic examination of pelvis was performed by transabdominal and endovaginal technique. Multiple static images were obtained. Study was extremely technically challenging due to the patient's severe pain and tenderness. Ultrasound pelvis complete transabdominal: The uterus measures 8.2 x 4.4 0.1 cm. The endometrium is 8.3 mm in thickness. The ovaries appear norm al with normal blood flow. The right ovary measures 4.0 x 2.9 x 2.5 cm. Left ovary measures 3.3 x 2.9 x 2.8 cm. Transvaginal ultrasound pelvis: The ovaries are better seen and have normal blood flow. There is no free fluid. IMPRESSION: No significant findings. Electronically signed by: Luis Manuel Andrea III, MD (01/03/2021 3:56 AM) [facility]
[2021-01-03] MEDS ORDERED: METR500T PO (04:29)
[2021-01-03] MEDS ORDERED: DOXY100C2 PO (04:29)
--- NOTE | 2021-01-03 04:30 | ED.ADGEN ---
Past Medical History Past Medical History: Anxiety, Asthma, Cystic Fibrosis, Diabetes-Type II, Kidney Stone, UTI, Additional Disease Additional Past Medical Histor: RECTAL BLEEDING, HYPERKYPHOSIS, high liver enzymes, PCOS, PID Past Surgical History: Appendectomy, Cholecystectomy, Tonsillectomy, Other Additional Past Surgical Histo: spinal fusion, LEFT ELBOW, pylonydal cyst Smoking Status: Current Every Day Smoker Alcohol Use: Occasionally Drug Use: None General Adult EDM: Chief Complaint: PELVIC PAIN HPI: HPI: Patient is 25-year-old female presents to the emergency room complaining of severe pelvic pain. She does not have pain to 1 side or the other. She states that she has had this weird brown-white vaginal discharge that feels like her skin is coming off on the inside. She has a large amount of pain that has been uncontrolled with ibuprofen and Tylenol at home. She does not believe she has had any fevers. She denies any nausea or vomiting. Her fianc did recently cheated on her and she is unsure if she could have been exposed to a sexually transmitted disease. She has never had pain like this previously. She states that the pain is a sharp throbbing pain. It is constant in nature. Worse with palpation. Review of Systems: Review of Systems: Complete ROS is negative unless otherwise documented in HPI Current Medications: Current Medications Medications (Trade) Dose Ordered Sig/Kaelyn Start Time Stop Time Status Last Admin Dose Admin Ceftriaxone Sodium (Rocephin) 1 gm 1X ONCE 01/03/21 04:30 01/03/21 04:31 DC 01/03/21 04:52 1 GM Diphenhydramine HCl (Benadryl) 25 mg 1X ONCE 01/03/21 05:15 01/03/21 05:16 DC 01/03/21 05:10 25 MG Lorazepam (Ativan Inj) 1 mg 1X ONCE 01/03/21 03:30 01/03/21 03:31 DC 01/03/21 03:27 1 MG Morphine Sulfate (Morphine Sulfate) 2 mg 1X ONCE 01/03/21 02:45 01/03/21 02:47 DC 01/03/21 02:59 2 MG Ondansetron HCl (Zofran) 4 mg 1X ONCE 01/03/21 04:45 01/03/21 04:46 DC 01/03/21 04:52 4 MG Oxycodone/ Acetaminophen (Percocet 5/325) 1 tab 1X ONCE 01/03/21 04:45 01/03/21 04:46 DC 01/03/21 04:52 1 TAB Allergies: Allergies: Allergies Coded Allergies Type Severity Reaction Last Updated Verified Fish Containing Products Allergy Intermediate Rash 11/08/18 Yes coconut oil Allergy Intermediate 11/08/18 Yes iodine Allergy Intermediate Rash 11/08/18 Yes ketorolac Allergy Intermediate Rash 11/08/18 Yes latex Allergy Intermediate Rash 11/08/18 Yes mold Allergy Intermediate 11/08/18 Yes tramadol Allergy Intermediate RASH/ITCHING 11/08/18 Yes shellfish derived Adverse Reaction Intermediate 11/08/18 Yes prednisone Adverse Reaction Mild N/V 01/03/21 Yes Uncoded Allergies Type Severity Reaction Last Updated Verified INSECT BITES,DUST MITES Allergy Unknown 04/08/16 Physical Exam: PE: Constitutional: Well developed, well nourished, no acute distress, non-toxic appearance. HENT: Normocephalic, atraumatic, bilateral external ears normal, nose normal. Eyes: PERRLA, EOMI, conjunctiva normal, no discharge. Neck: Normal range of motion, no stridor. Cardiovascular: Heart rate regular rhythm Lungs & Thorax: Respirations even and unlabored, no retractions, no respiratory distress Pelvic Exam: Front Desk Team Member present Abdomen: Nontender, soft External Genitalia: Normal Skin Speculum: Normal vaginal mucosa, white discharge, cervix appears erythematous with a minimal bloody and large amount of white discharge from the cervical os Bimanual: No adnexal masses or tenderness, CMT Skin: Warm, dry, no erythema, no rash. Back: No tenderness Extremities: No cyanosis, ROM intact, no edema. Neurologic: Alert and oriented X 3, no focal deficits noted. Psychologic: Affect normal, judgement normal, mood normal. Current Patient Data: Labs: Laboratory Tests Test 01/03/21 01:51 01/03/21 01:54 01/03/21 02:50 Urine Collection Type Unknown Urine Color Yellow Urine Clarity Clear Urine pH 6.5 (<5.0-8.0) Urine Specific Alpha 1.010 (1.000-1.030) Urine Protein Negative mg/dL (NEG-TRACE) Urine Glucose (UA) Negative mg/dL (NEG) Urine Ketones (Stick) Negative mg/dL (NEG) Urine Blood Moderate (NEG) Urine Nitrite Negative (NEG) Urine Bilirubin Negative (NEG) Urine Urobilinogen Dipstick 1.0 mg/dL (0.2 mg/dL) Urine Leukocyte Esterase Moderate (NEG) Urine RBC Occ /HPF (0-2) Urine WBC 20-40 /HPF (0-4) Urine Squamous Epithelial Cells Many /LPF Urine Bacteria Mod /HPF (0-FEW) Urine Mucus Slight /LPF POC Urine HCG, Qualitative Hcg negative (Negative) White Blood Count 8.7 x10^3/uL (4.0-11.0) Red Blood Count 4.40 x10^6/uL (3.50-5.40) Hemoglobin 13.7 g/dL (12.0-15.5) Hematocrit 38.8 % (36.0-47.0) Mean Corpuscular Volume 88 fL (79-100) Mean Corpuscular Hemoglobin 31 pg (25-35) Mean Corpuscular Hemoglobin Concent 35 g/dL (31-37) Red Cell Distribution Width 12.1 % (11.5-14.5) Platelet Count 231 x10^3/uL (140-400) Neutrophils (%) (Auto) 53 % (31-73) Lymphocytes (%) (Auto) 39 % (24-48) Monocytes (%) (Auto) 6 % (0-9) Eosinophils (%) (Auto) 3 % (0-3) Basophils (%) (Auto) 1 % (0-3) Neutrophils # (Auto) 4.6 x10^3/uL (1.8-7.7) Lymphocytes # (Auto) 3.3 x10^3/uL (1.0-4.8) Monocytes # (Auto) 0.5 x10^3/uL (0.0-1.1) Eosinophils # (Auto) 0.2 x10^3/uL (0.0-0.7) Basophils # (Auto) 0.1 x10^3/uL (0.0-0.2) Sodium Level 142 mmol/L (136-145) Potassium Level 3.4 mmol/L (3.5-5.1) L Chloride Level 106 mmol/L (98-107) Carbon Dioxide Level 27 mmol/L (21-32) Anion Gap 9 (6-14) Blood Urea Nitrogen 8 mg/dL (7-20) Creatinine 0.8 mg/dL (0.6-1.0) Estimated GFR (Cockcroft-Gault) 88.9 Glucose Level 97 mg/dL (70-99) Calcium Level 8.3 mg/dL (8.5-10.1) L Laboratory Tests 01/03/21 02:50 Laboratory Tests 01/03/21 02:50 Microbiology 01/03/21 Wet Prep - Final, Complete Vital Signs: Vital Signs Date Time Temp Pulse Resp B/P (MAP) Pulse Ox O2 Delivery O2 Flow Rate FiO2 01/03/21 05:01 88 18 118/57 (77) 98 Room Air 01/03/21 02:00 97.9 97.9 EKG: EKG: [] Heart Score: C/O Chest Pain: N/A Risk Factors: Risk Factors: DM, Current or recent (<one month) smoker, HTN, HLP, family history of CAD, obesity. Risk Scores: Score 0 - 3: 2.5% MACE over next 6 weeks - Discharge Home Score 4 - 6: 20.3% MACE over next 6 weeks - Admit for Clinical Observation Score 7 - 10: 72.7% MACE over next 6 weeks - Early Invasive Strategies Radiology/Procedures: Radiology/Procedures: [] Course & Med Decision Making: Course & Med Decision Making Pertinent Labs and Imaging studies reviewed. (See chart for details) Patient is 25-year-old previously healthy female who presents to the emergency room complaining of severe vaginal and pelvic pain. This started 4 days ago. Patient initially was unable to do speculum exam. Ultrasound was ordered to evaluate uterus and ovaries to ensure she does not have a TOA. Ultrasound was limited due to patient's discomfort and refusal to do exam. Ultrasound does show ovaries with normal flow and without a TOA. Patient did ultimately allow us to do a pelvic exam. This shows significant cervicitis with cervical motion tenderness concerning for PID. Patient will be placed on doxycycline for 14 days. She will be given Rocephin. She also has BV and will be given Flagyl. We discussed that that her partners need to be tested and treated. We discussed signs and symptoms of sepsis and when patient will need to return to the emergency room. Patient's test results and vitals while in the ED were fully reviewed and discussed with the patient. Patient is stable and at this time does not need admission to the hospital. We have discussed strict return precautions and the importance of following up with their Primary Care Physician. Patient stated understanding and was given an opportunity to ask any questions. Patient is in agreement with plan. Romelia Disclaimer: Romelia Disclaimer: This electronic medical record was generated, in whole or in part, using a voice recognition dictation system. Departure Departure Impression: Primary Impression: PID (acute pelvic inflammatory disease) Additional Impression: Bacterial vaginitis Disposition: HOME / SELF CARE / HOMELESS Condition: STABLE Referrals: NO PCP (PCP) Scripts Oxycodone/Apap 5-325 (PERCOCET 5-325 MG TABLET ) 1 Each Tablet 1 TAB PO PRN Q6HRS PRN for PAIN, #7 TAB 0 Refills Prov: JAMES SARMIENTO MD 01/03/21 Doxycycline Hyclate (DOXYCYCLINE HYCLATE) 100 Mg Capsule 1 CAP PO BID for 14 Days, #28 CAP Prov: JAMES SARMIENTO MD 01/03/21 Metronidazole (FLAGYL) 500 Mg Tablet 1 TAB PO BID, #14 TAB Prov: JAMES SARMIENTO MD 01/03/21 Problem Qualifiers JAMES SARMIENTO MD January 03, 2021 04:30
[2021-01-03] MEDS ORDERED: OXYC1TAB15 PO (04:44)
[2021-01-03] MEDS: cefTRIAXone IV Push 1 GM VIAL. IVP ONE (04:52)
[2021-01-03] MEDS: ONDANSETRON PF 4 MG/2 ML VIAL. IVP ONE (04:52)
[2021-01-03] MEDS: oxyCODONE/APAP 5/325 1 TAB TABLET PO ONE (04:52)
[2021-01-03 05:01] VITALS: BP 118/57
[2021-01-03] MEDS: diphenhydrAMINE HCL 25 MG CAPSULE PO ONE (05:10)
[2021-01-06 15:11] LABS: GC PROBE Negative (Negative)
== END 2021-01-03 05:12 | disposition home or self-care (01) ==
LOC: ER 01:45
DX: N73.0 Acute parametritis and pelvic cellulitis (principal); N76.0 Acute vaginitis; B96.89 Other specified bacterial agents as the cause of diseases classified elsewhere; F41.9 Anxiety disorder, unspecified; J45.909 Unspecified asthma, uncomplicated; E11.9 Type 2 diabetes mellitus without complications; F17.200 Nicotine dependence, unspecified, uncomplicated; Z87.440 Personal history of urinary (tract) infections; Z87.442 Personal history of urinary calculi; Z90.89 Acquired absence of other organs; Z90.49 Acquired absence of other specified parts of digestive tract; Z91.013 Allergy to seafood; Z88.8 Allergy status to other drugs, medicaments and biological substances; Z91.040 Latex allergy status; Z88.6 Allergy status to analgesic agent
CPT/HCPCS: 36415; 76856; 80048; 81001; 81025; 85025; 87491; 87591; 96374; 96375; 99284; J0696; J2060; J2270; J2405; Q0111; Q0163

== ENCOUNTER 2021-02-13 01:43 | Emergency (ER) | payer SELFPAY ==
[~2021-02-13] VITALS: Ht 172.7 cm; Wt 100.0 kg
[~2021-02-13 01:43] MED LIST changes: -OMEP40CA45 PO; +OMEP40CA7 PO
[2021-02-13 02:06] LABS: BILIRUBIN,URINE NEGATIVE (NEG); CLARITY,URINE CLEAR; COLOR,URINE YELLOW; NITRITE,URINE NEGATIVE (NEG); PROTEIN,URINE NEGATIVE (NEG-TRACE)
[2021-02-13 02:13] LABS: BACTERIA,URINE MOD /HPF (0-FEW); RBC,URINE OCC /HPF (0-2)
[2021-02-13] MEDS ORDERED: diphenhydrAMINE HCL 25 MG CAPSULE PO ONE ×2 (02:47→03:00)
[2021-02-13] MEDS ORDERED: IOHEXOL 300 MG/ML 100ML VIAL. IV ONE (03:00)
[2021-02-13] MEDS ORDERED: CONTRAST GIVEN. MC PRN (03:00)
[2021-02-13 03:05] LABS: BASO # 0.1 x10^3/uL (0.0-0.2); BASO % 1 % (0-3); EOS # 0.2 x10^3/uL (0.0-0.7); EOS % 2 % (0-3); HEMATOCRIT 40.7 % (36.0-47.0); HEMOGLOBIN 14.3 g/dL (12.0-15.5); LYMPH % 50 % (24-48); MEAN CORPUSCULAR HEMOGLOBIN 31 pg (25-35); MEAN CORPUSCULAR HGB CONC 35 g/dL (31-37); MEAN CORPUSCULAR VOLUME 89 fL (79-100); MONO # 0.4 x10^3/uL (0.0-1.1); MONO % 5 % (0-9); NEUT # 3.3 x10^3/uL (1.8-7.7); NEUT % 42 % (31-73); PLATELET COUNT 221 x10^3/uL (140-400); RED BLOOD COUNT 4.59 x10^6/uL (3.50-5.40); RED CELL DISTRIBUTION WIDTH 12.6 % (11.5-14.5); WHITE BLOOD COUNT 7.9 x10^3/uL (4.0-11.0)
[2021-02-13 03:12] LABS: CALCIUM 8.1 mg/dL (8.5-10.1); CREATININE 0.8 mg/dL (0.6-1.0); GFR 88.9; POTASSIUM 3.8 mmol/L (3.5-5.1)
[2021-02-13 03:18] LABS: ALBUMIN 3.5 g/dL (3.4-5.0); TOTAL BILIRUBIN 0.3 mg/dL (0.2-1.0)
--- NOTE | 2021-02-13 03:43 | RAD ---
Examination: CT pelvis without contrast HISTORY: History of pelvic pain COMPARISON: None available TECHNIQUE: Axial CT images of the pelvis were performed without contrast. Coronal and sagittal reform ats are performed. Exposure: One or more of the following individualized dose reduction techniques were utilized for thi s examination: 1. Automated exposure control 2. Adjustment of the mA and/or kV according to patient size 3. Use of iterative reconstruction technique FINDINGS: No evidence of free air identified in the pelvis. The small bowel, visualized large bowel grossly regan ears unremarkable. Urinary bladder is mildly distended. Minimal prominent appearing bilateral ovaries similar to prior exam. The bilateral femoral heads within the acetabulum. Mild degenerative changes lower lumbar spine. IMPRESSION: Unremarkable visualized exam. Electronically signed by: Scar King MD (02/13/2021 3:41 AM) [id number]
[2021-02-13 03:56] VITALS: BP 110/56
[2021-02-13] MEDS ORDERED: oxyCODONE/APAP 5/325 1 TAB TABLET PO ONE (04:00)
[2021-02-13] MEDS ORDERED: metroNIDAZOLE 500 MG TABLET PO ONE (04:15)
[2021-02-13] MEDS ORDERED: ONDANSETRON PF 4 MG/2 ML VIAL. IVP ONE (04:15)
[2021-02-13] MEDS ORDERED: MORPHINE SULFATE 10 MG/ML VIAL. IV ONE (04:15)
[2021-02-13] MEDS ORDERED: cefOXitin SODIUM IV Push 2 GM VIAL. IVP ONE (04:15)
[2021-02-13] MEDS ORDERED: CEPH500C PO (04:33)
[2021-02-13] MEDS ORDERED: METR500T PO (04:33)
--- NOTE | 2021-02-13 04:34 | ED.ADGEN ---
Past Medical History Past Medical History: Anxiety, Asthma, Cystic Fibrosis, Diabetes-Type II, Kidney Stone, UTI, Additional Disease Additional Past Medical Histor: RECTAL BLEEDING, HYPERKYPHOSIS, high liver enzymes, PCOS, PID Past Surgical History: Appendectomy, Cholecystectomy, Tonsillectomy, Other Additional Past Surgical Histo: spinal fusion, LEFT ELBOW, pylonydal cyst Smoking Status: Never Smoker Alcohol Use: None Drug Use: None General Adult EDM: Chief Complaint: PELVIC PAIN HPI: HPI: Patient is a 25-year-old female with a complicated past medical history including PCOS who presents to the emergency room complaining of pelvic pain that started a week ago. Patient states this is the exact same pain she had at the end of December. She states that at that time she was diagnosed with PID and took all of her antibiotics. She states she did seem to get better for about a week but then her symptoms started again. She states she has not had sex since she was diagnosed with PID at the end of December. She states that she had a couple episodes of vomiting today. She states that she has severe vaginal pain that is worse with wiping. She has burning with urination. She has not had any fevers, chills, sweats. She has not followed up with her FINANCIAL MANAGEMENT yet. She states she has an appointment for 4 weeks from now. Review of Systems: Review of Systems: Complete ROS is negative unless otherwise documented in HPI Current Medications: Current Medications Medications (Trade) Dose Ordered Sig/Kaelyn Start Time Stop Time Status Last Admin Dose Admin Cefoxitin Sodium (Mefoxin) 2 gm 1X ONCE 02/13/21 04:15 02/13/21 04:16 DC 02/13/21 04:15 2 GM Diphenhydramine HCl (Benadryl) 25 mg STK-MED ONCE 02/13/21 02:47 02/13/21 02:48 DC Info (CONTRAST GIVEN -- Rx MONITORING) 1 each PRN DAILY PRN 02/13/21 03:00 02/13/21 04:43 DC Iohexol (Omnipaque 300 Mg/ml) 75 ml 1X ONCE 02/13/21 03:00 02/13/21 03:01 DC Metronidazole (Flagyl) 500 mg 1X ONCE 02/13/21 04:15 02/13/21 04:16 DC 02/13/21 04:33 500 MG Morphine Sulfate (Morphine Sulfate) 5 mg 1X ONCE 02/13/21 04:15 02/13/21 04:16 DC 02/13/21 04:15 5 MG Ondansetron HCl (Zofran) 4 mg 1X ONCE 02/13/21 04:15 02/13/21 04:16 DC 02/13/21 04:14 4 MG Oxycodone/ Acetaminophen (Percocet 5/325) 1 tab 1X ONCE 02/13/21 04:00 02/13/21 04:01 DC Allergies: Allergies: Allergies Coded Allergies Type Severity Reaction Last Updated Verified Fish Containing Products Allergy Intermediate Rash 11/08/18 Yes coconut oil Allergy Intermediate 11/08/18 Yes iodine Allergy Intermediate Rash 02/13/21 Yes ketorolac Allergy Intermediate Rash 11/08/18 Yes latex Allergy Intermediate Rash 11/08/18 Yes mite-Dermatophagoides farinae, demetra Allergy Intermediate 02/13/21 Yes mold Allergy Intermediate 11/08/18 Yes tramadol Allergy Intermediate RASH/ITCHING 11/08/18 Yes shellfish derived Adverse Reaction Intermediate 11/08/18 Yes prednisone Adverse Reaction Mild N/V 01/03/21 Yes Physical Exam: PE: General: Awake, alert, tearful. Well Nourished, well hydrated. Cooperative HEENT: Atraumatic, EOMI, PERRL, airway patent, moist oral mucosa Neck: Supple, trachea midline Respiratory: CTA bilaterally, normal effort, no wheezing/crackles CV: RRR, no murmur, cap refill <2 GI: Soft, nondistended, nontender, no masses MSK: No obvious deformities Skin: Warm, dry, intact Neuro: A&O x3, speech NL, sensory and motor grossly intact, no focal deficits Psych: Normal affect, normal mood, not suicidal or homicidal Current Patient Data: Labs: Laboratory Tests Test 02/13/21 01:48 02/13/21 01:58 02/13/21 02:08 02/13/21 02:55 Urine Collection Type Unknown Urine Color Yellow Urine Clarity Clear Urine pH 6.0 (<5.0-8.0) Urine Specific [place] 1.015 (1.000-1.030) Urine Protein Negative mg/dL (NEG-TRACE) Urine Glucose (UA) Negative mg/dL (NEG) Urine Ketones (Stick) Negative mg/dL (NEG) Urine Blood Negative (NEG) Urine Nitrite Negative (NEG) Urine Bilirubin Negative (NEG) Urine Urobilinogen Dipstick 1.0 mg/dL (0.2 mg/dL) Urine Leukocyte Esterase Large (NEG) Urine RBC Occ /HPF (0-2) Urine WBC 5-10 /HPF (0-4) Urine Squamous Epithelial Cells Many /LPF Urine Bacteria Mod /HPF (0-FEW) Urine Mucus Mod /LPF POC Urine HCG, Qualitative Hcg negative (Negative) Glucose (Fingerstick) 88 mg/dL (70-99) White Blood Count 7.9 x10^3/uL (4.0-11.0) Red Blood Count 4.59 x10^6/uL (3.50-5.40) Hemoglobin 14.3 g/dL (12.0-15.5) Hematocrit 40.7 % (36.0-47.0) Mean Corpuscular Volume 89 fL (79-100) Mean Corpuscular Hemoglobin 31 pg (25-35) Mean Corpuscular Hemoglobin Concent 35 g/dL (31-37) Red Cell Distribution Width 12.6 % (11.5-14.5) Platelet Count 221 x10^3/uL (140-400) Neutrophils (%) (Auto) 42 % (31-73) Lymphocytes (%) (Auto) 50 % (24-48) H Monocytes (%) (Auto) 5 % (0-9) Eosinophils (%) (Auto) 2 % (0-3) Basophils (%) (Auto) 1 % (0-3) Neutrophils # (Auto) 3.3 x10^3/uL (1.8-7.7) Lymphocytes # (Auto) 4.0 x10^3/uL (1.0-4.8) Monocytes # (Auto) 0.4 x10^3/uL (0.0-1.1) Eosinophils # (Auto) 0.2 x10^3/uL (0.0-0.7) Basophils # (Auto) 0.1 x10^3/uL (0.0-0.2) Sodium Level 144 mmol/L (136-145) Potassium Level 3.8 mmol/L (3.5-5.1) Chloride Level 106 mmol/L (98-107) Carbon Dioxide Level 29 mmol/L (21-32) Anion Gap 9 (6-14) Blood Urea Nitrogen 9 mg/dL (7-20) Creatinine 0.8 mg/dL (0.6-1.0) Estimated GFR (Cockcroft-Gault) 88.9 BUN/Creatinine Ratio 11 (6-20) Glucose Level 89 mg/dL (70-99) Calcium Level 8.1 mg/dL (8.5-10.1) L Total Bilirubin 0.3 mg/dL (0.2-1.0) Aspartate Amino Transferase (AST) 57 U/L (15-37) H Alanine Aminotransferase (ALT) 72 U/L (14-59) H Alkaline Phosphatase 118 U/L (46-116) H Total Protein 7.0 g/dL (6.4-8.2) Albumin 3.5 g/dL (3.4-5.0) Albumin/Globulin Ratio 1.0 (1.0-1.7) Laboratory Tests 02/13/21 02:55 Laboratory Tests 02/13/21 02:55 Microbiology 02/13/21 Wet Prep - Final, Complete Vital Signs: Vital Signs Date Time Temp Pulse Resp B/P (MAP) Pulse Ox O2 Delivery O2 Flow Rate FiO2 02/13/21 04:15 24 99 Room Air 02/13/21 03:56 82 02/13/21 02:01 98.8 165/68 (77) 98.8 EKG: EKG: [] Heart Score: C/O Chest Pain: N/A Risk Factors: Risk Factors: DM, Current or recent (<one month) smoker, HTN, HLP, family history of CAD, obesity. Risk Scores: Score 0 - 3: 2.5% MACE over next 6 weeks - Discharge Home Score 4 - 6: 20.3% MACE over next 6 weeks - Admit for Clinical Observation Score 7 - 10: 72.7% MACE over next 6 weeks - Early Invasive Strategies Radiology/Procedures: Radiology/Procedures: [] Course & Med Decision Making: Course & Med Decision Making Pertinent Labs and Imaging studies reviewed. (See chart for details) Patient is a 25-year-old female who presents to the emergency room complaining of vaginal discharge, vaginal pain, pelvic pain that has been ongoing for the last week. She has had some vomiting today but otherwise has not had any syste anjelica symptoms. Patient reports that she did finish all of her antibiotics. I did evaluate the patient when she was here at the end of December. At that time she did have PID but did not have any signs of PID or TOA on ultrasound. Patient had a similar presentation at that time where she was very tearful and initially refused exam. Today patient refuses to do any kind of pelvic exam. I did discuss trying self swabbing with her. She initially also refused to do that. She did eventually agreed to do self swabbing. She refuses to have any kind of ultrasound done. She states that she is in too much pain to have any kind of intravaginal testing done. CT of the pelvis was ordered to rule out any signs of pelvic pathology. Patient CT appears unchanged from a year ago. She does not have any obvious signs of PID or TOA on CT. At this time we are unable to do pelvic exam or pelvic ultrasound to further evaluate. If patient did fully take antibiotics it is less likely that she would have ongoing PID. She does have BV on her self swab and does also have a UTI. We will treat these with antibiotics. I have discussed with the patient that if her symptoms do not improve over the next couple of days or if her chlamydia test comes back positive again that she may need to return to the emergency room for possible admission or consultation with the FINANCIAL MANAGEMENT on-call. Patient states unders tanding. At this time with patient's normal white blood cell count, lack of fever, lack of systemic symptoms, lack of CT findings, and normal ultrasound at her last visit with the same symptoms and presentation I do think that ongoing PID is less likely though cannot be fully excluded. Patient's test results and vitals while in the ED were fully reviewed and discussed with the patient. Patient is stable and at this time does not need admission to the hospital. We have discussed strict return precautions and the importance of following up with their Primary Care Physician. Patient stated understanding and was given an opportunity to ask any questions. Patient is in agreement with plan. Romelia Disclaimer: Romelia Disclaimer: This electronic medical record was generated, in whole or in part, using a voice recognition dictation system. Departure Departure Impression: Primary Impression: Bacterial vaginosis Additional Impression: Cystitis Disposition: HOME / SELF CARE / HOMELESS Condition: STABLE Referrals: NO PCP (PCP) Patient Instructions: Bacterial Vaginosis, Urinary Tract Infection Scripts Cephalexin (CEPHALEXIN) 500 Mg Capsule 1 CAP PO BID, #14 CAP Prov: JAMES SARMIENTO MD 02/13/21 Metronidazole (FLAGYL) 500 Mg Tablet 1 TAB PO BID, #14 TAB Prov: JAMES SARMIENTO MD 02/13/21 Problem Qualifiers JAMES SARMIENTO MD Feb 13, 2021 04:34
[2021-02-15 00:13] LABS: GC PROBE Negative (Negative)
== END 2021-02-13 04:42 | disposition home or self-care (01) ==
LOC: ER 01:43
DX: N76.0 Acute vaginitis (principal); B96.89 Other specified bacterial agents as the cause of diseases classified elsewhere; N30.90 Cystitis, unspecified without hematuria; J45.909 Unspecified asthma, uncomplicated; E11.9 Type 2 diabetes mellitus without complications; Z87.442 Personal history of urinary calculi; Z88.5 Allergy status to narcotic agent; Z88.6 Allergy status to analgesic agent; Z91.041 Radiographic dye allergy status; Z91.040 Latex allergy status; Z88.8 Allergy status to other drugs, medicaments and biological substances; Z91.018 Allergy to other foods; Z91.013 Allergy to seafood; Z91.030 Bee allergy status
CPT/HCPCS: 36415; 72192; 80053; 81001; 81025; 82962; 85025; 87040; 87491; 87591; 96374; 96375; 99285; J0694; J2270; J2405; Q0111; Q0163

== ENCOUNTER 2021-02-16 22:33 | Inpatient (IN) | payer SELFPAY ==
[~2021-02-16] VITALS: Ht 172.7 cm; Wt 110.0 kg
[~2021-02-16 22:33] MED LIST changes: +CEPH500C PO
[2021-02-16] MEDS ORDERED: ONDANSETRON PF 4 MG/2 ML VIAL. IVP ONE (23:30)
[2021-02-16] MEDS ORDERED: MORPHINE SULFATE 4 MG/ML INJ. IV ONE (23:30)
--- NOTE | 2021-02-16 23:34 | ED.ADGEN ---
Past Medical History Past Medical History: Anxiety, Asthma, Cystic Fibrosis, Diabetes-Type II, Kidney Stone, UTI, Additional Disease Additional Past Medical Histor: RECTAL BLEEDING, HYPERKYPHOSIS, high liver enzymes, PCOS, PID Past Surgical History: Appendectomy, Cholecystectomy, Tonsillectomy, Other Additional Past Surgical Histo: spinal fusion, LEFT ELBOW, pylonydal cyst Smoking Status: Never Smoker Alcohol Use: None Drug Use: None General Adult EDM: Chief Complaint: PELVIC PAIN HPI: HPI: Patient is a 25 year old female coming in for continued pelvic pain. Patient was seen here 3 days ago and diagnosed with BV and urinary tract infection. Inder wellington states that she was called that she was positive for chlamydia again and told from her previous visit to return to the emergency department for admission for PID. Patient was treated for PID in December and states she took all of her antibiotics and felt better for about 4 days but started having pelvic pain again. Has pain with walking. Has not had intercourse since her initial diagnosis of PID. Denies any current or previous IUD. States she has had a milky white vaginal discharge. Has had some nausea and vomiting secondary to pain. Review of Systems: Review of Systems: All other systems within normal limits except for as noted in the HPI Current Medications: Current Medications Medications (Trade) Dose Ordered Sig/Kaelyn Start Time Stop Time Status Last Admin Dose Admin Morphine Sulfate (Morphine Sulfate) 4 mg 1X ONCE 02/16/21 23:30 02/16/21 23:31 DC 02/17/21 00:18 4 MG Ondansetron HCl (Zofran) 4 mg 1X ONCE 02/16/21 23:30 02/16/21 23:31 DC 02/17/21 00:19 4 MG Allergies: Allergies: Allergies Coded Allergies Type Severity Reaction Last Updated Verified Fish Containing Products Allergy Intermediate Rash 11/08/18 Yes coconut oil Allergy Intermediate 11/08/18 Yes iodine Allergy Intermediate Rash 02/13/21 Yes ketorolac Allergy Intermediate Rash 11/08/18 Yes latex Allergy Intermediate Rash 11/08/18 Yes mite-Dermatophagoides farinae, demetra Allergy Intermediate 02/13/21 Yes mold Allergy Intermediate 11/08/18 Yes tramadol Allergy Intermediate RASH/ITCHING 11/08/18 Yes shellfish derived Adverse Reaction Intermediate 11/08/18 Yes prednisone Adverse Reaction Mild N/V 01/03/21 Yes Physical Exam: PE: Constitutional: Well developed, well nourished, no acute distress, non-toxic appearance. [] HENT: Normocephalic, atraumatic, bilateral external ears normal, nose normal. [] Eyes: PERRLA, conjunctiva normal, no discharge. [] Neck: No rigidity, supple, no stridor. [] Cardiovascular: Regular rate and rhythm, brisk cap refill [] Lungs & Thorax: Non labored symmetric respirations, no tachypnea or respiratory distress [] Abdomen: Soft, nondistended, low abdominal pain. : External genital exam unremarkable, small amount of white vaginal discharge. No ulcerations or lesions Skin: Warm, dry, no erythema, no rash. [] Back: Unremarkable Extremities: No deformities, range of motion grossly intact, no lower extremity edema [] Neurologic: Alert and oriented X 3, no focal deficits noted. [] Psychologic: Affect normal, judgement normal, mood normal. [] Current Patient Data: Labs: Laboratory Tests Test 02/16/21 23:02 02/16/21 23:11 02/16/21 23:35 Urine Collection Type Unknown Urine Color Yellow Urine Clarity Cloudy Urine pH 6.5 (<5.0-8.0) Urine Specific [place] 1.015 (1.000-1.030) Urine Protein Negative mg/dL (NEG-TRACE) Urine Glucose (UA) Negative mg/dL (NEG) Urine Ketones (Stick) Negative mg/dL (NEG) Urine Blood Moderate (NEG) Urine Nitrite Negative (NEG) Urine Bilirubin Negative (NEG) Urine Urobilinogen Dipstick 0.2 mg/dL (0.2 mg/dL) Urine Leukocyte Esterase Large (NEG) Urine RBC 1-2 /HPF (0-2) Urine WBC 20-40 /HPF (0-4) Urine Squamous Epithelial Cells Many /LPF Urine Bacteria Many /HPF (0-FEW) Urine Mucus Slight /LPF POC Urine HCG, Qualitative Hcg negative (Negative) White Blood Count 5.9 x10^3/uL (4.0-11.0) Red Blood Count 4.49 x10^6/uL (3.50-5.40) Hemoglobin 14.0 g/dL (12.0-15.5) Hematocrit 39.9 % (36.0-47.0) Mean Corpuscular Volume 89 fL (79-100) Mean Corpuscular Hemoglobin 31 pg (25-35) Mean Corpuscular Hemoglobin Concent 35 g/dL (31-37) Red Cell Distribution Width 12.6 % (11.5-14.5) Platelet Count 198 x10^3/uL (140-400) Neutrophils (%) (Auto) 46 % (31-73) Lymphocytes (%) (Auto) 44 % (24-48) Monocytes (%) (Auto) 7 % (0-9) Eosinophils (%) (Auto) 2 % (0-3) Basophils (%) (Auto) 1 % (0-3) Neutrophils # (Auto) 2.7 x10^3/uL (1.8-7.7) Lymphocytes # (Auto) 2.6 x10^3/uL (1.0-4.8) Monocytes # (Auto) 0.4 x10^3/uL (0.0-1.1) Eosinophils # (Auto) 0.1 x10^3/uL (0.0-0.7) Basophils # (Auto) 0.0 x10^3/uL (0.0-0.2) Erythrocyte Sedimentation Rate 4 (0-25) Sodium Level 147 mmol/L (136-145) H Potassium Level 4.2 mmol/L (3.5-5.1) Chloride Level 108 mmol/L (98-107) H Carbon Dioxide Level 28 mmol/L (21-32) Anion Gap 11 (6-14) Blood Urea Nitrogen 7 mg/dL (7-20) Creatinine 0.8 mg/dL (0.6-1.0) Estimated GFR (Cockcroft-Gault) 88.9 BUN/Creatinine Ratio 9 (6-20) Glucose Level 98 mg/dL (70-99) Calcium Level 8.5 mg/dL (8.5-10.1) Total Bilirubin 0.3 mg/dL (0.2-1.0) Aspartate Amino Transferase (AST) 41 U/L (15-37) H Alanine Aminotransferase (ALT) 55 U/L (14-59) Alkaline Phosphatase 122 U/L (46-116) H C-Reactive Protein, Quantitative 5.6 mg/L (0-3.3) H Total Protein 6.4 g/dL (6.4-8.2) Albumin 3.2 g/dL (3.4-5.0) L Albumin/Globulin Ratio 1.0 (1.0-1.7) Laboratory Tests 02/16/21 23:35 Laboratory Tests 02/16/21 23:35 Vital Signs: Vital Signs Date Time Temp Pulse Resp B/P (MAP) Pulse Ox O2 Delivery O2 Flow Rate FiO2 02/17/21 02:06 80 22 96 02/16/21 23:00 98.7 149/84 (77) Room Air 98.7 EKG: EKG: [] Heart Score: C/O Chest Pain: No Risk Factors: Risk Factors: DM, Current or recent (<one month) smoker, HTN, HLP, family history of CAD, obesity. Risk Scores: Score 0 - 3: 2.5% MACE over next 6 weeks - Discharge Home Score 4 - 6: 20.3% MACE over next 6 weeks - Admit for Clinical Observation Score 7 - 10: 72.7% MACE over next 6 weeks - Early Invasive Strategies Radiology/Procedures: Radiology/Procedures: [facility] [address] [place] [address] IMAGING REPORT Signed PATIENT: IRAJ MONET RACCOUNT: [id number] : 1995 LOCATION: ER AGE: 25 SEX: F EXAM STATUS: REG ER ORD. PHYSICIAN: CYNDIE CUTLER MD REASON: PID PROCEDURE: PELVIS COMPLETE INDICATION: Reason: PID / Spl. Instructions: / History: COMPARISON: December 2020 TECHNIQUE: Grayscale and color ultrasound images uterus and adnexa. Transabdominal and transvaginal images obtained. Transvaginal images were needed to better visualize structures that were limited on transabdominal imaging. FINDINGS: Uterus: 80 x 44 x 34 mm. 6 mm endometrial stripe Right Ovary: 46 x 22 x 22 mm. Left Ovary: 39 x 28 x 25 mm. Vascular flow identified to bilateral ovaries. Nabothian cysts Urinary bladder is well distended. IMPRESSION: * Vascular flow seen to the ovaries. Electronically signed by: Kevin Newman MD (02/17/2021 1:13 AM) [id number] DICTATED and SIGNED BY: KEVIN NEWMAN MD DATE: 02/17/21 [id number] [] Course & Med Decision Making: Course & Med Decision Making Pertinent Labs and Imaging studies reviewed. (See chart for details) [] Dragon Disclaimer: Dragon Disclaimer: This electronic medical record was generated, in whole or in part, using a voice recognition dictation system. Departure Departure Impression: Primary Impression: PID (pelvic inflammatory disease) Disposition: HOME / SELF CARE / HOMELESS Admitting Physician: [facility] Condition: STABLE Referrals: NO PCP (PCP) CYNDIE CUTLER MD Feb 16, 2021 23:34
[2021-02-16 23:38] LABS: BILIRUBIN,URINE NEGATIVE (NEG); CLARITY,URINE CLOUDY; COLOR,URINE YELLOW; NITRITE,URINE NEGATIVE (NEG); PH,URINE 6.5 (<5.0-8.0); PROTEIN,URINE NEGATIVE (NEG-TRACE); UROBILINOGEN,URINE 0.2 mg/dL (0.2 mg/dL)
[2021-02-16 23:43] LABS: BASO % 1 % (0-3); EOS # 0.1 x10^3/uL (0.0-0.7); EOS % 2 % (0-3); HEMATOCRIT 39.9 % (36.0-47.0); LYMPH # 2.6 x10^3/uL (1.0-4.8); LYMPH % 44 % (24-48); MEAN CORPUSCULAR HEMOGLOBIN 31 pg (25-35); MEAN CORPUSCULAR HGB CONC 35 g/dL (31-37); MEAN CORPUSCULAR VOLUME 89 fL (79-100); MONO # 0.4 x10^3/uL (0.0-1.1); MONO % 7 % (0-9); NEUT # 2.7 x10^3/uL (1.8-7.7); NEUT % 46 % (31-73); PLATELET COUNT 198 x10^3/uL (140-400); RED BLOOD COUNT 4.49 x10^6/uL (3.50-5.40); RED CELL DISTRIBUTION WIDTH 12.6 % (11.5-14.5); WHITE BLOOD COUNT 5.9 x10^3/uL (4.0-11.0)
[2021-02-16 23:43] LABS: BACTERIA,URINE MANY /HPF (0-FEW); WBC,URINE 20-40 /HPF (0-4)
[2021-02-16 23:54] LABS: CALCIUM 8.5 mg/dL (8.5-10.1); CREATININE 0.8 mg/dL (0.6-1.0); GFR 88.9; POTASSIUM 4.2 mmol/L (3.5-5.1)
[2021-02-16 23:59] LABS: ALBUMIN 3.2 g/dL (3.4-5.0); C-REACTIVE PROTEIN 5.6 mg/L (0-3.3); TOTAL BILIRUBIN 0.3 mg/dL (0.2-1.0); TOTAL PROTEIN 6.4 g/dL (6.4-8.2)
--- NOTE | 2021-02-17 01:15 | RAD ---
INDICATION: Reason: PID / Spl. Instructions: / History: COMPARISON: December 2020 TECHNIQUE: Grayscale and color ultrasound images uterus and adnexa. Transabdominal and transvaginal images obtained. Transvaginal images were needed to better visualize structures that were limited on transabdominal imaging. FINDINGS: Uterus: 80 x 44 x 34 mm. 6 mm endometrial stripe Right Ovary: 46 x 22 x 22 mm. Left Ovary: 39 x 28 x 25 mm. Vascular flow identified to bilateral ovaries. Nabothian cysts Urinary bladder is well distended. IMPRESSION: * Vascular flow seen to the ovaries. Electronically signed by: Bairon Jacob MD (02/17/2021 1:13 AM) [id number]
[2021-02-17] MEDS ORDERED: ACETAMINOPHEN 325 MG TABLET. PO PRN (02:45)
[2021-02-17] MEDS ORDERED: ONDANSETRON PF 4 MG/2 ML VIAL. IV PRN (02:45)
[2021-02-17] MEDS ORDERED: DOXYCYCLINE HYCLATE 100 MG in IV DEXTROSE 5% 100ML 100 ML IV ONE (02:45)
[2021-02-17] MEDS ORDERED: cefOXitin SODIUM IV Push 1 GM VIAL. IVP ONE (02:45)
[2021-02-17] MEDS: MORPHINE SULFATE 4 MG/ML INJ. IV PRN ×8 (02:46→20:59)
[2021-02-17] MEDS ORDERED: LORazepam 0.5 MG TABLET PO ONE (04:15)
[2021-02-17] MEDS: IV RINGERS,LACTATED 1000ML 1,000 ML IV SCH ×3 (05:25→15:15)
[2021-02-17 05:30] VITALS: BP 122/72
[2021-02-17 07:45] VITALS: BP 117/62
[2021-02-17] MEDS ORDERED: DEXTROSE 5% IV ONE (08:00)
[2021-02-17] MEDS ORDERED: GENTAMICIN SULFATE IV SCH (08:00)
[2021-02-17] MEDS ORDERED: GENTAMICIN SULFATE IV ONE (08:00)
[2021-02-17] MEDS ORDERED: DEXTROSE 5% IV SCH (08:00)
[2021-02-17] MEDS: ONDANSETRON PF 4 MG/2 ML VIAL. IV SCH ×3 (08:02→17:57)
[2021-02-17] MEDS ORDERED: GENTAMICIN PER PHARMACY. MC SCH (09:00)
--- NOTE | 2021-02-17 10:06 | PDOC2 ---
CONSULT Date of Consult Date of Consult DATE: 02/17/21 TIME: 10:02 Reason for Consult Reason for Consult: Failed outpatient management PID Referring Physician Referring Physician: Dr. Marte Identification/Chief Complaint Chief Complaint Abd pain and vaginal discharge Source Source: Chart review, Patient History of Present Illness Reason for Visit: 25 y/o G1 A1 presented to ED with c/o severe abd pain that is mainly in RLQ. She was treated for PID 4 days ago and reports taking the abx, however she started having more RLQ pain. No fevers, chils, nightsweats or hematuria. Pt. denies any drug use. Past Medical History Pulmonary: Bronchitis Past Surgical History Past Surgical History: Appendectomy, Cholecystectomy Family History Family History: Hypertension Social History ALCOHOL: rare Drugs: None Current Medications Current Medications Current Medications Ondansetron HCl (Zofran) 4 mg 1X ONCE IVP Last administered on 02/17/21at 00:19; Start 02/16/21 at 23:30; Stop 02/16/21 at 23:31; Status DC Morphine Sulfate (Morphine Sulfate) 4 mg 1X ONCE IV Last administered on 02/17/21at 00:18; Start 02/16/21 at 23:30; Stop 02/16/21 at 23:31; Status DC Cefoxitin Sodium (Mefoxin) 1 gm 1X ONCE IVP Last administered on 02/17/21at 02:46; Start 02/17/21 at 02:45; Stop 02/17/21 at 02:46; Status DC Doxycycline Hyclate 100 mg/ Dextrose 100 ml @ 50 mls/hr 1X ONCE IV Last administered on 02/17/21at 02:51; Start 02/17/21 at 02:45; Stop 02/17/21 at 04:44; Status DC Ondansetron HCl (Zofran) 4 mg PRN Q8HRS PRN IV NAUSEA/VOMITING Last administered on 02/17/21at 02:46; Start 02/17/21 at 02:45; Stop 02/17/21 at 07:17 ; Status DC Morphine Sulfate (Morphine Sulfate) 4 mg PRN Q2HR PRN IV PAIN Last administered on 02/17/21at 07:42; Start 02/17/21 at 02:45; Stop 02/18/21 at 02:44 Acetaminophen (Tylenol) 650 mg PRN Q4HRS PRN PO FEVER > 100.3'F; Start 02/17/21 at 02:45; Stop 02/18/21 at 02:44 Lorazepam (Ativan) 0.5 mg 1X ONCE PO Last administered on 02/17/21at 04:24; Start 02/17/21 at 04:15; Stop 02/17/21 at 04:16; Status DC Clindamycin Phosphate 50 ml @ 100 mls/hr Q8HRS IV ; Start 02/17/21 at 14:00 Metronidazole 100 ml @ 100 mls/hr Q12HR IV Last administered on 02/17/21at 09:00; Start 02/17/21 at 09:00 Gentamicin Sulfate 1 each DAILY MC ; Start 02/17/21 at 09:00 Ringer's Solution 1,000 ml @ 125 mls/hr Q8H IV Last administered on 02/17/21at 07:54; Start 02/17/21 at 07:15 Ondansetron HCl (Zofran) 8 mg Q6HRS IV Last administered on 02/17/21at 08:02; Start 02/17/21 at 08:00 Gentamicin Sulfate 410 mg/ Dextrose 110.25 ml @ 110.25 mls/hr Q24H IV ; Start 02/17/21 at 08:00; Stop 02/17/21 at 07:46; Status DC Gentamicin Sulfate 410 mg/ Dextrose 110.25 ml @ 110.25 mls/hr 1X ONCE IV Last administered on 02/17/21at 08:27; Start 02/17/21 at 08:00; Stop 02/17/21 at 08:59; Status DC Gentamicin Sulfate 1 each 1X ONCE MC ; Start 02/17/21 at 17:30; Stop 02/17/21 at 17:31 Lactobacillus Rhamnosus (Culturelle) 1 cap BID PO ; Start 02/17/21 at 21:00 Active Scripts Active Cephalexin 500 Mg Capsule 1 Cap PO BID Flagyl (Metronidazole) 500 Mg Tablet 1 Tab PO BID Percocet 5-325 Mg Tablet (Oxycodone/Acetaminophen) 1 Each Tablet 1 Tab PO PRN Q6HRS PRN Doxycycline Hyclate 100 Mg Capsule 1 Cap PO BID 14 Days Flagyl (Metronidazole) 500 Mg Tablet 1 Tab PO BID Anaprox Ds (Naproxen Sodium) 550 Mg Tablet 1 Tab PO PRN BID PRN 15 Days Doxycycline Hyclate 100 Mg Capsule 1 Cap PO BID Flagyl (Metronidazole) 500 Mg Tablet 1 Tab PO BID Zofran (Ondansetron Hcl) 4 Mg Tablet 4 Mg PO PRN TID PRN nausea/vomiting Bradford 5-325 Tablet (Acetaminophen/Hydrocodone Bitart) 1 Each Tablet 1 Tab PO Q6HRS Gabapentin 600 Mg Tablet 600 Mg PO TID Mupirocin Ointment (Mupirocin) 22 Gm Oint...g. 1 Aditya TP TID Cephalexin 500 Mg Tablet 1 Tab PO TID Mucinex (Guaifenesin) 600 Mg Tablet.er 1,200 Mg PO BID 10 Days Montelukast Sodium Tablet (Montelukast Sodium) 10 Mg Tablet 10 Mg PO QHS Budesonide 0.5 Mg/2 Ml Ampul.neb 0.5 Mg NEB RTBID 30 Days Hydrocodone-Apap 5-325 (Hydrocodone Bit/Acetaminophen) 1 Tab Tablet 1 Tab PO PRN Q4HRS PRN [Nicotine 21MG] 1 PATCH Patch 1 Patch TD DAILY Doxycycline Hyclate 100 Mg Tablet 100 Mg PO BID 7 Days Cetirizine Hcl 10 Mg Tablet 10 Mg PO DAILY Proair Hfa Inhaler (Albuterol Sulfate) 8.5 Gm Hfa.aer.ad 1 Puff INH PRN Q6HRS PRN Reported Cymbalta (Duloxetine Hcl) 30 Mg Capsule. 1 Cap PO DAILY Allergies Allergies: Coded Allergies: Fish Containing Products (Verified Allergy, Intermediate, Rash, 11/08/18) IV DYE coconut oil (Verified Allergy, Intermediate, 11/08/18) iodine (Verified Allergy, Intermediate, Rash, 02/13/21) THROAT AND CHEST TIGHTNESS ketorolac (Verified Allergy, Intermediate, Rash, 11/08/18) latex (Verified Allergy, Intermediate, Rash, 11/08/18) mite-Dermatophagoides farinae, demetra (Verified Allergy, Intermediate, 02/13/21) mold (Verified Allergy, Intermediate, 11/08/18) tramadol (Verified Allergy, Intermediate, RASH/ITCHING, 11/08/18) shellfish derived (Verified Adverse Reaction, Intermediate, 11/08/18) prednisone (Verified Adverse Reaction, Mild, N/V, 01/03/21) ROS General: YES: Fatigue, Malaise; No: Chills, Night Sweats, Appetite, Other PSYCHOLOGICAL ROS: YES: Anxiety; No: Behavioral Disorder, Concentration difficultie, Decreased libido, D epression, Disorientation, Hallucinations, Hostility, Irritablity, Memory difficulties, Mood Swings, Obsessive thoughts, Physical abuse, Sexual abuse, Sleep disturbances, Suicidal ideation, Other Eyes: No Blurry vision, No Decreased vision, No Double vision, No Dry eyes, No Excessive tearing, No Eye Pain, No Itchy Eyes, No Loss of vision, No Photophobia, No Scotomata, No Uses contacts, No Uses glasses, No Other HEENT: No: Heacaches, Visual Changes, Hearing change, Nasal congestion, Nasal discharge, Oral lesions, Sinus pain, Sore Throat, Epistaxis, Sneezing, Snoring, Tinnitus, Vertigo, Vocal changes, Other ALLERGY AND IMMUNOLOGY: No: Hives, Insect Bite Sensitivity, Itchy/Watery Eyes, Nasal Congestion, Post Nasal Drip, Seasonal Allergies, Other Hematological and Lymphatic: No: Bleeding Problems, Blood Clots, Blood Transfusions, Brusing, Night Sweats, Pallor, Swollen Lymph Nodes, Other ENDOCRINE: No: Breast Changes, Galactorrhea, Hair Pattern Changes, Hot Flashes, Malaise/lethargy, Mood Swings, Palpitations, Polydipsia/polyuria, Skin Changes, Temperature Intolerance, Unexpected Weight Changes, Other Respiratory: No: Cough, Hemoptysis, Orthopnea, Pleuritic Pain, Shortness of breath, SOB with excertion, Sputum Changes, Stridor, Tachypnea, Wheezing, Other Cardiovascular: No Chest Pain, No Palpitations, No Orthopnea, No Paroxysmal Noc. Dyspnea, No Edema, No Lt Headedness, No Other Gastrointestinal: Yes Nausea, Yes Abdominal Pain Genitourinary: YES Discharge; No Dysuria, No Frequency, No Incontinence, No Hematuria, No Retention, No Urgency, No Pain, No Flank Pain, No Other, No , No , No , No , No , No , No Skin: No Dry Skin, No Eczema, No Hair Changes, No Lumps, No Mole Changes, No Mottling, No Nail Changes, No Pruritus, No Rash, No Skin Lesion Changes, No Othe r, No Acne Physical Exam General: Alert, Oriented X3, Cooperative, No acute distress HEENT: Atraumatic Lungs: Clear to auscultation Heart: Regular rate Abdomen: Normal bowel sounds, Soft, No masses, Other (RLQ tenderness) Psych/Mental Status: Mental status NL Vitals VITALS Vital Signs Date Time Temp Pulse Resp B/P (MAP) Pulse Ox O2 Delivery O2 Flow Rate FiO2 02/17/21 07:45 98.0 72 16 117/62 (80) 98.0 02/17/21 06:07 99 02/17/21 05:30 Room Air Labs Labs Laboratory Tests Test 02/16/21 23:02 02/16/21 23:11 02/16/21 23:35 Urine Collection Type Unknown Urine Color Yellow Urine Clarity Cloudy Urine pH 6.5 (<5.0-8.0) Urine Specific [place] 1.015 (1.000-1.030) Urine Protein Negative mg/dL (NEG-TRACE) Urine Glucose (UA) Negative mg/dL (NEG) Urine Ketones (Stick) Negative mg/dL (NEG) Urine Blood Moderate (NEG) Urine Nitrite Negative (NEG) Urine Bilirubin Negative (NEG) Urine Urobilinogen Dipstick 0.2 mg/dL (0.2 mg/dL) Urine Leukocyte Esterase Large (NEG) Urine RBC 1-2 /HPF (0-2) Urine WBC 20-40 /HPF (0-4) Urine Squamous Epithelial Cells Many /LPF Urine Bacteria Many /HPF (0-FEW) Urine Mucus Slight /LPF Bedside Urine HCG, Qualitative Hcg negative (Negative) White Blood Count 5.9 x10^3/uL (4.0-11.0) Red Blood Count 4.49 x10^6/uL (3.50-5.40) Hemoglobin 14.0 g/dL (12.0-15.5) Hematocrit 39.9 % (36.0-47.0) Mean Corpuscular Volume 89 fL (79-100) Mean Corpuscular Hemoglobin 31 pg (25-35) Mean Corpuscular Hemoglobin Concent 35 g/dL (31-37) Red Cell Distribution Width 12.6 % (11.5-14.5) Platelet Count 198 x10^3/uL (140-400) Neutrophils (%) (Auto) 46 % (31-73) Lymphocytes (%) (Auto) 44 % (24-48) Monocytes (%) (Auto) 7 % (0-9) Eosinophils (%) (Auto) 2 % (0-3) Basophils (%) (Auto) 1 % (0-3) Neutrophils # (Auto) 2.7 x10^3/uL (1.8-7.7) Lymphocytes # (Auto) 2.6 x10^3/uL (1.0-4.8) Monocytes # (Auto) 0.4 x10^3/uL (0.0-1.1) Eosinophils # (Auto) 0.1 x10^3/uL (0.0-0.7) Basophils # (Auto) 0.0 x10^3/uL (0.0-0.2) Erythrocyte Sedimentation Rate 4 (0-25) Sodium Level 147 mmol/L (136-145) Potassium Level 4.2 mmol/L (3.5-5.1) Chloride Level 108 mmol/L (98-107) Carbon Dioxide Level 28 mmol/L (21-32) Anion Gap 11 (6-14) Blood Urea Nitrogen 7 mg/dL (7-20) Creatinine 0.8 mg/dL (0.6-1.0) Estimated GFR (Cockcroft-Gault) 88.9 BUN/Creatinine Ratio 9 (6-20) Glucose Level 98 mg/dL (70-99) Calcium Level 8.5 mg/dL (8.5-10.1) Total Bilirubin 0.3 mg/dL (0.2-1.0) Aspartate Amino Transf (AST/SGOT) 41 U/L (15-37) Alanine Aminotransferase (ALT/SGPT) 55 U/L (14-59) Alkaline Phosphatase 122 U/L (46-116) C-Reactive Protein, Quantitative 5.6 mg/L (0-3.3) Total Protein 6.4 g/dL (6.4-8.2) Albumin 3.2 g/dL (3.4-5.0) Albumin/Globulin Ratio 1.0 (1.0-1.7) Laboratory Tests Test 02/16/21 23:02 02/16/21 23:11 02/16/21 23:35 Urine Collection Type Unknown Urine Color Yellow Urine Clarity Cloudy Urine pH 6.5 (<5.0-8.0) Urine Specific [place] 1.015 (1.000-1.030) Urine Protein Negative mg/dL (NEG-TRACE) Urine Glucose (UA) Negative mg/dL (NEG) Urine Ketones (Stick) Negative mg/dL (NEG) Urine Blood Moderate (NEG) Urine Nitrite Negative (NEG) Urine Bilirubin Negative (NEG) Urine Urobilinogen Dipstick 0.2 mg/dL (0.2 mg/dL) Urine Leukocyte Esterase Large (NEG) Urine RBC 1-2 /HPF (0-2) Urine WBC 20-40 /HPF (0-4) Urine Squamous Epithelial Cells Many /LPF Urine Bacteria Many /HPF (0-FEW) Urine Mucus Slight /LPF Bedside Urine HCG, Qualitative Hcg negative (Negative) White Blood Count 5.9 x10^3/uL (4.0-11.0) Red Blood Count 4.49 x10^6/uL (3.50-5.40) Hemoglobin 14.0 g/dL (12.0-15.5) Hematocrit 39.9 % (36.0-47.0) Mean Corpuscular Volume 89 fL (79-100) Mean Corpuscular Hemoglobin 31 pg (25-35) Mean Corpuscular Hemoglobin Concent 35 g/dL (31-37) Red Cell Distribution Width 12.6 % (11.5-14.5) Platelet Count 198 x10^3/uL (140-400) Neutrophils (%) (Auto) 46 % (31-73) Lymphocytes (%) (Auto) 44 % (24-48) Monocytes (%) (Auto) 7 % (0-9) Eosinophils (%) (Auto) 2 % (0-3) Basophils (%) (Auto) 1 % (0-3) Neutrophils # (Auto) 2.7 x10^3/uL (1.8-7.7) Lymphocytes # (Auto) 2.6 x10^3/uL (1.0-4.8) Monocytes # (Auto) 0.4 x10^3/uL (0.0-1.1) Eosinophils # (Auto) 0.1 x10^3/uL (0.0-0.7) Basophils # (Auto) 0.0 x10^3/uL (0.0-0.2) Erythrocyte Sedimentation Rate 4 (0-25) Sodium Level 147 mmol/L (136-145) Potassium Level 4.2 mmol/L (3.5-5.1) Chloride Level 108 mmol/L (98-107) Carbon Dioxide Level 28 mmol/L (21-32) Anion Gap 11 (6-14) Blood Urea Nitrogen 7 mg/dL (7-20) Creatinine 0.8 mg/dL (0.6-1.0) Estimated GFR (Cockcroft-Gault) 88.9 BUN/Creatinine Ratio 9 (6-20) Glucose Level 98 mg/dL (70-99) Calcium Level 8.5 mg/dL (8.5-10.1) Total Bilirubin 0.3 mg/dL (0.2-1.0) Aspartate Amino Transf (AST/SGOT) 41 U/L (15-37) Alanine Aminotransferase (ALT/SGPT) 55 U/L (14-59) Alkaline Phosphatase 122 U/L (46-116) C-Reactive Protein, Quantitative 5.6 mg/L (0-3.3) Total Protein 6.4 g/dL (6.4-8.2) Albumin 3.2 g/dL (3.4-5.0) Albumin/Globulin Ratio 1.0 (1.0-1.7) Assessment/Plan Assessment/Plan A: PID: failed outpatient management P: IV abx clindamycin, gentamycin and flagyl. Zofran for nausea. Sono did not indicate TOA. Urine drug screen and repeat CBC in am. Continue IV abx for next 2-3 days. Thank you for consult. Will continue to follow. ANGIE HOWELL Jr, MD Feb 17, 2021 10:06
--- NOTE | 2021-02-17 11:14 | NUR ---
pt calls out requesting "anxiety meds dr lezama said i could have" rn informs pt there are no new orders entered and will bring medication when available. RN to call md if needed for med order
--- NOTE | 2021-02-17 11:42 | NUR ---
rn at [facility] admin. pt c/o itching requesting medication ino rn waiting for orders from dr lezama and will inform him of her request. pt reports recent episode of vomitting and requesting meal tray be removed from room
--- NOTE | 2021-02-17 11:53 | NUR ---
call to dr lezama cell phone md updated of pt request for "anxiety meds" and no new orders seen md states he has not had time to put orders in, rn attempts to inform md of pt c/o itching and then call is disconnected. RN call returns phone call x2 and phone rings multiple times, and message stating voicemail has not been set up so rn unable to leave message
--- NOTE | 2021-02-17 11:59 | NUR ---
dr lezama paged overhead to return call unit. rn to inform pt awaiting md orders
--- NOTE | 2021-02-17 13:00 | NUR ---
call to dr fisher to update of pt status and request due to no response from dr lezama. updated of pt request for medication for anxiety and itching. pt report dr lezama made rounds and told her he would prescribe "anxiety meds." dr fisher states he has spoken with dr lezama today and dr fisher states no additional medications until pt provides UDS. pt may continue to receive morphine for pain management, but no further orders at this time.
--- NOTE | 2021-02-17 13:10 | NUR ---
rn at pain medical office secretary pt rating 02/15 continuously. pt informed of dr fisher orders and still unable to contact dr lezama. pt becomes irate and tearful stating "this is fucked up! i dont want to see either of them they are all fucking liars. cherelle never done drugs so theres nothing in my system" pt continues to state past drug screen inaccurate and "filing a report for malpratice" pt has threatened to leave AMA several times since dr leonard notified her of past UDS results this morning. pt states she has regular drug screens for work and has never been positive "this place is fucking ridiculous i dont know why i came here" rn trying to calm pt and inform her she may provide urine specimen if desired and specimen cup in BR. rn will continue to wait for dr lezama response pt states "i only wanted dr lezama but hes a bullshit liar too" pt made aware of how to request changes to her medical record if she feels they are not correct. pt questioning "who else can i talk to" but declines to speak with DON at this time
--- NOTE | 2021-02-17 13:22 | NUR ---
pt calls out rn at pt requesting that no information be given over the phone and questions if anyone has called for her. no incoming calls for pt to the unit. pt reassured no info can be given over the phone even if someone did call. pt declines to be Blackout/NSNR pt status. pt is visibly angry continuing to curse. now requesting to speak with RETA "because this shit is not right" rn to contact RETA kidd
--- NOTE | 2021-02-17 13:37 | HP ---
ADMIT DATE: 02/17/2021 CHIEF COMPLAINT: Pelvic pain. HISTORY OF PRESENT ILLNESS: The patient is a pleasant 25-year-old female who presented to the ER with pelvic pain. It has been occurring for 3 days, worse with food, better with sitting still, described as very irritating. She increased her home meds, but that did not work. I discussed the case with ER physician. It appears the patient has pelvic inflammatory disease on imaging. We are admitting the patient with consultation to Dr. Marie of the [facility] service. I just spoke with Dr. Marie as well. He would like to give the patient at least 3 days of IV antibiotics as she failed outpatient p.o. antibiotics for the same disease process within the past couple of weeks. PAST MEDICAL HISTORY: Anxiety, asthma, cystic fibrosis, diabetes, kidney stones, UTI, GI bleed, elevated liver function test, polycystic ovary disease, previous pelvic inflammatory disease, cholecystectomy, appendectomy, tonsillectomy, adenoidectomy, spinal fusion, left elbow surgery, pilonidal cyst surgery. ALLERGIES: FISH, COCONUT OIL, IODINE, TORADOL, LATEX. FAMILY HISTORY: Diabetes. 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 She does not drink, smoke or take drugs. MEDICATIONS: Reviewed, please refer to the MRAD. REVIEW OF SYSTEMS: GENERAL: No history of weight change, weakness or fevers. SKIN: No bruising, hair changes or rashes. EYES: No blurred, double or loss of vision. NOSE AND THROAT: No history of nosebleeds, hoarseness or sore throat. HEART: No history of palpitations, chest pain or shortness of breath on exertion. LUNGS: Denies cough, hemoptysis, wheezing or shortness of breath. ABDOMEN: She complains of low abdominal pain and pelvic pain. GENITOURINARY: No history of frequency, urgency, hesitancy or nocturia. NEUROLOGIC: Denies history of numbness, tingling, tremor or weakness. PSYCHIATRIC: No history of panic, anxiety or depression. ENDOCRINE: No history of heat or cold intolerance, polyuria or polydipsia. EXTREMITIES: Denies muscle weakness, joint pain, pain on walking or stiffness. PHYSICAL EXAMINATION: VITALS: Within normal limits and are stable. GENERAL: No apparent distress. Alert and oriented. HEENT: Normal cephalic atraumatic, external auditory canals are patent EYES: Extraocular muscles are intact, pupils are equally round and reactive to light and accommodation MUSCULOSKELETAL: Well developed, well nourished, good range of motion ENDOCRINE: No thyromegaly was palpated LYMPHATICS: No cervical chain or axillary nodes were noted HEMATOPOIETIC: No bruising NECK: Supple, no JVD, no thyromegaly was noted. LUNGS: Clear to auscultation in all lung navarro without rhonchi or wheezing. HEART: RRR, S1, S2 present. Peripheral pulses intact, no obvious murmurs were noted. ABDOMEN: She has lower quadrant pain bilaterally. EXTREMITIES: Without any cyanosis, clubbing, or edema. Pedal pulses intact, Homans sign is negative. NEUROLOGIC: Normal speech, normal tone. A and O x 3, moves all extremities, no obvious focal deficits. PSYCHIATRIC: Normal affect, normal mood. Stable. SKIN: No ulcerations or rashes, good skin turgor, no jaundice. VASCULAR: Good capillary refill, neurovascular bundle appears to be intact. LABORATORY DATA: White count is 5. Ultrasound of the abdomen shows good vascular flow to the ovaries. ASSESSMENT AND PLAN: Pelvic inflammatory disease. The patient has been admitted. We have consulted Dr. Marie. He is recommended IV clindamycin and IV metronidazole. We will continue the IV fluids, p.r.n. Tylenol, p.r.n. morphine, home meds, DVT prophylaxis. Full code. SASHA/CATHLEEN DR: SASHA/binta TID: [id number]
[2021-02-17 13:55] VITALS: BP 123/74
[2021-02-17] MEDS ORDERED: CLINDAMYCIN 900MG PREMIX 50 ML IV SCH (14:00)
--- NOTE | 2021-02-17 14:22 | NUR ---
RETA Griffin at bs to speak with pt
--- NOTE | 2021-02-17 14:48 | NUR ---
RETA Rodrigues on unit contacted dr lezama to call to unit. updated of pt request for "anxiety meds" and itching. dr fisher called after unable to reach dr lezama and orders for no additional meds without UA. dr lezama states to follow dr fisher order. no additional orders without pt UDS
--- NOTE | 2021-02-17 14:55 | NUR ---
RETA kidd at bs to discuss dr lezama and dr fisher orders with pt. POC and options. 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
--- NOTE | 2021-02-17 15:05 | NUR ---
rn paged dr lezama at instruction of DON. to inform md of pt request to change in OB. awaiting dr lezama to return call
--- NOTE | 2021-02-17 15:14 | NUR ---
dr lezama call to unit updated of pt removal of dr fisher from care team. md states he will manage pts care. orders for ativan and benadryl received
[2021-02-17] MEDS ORDERED: diphenhydrAMINE 50 MG/ML VIAL IVP PRN ×2 (15:15→15:30)
[2021-02-17] MEDS: LORazepam 0.5 MG TABLET PO PRN (16:05)
[2021-02-17] MEDS ORDERED: GENTAMICIN RANDOM LEVEL. MC ONE (17:30)
[2021-02-17 19:22] VITALS: BP 118/81
[2021-02-17] MEDS: LACTOBACILLUS RHAMNOSUS GG 1 CAPSULE. PO SCH (20:16)
[2021-02-17] MEDS: DOXYCYCLINE HYCLATE 100 MG in IV DEXTROSE 5% 100ML 100 ML IV SCH (20:58)
[2021-02-17] MEDS: cefOXitin SODIUM IV Push 2 GM VIAL. IVP SCH (20:58)
[2021-02-17] MEDS ORDERED: hydrOXYzine 25 MG TABLET PO PRN (21:45)
[2021-02-17] MEDS: PANTOPRAZOLE 40 MG TABLET.DR. PO SCH (21:55)
[2021-02-17 23:58] VITALS: BP 118/68
[2021-02-18] MEDS: MORPHINE SULFATE 4 MG/ML INJ. IV PRN
[2021-02-18] MEDS: ONDANSETRON PF 4 MG/2 ML VIAL. IV SCH ×5 (00:02→23:50)
[2021-02-18] MEDS: LORazepam 0.5 MG TABLET PO PRN ×4 (02:05→18:30)
[2021-02-18 02:23] VITALS: BP 126/86
[2021-02-18] MEDS: cefOXitin SODIUM IV Push 2 GM VIAL. IVP SCH ×4 (03:00→20:45)
[2021-02-18] MEDS: IV RINGERS,LACTATED 1000ML 1,000 ML IV SCH ×2 (05:24→15:02)
[2021-02-18] MEDS ORDERED: diphenhydrAMINE 50 MG/ML VIAL IVP PRN ×2 (07:15)
[2021-02-18] MEDS: diphenhydrAMINE 50 MG/ML VIAL IVP PRN ×3 (08:05→19:59)
[2021-02-18] MEDS: PANTOPRAZOLE 40 MG TABLET.DR. PO SCH (08:05)
[2021-02-18] MEDS: MORPHINE SULFATE 2 MG/ML INJ. IV PRN ×2 (08:05→10:44)
[2021-02-18 08:27] LABS: BASO % 1 % (0-3); EOS # 0.2 x10^3/uL (0.0-0.7); EOS % 3 % (0-3); HEMATOCRIT 37.5 % (36.0-47.0); HEMOGLOBIN 13.2 g/dL (12.0-15.5); LYMPH # 2.5 x10^3/uL (1.0-4.8); LYMPH % 41 % (24-48); MEAN CORPUSCULAR HEMOGLOBIN 31 pg (25-35); MEAN CORPUSCULAR HGB CONC 35 g/dL (31-37); MEAN CORPUSCULAR VOLUME 89 fL (79-100); MONO # 0.5 x10^3/uL (0.0-1.1); MONO % 8 % (0-9); NEUT # 2.8 x10^3/uL (1.8-7.7); NEUT % 47 % (31-73); PLATELET COUNT 175 x10^3/uL (140-400); RED BLOOD COUNT 4.21 x10^6/uL (3.50-5.40); RED CELL DISTRIBUTION WIDTH 12.7 % (11.5-14.5)
[2021-02-18 08:34] VITALS: BP 135/87
[2021-02-18] MEDS: LACTOBACILLUS RHAMNOSUS GG 1 CAPSULE. PO SCH ×3 (09:00→21:00)
[2021-02-18] MEDS: DOXYCYCLINE HYCLATE 100 MG in IV DEXTROSE 5% 100ML 100 ML IV SCH ×2 (10:46→20:47)
[2021-02-18 11:00] VITALS: BP 114/76
[2021-02-18] MEDS ORDERED: diphenhydrAMINE 50 MG/ML VIAL IVP SCH (12:00)
[2021-02-18] MEDS: MORPHINE SULFATE 4 MG/ML INJ. IVP PRN ×6 (12:27→23:52)
--- NOTE | 2021-02-18 12:29 | PDOC ---
[employer] PROGRESS NOTE Date of Service DOS: DATE: 02/18/21 TIME: 12:17 Chief Complaint Chief Complaint CC: Pelvic pain Pelvic inflammatory disease with failure of outpatient antibiotics Asthma Anxiety Diabetes PCOS H/o prior PID History of Present Illness History of Present Illness 02/18/21 Patient seen and examined Alert and in mild distress Anxious Afebrile Endorses pelvic pain Discussed with RN Vitals/I&O Vitals/I&O: Vital Signs Date Time Temp Pulse Resp B/P (MAP) Pulse Ox O2 Delivery O2 Flow Rate FiO2 02/18/21 11:19 16 97 Room Air 02/18/21 08:34 98.0 90 135/87 (103) 98.0 I & O 02/17/21 02/17/21 02/18/21 15:00 23:00 07:00 Intake Total 360.25 ml 1000 ml Balance 360.25 ml 1000 ml Physical Exam Physical Exam: GENERAL: Mild distress, Alert HEENT: PERRL, OC/OP NECK: Supple, no JVD, no LN LUNGS: Clear HEART: S1S2, no gallop, no murmur ABD: Soft, no organomegaly, no rebound, pelvic pain EXT: No edema, no cyanosis CARE DIRECTOR: Alert, oriented x 3, no focal neurologic deficit SKIN: No rash IV: ok General: Alert, Oriented X3, Cooperative, No acute distress Heart: Regular rate Lungs: Wheezing, Other Abdomen: Normal bowel sounds, Soft, No masses, Other (RLQ tenderness) Labs Labs: Laboratory Tests Test 02/18/21 08:00 White Blood Count 6.0 x10^3/uL (4.0-11.0) Red Blood Count 4.21 x10^6/uL (3.50-5.40) Hemoglobin 13.2 g/dL (12.0-15.5) Hematocrit 37.5 % (36.0-47.0) Mean Corpuscular Volume 89 fL (79-100) Mean Corpuscular Hemoglobin 31 pg (25-35) Mean Corpuscular Hemoglobin Concent 35 g/dL (31-37) Red Cell Distribution Width 12.7 % (11.5-14.5) Platelet Count 175 x10^3/uL (140-400) Neutrophils (%) (Auto) 47 % (31-73) Lymphocytes (%) (Auto) 41 % (24-48) Monocytes (%) (Auto) 8 % (0-9) Eosinophils (%) (Auto) 3 % (0-3) Basophils (%) (Auto) 1 % (0-3) Neutrophils # (Auto) 2.8 x10^3/uL (1.8-7.7) Lymphocytes # (Auto) 2.5 x10^3/uL (1.0-4.8) Monocytes # (Auto) 0.5 x10^3/uL (0.0-1.1) Eosinophils # (Auto) 0.2 x10^3/uL (0.0-0.7) Basophils # (Auto) 0.0 x10^3/uL (0.0-0.2) Review of Systems Review of Systems: CONSTITUTIONAL: No fever or chills CARDIOVASCULAR: No chest pain, no palpitations, no chest pressure RESPIRATORY: No shortness of breath, cough GI: No diarrhea. Endorses nausea, vomiting, and pelvic pain NEURO: No headache, dizziness Assessment and Plan Assessmemt and Plan ASSESSMENT Pelvic inflammatory disease with failure of outpatient antibiotics Asthma Anxiety Diabetes PCOS PLAN IV antibiotics Pain management Anxiety management Trend labs PT/OT DVT prophylaxis Full code Comment Review of Relevant I have reviewed the following items leticia (where applicable) has been applied. Medications: Current Medications Medications (Trade) Dose Ordered Sig/Kaelyn Route PRN Reason Start Time Stop Time Status Last Admin Dose Admin Clindamycin Phosphate 50 ml @ 100 mls/hr Q8HRS IV 02/17/21 14:00 02/17/21 19:54 DC 02/17/21 15:29 Lactobacillus Rhamnosus (Culturelle) 1 cap BID PO 02/17/21 21:00 02/17/21 20:16 Diphenhydramine HCl (Benadryl) 25 mg PRN Q8HRS PRN IVP MILD- MODERATE ITCHING 02/17/21 15:15 02/18/21 07:16 DC 02/18/21 00:01 Lorazepam (Ativan) 0.5 mg PRN Q4HRS PRN PO ANXIETY / AGITATION 02/17/21 15:15 02/18/21 08:31 Diphenhydramine HCl (Benadryl) 50 mg PRN Q8HRS PRN IVP SEVERE ITCHING 02/17/21 15:30 02/18/21 07:16 DC 02/17/21 16:05 Cefoxitin Sodium (Mefoxin) 2 gm Q6H IVP 02/17/21 21:00 02/18/21 09:21 Doxycycline Hyclate 100 mg/ Dextrose 100 ml @ 50 mls/hr Q12HR IV 02/17/21 21:00 02/18/21 10:46 Hydroxyzine HCl (Atarax) 25 mg PRN Q8HRS PRN PO ITCHING 02/17/21 21:45 02/18/21 07:16 DC 02/17/21 21:50 Pantoprazole Sodium (Protonix) 40 mg DAILYAC PO 02/17/21 22:00 02/18/21 08:05 Diphenhydramine HCl (Benadryl) 50 mg PRN Q6HRS PRN IVP ITCHING 02/18/21 07:30 02/18/21 08:05 Morphine Sulfate (Morphine Sulfate) 4 mg PRN Q2HR PRN IV PAIN 02/18/21 07:30 02/18/21 10:44 Justifications for Admission Other Justification DANGELO ROBLES III DO Feb 18, 2021 12:29
[2021-02-18 15:00] VITALS: BP 104/66
--- NOTE | 2021-02-18 17:18 | NUR ---
RN enters pt's room and pt. is moaning in bed states that she is in horrible pain on her L pelvic side, RN gives heat pack and pain medication. Pt. states "this is different". RN returns 20 minutes later and pt. is snoring in bed. RN gets VS and asks pt. if it is starting to help and pt. says "No, I just drifted off but its so bad". RN suggests moving around that it may be gas related pt. states "No I know what that feels like". RN states she will call , pt. states "only if it is Dr. Sevilla, Make sure they know I can't keep any food down so I can't switch to pills". RN has not seen any vomit, and has asked pt. to notify her so she can see it. Pt. states that she "flushes it down" because she "just cant do the smell".
--- NOTE | 2021-02-18 17:47 | NUR ---
Dr. Sevilla paged a second time
--- NOTE | 2021-02-18 18:10 | NUR ---
Dr. Sevilla calls back RN reviews with MD at this time that pt. has been complaining of pain in her L lower pubic area, states to continue with current POC and medication doses. RN goes to talk with pt. and pt is sleeping, will return shortly.
[2021-02-18 20:00] VITALS: BP 111/75
--- NOTE | 2021-02-18 20:00 | NUR ---
RN walked in for assessment and to give Benadryl. Pt states she wanted RN to give the medication fast because all the other nurses do. Pt states other nurses give benadryl and morphine at the same time. RN notified pt on getting benadryl first to help with itching then wait for pain medication. RN notified pt that pain medication wasn't due till 2029. Pt states she wanted to be unconnected from the IV machine because she is peeing a lot. Pt also stated that she has been vomiting all day and can't tolerate po fluids, food, or po medication. RN educated pt on keeping fluids on because of N/V and to stay hydrated. RN brought in green emesis bag for rn to measure and collect vomit. PT states she can't puke in those bags because she can't stand to smell or see the vomit. RN notified pt that she can use as many emesis bags needed and put them in a empty trash can. PT states she isn't doing that because she has too much on her plate and she prefers to flush her vomit.
--- NOTE | 2021-02-18 23:25 | NUR ---
RN walked in to pt room for hourly rounding. Pt is in bed sleeping and snoring. RN made a noise and freighted the pt. The pt woke up and stated that she wanted her benadryl and morphine together because she is in so much pain. RN stated that benadryl won't help with pain that its meant for itching. Pt starts crying stating that she has a lot of itching and wondering when she can have both meds. RN stated benadryl isn't due till 0200 but she can have her Morphine. Pt stated that she doesn't want her morphine then because she wanted to take it with benadryl to help with her itching. Pt then changed her mind and stated she will just get morphine again with her benadryl. RN recommended maybe starting PO meds and pt states she doesn't want PO meds because she has been vomiting all night. RN has not witness or seen pt vomiting. When RN stepped out to get medication, pt was sleeping. PT had trouble staying awake while RN is giving pain medication.
[2021-02-18 23:39] VITALS: BP 111/75
[2021-02-19] MEDS: MORPHINE SULFATE 4 MG/ML INJ. IVP PRN ×4 (02:45→09:59)
[2021-02-19] MEDS: diphenhydrAMINE 50 MG/ML VIAL IVP PRN (02:46)
[2021-02-19] MEDS ORDERED: cefOXitin SODIUM IV Push 1 GM VIAL. IVP SCH ×2 (03:00→15:00)
[2021-02-19] MEDS: LORazepam 0.5 MG TABLET PO PRN (03:19)
[2021-02-19 03:30] VITALS: BP 129/83
[2021-02-19] MEDS: ONDANSETRON PF 4 MG/2 ML VIAL. IV SCH (06:15)
[2021-02-19] MEDS: IV RINGERS,LACTATED 1000ML 1,000 ML IV SCH (06:16)
--- NOTE | 2021-02-19 07:39 | NUR ---
rn at bs pt sleeping soundly with lights out snoring no signs of distress noted. pt awakened by rn for assessment and vitals. pt immediately requesting "my meds together right now" referring to morphine and benadryl admin. pt education regarding orders and medication admin process. aware of when can have next dose. pt rating pain 7/10 "its constant" rn to admin morphine
[2021-02-19 07:41] VITALS: BP 109/63
[2021-02-19] MEDS: PANTOPRAZOLE 40 MG TABLET.DR. PO SCH (07:46)
--- NOTE | 2021-02-19 08:20 | NUR ---
dr lezama on unit states has been to see pt at bs and discharge orders given. prescriptions on chart and order to comply with pt request for last morphine admin before discharge.
[2021-02-19 08:24] LABS: BASO % 1 % (0-3); EOS # 0.2 x10^3/uL (0.0-0.7); EOS % 3 % (0-3); HEMATOCRIT 40.6 % (36.0-47.0); HEMOGLOBIN 13.9 g/dL (12.0-15.5); LYMPH # 2.5 x10^3/uL (1.0-4.8); LYMPH % 35 % (24-48); MEAN CORPUSCULAR HEMOGLOBIN 31 pg (25-35); MEAN CORPUSCULAR HGB CONC 34 g/dL (31-37); MEAN CORPUSCULAR VOLUME 90 fL (79-100); MONO # 0.5 x10^3/uL (0.0-1.1); MONO % 7 % (0-9); NEUT % 55 % (31-73); PLATELET COUNT 200 x10^3/uL (140-400); RED BLOOD COUNT 4.49 x10^6/uL (3.50-5.40); RED CELL DISTRIBUTION WIDTH 12.9 % (11.5-14.5); WHITE BLOOD COUNT 7.2 x10^3/uL (4.0-11.0)
[2021-02-19 08:32] LABS: CALCIUM 8.8 mg/dL (8.5-10.1); CREATININE 0.9 mg/dL (0.6-1.0); GFR 77.6; POTASSIUM 4.1 mmol/L (3.5-5.1)
--- NOTE | 2021-02-19 08:40 | NUR ---
RN enters room to give IV antibiotics at this time, IV beeping saying occluded at this time, IV LR appears to be leaking and IV "spike" is pulled down, leaking around, appears tampered with. RN asks pt if it got pulled or anything and pt. stated "No". RN goes to flush IV and IV does not flush. Pt. anxious saying "Oh my God what am I going to do I need my next antibiotic and the said I could have Morphine and Benadryl, Im so F pissed". RN gets pt.'s nurse, Mamta EPPERSON who discusses options with pt. and that she will contact MD. This RN discontinues IV, pt. irritable and pulls dressing off herself repeating "I'm just so f pissed with this, I can't believe it, I don't know how I'm going to get home with no pain medication, I will get sick". Pt. asks this RN if she can start a new IV on her "because the other nurse looks angry and I don't want her to stick me cause I think she would hurt me on purpose". RN reassures pt. that her nurse is not angry and would not purposefully inflict pain starting an IV. Pt. continues to mumble under her breath visually irritable.
--- NOTE | 2021-02-19 08:46 | NUR ---
this rn called to bs br kim avery rn to assess pt fluids and IV. kim avery rn reports IV bag leaking onto floor upon her entry to room. flush attempted by kim avery rn IV no longer patent. pt becomes agitated and tearful stating "i need my next dose of antibiotics, this is fucked up" discussing options with pt. to assess for IV restart. pt reports will only allow IV start in left AC. upon assessment noted that site has been used multiple times for lab draws and not good site. pt refusing IV start in any other area. demands nurse "only use this vein just get a vein finder" rn x2 explain to pt at bs that if pt does not allow for IV start at another site no IV can be placed "but i need my antibiotics or Im screwed" prescriptions for home explained to pt and reassured she can take antibiotics orally as prescribed. pt seems preoccuppied with ensuring "i get my last dose" referring to morphine admin before d/c. continues to request morphine and benadryl admin together. rn reminds pt md has only given order for morphine admin upon d/c not to be given at same time as benadryl. pt agitated and continues cursing. rn to call dr lezama to receive new orders regarding medication admin. after loss of IV access
[2021-02-19] MEDS ORDERED: OXYC1TAB15 PO (08:59)
[2021-02-19] MEDS ORDERED: LORA0.5T96 PO (08:59)
--- NOTE | 2021-02-19 09:14 | NUR ---
dr lezama call to unit updated of loss of IV acces. order to change morphine route to IM and pt may be d/c home
--- NOTE | 2021-02-19 09:14 | NUR ---
dr lezama call to unit updated of loss of IV acces. order to change morphine route to IM and pt may be d/c home
[2021-02-19] MEDS ORDERED: MORPHINE SULFATE 2 MG/ML INJ. IM ONE (09:45)
[2021-02-19 09:50] VITALS: BP 116/75
--- NOTE | 2021-02-19 09:50 | NUR ---
rn at for pt d/c. vitals signs done, pt given d/c instructions and prescriptions. verbalizes understanding of instructions papers signed pt reports comfortable going home "as long as i get my next dose" pt reassured dr lezama gave orders for IM morphine admin. "i hate needles im going to freak out" rn informs pt she can decline morphine admin "but i know i need it. so just give it to me and run" morphine admin. while pt standing as preferred by pt. pt to leave ambulatory when her ride home has arrived.
--- NOTE | 2021-02-19 10:12 | NUR ---
pt now leaving unit ambulatory
--- NOTE | 2021-02-19 10:39 | PDOC ---
[employer] PROGRESS NOTE Date of Service DOS: DATE: 02/19/21 TIME: 10:31 Chief Complaint Chief Complaint CC: Pelvic pain Pelvic inflammatory disease with failure of outpatient antibiotics Asthma Anxiety Diabetes PCOS H/o prior PID History of Present Illness History of Present Illness 02/19/21 Patient seen and examined Alert and oriented, NAD Afebrile Anxious with numerous complaints Patient endorses vomiting but RN has not observed Patient endorses diarrhea which RN has not observed Patient endorses intractable pain but is sitting calmly and is frequently sleeping Frequently requests morphine, ativan, and benadryl Discussed with RN 02/18/21 Patient seen and examined Alert and in mild distress Anxious Afebrile Endorses pelvic pain Discussed with RN Vitals/I&O Vitals/I&O: Vital Signs Date Time Temp Pulse Resp B/P (MAP) Pulse Ox O2 Delivery O2 Flow Rate FiO2 02/19/21 09:59 18 Room Air 02/19/21 09:50 98.3 71 116/75 (89) 98 98.3 I & O 02/18/21 02/18/21 02/19/21 15:00 23:00 07:00 Output Total 150 ml Balance -150 ml Physical Exam Physical Exam: GENERAL: Mild distress, Alert, Anxious HEENT: PERRL, OC/OP NECK: Supple, no JVD, no LN LUNGS: Clear HEART: S1S2, no gallop, no murmur ABD: Soft, no organomegaly, no rebound, endorses pelvic pain LLQ > RLQ EXT: No edema, no cyanosis CLAY MAKER: Alert, oriented x 3, no focal neurologic deficit SKIN: No rash IV: ok General: Alert, Oriented X3, No acute distress Heart: Regular rate Lungs: Clear, Other Abdomen: Normal bowel sounds, Soft, No masses, Other (LLQ tenderness) Extremities: No clubbing, No edema Skin: No rashes, No significant lesion Labs Labs: Laboratory Tests Test 02/19/21 07:50 White Blood Count 7.2 x10^3/uL (4.0-11.0) Red Blood Count 4.49 x10^6/uL (3.50-5.40) Hemoglobin 13.9 g/dL (12.0-15.5) Hematocrit 40.6 % (36.0-47.0) Mean Corpuscular Volume 90 fL (79-100) Mean Corpuscular Hemoglobin 31 pg (25-35) Mean Corpuscular Hemoglobin Concent 34 g/dL (31-37) Red Cell Distribution Width 12.9 % (11.5-14.5) Platelet Count 200 x10^3/uL (140-400) Neutrophils (%) (Auto) 55 % (31-73) Lymphocytes (%) (Auto) 35 % (24-48) Monocytes (%) (Auto) 7 % (0-9) Eosinophils (%) (Auto) 3 % (0-3) Basophils (%) (Auto) 1 % (0-3) Neutrophils # (Auto) 4.0 x10^3/uL (1.8-7.7) Lymphocytes # (Auto) 2.5 x10^3/uL (1.0-4.8) Monocytes # (Auto) 0.5 x10^3/uL (0.0-1.1) Eosinophils # (Auto) 0.2 x10^3/uL (0.0-0.7) Basophils # (Auto) 0.0 x10^3/uL (0.0-0.2) Sodium Level 142 mmol/L (136-145) Potassium Level 4.1 mmol/L (3.5-5.1) Chloride Level 104 mmol/L (98-107) Carbon Dioxide Level 32 mmol/L (21-32) Anion Gap 6 (6-14) Blood Urea Nitrogen 9 mg/dL (7-20) Creatinine 0.9 mg/dL (0.6-1.0) Estimated GFR (Cockcroft-Gault) 77.6 Glucose Level 69 mg/dL (70-99) Calcium Level 8.8 mg/dL (8.5-10.1) Review of Systems Review of Systems: CONSTITUTIONAL: No fever or chills CARDIOVASCULAR: No chest pain, no palpitations, no chest pressure RESPIRATORY: No shortness of breath, cough GI: Endorses nausea, vomiting, diarrhea, and abdominal pain in the lower quadrants L > R NEURO: No headache, dizziness Assessment and Plan Assessmemt and Plan ASSESSMENT Pelvic inflammatory disease with failure of outpatient antibiotics Asthma Anxiety Diabetes PCOS H/o prior PID PLAN Discharge home today with PO antibiotics Pain management Anxiety management DVT prophylaxis Full code Comment Review of Relevant I have reviewed the following items leticia (where applicable) has been applied. Medications: Current Medications Medications (Trade) Dose Ordered Sig/Kaelyn Route PRN Reason Start Time Stop Time Status Last Admin Dose Admin Morphine Sulfate (Morphine Sulfate) 4 mg PRN Q2HR PRN IVP MODERATE TO SEVERE PAIN 02/18/21 12:30 02/19/21 10:17 DC 02/19/21 09:59 Cefoxitin Sodium (Mefoxin) 2 gm Q6H IVP 02/19/21 03:00 02/19/21 09:01 DC 02/19/21 03:17 Justifications for Admission Other Justification DANGELO ROBLES III DO Feb 19, 2021 10:39
--- NOTE | 2021-02-19 13:17 | DS ---
DATE OF DISCHARGE: 02/19/2021 ADMISSION DIAGNOSIS: Pelvic inflammatory disease. DISCHARGE DIAGNOSIS: Resolving pelvic inflammatory disease. CONSULTS: Aston Marie MD PROCEDURES: None. HOSPITAL COURSE: The patient is a pleasant 25-year-old female who failed outpatient therapy for her pelvic inflammatory disease. We admitted the patient, gave her IV metronidazole and IV doxycycline. Over the past few days, she has returned to her baseline. Today, I saw her and examined her. She wants to go home. We plan to discharge with p.o. antibiotics. DISPOSITION: Home. ACTIVITY: As tolerated. DIET: Low sodium. DISCHARGE MEDICATIONS: Please see the [facility]AD. P.r.n. Percocet 5 q. 4, p.r.n. Ativan 0.5 q. 6, doxycycline 100 b.i.d. and Flagyl 500 q. 6 x 1 week. Total time 31 minutes. SASHA/ROSHAN DR: Ester TID: [id number]
== END 2021-02-19 10:12 | disposition home or self-care (01) | DRG 759 ==
LOC: ER 22:33 → ED HOLD 02-17 02:20 → 3 SO LND 02-17 05:15
PROVIDERS: ADMIT Internal Medicine; ATTEND Internal Medicine
DX: N73.9 Female pelvic inflammatory disease, unspecified (principal); E11.9 Type 2 diabetes mellitus without complications; E28.2 Polycystic ovarian syndrome; F41.9 Anxiety disorder, unspecified; J45.909 Unspecified asthma, uncomplicated; Z82.49 Family history of ischemic heart disease and other diseases of the circulatory system; Z83.3 Family history of diabetes mellitus; Z87.442 Personal history of urinary calculi; Z90.49 Acquired absence of other specified parts of digestive tract; Z98.1 Arthrodesis status; Z87.440 Personal history of urinary (tract) infections; Z88.5 Allergy status to narcotic agent; Z88.8 Allergy status to other drugs, medicaments and biological substances; Z91.041 Radiographic dye allergy status; Z91.040 Latex allergy status; Z91.013 Allergy to seafood
CPT/HCPCS: 36415; 76856; 80048; 80053; 81001; 81025; 85025; 85651; 86140; 87086; 96365; 96366; 96375; J0694; J1200; J1580; J2270; J2405; J3490; J7060; J7120; 99285-25; G0378

== ENCOUNTER 2021-05-26 22:41 | Emergency (ER) | payer SELFPAY ==
[~2021-05-26] VITALS: Ht 175.3 cm; Wt 90.0 kg
[~2021-05-26 22:41] MED LIST changes: -DOXY100C2 PO; +DOXY100C3 PO; +LORA0.5T96 PO
[2021-05-27 00:28] LABS: BILIRUBIN,URINE SMALL (NEG); CLARITY,URINE CLOUDY; COLOR,URINE AMBER; NITRITE,URINE NEGATIVE (NEG); PH,URINE 6.5 (<5.0-8.0); PROTEIN,URINE NEGATIVE (NEG-TRACE); UROBILINOGEN,URINE 0.2 mg/dL (0.2 mg/dL)
--- NOTE | 2021-05-27 00:29 | PHYS DOC ---
Past Medical History Past Medical History: Anxiety, Asthma, Cystic Fibrosis, Diabetes-Type II, Kidney Stone, UTI, Additional Disease Additional Past Medical Histor: RECTAL BLEEDING, HYPERKYPHOSIS, high liver enzymes, PCOS, PID Past Surgical History: Appendectomy, Cholecystectomy, Tonsillectomy, Other Additional Past Surgical Histo: spinal fusion, LEFT ELBOW, pylonydal cyst Smoking Status: Current Every Day Smoker Alcohol Use: None Drug Use: None General Adult EDM: Chief Complaint: ABDOMINAL PAIN HPI: HPI: Patient is a 25 year old female who presents with abdominal pain that has been progressive over the past week. Right upper quadrant right flank. Radiates down towards her groin. States that it feels different than her previous kidney stone pain. Did notice hematuria starting yesterday. Has had frequent diarrhea, and chills. Has had several episodes of vomiting. No blood in her vomit, but does think that she has had blood clots in her stool. Denies dysuria, urgency, frequency. Denies vaginal bleeding or discharge. LMP sometime last month, states that she is typically inconsistent with her periods due to PCOS. Review of Systems: Review of Systems: Constitutional: Denies fever or chills. [] Eyes: Denies change in visual acuity. [] HENT: Denies nasal congestion or sore throat. [] Respiratory: Denies cough or shortness of breath. [] Cardiovascular: Denies chest pain or edema. [] GI: Reports abdominal pain, nausea, vomiting, bloody stools and diarrhea. [] : Denies dysuria. [] Musculoskeletal: Denies back pain or joint pain. [] Integument: Denies rash. [] Neurologic: Denies headache, focal weakness or sensory changes. [] Endocrine: Denies polyuria or polydipsia. [] Lymphatic: Denies swollen glands. [] Psychiatric: Denies depression or anxiety. [] Heart Score: C/O Chest Pain: No Allergies: Allergies: Allergies Coded Allergies Type Severity Reaction Last Updated Verified Fish Containing Products Allergy Intermediate Rash 11/08/18 Yes coconut oil Allergy Intermediate 11/08/18 Yes iodine Allergy Intermediate Rash 02/13/21 Yes ketorolac Allergy Intermediate Rash 11/08/18 Yes latex Allergy Intermediate Rash 11/08/18 Yes mite-Dermatophagoides farinae, demetra Allergy Intermediate 02/13/21 Yes mold Allergy Intermediate 11/08/18 Yes tramadol Allergy Intermediate RASH/ITCHING 11/08/18 Yes shellfish derived Adverse Reaction Intermediate 11/08/18 Yes prednisone Adverse Reaction Mild N/V 01/03/21 Yes Physical Exam: PE: Constitutional: Appears uncomfortable, moving very slowly. HENT: Normocephalic, atraumatic Eyes: conjunctiva normal, no discharge. [] Neck: Normal range of motion, no tenderness, supple, no stridor. [] Cardiovascular: Mild tachycardia, Lungs & Thorax: Normal work of breathing Abdomen: Severe right upper quadrant tenderness with guarding. No rebound. No rigidity. Also right lower quadrant tenderness is present but less prominent. Skin: Warm, dry, no erythema, no rash. [] Back: No tenderness, + CVA ttp Extremities: No tenderness, no cyanosis, no clubbing, ROM intact, no edema. [] Neurologic: Alert and oriented X 3, normal motor function, normal sensory function, no focal deficits noted. [] Psychologic: Pressured speech. Judgement normal, mood normal. [] EKG: EKG: [] Radiology/Procedures: Radiology/Procedures: [] Impression: [facility] [address] [place] [address] IMAGING REPORT Signed PATIENT: IRAJ MONET RACCOUNT: [id number] : 1995 LOCATION: ER AGE: 25 SEX: F EXAM STATUS: REG ER ORD. PHYSICIAN: NAOMI HEATH MD REASON: acute pain, RUQ, R flank PROCEDURE: CT ABDOMEN PELVIS WO CONTRAST EXAMINATION: CT ABDOMEN+PELVIS WO CLINICAL HISTORY: Acute right upper quadrant/right flank pain TECHNIQUE: Imaging of the abdomen and pelvis was performed without intravenous contrast using standard technique, scanning from just above the dome of the diaphragm to the symphysis pubis. Unenhanced imaging is limited for the evaluation of some intra-abdominal and pelvic pathology. CT Dose Reduction Employed: One or more of the following individualized dose reduction techniques were utilized for this examination: 1. Automated exposure control 2. Adjustment of the mA and/or kV according to patient size 3. Use of iterative reconstruction technique. COMPARISON: CT pelvis 02/13/2021, CT abdomen/pelvis 12/28/2019 FINDINGS: Prominent streak artifact related to extensive spinal hardware somewhat limits evaluation. Visualized heart and lungs unremarkable. Diffuse hypoattenuation of the hepatic parenchyma, compatible with steatosis. Cholecystectomy. Pancreas, spleen, and adrenal glands unremarkable. Unenhanced kidneys unremarkable on limited evaluation. No definitively visualized urinary calculi or evidence of obstructive uropathy. Nondiagnostic evaluation of the nondistended urinary bladder. Stable appearance of the uterus and ovaries. No dilated bowel. Appendectomy. No abdominal aortic or iliac artery aneurysm. Partially visualized thoracolumbar samantha and screw fixation hardware. IMPRESSION: No evidence of acute abdominopelvic abnormality. No definitively visualized urolithiasis or evidence of obstructive uropathy. Hepatic steatosis. Electronically signed by: Tay Clark DO (05/27/2021 1:24 AM) [facility] DICTATED and SIGNED BY: TAY CLARK DO DATE: 05/27/21 [id number] Course & Med Decision Making: Course & Med Decision Making Pertinent Labs and Imaging studies reviewed. (See chart for details) Patient is 25-year-old female who presents with several days of right upper quadrant right flank pain. On arrival appears very uncomfortable, mildly tachycardic. Has significant RUQ tenderness to palpation as well as right CVA tenderness. Associated symptoms of N/V, diarrhea, hematuria. Ddx includes but is not limited to pyelonpehritis, kidney stone, infected stone, common bile duct stone/obstruction, pancreatitis, colitis. We will obtain work-up including CT abdomen/pelvis (without contrast due to iodine allergy), UA, urine , CBC, CMP, lipase. We will give fluids, antiemetics, analgesics. 1229 CT without acute process. CMP with mild transaminitis. UA grossly infected. Culture sent. Will give Rx for Cefdinir, zofran. Dragon Disclaimer: Dragon Disclaimer: This electronic medical record was generated, in whole or in part, using a voice recognition dictation system. Departure Departure Impression: Primary Impression: Pyelonephritis Additional Impression: Transaminitis Disposition: HOME / SELF CARE / HOMELESS Condition: STABLE Referrals: NO PCP (PCP) Patient Instructions: Pyelonephritis, Adult Additional Instructions: Please take full course of antibiotics as prescribed. You can take Zofran for nausea 4 mg every 4-6 hours. You can also try Benadryl [id number] 25-50 mg every 6 hours. This will make you drowsy so please do not take Benadryl if you are doing anything that requires focus including operating machinery/vehicles. You also had slight elevation in your liver enzymes, the had been seen before. This may be related to fatty deposits in your liver. These can typically get better with diet, exercise, and reducing alcohol intake. They will be important that you follow-up with a primary care doctor. If you do not have a PCP, please call the number for the [facility] at [phone]. Scripts Ondansetron Hcl (ZOFRAN) 4 Mg Tablet 1 TAB PO PRN Q6-8HRS for nausea, #20 TAB 0 Refills Prov: NAOMI HEATH MD 05/27/21 Cefdinir (CEFDINIR) 300 Mg Capsule 1 CAP PO BID for 10 Days, #20 CAP 0 Refills Prov: NAOMI HEATH MD 05/27/21 NAOMI HEATH MD May 27, 2021 00:29
[2021-05-27] MEDS ORDERED: MORPHINE SULFATE 4 MG/ML INJ. IVP ONE ×2 (00:30→03:00)
[2021-05-27] MEDS ORDERED: ONDANSETRON PF 4 MG/2 ML VIAL. IVP ONE ×2 (00:30→02:00)
[2021-05-27] MEDS ORDERED: IV NORMAL SALINE 1000ML BAG 1,000 ML IV ONE (00:30)
[2021-05-27 00:35] LABS: U PREG PATIENT NEGATIVE (NEG)
[2021-05-27 00:39] LABS: AMORPHOUS SEDIMENT,UR PRESENT /HPF; BACTERIA,URINE MOD /HPF (0-FEW); RBC,URINE OCC /HPF (0-2)
[2021-05-27 00:42] LABS: BASO # 0.1 x10^3/uL (0.0-0.2); BASO % 1 % (0-3); EOS # 0.2 x10^3/uL (0.0-0.7); EOS % 2 % (0-3); HEMATOCRIT 46.2 % (36.0-47.0); HEMOGLOBIN 16.3 g/dL (12.0-15.5); LYMPH # 2.6 x10^3/uL (1.0-4.8); LYMPH % 30 % (24-48); MEAN CORPUSCULAR HEMOGLOBIN 32 pg (25-35); MEAN CORPUSCULAR HGB CONC 35 g/dL (31-37); MEAN CORPUSCULAR VOLUME 90 fL (79-100); MONO # 0.6 x10^3/uL (0.0-1.1); MONO % 7 % (0-9); NEUT # 5.3 x10^3/uL (1.8-7.7); NEUT % 61 % (31-73); PLATELET COUNT 272 x10^3/uL (140-400); RED BLOOD COUNT 5.14 x10^6/uL (3.50-5.40); RED CELL DISTRIBUTION WIDTH 14.8 % (11.5-14.5); WHITE BLOOD COUNT 8.7 x10^3/uL (4.0-11.0)
[2021-05-27 00:49] LABS: CALCIUM 8.7 mg/dL (8.5-10.1); GFR 68.7; POTASSIUM 3.4 mmol/L (3.5-5.1)
[2021-05-27 00:55] LABS: ALBUMIN 3.7 g/dL (3.4-5.0); ALBUMIN/GLOBULIN RATIO 0.9 (1.0-1.7); TOTAL BILIRUBIN 0.6 mg/dL (0.2-1.0); TOTAL PROTEIN 7.9 g/dL (6.4-8.2)
--- NOTE | 2021-05-27 01:27 | RAD ---
EXAMINATION: CT ABDOMEN+PELVIS WO CLINICAL HISTORY: Acute right upper quadrant/right flank pain TECHNIQUE: Imaging of the abdomen and pelvis was performed without intravenous contrast using standar d technique, scanning from just above the dome of the diaphragm to the symphysis pubis. Unenhanced i maging is limited for the evaluation of some intra-abdominal and pelvic pathology. CT Dose Reduction Employed: One or more of the following individualized dose reduction techniques wer e utilized for this examination: 1. Automated exposure control 2. Adjustment of the mA and/or kV ac cording to patient size 3. Use of iterative reconstruction technique. COMPARISON: CT pelvis 02/13/2021, CT abdomen/pelvis 12/28/2019 FINDINGS: Prominent streak artifact related to extensive spinal hardware somewhat limits evaluation. Visualized heart and lungs unremarkable. Diffuse hypoattenuation of the hepatic parenchyma, compatible with steatosis. Cholecystectomy. Pancre as, spleen, and adrenal glands unremarkable. Unenhanced kidneys unremarkable on limited evaluation. No definitively visualized urinary calculi or evidence of obstructive uropathy. Nondiagnostic evaluation of the nondistended urinary bladder. Stable appearance of the uterus and ova alex. No dilated bowel. Appendectomy. No abdominal aortic or iliac artery aneurysm. Partially visualized thoracolumbar samantha and screw fixation hardware. IMPRESSION: No evidence of acute abdominopelvic abnormality. No definitively visualized urolithiasis or evidence of obstructive uropathy. Hepatic steatosis. Electronically signed by: Lamine Cao DO (05/27/2021 1:24 AM) [facility]
[2021-05-27] MEDS ORDERED: CEFD300C PO (01:52)
[2021-05-27] MEDS ORDERED: ONDA4TAB7 PO (01:52)
[2021-05-27] MEDS ORDERED: diphenhydrAMINE 50 MG/ML VIAL IVP ONE (02:00)
[2021-05-27] MEDS ORDERED: CEFDINIR 300 MG CAPSULE PO SCH (02:00)
[2021-05-27 03:00] VITALS: BP 126/78
== END 2021-05-27 03:00 | disposition home or self-care (01) ==
LOC: ER 22:41
DX: N12 Tubulo-interstitial nephritis, not specified as acute or chronic (principal); R74.01 Elevation of levels of liver transaminase levels; J45.909 Unspecified asthma, uncomplicated; E11.9 Type 2 diabetes mellitus without complications; F17.200 Nicotine dependence, unspecified, uncomplicated; Z90.89 Acquired absence of other organs; Z90.49 Acquired absence of other specified parts of digestive tract; Z87.442 Personal history of urinary calculi; Z88.6 Allergy status to analgesic agent; Z91.013 Allergy to seafood; Z91.040 Latex allergy status; Z88.5 Allergy status to narcotic agent; Z88.8 Allergy status to other drugs, medicaments and biological substances
CPT/HCPCS: 36415; 74176; 80053; 81001; 81025; 83690; 85025; 87086; 96361; 96374; 96375; 96376; 99285; J1200; J2270; J2405; J7030

== ENCOUNTER 2021-06-05 06:51 | Inpatient (IN) | payer SELFPAY ==
[~2021-06-05] VITALS: Ht 172.7 cm; Wt 106.0 kg
[~2021-06-05 06:51] MED LIST changes: +CEFD300C PO
[2021-06-05] MEDS ORDERED: MORPHINE SULFATE 4 MG/ML INJ. ONE (07:54)
[2021-06-05] MEDS ORDERED: ONDANSETRON PF 4 MG/2 ML VIAL. ONE (07:54)
--- NOTE | 2021-06-05 07:57 | PHYS DOC ---
Past Medical History Past Medical History: Anxiety, Asthma, Cystic Fibrosis, Diabetes-Type II, Kidney Stone, UTI, Additional Disease Additional Past Medical Histor: PCOS Past Surgical History: Appendectomy, Cholecystectomy Additional Past Surgical Histo: spinal fusion Smoking Status: Never Smoker Alcohol Use: None Drug Use: None General Adult EDM: Chief Complaint: FLANK PAIN HPI: HPI: Patient is a 25-year-old female complaining of generalized abdominal pain. Has significant medical history for age, states she has history of PCOS, insulin- dependent type 2 diabetes, numerous kidney stones, and several abdominal surgeries such as gallbladder and appendix removal. States she has had generalized abdominal pain for past 2 weeks. She was initially seen at our facility near symptom onset was diagnosed with a UTI. She took all of her prescribed antibiotics but when her symptoms did not go away, she sought a local urgent care who subsequently wrote additional antibiotics. She is been taking these for the past x1 week without any improvement in her symptoms prompting her to come in today. Complaining of generalized abdominal pain that is worse on th e right side with radiation down to her groin. Nothing known makes better, p.o. intake makes worse. Pain is dull and often radiates to her groin, reports it is severe in nature. Despite her history of prior gallbladder and appendix and numerous kidney stones, states this pain is excruciating and different in nature to all of those prior episodes. Review of Systems: Review of Systems: Fourteen body systems of review of systems have been reviewed. See HPI for pertinent positives and negative responses, other soto all other systems are negative, non-pertinent or non-contributory Heart Score: C/O Chest Pain: No Risk Factors: Risk Factors: DM, Current or recent (<one month) smoker, HTN, HLP, family history of CAD, obesity. Risk Scores: Score 0 - 3: 2.5% MACE over next 6 weeks - Discharge Home Score 4 - 6: 20.3% MACE over next 6 weeks - Admit for Clinical Observation Score 7 - 10: 72.7% MACE over next 6 weeks - Early Invasive Strategies Allergies: Allergies: Allergies Coded Allergies Type Severity Reaction Last Updated Verified promethazine Allergy Severe 05/27/21 Yes Fish Containing Products Allergy Intermediate Rash 11/08/18 Yes coconut oil Allergy Intermediate 11/08/18 Yes iodine Allergy Intermediate Rash 02/13/21 Yes ketorolac Allergy Intermediate Rash 11/08/18 Yes latex Allergy Intermediate Rash 11/08/18 Yes mite-Dermatophagoides farinae, demetra Allergy Intermediate 02/13/21 Yes mold Allergy Intermediate 11/08/18 Yes tramadol Allergy Intermediate RASH/ITCHING 11/08/18 Yes fentanyl Allergy Unknown Unknown 05/27/21 Yes shellfish derived Adverse Reaction Intermediate 11/08/18 Yes prednisone Adverse Reaction Mild N/V 01/03/21 Yes Physical Exam: PE: Constitutional: Well developed, well nourished, age-appropriate in moderate distress due to pain but overall nontoxic in appearance HENT: Normocephalic, atraumatic, bilateral external ears normal, oropharynx moist, no oral exudates, nose normal. Left earlobe slightly enlarged and erythematous around ear piercing Eyes: PERRLA, EOMI, conjunctiva normal, no discharge. Neck: Normal range of motion, no tenderness, supple, no stridor. No meningeal signs or nuchal rigidity. Patient does have left anterior cervical lymphadenopathy Cardiovascular: Heart rate regular, sinus rhythm, no murmurs rubs or gallops Lungs & Thorax: Bilateral breath sounds clear to auscultation Abdomen: Bowel sounds normal, soft, generalized tenderness worse in right upper and right lower quadrants to palpation, guarding present without rebound, no masses, no pulsatile masses. Nonsurgical abdomen, no peritoneal signs Skin: Warm, dry, no erythema, no rash. Back: No tenderness, right CVA tenderness. Midline scar well-healed from cervical down to lumbar area from prior spinal surgery Extremities: No tenderness, no cyanosis, no clubbing, ROM intact, no edema. Neurologic: Alert and oriented X 3, grossly normal motor & sensory function, no focal deficits noted. Psychologic: Tearful affect, anxious mood Current Patient Data: Labs: Laboratory Tests Test 06/05/21 07:18 06/05/21 07:35 Urine Collection Type Unknown Urine Color Sawyer Urine Clarity Cloudy Urine pH 6.5 Urine Specific Valmy 1.025 Urine Protein 30 mg/dL Urine Glucose (UA) Negative mg/dL Urine Ketones (Stick) Trace mg/dL Urine Blood Large Urine Nitrite Positive Urine Bilirubin Small Urine Urobilinogen Dipstick 1.0 mg/dL Urine Leukocyte Esterase Moderate Urine RBC 20-40 /HPF Urine WBC 11-20 /HPF Urine Squamous Epithelial Cells Mod /LPF Urine Bacteria Moderate /HPF Urine Mucus Mod /LPF Urine Opiates Screen Neg Urine Methadone Screen Neg Urine Barbiturates Neg Urine Phencyclidine Screen Neg Urine Amphetamine/Methamphetamine Pos Urine Benzodiazepines Screen Neg Urine Cocaine Screen Neg Urine Cannabinoids Screen Neg Urine Ethyl Alcohol Neg White Blood Count 8.4 x10^3/uL Red Blood Count 4.89 x10^6/uL Hemoglobin 15.8 g/dL Hematocrit 44.0 % Mean Corpuscular Volume 90 fL Mean Corpuscular Hemoglobin 32 pg Mean Corpuscular Hemoglobin Concent 36 g/dL Red Cell Distribution Width 14.8 % Platelet Count 251 x10^3/uL Neutrophils (%) (Auto) 64 % Lymphocytes (%) (Auto) 27 % Monocytes (%) (Auto) 7 % Eosinophils (%) (Auto) 1 % Basophils (%) (Auto) 1 % Neutrophils # (Auto) 5.4 x10^3/uL Lymphocytes # (Auto) 2.2 x10^3/uL Monocytes # (Auto) 0.6 x10^3/uL Eosinophils # (Auto) 0.1 x10^3/uL Basophils # (Auto) 0.1 x10^3/uL Sodium Level 136 mmol/L Potassium Level 3.0 mmol/L Chloride Level 99 mmol/L Carbon Dioxide Level 30 mmol/L Anion Gap 7 Blood Urea Nitrogen 9 mg/dL Creatinine 0.9 mg/dL Estimated GFR (Cockcroft-Gault) 77.6 BUN/Creatinine Ratio 10 Glucose Level 92 mg/dL Calcium Level 9.6 mg/dL Total Bilirubin 1.3 mg/dL Aspartate Amino Transf (AST/SGOT) 136 U/L Alanine Aminotransferase (ALT/SGPT) 190 U/L Alkaline Phosphatase 169 U/L Total Protein 8.0 g/dL Albumin 3.8 g/dL Albumin/Globulin Ratio 0.9 Lipase 51 U/L Current Medications Medications (Trade) Dose Ordered Sig/Kaelyn Route PRN Reason Start Time Stop Time Status Last Admin Dose Admin Sodium Chloride 1,000 ml @ 1,000 mls/hr Q1H IV 06/05/21 08:00 06/05/21 08:59 06/05/21 07:58 Ondansetron HCl (Zofran) 4 mg 1X ONCE IVP 06/05/21 08:00 06/05/21 08:05 DC 06/05/21 07:57 Morphine Sulfate (Morphine Sulfate) 4 mg 1X ONCE IVP 06/05/21 08:00 06/05/21 08:05 DC 06/05/21 07:58 Ondansetron HCl (Zofran) 4 mg STK-MED ONCE .ROUTE 06/05/21 07:54 06/05/21 07:54 DC Morphine Sulfate (Morphine Sulfate) 4 mg STK-MED ONCE .ROUTE 06/05/21 07:54 06/05/21 07:55 DC Vital Signs: Vital Signs Date Time Temp Pulse Resp B/P (MAP) Pulse Ox O2 Delivery O2 Flow Rate FiO2 06/05/21 07:58 18 99 Room Air 06/05/21 08:01 98.4 103 153/95 (114) 98.4 Vital Signs Date Time Temp Pulse Resp B/P (MAP) Pulse Ox O2 Delivery O2 Flow Rate FiO2 06/05/21 08:01 98.4 103 26 153/95 (114) 97 Room Air 98.4 EKG: EKG: [] Radiology/Procedures: Radiology/Procedures: Single view of the chest. 06/05/2021 8:12 AM Indication: Reason: right flank pain / Spl. Instructions: / History: Comparison: Chest radiograph May 13, 2020 Findings: There is no focal consolidation. There is no pleural effusion or pne umothorax. Heart size is normal.. Spinal hardware is again noted. No acute osseous abnormalities are seen. Impression: No evidence of acute cardiopulmonary process. Electronically signed by: See Hurtado MD (06/05/2021 8:34 AM) [id number] /////////////////////////////////////////////////////// CT abdomen/pelvis without contrast 06/05/2021 8:02 AM INDICATION: Right-sided abdominal pain COMPARISON: CT abdomen/pelvis 05/27/2021 TECHNIQUE: Multiple axial CT images of the abdomen and pelvis were obtained without intravenous contrast. Coronal and sagittal reformats are provided. FINDINGS: Lung bases are clear. Heart size within normal limits. Evaluation of the solid abdominal viscera is limited by lack of intravenous contrast. Evaluation of the abdomen is limited by streak artifact from extensive thoracolumbar hardware. Mild hepatic steatosis. Gallbladder surgically absent. Spleen is borderline in size measuring 13.0 cm in oblique craniocaudal dimension. Adrenal glands are normal in appearance. Pancreas is normal. The kidneys are relatively symmetric in appearance. There is no suspicious renal mass within the limitations of a noncontrast examination. There is no hydronephrosis. There are no calculi within the kidneys, ureters or urinary bladder. Small and large bowel are normal in caliber. There is no evidence for bowel obstruction. There are no pericolonic inflammatory changes. Appendix appears surgically absent. Sutural calcification identified in the region of the appendix. Urinary bladder is within normal limits given degree of distention. Tampon is present. Follicular changes are identified the adnexa bilaterally. No suspicious osseous abnormality is identified. Posterior fusion hardware identified from T9 through L3 with bilateral pedicle screws and dual rods. Rods extend medially beyond the T6 vertebral level without pedicle screws from T6 through T8. IMPRESSION: No acute abnormality identified in abdomen and pelvis within limitations of noncontrast examination and extensive streak artifact from thoracolumbar hardware. Tampon is present. Follicular changes are identified in the adnexa bilaterally. Electronically signed by: Ирина Yoo MD (06/05/2021 8:40 AM) [id number] Course & Med Decision Making: Course & Med Decision Making ABCs unremarkable HPI physical exam and comprehensive ER work-up concerning for pyelonephritis based on infectious UA and physical exam findings. Patient diagnosed with UTI approximately 8 days prior to our facility and has been unable to tolerate cefdinir and subsequent p.o. intake IV fluids, morphine and Zofran administered while in ER setting with minimal improvement in symptoms, she reports ongoing intractable nausea and dry heaving. There is concern of her being discharged home for outpatient treatment of her condition given that she recently failed treatment in outpatient setting I did disclose her ongoing drug abuse might be contributory to ongoing abdominal issues, cessation advised. 40 mEq potassium administered for hypokalemia. 1 g IV Rocephin administered for UTI based on prior urine culture Joint decision made to admit patient for IV antibiotics and continued inpatient medical management. Hospitalist contacted and case discussed, patient accepted under the care of Dr. Barboza I disclosed entirety of all findings with patient and proposed plan of care that included hospital admission for which she was amenable. All questions and concerns addressed prior to hospital admission Romelia Disclaimer: Romelia Disclaimer: This electronic medical record was generated, in whole or in part, using a voice recognition dictation system. Departure Departure Impression: Primary Impression: Pyelonephritis Additional Impressions: Hypokalemia Drug abuse Transaminitis Disposition: ADMITTED INPATIENT Admitting Physician: PROSPER (dr barboza) Referrals: NO PCP (PCP) MERY MARCOS DO Jun 05, 2021 07:57
[2021-06-05] MEDS ORDERED: IV NORMAL SALINE 1000ML BAG 1,000 ML IV SCH (08:00)
[2021-06-05] MEDS ORDERED: ONDANSETRON PF 4 MG/2 ML VIAL. IVP ONE (08:00)
[2021-06-05] MEDS ORDERED: MORPHINE SULFATE 4 MG/ML INJ. IVP ONE (08:00)
[2021-06-05 08:02] LABS: BILIRUBIN,URINE SMALL (NEG); CLARITY,URINE CLOUDY; COLOR,URINE ORANGE; NITRITE,URINE POSITIVE (NEG); PH,URINE 6.5 (<5.0-8.0); PROTEIN,URINE 30 mg/dL (NEG-TRACE)
[2021-06-05 08:07] LABS: BACTERIA,URINE MODERATE /HPF (0-FEW); RBC,URINE 20-40 /HPF (0-2)
[2021-06-05 08:21] LABS: ALBUMIN 3.8 g/dL (3.4-5.0); ALBUMIN/GLOBULIN RATIO 0.9 (1.0-1.7); CALCIUM 9.6 mg/dL (8.5-10.1); CREATININE 0.9 mg/dL (0.6-1.0); GFR 77.6; TOTAL BILIRUBIN 1.3 mg/dL (0.2-1.0)
[2021-06-05 08:23] LABS: BARBITURATES NEG (NEG); BENZODIAZEPINES NEG (NEG); CANNABINOIDS NEG (NEG); COCAINE NEG (NEG); METHADONE NEG (NEG); OPIATES NEG (NEG); PHENCYCLIDINE NEG (NEG)
[2021-06-05 08:25] LABS: AMPHETAMINE/METHAMPHETAMINE POS (NEG)
[2021-06-05 08:29] LABS: BASO # 0.1 x10^3/uL (0.0-0.2); BASO % 1 % (0-3); EOS # 0.1 x10^3/uL (0.0-0.7); EOS % 1 % (0-3); HEMOGLOBIN 15.8 g/dL (12.0-15.5); LYMPH # 2.2 x10^3/uL (1.0-4.8); LYMPH % 27 % (24-48); MEAN CORPUSCULAR HEMOGLOBIN 32 pg (25-35); MEAN CORPUSCULAR HGB CONC 36 g/dL (31-37); MEAN CORPUSCULAR VOLUME 90 fL (79-100); MONO # 0.6 x10^3/uL (0.0-1.1); MONO % 7 % (0-9); NEUT # 5.4 x10^3/uL (1.8-7.7); NEUT % 64 % (31-73); PLATELET COUNT 251 x10^3/uL (140-400); RED BLOOD COUNT 4.89 x10^6/uL (3.50-5.40); RED CELL DISTRIBUTION WIDTH 14.8 % (11.5-14.5); WHITE BLOOD COUNT 8.4 x10^3/uL (4.0-11.0)
--- NOTE | 2021-06-05 08:37 | RAD ---
Single view of the chest. 06/05/2021 8:12 AM Indication: Reason: right flank pain / Spl. Instructions: / History: Comparison: Chest radiograph May 13, 2020 Findings: There is no focal consolidation. There is no pleural effusion or pneumothorax. Heart size i s normal.. Spinal hardware is again noted. No acute osseous abnormalities are seen. Impression: No evidence of acute cardiopulmonary process. Electronically signed by: See Hurtado MD (06/05/2021 8:34 AM) [id number]
--- NOTE | 2021-06-05 08:42 | RAD ---
PQRS Compliance Statement: One or more of the following individualized dose reduction techniques were utilized for this examinat ion: 1. Automated exposure control 2. Adjustment of the mA and/or kV according to patient size 3. Use of iterative reconstruction technique CT abdomen/pelvis without contrast 06/05/2021 8:02 AM INDICATION: Right-sided abdominal pain COMPARISON: CT abdomen/pelvis 05/27/2021 TECHNIQUE: Multiple axial CT images of the abdomen and pelvis were obtained without intravenous contr ast. Coronal and sagittal reformats are provided. FINDINGS: Lung bases are clear. Heart size within normal limits. Evaluation of the solid abdominal vi scera is limited by lack of intravenous contrast. Evaluation of the abdomen is limited by streak niyah fact from extensive thoracolumbar hardware. Mild hepatic steatosis. Gallbladder surgically absent. Sp ashley is borderline in size measuring 13.0 cm in oblique craniocaudal dimension. Adrenal glands are no rmal in appearance. Pancreas is normal. The kidneys are relatively symmetric in appearance. There is no suspicious renal mass within the limitations of a noncontrast examination. There is no hydronephro sis. There are no calculi within the kidneys, ureters or urinary bladder. Small and large bowel are n ormal in caliber. There is no evidence for bowel obstruction. There are no pericolonic inflammatory c hanges. Appendix appears surgically absent. Sutural calcification identified in the region of the regan endix. Urinary bladder is within normal limits given degree of distention. Tampon is present. Follicular leo nges are identified the adnexa bilaterally. No suspicious osseous abnormality is identified. Posterio r fusion hardware identified from T9 through L3 with bilateral pedicle screws and dual rods. Rods ext end medially beyond the T6 vertebral level without pedicle screws from T6 through T8. IMPRESSION: No acute abnormality identified in abdomen and pelvis within limitations of noncontrast examination a nd extensive streak artifact from thoracolumbar hardware. Tampon is present. Follicular changes are identified in the adnexa bilaterally. Electronically signed by: Ирина Yoo MD (06/05/2021 8:40 AM) [id number]
[2021-06-05] MEDS ORDERED: POTASSIUM CHLORIDE 20 MEQ TABLET.ER. PO ONE (09:00)
[2021-06-05] MEDS ORDERED: cefTRIAXone IV Push 1 GM VIAL. IVP ONE (09:00)
[2021-06-05] MEDS ORDERED: NITROGLYCERIN SUBLINGUAL 0.4 MG BOTTLE OF 25. SL PRN (09:15)
[2021-06-05] MEDS ORDERED: ACETAMINOPHEN 325 MG TABLET. PO PRN (09:15)
[2021-06-05] MEDS ORDERED: diphenhydrAMINE 50 MG/ML VIAL IVP ONE (09:45)
[2021-06-05] MEDS ORDERED: oxyCODONE/APAP 5/325 1 TAB TABLET PO PRN (12:15)
[2021-06-05] MEDS ORDERED: fentaNYL PF VIAL 100 MCG/2 ML VIAL IVP PRN (12:45)
[2021-06-05 12:48] VITALS: BP 102/57
--- NOTE | 2021-06-05 12:54 | PDOC1 ---
History and Physical Date of Admission Date of Admission DATE: 06/05/21 TIME: 12:45 Source Source: Chart review, Patient History of Present Illness History of Present Illness Sofy is a 25-year-old female complaining of generalized abdominal pain. Mult prior abd surgeries, she is very upset about being covid tested and isolated and complains of extreme anxiety. She intially told me that she didnt want to talk to me, but then opened up a little. Prior mult abd surgies, HX PCOS, insulin-dependent type 2 diabetes, numerous kidney stones, and gallbladder and appendix removal. marked worse pain for 2 weeks. was given PO abx here in the ER a week ago and was unable to complete, has severe abdpain and nausea and vomting. She refuses PO meds as she feels she will vomit and that her abd pain worse. Complaining of generalized abdominal pain that is worse on the right side with radiation down to her groin. Past Medical History Pulmonary: Bronchitis GI: Other Psych: Anxiety Endocrine: No pertinent hx Past Surgical History Past Surgical History: Appendectomy, Cholecystectomy Family History Family History: Hypertension Social History ALCOHOL: rare Drugs: Other (reports none, urine meth pos) Current Problem List Problem List Problems Medical Problems: (1) Drug abuse Status: Acute (2) Hypokalemia Status: Acute (3) Pyelonephritis Status: Acute (4) Transaminitis Status: Acute Current Medications Current Medications Current Medications Sodium Chloride 1,000 ml @ 1,000 mls/hr Q1H IV Last administered on 06/05/21at 07:58; Start 06/05/21 at 08:00; Stop 06/05/21 at 08:59; Status DC Ondansetron HCl (Zofran) 4 mg 1X ONCE IVP Last administered on 06/05/21at 07:57; Start 06/05/21 at 08:00; Stop 06/05/21 at 08:05; Status DC Morphine Sulfate (Morphine Sulfate) 4 mg 1X ONCE IVP Last administered on 06/05/21at 07:58; Start 06/05/21 at 08:00; Stop 06/05/21 at 08:05; Status DC Ondansetron HCl (Zofran) 4 mg STK-MED ONCE .ROUTE ; Start 06/05/21 at 07:54; Stop 06/05/21 at 07:54; Status DC Morphine Sulfate (Morphine Sulfate) 4 mg STK-MED ONCE .ROUTE ; Start 06/05/21 at 07:54; Stop 06/05/21 at 07:55; Status DC Ceftriaxone Sodium (Rocephin) 1 gm 1X ONCE IVP Last administered on 06/05/21at 09:57; Start 06/05/21 at 09:00; Stop 06/05/21 at 09:04; Status DC Potassium Chloride (Klor-Con) 40 meq 1X ONCE PO Last administered on 06/05/21at 09:59; Start 06/05/21 at 09:00; Stop 06/05/21 at 09:04; Status DC Acetaminophen (Tylenol) 650 mg PRN Q4HRS PRN PO FEVER > 100.3'F; Start 06/05/21 at 09:15; Stop 06/06/21 at 09:14 Nitroglycerin (Nitrostat) 0.4 mg PRN Q5MIN PRN SL CHEST PAIN; Start 06/05/21 at 09:15; Stop 06/06/21 at 09:14 Diphenhydramine HCl (Benadryl) 25 mg 1X ONCE IVP Last administered on 06/05/21at 09:47; Start 06/05/21 at 09:45; Stop 06/05/21 at 09:46; Status DC Lorazepam (Ativan Inj) 2 mg PRN Q4HRS PRN IVP ANXIETY / AGITATION Last administered on 06/05/21at 12:28; Start 06/05/21 at 12:15 Oxycodone/ Acetaminophen (Percocet 5/325) 1 tab PRN Q4HRS PRN PO PAIN; Start 06/05/21 at 12:15 Fentanyl Citrate (Fentanyl 2ml Vial) 50 mcg PRN Q2HR PRN IVP PAIN; Start 06/05/21 at 12:45 Potassium Chloride/Dextrose/ Sod Cl 1,000 ml @ 100 mls/hr Q10H IV ; Start 06/05/21 at 13:00 Magnesium Sulfate 50 ml @ 25 mls/hr 1X ONCE IV ; Start 06/05/21 at 13:00; Stop 06/05/21 at 14:59 Active Scripts Active Zofran (Ondansetron Hcl) 4 Mg Tablet 1 Tab PO PRN Q6-8HRS Cefdinir 300 Mg Capsule 1 Cap PO BID 10 Days Percocet 5-325 Mg Tablet (Oxycodone/Acetaminophen) 1 Each Tablet 1 Tab PO PRN TID PRN MDD 3 Tablet(s) 5 Days Ativan (Lorazepam) 0.5 Mg Tablet 0.5 Mg PO PRN Q4HRS PRN 10 Days Keflex (Cephalexin) 500 Mg Capsule 1 Cap PO BID Flagyl (Metronidazole) 500 Mg Tablet 1 Tab PO BID Percocet 5-325 Mg Tablet (Oxycodone/Acetaminophen) 1 Each Tablet 1 Tab PO PRN Q6HRS PRN Doxycycline Hyclate 100 Mg Capsule 1 Cap PO BID 14 Days Flagyl (Metronidazole) 500 Mg Tablet 1 Tab PO BID Anaprox Ds (Naproxen Sodium) 550 Mg Tablet 1 Tab PO PRN BID PRN 15 Days Doxycycline Hyclate 100 Mg Capsule 1 Cap PO BID Flagyl (Metronidazole) 500 Mg Tablet 1 Tab PO BID Zofran (Ondansetron Hcl) 4 Mg Tablet 4 Mg PO PRN TID PRN nausea/vomiting [place] 5-325 Tablet (Acetaminophen/Hydrocodone Bitart) 1 Each Tablet 1 Tab PO Q6HRS Gabapentin 600 Mg Tablet 600 Mg PO TID Mupirocin Ointment (Mupirocin) 22 Gm Oint...g. 1 Aditya TP TID Cephalexin 500 Mg Tablet 1 Tab PO TID Mucinex (Guaifenesin) 600 Mg Tablet.er 1,200 Mg PO BID 10 Days Montelukast Sodium Tablet (Montelukast Sodium) 10 Mg Tablet 10 Mg PO QHS Budesonide 0.5 Mg/2 Ml Ampul.neb 0.5 Mg NEB RTBID 30 Days Hydrocodone-Apap 5-325 (Hydrocodone Bit/Acetaminophen) 1 Tab Tablet 1 Tab PO PRN Q4HRS PRN [Nicotine 21MG] 1 PATCH Patch 1 Patch TD DAILY Doxycycline Hyclate 100 Mg Tablet 100 Mg PO BID 7 Days Cetirizine Hcl 10 Mg Tablet 10 Mg PO DAILY Proair Hfa Inhaler (Albuterol Sulfate) 8.5 Gm Hfa.aer.ad 1 Puff INH PRN Q6HRS PRN Reported Cymbalta (Duloxetine Hcl) 30 Mg Capsule.dr 1 Cap PO DAILY Allergies Allergies: Coded Allergies: promethazine (Verified Allergy, Severe, 05/27/21) Fish Containing Products (Verified Allergy, Intermediate, Rash, 11/08/18) IV DYE coconut oil (Verified Allergy, Intermediate, 11/08/18) iodine (Verified Allergy, Intermediate, Rash, 02/13/21) THROAT AND CHEST TIGHTNESS ketorolac (Verified Allergy, Intermediate, Rash, 11/08/18) latex (Verified Allergy, Intermediate, Rash, 11/08/18) mite-Dermatophagoides farinae, demetra (Verified Allergy, Intermediate, 02/13/21) mold (Verified Allergy, Intermediate, 11/08/18) tramadol (Verified Allergy, Intermediate, RASH/ITCHING, 11/08/18) fentanyl (Verified Allergy, Unknown, Unknown, 05/27/21) shellfish derived (Verified Adverse Reaction, Intermediate, 11/08/18) prednisone (Verified Adverse Reaction, Mild, N/V, 01/03/21) ROS General: YES: Chills, Malaise PSYCHOLOGICAL ROS: YES: Anxiety, Irritablity Eyes: No Blurry vision, No Decreased vision, No Double vision, No Dry eyes, No Excessive tearing, No Eye Pain, No Itchy Eyes, No Loss of vision, No Photophobia, No Scotomata, No Uses contacts, No Uses glasses, No Other HEENT: No: Heacaches, Visual Changes, Hearing change, Nasal congestion, Nasal discharge, Oral lesions, Sinus pain, Sore Throat, Epistaxis, Sneezing, Snoring, Tinnitus, Vertigo, Vocal changes, Other ENDOCRINE: No: Breast Changes, Galactorrhea, Hair Pattern Changes, Hot Flashes, Malaise/lethargy, Mood Swings, Palpitations, Polydipsia/polyuria, Skin Changes, Temperature Intolerance, Unexpected Weight Changes, Other Respiratory: No: Cough, Hemoptysis, Orthopnea, Pleuritic Pain, Shortness of breath, SOB with excertion, Sputum Changes, Stridor, Tachypnea, Wheezing, Other Cardiovascular: No Chest Pain, No Palpitations, No Orthopnea, No Paroxysmal Noc. Dyspnea, No Edema, No Lt Headedness, No Other Gastrointestinal: No Nausea, No Vomiting, No Abdominal Pain, No Diarrhea, No Constipation, No Melena, No Hematochezia, No Other Genitourinary: No Dysuria, No Frequency, No Incontinence, No Hematuria, No Retention, No Discharge, No Urgency, No Pain, No Flank Pain, No Other, No , No , No , No , No , No , No Musculoskeletal: No Gait Disturbance, No Joint Pain, No Joint Stiffness, No Joint Swelling, No Muscle Pain, No Muscular Weakness, No Pain In:, No Swelling In:, No Other Neurological: No Behavorial Changes, No Bowel/Bladder ControlChng, No Confusion, No Dizziness, No Gait Disturbance, No Headaches, No Impaired Coord/balance, No Memory Loss, No Numbness/Tingling, No Seizures, No Speech Problems, No Tremors, No Visual Changes, No Weakness, No Other Skin: Yes Dry Skin; No Eczema, No Hair Changes, No Lumps, No Mole Changes, No Mottling, No Nail Changes, No Pruritus, No Rash, No Skin Lesion Changes, No Other, No Acne Physical Exam General: Alert, Cooperative, No acute distress HEENT: PERRLA, Mucous membr. moist/pink Lungs: Clear to auscultation Heart: RRR, no gallops, murmurs Abdomen: Other (guards, tender, ) Rectal Exam: not examined Extremities: No edema, Normal pulses Skin: No significant lesion Neuro: Normal gait, Normal speech Psych/Mental Status: Mood NL, Other Vitals Vitals Vital Signs Date Time Temp Pulse Resp B/P (MAP) Pulse Ox O2 Delivery O2 Flow Rate FiO2 06/05/21 10:33 69 24 137/64 (88) 100 Room Air 06/05/21 08:01 98.4 98.4 Labs Labs Laboratory Tests Test 06/05/21 07:18 06/05/21 07:35 06/05/21 10:31 Urine Collection Type Unknown Urine Color [place] Urine Clarity Cloudy Urine pH 6.5 (<5.0-8.0) Urine Specific [place] 1.025 (1.000-1.030) Urine Protein 30 mg/dL (NEG-TRACE) Urine Glucose (UA) Negative mg/dL (NEG) Urine Ketones (Stick) Trace mg/dL (NEG) Urine Blood Large (NEG) Urine Nitrite Positive (NEG) Urine Bilirubin Small (NEG) Urine Urobilinogen Dipstick 1.0 mg/dL (0.2 mg/dL) Urine Leukocyte Esterase Moderate (NEG) Urine RBC 20-40 /HPF (0-2) Urine WBC 11-20 /HPF (0-4) Urine Squamous Epithelial Cells Mod /LPF Urine Bacteria Moderate /HPF (0-FEW) Urine Mucus Mod /LPF Urine Opiates Screen Neg (NEG) Urine Methadone Screen Neg (NEG) Urine Barbiturates Neg (NEG) Urine Phencyclidine Screen Neg (NEG) Urine Amphetamine/Methamphetamine Pos (NEG) Urine Benzodiazepines Screen Neg (NEG) Urine Cocaine Screen Neg (NEG) Urine Cannabinoids Screen Neg (NEG) Urine Ethyl Alcohol Neg (NEG) White Blood Count 8.4 x10^3/uL (4.0-11.0) Red Blood Count 4.89 x10^6/uL (3.50-5.40) Hemoglobin 15.8 g/dL (12.0-15.5) Hematocrit 44.0 % (36.0-47.0) Mean Corpuscular Volume 90 fL (79-100) Mean Corpuscular Hemoglobin 32 pg (25-35) Mean Corpuscular Hemoglobin Concent 36 g/dL (31-37) Red Cell Distribution Width 14.8 % (11.5-14.5) Platelet Count 251 x10^3/uL (140-400) Neutrophils (%) (Auto) 64 % (31-73) Lymphocytes (%) (Auto) 27 % (24-48) Monocytes (%) (Auto) 7 % (0-9) Eosinophils (%) (Auto) 1 % (0-3) Basophils (%) (Auto) 1 % (0-3) Neutrophils # (Auto) 5.4 x10^3/uL (1.8-7.7) Lymphocytes # (Auto) 2.2 x10^3/uL (1.0-4.8) Monocytes # (Auto) 0.6 x10^3/uL (0.0-1.1) Eosinophils # (Auto) 0.1 x10^3/uL (0.0-0.7) Basophils # (Auto) 0.1 x10^3/uL (0.0-0.2) Sodium Level 136 mmol/L (136-145) Potassium Level 3.0 mmol/L (3.5-5.1) Chloride Level 99 mmol/L (98-107) Carbon Dioxide Level 30 mmol/L (21-32) Anion Gap 7 (6-14) Blood Urea Nitrogen 9 mg/dL (7-20) Creatinine 0.9 mg/dL (0.6-1.0) Estimated GFR (Cockcroft-Gault) 77.6 BUN/Creatinine Ratio 10 (6-20) Glucose Level 92 mg/dL (70-99) Calcium Level 9.6 mg/dL (8.5-10.1) Total Bilirubin 1.3 mg/dL (0.2-1.0) Aspartate Amino Transf (AST/SGOT) 136 U/L (15-37) Alanine Aminotransferase (ALT/SGPT) 190 U/L (14-59) Alkaline Phosphatase 169 U/L (46-116) Total Protein 8.0 g/dL (6.4-8.2) Albumin 3.8 g/dL (3.4-5.0) Albumin/Globulin Ratio 0.9 (1.0-1.7) Lipase 51 U/L (73-393) SARS-CoV-2 Antigen (Rapid) Negative (NEGATIVE) Laboratory Tests Test 06/05/21 07:18 06/05/21 07:35 06/05/21 10:31 Urine Collection Type Unknown Urine Color [place] Urine Clarity Cloudy Urine pH 6.5 (<5.0-8.0) Urine Specific [place] 1.025 (1.000-1.030) Urine Protein 30 mg/dL (NEG-TRACE) Urine Glucose (UA) Negative mg/dL (NEG) Urine Ketones (Stick) Trace mg/dL (NEG) Urine Blood Large (NEG) Urine Nitrite Positive (NEG) Urine Bilirubin Small (NEG) Urine Urobilinogen Dipstick 1.0 mg/dL (0.2 mg/dL) Urine Leukocyte Esterase Moderate (NEG) Urine RBC 20-40 /HPF (0-2) Urine WBC 11-20 /HPF (0-4) Urine Squamous Epithelial Cells Mod /LPF Urine Bacteria Moderate /HPF (0-FEW) Urine Mucus Mod /LPF Urine Opiates Screen Neg (NEG) Urine Methadone Screen Neg (NEG) Urine Barbiturates Neg (NEG) Urine Phencyclidine Screen Neg (NEG) Urine Amphetamine/Methamphetamine Pos (NEG) Urine Benzodiazepines Screen Neg (NEG) Urine Cocaine Screen Neg (NEG) Urine Cannabinoids Screen Neg (NEG) Urine Ethyl Alcohol Neg (NEG) White Blood Count 8.4 x10^3/uL (4.0-11.0) Red Blood Count 4.89 x10^6/uL (3.50-5.40) Hemoglobin 15.8 g/dL (12.0-15.5) Hematocrit 44.0 % (36.0-47.0) Mean Corpuscular Volume 90 fL (79-100) Mean Corpuscular Hemoglobin 32 pg (25-35) Mean Corpuscular Hemoglobin Concent 36 g/dL (31-37) Red Cell Distribution Width 14.8 % (11.5-14.5) Platelet Count 251 x10^3/uL (140-400) Neutrophils (%) (Auto) 64 % (31-73) Lymphocytes (%) (Auto) 27 % (24-48) Monocytes (%) (Auto) 7 % (0-9) Eosinophils (%) (Auto) 1 % (0-3) Basophils (%) (Auto) 1 % (0-3) Neutrophils # (Auto) 5.4 x10^3/uL (1.8-7.7) Lymphocytes # (Auto) 2.2 x10^3/uL (1.0-4.8) Monocytes # (Auto) 0.6 x10^3/uL (0.0-1.1) Eosinophils # (Auto) 0.1 x10^3/uL (0.0-0.7) Basophils # (Auto) 0.1 x10^3/uL (0.0-0.2) Sodium Level 136 mmol/L (136-145) Potassium Level 3.0 mmol/L (3.5-5.1) Chloride Level 99 mmol/L (98-107) Carbon Dioxide Level 30 mmol/L (21-32) Anion Gap 7 (6-14) Blood Urea Nitrogen 9 mg/dL (7-20) Creatinine 0.9 mg/dL (0.6-1.0) Estimated GFR (Cockcroft-Gault) 77.6 BUN/Creatinine Ratio 10 (6-20) Glucose Level 92 mg/dL (70-99) Calcium Level 9.6 mg/dL (8.5-10.1) Total Bilirubin 1.3 mg/dL (0.2-1.0) Aspartate Amino Transf (AST/SGOT) 136 U/L (15-37) Alanine Aminotransferase (ALT/SGPT) 190 U/L (14-59) Alkaline Phosphatase 169 U/L (46-116) Total Protein 8.0 g/dL (6.4-8.2) Albumin 3.8 g/dL (3.4-5.0) Albumin/Globulin Ratio 0.9 (1.0-1.7) Lipase 51 U/L (73-393) SARS-CoV-2 Antigen (Rapid) Negative (NEGATIVE) VTE Prophylaxis Ordered VTE Prophylaxis Devices: No VTE Pharmacological Prophylaxi: Yes Assessment/Plan Assessment/Plan acute abd pain nausea and vomiting UTI, flank pain, acute pyelonephritis, Sepsis obese, BMI 35 anxiety disorder she denies substance abuse Justifications for Admission Other Justification JULIANN NOLAND MD Jun 05, 2021 12:54
[2021-06-05] MEDS ORDERED: MAGNESIUM SULFATE 2GM 50 ML IV ONE (13:00)
[2021-06-05] MEDS: POTASSIUM CL 20MEQ D5-0.45NACL 1,000 ML IV SCH (13:23)
[2021-06-05] MEDS: MORPHINE SULFATE 4 MG/ML INJ. IVP PRN ×2 (13:31→21:44)
--- NOTE | 2021-06-05 14:39 | PDOC2 ---
GI CONSULT Date of Service: DATE: 06/05/21 TIME: 14:09 Reason For Consult: transaminitis, abd pain HPI: HPI: 25 y/o female admitted through ER. Tells me ill x 2 weeks w/ right-sided "crunched over" pain that radiates to her pelvis that was not improved with "two rounds" of antibiotics and is associated w/ vomiting/retching, sweating, lightheadedness, and neon yellow diarrhea ("twenty times a day") with the feeling of "not being done pooping." Later says she's probably actually been "slowly getting sick" for about a month and has lost 20 pounds during that time. She spent quite some time scrolling through pictures on her phone to find a picture of blood in the toilet and on the toilet tissue with brown stool. She says the picture was taken last week. We have seen her in the past for hepatic steatosis, vomiting, chronic diarrhea (described in the past as watery and yellow) associated w/ lower abdominal cramping and sweating. I reviewed past notes - seems vomiting and diarrhea not witnessed by staff during past admissions. She reports h/o GERD controlled w/ omeprazole QD + what I believe is Carafate "to coat my stomach." Also occasionally takes Imodium but it doesn't work. EGD and colonoscopy at [facility] in 04/2017: normal. Random biopsies negative for H. pylori, celiac, and microscopic colitis. She says she also had 'scopes here as inpt "for the same things" - I cannot find these records. Eleven CTs of abd/pelv here since 2014. Hepatic steatosis on past ultrasounds (last 03/2018). H/o elevated LFTs. Negative Hepatitis serologies and HUEY in the past along w/ normal ceruloplasmin. GES 06/2017: normal. S/p cholecystectomy in 2016 (chronic cholecystitis on path). H/o PID - admitted here for this in 02/2021 - reviewed many nursing notes. Pt c/o RLQ pain, fired [employer], requested IV pain medications instead of PO due to vomiting. 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 Lives at home with her mother who lost her job and health insurance. Previously reported trigger point injection for right-sided abdominal pain that was ineffective. She is requesting a colonoscopy and says she will not follow-up as outpt because she is uninsured. Lots of ER visits. Has left AMA in the past. She cannot tell me what her glucose readings are at home. PMH: PMH: asthma, DM, PCOS, UTI, PID, anxiety, ADHD, nephrolithiasis cholecystectomy, appenectomy, tonsillectomy, pilonidal cyst removal, spinal fusion, left elbow surgery FH: Family History: DM Social History: Smoke: 1 pack per day ALCOHOL: other (drinks three days a week, about 3-5 mixed drinks each time) Drugs: Cocaine (tox positive 12/2020 negative 05/2021), Other (denies - tox screen shows amphetamines - she says she takes Adderall) ROS: GEN: +sweats HEENT: Denies blurred vision, sore throat CV: Denies chest pain RESP: Denies shortness of air, cough GI: Per HPI : Denies hematuria, dysuria ENDO: Denies weight changes NEURO: +dizziness MSK: Denies weakness, joint pain/swelling SKIN: Denies jaundice, pruritus Vitals: Vitals: Vital Signs Date Time Temp Pulse Resp B/P (MAP) Pulse Ox O2 Delivery O2 Flow Rate FiO2 06/05/21 13:31 94 06/05/21 12:48 98.3 82 16 102/57 (72) 98.3 06/05/21 10:33 Room Air Labs: Labs: Laboratory Tests Test 06/05/21 07:18 06/05/21 07:35 06/05/21 10:30 06/05/21 10:31 Urine Collection Type Unknown Urine Color [place] Urine Clarity Cloudy Urine pH 6.5 (<5.0-8.0) Urine Specific [place] 1.025 (1.000-1.030) Urine Protein 30 mg/dL (NEG-TRACE) Urine Glucose (UA) Negative mg/dL (NEG) Urine Ketones (Stick) Trace mg/dL (NEG) Urine Blood Large (NEG) Urine Nitrite Positive (NEG) Urine Bilirubin Small (NEG) Urine Urobilinogen Dipstick 1.0 mg/dL (0.2 mg/dL) Urine Leukocyte Esterase Moderate (NEG) Urine RBC 20-40 /HPF (0-2) Urine WBC 11-20 /HPF (0-4) Urine Squamous Epithelial Cells Mod /LPF Urine Bacteria Moderate /HPF (0-FEW) Urine Mucus Mod /LPF Urine Opiates Screen Neg (NEG) Urine Methadone Screen Neg (NEG) Urine Barbiturates Neg (NEG) Urine Phencyclidine Screen Neg (NEG) Urine Amphetamine/Methamphetamine Pos (NEG) Urine Benzodiazepines Screen Neg (NEG) Urine Cocaine Screen Neg (NEG) Urine Cannabinoids Screen Neg (NEG) Urine Ethyl Alcohol Neg (NEG) White Blood Count 8.4 x10^3/uL (4.0-11.0) Red Blood Count 4.89 x10^6/uL (3.50-5.40) Hemoglobin 15.8 g/dL (12.0-15.5) Hematocrit 44.0 % (36.0-47.0) Mean Corpuscular Volume 90 fL (79-100) Mean Corpuscular Hemoglobin 32 pg (25-35) Mean Corpuscular Hemoglobin Concent 36 g/dL (31-37) Red Cell Distribution Width 14.8 % (11.5-14.5) Platelet Count 251 x10^3/uL (140-400) Neutrophils (%) (Auto) 64 % (31-73) Lymphocytes (%) (Auto) 27 % (24-48) Monocytes (%) (Auto) 7 % (0-9) Eosinophils (%) (Auto) 1 % (0-3) Basophils (%) (Auto) 1 % (0-3) Neutrophils # (Auto) 5.4 x10^3/uL (1.8-7.7) Lymphocytes # (Auto) 2.2 x10^3/uL (1.0-4.8) Monocytes # (Auto) 0.6 x10^3/uL (0.0-1.1) Eosinophils # (Auto) 0.1 x10^3/uL (0.0-0.7) Basophils # (Auto) 0.1 x10^3/uL (0.0-0.2) Sodium Level 136 mmol/L (136-145) Potassium Level 3.0 mmol/L (3.5-5.1) Chloride Level 99 mmol/L (98-107) Carbon Dioxide Level 30 mmol/L (21-32) Anion Gap 7 (6-14) Blood Urea Nitrogen 9 mg/dL (7-20) Creatinine 0.9 mg/dL (0.6-1.0) Estimated GFR (Cockcroft-Gault) 77.6 BUN/Creatinine Ratio 10 (6-20) Glucose Level 92 mg/dL (70-99) Calcium Level 9.6 mg/dL (8.5-10.1) Total Bilirubin 1.3 mg/dL (0.2-1.0) Aspartate Amino Transf (AST/SGOT) 136 U/L (15-37) Alanine Aminotransferase (ALT/SGPT) 190 U/L (14-59) Alkaline Phosphatase 169 U/L (46-116) Total Protein 8.0 g/dL (6.4-8.2) Albumin 3.8 g/dL (3.4-5.0) Albumin/Globulin Ratio 0.9 (1.0-1.7) Lipase 51 U/L (73-393) SARS-CoV-2 RNA (MARTINA) Negative (Negative) SARS-CoV-2 Antigen (Rapid) Negative (NEGATIVE) Allergies: Coded Allergies: promethazine (Verified Allergy, Severe, 05/27/21) Fish Containing Products (Verified Allergy, Intermediate, Rash, 11/08/18) IV DYE coconut oil (Verified Allergy, Intermediate, 11/08/18) iodine (Verified Allergy, Intermediate, Rash, 02/13/21) THROAT AND CHEST TIGHTNESS ketorolac (Verified Allergy, Intermediate, Rash, 11/08/18) latex (Verified Allergy, Intermediate, Rash, 11/08/18) mite-Dermatophagoides farinae, demetra (Verified Allergy, Intermediate, 02/13/21) mold (Verified Allergy, Intermediate, 11/08/18) tramadol (Verified Allergy, Intermediate, RASH/ITCHING, 11/08/18) fentanyl (Verified Allergy, Unknown, Unknown, 05/27/21) shellfish derived (Verified Adverse Reaction, Intermediate, 11/08/18) prednisone (Verified Adverse Reaction, Mild, N/V, 01/03/21) Medications: Current Medications Medications (Trade) Dose Ordered Sig/Kaelyn Route PRN Reason Start Time Stop Time Status Last Admin Dose Admin Sodium Chloride 1,000 ml @ 1,000 mls/hr Q1H IV 06/05/21 08:00 06/05/21 08:59 DC 06/05/21 07:58 Ondansetron HCl (Zofran) 4 mg 1X ONCE IVP 06/05/21 08:00 06/05/21 08:05 DC 06/05/21 07:57 Morphine Sulfate (Morphine Sulfate) 4 mg 1X ONCE IVP 06/05/21 08:00 06/05/21 08:05 DC 06/05/21 07:58 Ceftriaxone Sodium (Rocephin) 1 gm 1X ONCE IVP 06/05/21 09:00 06/05/21 09:04 DC 06/05/21 09:57 Potassium Chloride (Klor-Con) 40 meq 1X ONCE PO 06/05/21 09:00 06/05/21 09:04 DC 06/05/21 09:59 Diphenhydramine HCl (Benadryl) 25 mg 1X ONCE IVP 06/05/21 09:45 06/05/21 09:46 DC 06/05/21 09:47 Lorazepam (Ativan Inj) 2 mg PRN Q4HRS PRN IVP ANXIETY / AGITATION 06/05/21 12:15 06/05/21 12:28 Potassium Chloride/Dextrose/ Sod Cl 1,000 ml @ 100 mls/hr Q10H IV 06/05/21 13:00 06/05/21 13:23 Magnesium Sulfate 50 ml @ 25 mls/hr 1X ONCE IV 06/05/21 13:00 06/05/21 14:59 06/05/21 13:24 Morphine Sulfate (Morphine Sulfate) 4 mg PRN Q2HR PRN IVP MODERATE TO SEVERE PAIN 06/05/21 13:00 06/05/21 13:31 Imaging: Imaging: CT A/P 06/05 IMPRESSION: No acute abnormality identified in abdomen and pelvis within limitations of noncontrast examination and extensive streak artifact from thoracolumbar hardw are. Tampon is present. Follicular changes are identified in the adnexa bilaterally. CXR Impression: No evidence of acute cardiopulmonary process. PE: GEN: NAD HEENT: Atraumatic, PERRL LUNGS: diminished anteriorly HEART: RRR ABD: NABS, S/ND, RUQ/right flank discomfort to light touch EXTREMITY: No edema SKIN: No rashes, no jaundice NEURO/PSYCH: A & O 3, anxious A/P: A/P: Abdominal pain, diarrhea, vomiting, weight loss Hypokalemia, UTI - per primary GERD - controlled w/ PPI Chronic diarrhea, ?hematochezia CRC screen - normal colonoscopy in 2017 S/p cholecystectomy H/o elevated LFTs, hepatic steatosis +amphetamines - she denies, says due to Adderall use -- Extensive past workup for similar symptoms and lab findings. Would try diet, observe for vomiting, diarrhea, bleeding, etc., and trend LFTs. IV PPI for now. Check C Diff for completeness. Will review any additional recs w/ Dr. Espinosa. KIMBERLI CORLEY Jun 05, 2021 14:39
[2021-06-05 15:00] VITALS: BP 117/60
[2021-06-05] MEDS ORDERED: OMEP40CA7 PO (18:38)
[2021-06-05] MEDS ORDERED: ALPR2TAB5 PO (18:38)
[2021-06-05 19:00] VITALS: BP 108/63
[2021-06-05] MEDS: ONDANSETRON PF 4 MG/2 ML VIAL. IVP PRN (21:44)
[2021-06-05] MEDS: diphenhydrAMINE 50 MG/ML VIAL IVP PRN (21:45)
[2021-06-05 23:00] VITALS: BP 106/65
[2021-06-06] MEDS: POTASSIUM CL 20MEQ D5-0.45NACL 1,000 ML IV SCH ×3 (00:27→19:00)
[2021-06-06] MEDS: MORPHINE SULFATE 4 MG/ML INJ. IVP PRN ×4 (02:55→20:13)
[2021-06-06 03:00] VITALS: BP 110/55
[2021-06-06 07:00] VITALS: BP 119/70
[2021-06-06] MEDS: PANTOPRAZOLE IV PUSH 40 MG VIAL. IVP SCH (07:30)
[2021-06-06] MEDS: diphenhydrAMINE 50 MG/ML VIAL IVP PRN ×3 (08:10→22:31)
[2021-06-06] MEDS: ONDANSETRON PF 4 MG/2 ML VIAL. IVP PRN ×2 (08:11→16:17)
--- NOTE | 2021-06-06 09:25 | PDOC ---
Date of Service: DATE: 06/06/21 TIME: 09:16 Subjective: Subjective: Feels terrible. Vomited some liquids - says gets up and goes to the restroom to do this, didn't tell/show nurse. No stools, no bleeding. Wants a colonoscopy for bleeding. I mentioned Adderall wasn't on summary list here - she didn't appreciate this and wants to know why I'm accusing her of doing drugs. I asked what pharmacy she uses - she says [facility] but different locations and sometimes her grandma picks up her pills and she doesn't really know where she goes. She also hasn't filled any prescriptions in several months due to lack of insurance and just takes Adderall PRN. I asked her to show nurse if she throws up or has a stool and she said "that's really weird." She says she gets anxious and doesn't like to show things like that. Objective: Vital Signs: Vital Signs Date Time Temp Pulse Resp B/P (MAP) Pulse Ox O2 Delivery O2 Flow Rate FiO2 06/06/21 08:10 96 Room Air 06/06/21 07:00 98.7 68 20 119/70 (86) 98.7 Labs: Laboratory Tests Test 06/05/21 10:30 06/05/21 10:31 SARS-CoV-2 RNA (MARTINA) Negative SARS-CoV-2 Antigen (Rapid) Negative PE: GEN: NAD LUNGS: CTAB HEART: RRR ABD: soft, non-specific right-sided abd tenderness NEURO/PSYCH: A & O 3 A/P: Abdominal pain, diarrhea/?hematochezia, vomiting - chronic/recurrent - past GI workup per consult note Hypokalemia, ?UTI - per primary H/o elevated LFTs, hepatic steatosis - viral Hep negative +amphetamines -- Continue urine collection. Recheck labs. Continue PPI. Advance diet as able. Observe for diarrhea/bleeding. Avoid narcotics. Would be great to obtain an accurate medication list. Justicifation of Admission Dx: Justifications for Admission: Justification of Admission Dx: Yes KIMBERLI CORLEY Jun 06, 2021 09:25
[2021-06-06 10:45] LABS: HEMATOCRIT 39.5 % (36.0-47.0); HEMOGLOBIN 13.5 g/dL (12.0-15.5); RED BLOOD COUNT 4.31 x10^6/uL (3.50-5.40); RED CELL DISTRIBUTION WIDTH 14.5 % (11.5-14.5); WHITE BLOOD COUNT 5.1 x10^3/uL (4.0-11.0)
[2021-06-06] MEDS ORDERED: BARIUM SULFATE 60% 355 ML SUSP PO ONE (10:45)
[2021-06-06 11:03] LABS: ALBUMIN 2.9 g/dL (3.4-5.0); ALBUMIN/GLOBULIN RATIO 0.8 (1.0-1.7); CREATININE 0.8 mg/dL (0.6-1.0); GFR 88.9; POTASSIUM 3.9 mmol/L (3.5-5.1); TOTAL BILIRUBIN 1.2 mg/dL (0.2-1.0); TOTAL PROTEIN 6.4 g/dL (6.4-8.2)
[2021-06-06 11:04] LABS: ALBUMIN 2.9 g/dL (3.4-5.0); DIRECT BILIRUBIN 0.6 mg/dL (0.0-0.2); TOTAL BILIRUBIN 1.2 mg/dL (0.2-1.0); TOTAL PROTEIN 6.3 g/dL (6.4-8.2)
[2021-06-06 15:00] VITALS: BP 121/66
--- NOTE | 2021-06-06 15:24 | RAD ---
EXAM: Small bowel follow-through exam. HISTORY: Recurrent abdominal pain, vomiting and diarrhea. TECHNIQUE: A pawn broker image of the abdomen was obtained. Serial overhead images were then obtained follo wing the oral demonstration of barium contrast. 0 fluoroscopic images were obtained for total fluoros copy time of 0 minutes. COMPARISON: CT obtained 06/05/2021. FINDINGS: The pawn broker image of the abdomen demonstrates a nonobstructive bowel gas pattern. There is a surgical anastomosis and clips within the right lower quadrant due to prior appendectomy. There are c holecystectomy clips. There is thoracolumbar fusion instrumentation. There is degenerative change lisa thuy at L4-L5. The images obtained following the oral administration of barium contrast demonstrate delayed emptying of contrast from the stomach into the small bowel. The gastric configuration and mu cosal pattern is unremarkable. There is subsequent contrast opacification of normal-appearing loops o f small bowel. There is delayed small bowel transit time of between 90 minutes and [address] ricture, fistula, extravasation, bowel fixation or mucosal lesion is seen. The final images demonstra te contrast opacification of the entire colon and rectum. IMPRESSION: 1. Slightly delayed gastric emptying and delayed small bowel transit time. 2. Otherwise, unremarkable small bowel follow-through exam. Electronically signed by: Joan Kelly MD (06/06/2021 3:22 PM) [id number]
--- NOTE | 2021-06-06 15:44 | PDOC ---
[facility] [facility] PROGRESS NOTE Date of Service DOS: DATE: 06/06/21 TIME: 15:05 Chief Complaint Chief Complaint A/P: Abdominal pain -elevated transaminases could have been amphetamine toxicity though she denies illicit amphetamine use since his old prescription. Blaine-Tyree See syndrome is a possibility given her multiple STIs in the past endometriosis is on differential. diarrhea, vomiting, weight loss -gastroenteritis possibility Hypokalemia GERD - controlled w/ PPI Chronic diarrhea - S/p cholecystectomy. normal 2016 colonoscopy Elevated LFTs -could be from Blaine-Tyree See syndrome versus amphetamine toxicity versus endometriosis versus a variety of other differential diagnoses. Hepatic steatosis +amphetamines - she denies, says due to Adderall use. No fills noted within the past 4 years per pharmacy H/o cocaine use - tox positive 12/2020 FEN - ADA PPX - lovenox FULL CODE Dispo - inpatient [EGD and colonoscopy at [facility] in 04/2017: normal. Random biopsies negative for H. pylori, celiac, and microscopic colitis. She says she also had 'scopes here as inpt "for the same things" - I cannot find these records. Eleven CTs of abd/pelv here since 2014. Hepatic steatosis on past ultrasounds (last 03/2018). H/o elevated LFTs. Negative Hepatitis serologies and HUEY in the past along w/ normal ceruloplasmin. GES 06/2017: normal. S/p cholecystectomy in 2016 (chronic cholecystitis on path). H/o PID - admitted here for this in 02/2021 - reviewed many nursing notes. 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 Lives at home with her mother who lost her job and health insurance. Previously reported trigger point injection for right-sided abdominal pain that was ineffective. She is requesting a colonoscopy and says she will not follow-up as outpt because she is uninsured. Lots of ER visits. Has left AMA in the past.] History of Present Illness History of Present Illness Sofy is a 25-year-old female complaining of generalized abdominal pain. Mult prior abd surgeries, she is very upset about being covid tested and isolated and complains of extreme anxiety. She initially did not want to talk to the physician. Prior mult abd surgies, HX PCOS, insulin-dependent type 2 diabetes, numerous kidney stones, and gallbladder and appendix removal. marked worse pain for 2 weeks. Since he has been in the ER and treated for UTI twice recently was given PO abx here in the ER a week ago and was unable to complete, has severe abd pain and nausea and vomiting. She refuses PO meds as she feels she will vomit and that her abd pain worse. C/o generalized abdominal pain that is worse on the right side with radiation down to her groin. CT abdomen pelvis without contrast no acute abnormalities. GI consulted 06/06: Pain still severe LFTs still deranged AST 265 ALT 213 alkaline phosphatase 129, bilirubin 1.2, urine culture with mixed cindy. Patient counseled extensively on drug-seeking behavior given request for Ativan morphine and Benadryl. She strenuously emphasized that she does not take any illicit drugs and is taking a very old prescription of Adderall. I notified her drug- seeking behavior is insisting on specific medications by name and requesting nurses and physicians administer them in a way other than as prescribed. She notes that her entire family has problems with "dope" and she does not. I have emphasized the need to allow continued work-up of her presumptive diagnosis and on further questioning sexual history she does note that previously she has been treated for chlamydia. I discussed concerns for possibility of endometriosis or Blaine-Tyree See syndrome and she is amenable to testing for GC and chlamydia as well as syphilis. Patient very demanding of nurses. Vitals/I&O Vitals/I&O: Vital Signs Date Time Temp Pulse Resp B/P (MAP) Pulse Ox O2 Delivery O2 Flow Rate FiO2 06/06/21 10:21 96 Room Air 06/06/21 07:00 98.7 68 20 119/70 (86) 98.7 I & O 06/05/21 06/05/21 06/06/21 15:00 23:00 07:00 Intake Total 1000 ml 1240 ml Output Total 500 ml Balance 1000 ml 740 ml Physical Exam General: Alert, Cooperative, No acute distress Lungs: Clear, Other Abdomen: Other (guards, tender, ) Extremities: No edema, Normal pulses Skin: No significant lesion Labs Labs: Laboratory Tests Test 06/06/21 10:37 White Blood Count 5.1 x10^3/uL (4.0-11.0) Red Blood Count 4.31 x10^6/uL (3.50-5.40) Hemoglobin 13.5 g/dL (12.0-15.5) Hematocrit 39.5 % (36.0-47.0) Mean Corpuscular Volume 92 fL (79-100) Mean Corpuscular Hemoglobin 31 pg (25-35) Mean Corpuscular Hemoglobin Concent 34 g/dL (31-37) Red Cell Distribution Width 14.5 % (11.5-14.5) Platelet Count 183 x10^3/uL (140-400) Sodium Level 139 mmol/L (136-145) Potassium Level 3.9 mmol/L (3.5-5.1) Chloride Level 104 mmol/L (98-107) Carbon Dioxide Level 27 mmol/L (21-32) Anion Gap 8 (6-14) Blood Urea Nitrogen 6 mg/dL (7-20) Creatinine 0.8 mg/dL (0.6-1.0) Estimated GFR (Cockcroft-Gault) 88.9 BUN/Creatinine Ratio 8 (6-20) Glucose Level 89 mg/dL (70-99) Calcium Level 8.0 mg/dL (8.5-10.1) Total Bilirubin 1.2 mg/dL (0.2-1.0) Direct Bilirubin 0.6 mg/dL (0.0-0.2) Aspartate Amino Transf (AST/SGOT) 265 U/L (15-37) Alanine Aminotransferase (ALT/SGPT) 213 U/L (14-59) Alkaline Phosphatase 129 U/L (46-116) Total Protein 6.4 g/dL (6.4-8.2) Albumin 2.9 g/dL (3.4-5.0) Albumin/Globulin Ratio 0.8 (1.0-1.7) Assessment and Plan Assessmemt and Plan Problems Medical Problems: (1) Drug abuse Status: Acute (2) Hypokalemia Status: Acute (3) Pyelonephritis Status: Acute (4) Transaminitis Status: Acute Comment Review of Relevant I have reviewed the following items leticia (where applicable) has been applied. Medications: Current Medications Medications (Trade) Dose Ordered Sig/Kaelyn Route PRN Reason Start Time Stop Time Status Last Admin Dose Admin Pantoprazole Sodium (PROTONIX VIAL for IV PUSH) 40 mg DAILYAC IVP 10/29/21 07:30 06/06/21 07:30 Barium Sulfate (Liquid E-Z Paque) 710 ml 1X ONCE PO 06/06/21 10:45 06/06/21 10:46 DC 06/06/21 10:45 Justifications for Admission Other Justification JAXSON VERDIN MD Jun 06, 2021 15:43
[2021-06-06] MEDS: cefOXitin SODIUM IV Push 2 GM VIAL. IVP SCH (17:15)
[2021-06-06] MEDS: DOXYCYCLINE HYCLATE 100 MG in IV DEXTROSE 5% 100ML 100 ML IV SCH (17:15)
[2021-06-06 19:00] VITALS: BP 91/50
[2021-06-06 23:00] VITALS: BP 98/49
[2021-06-07] MEDS: MORPHINE SULFATE 4 MG/ML INJ. IVP PRN ×7 (00:09→23:56)
[2021-06-07] MEDS: cefOXitin SODIUM IV Push 2 GM VIAL. IVP SCH ×3 (00:12→20:50)
[2021-06-07] MEDS: DOXYCYCLINE HYCLATE 100 MG in IV DEXTROSE 5% 100ML 100 ML IV SCH ×3 (00:13→20:49)
[2021-06-07] MEDS: ONDANSETRON PF 4 MG/2 ML VIAL. IVP PRN ×3 (00:29→23:56)
[2021-06-07 03:00] VITALS: BP 108/60
[2021-06-07] MEDS: diphenhydrAMINE 50 MG/ML VIAL IVP PRN ×4 (04:29→23:55)
[2021-06-07] MEDS: POTASSIUM CL 20MEQ D5-0.45NACL 1,000 ML IV SCH ×3 (05:00→21:17)
[2021-06-07 07:15] VITALS: BP 103/65
[2021-06-07] MEDS: PANTOPRAZOLE IV PUSH 40 MG VIAL. IVP SCH (07:30)
[2021-06-07 08:08] VITALS: BP 103/65
--- NOTE | 2021-06-07 08:10 | PDOC ---
[employer] [facility] PROGRESS NOTE Date of Service DOS: DATE: 06/07/21 TIME: 08:09 Chief Complaint Chief Complaint A/P: Abdominal pain -elevated transaminases could have been amphetamine toxicity though she denies illicit amphetamine use since his old prescription. Blaine-Tyree See syndrome is a possibility given her multiple STIs in the past endometriosis is on differential. diarrhea, vomiting, weight loss -gastroenteritis possibility Hypokalemia GERD - controlled w/ PPI Chronic diarrhea - S/p cholecystectomy. normal 2016 colonoscopy Elevated LFTs -could be from Blaine-Tyree See syndrome versus amphetamine toxicity versus endometriosis versus a variety of other differential diagnoses. Hepatic steatosis +amphetamines - she denies, says due to Adderall use. No fills noted within the past 4 years per pharmacy H/o cocaine use - tox positive 12/2020 FEN - ADA PPX - lovenox FULL CODE Dispo - inpatient [EGD and colonoscopy at [facility] in 04/2017: normal. Random biopsies negative for H. pylori, celiac, and microscopic colitis. She says she also had 'scopes here as inpt "for the same things" - I cannot find these records. Eleven CTs of abd/pelv here since 2014. Hepatic steatosis on past ultrasounds (last 03/2018). H/o elevated LFTs. Negative Hepatitis serologies and HUEY in the past along w/ normal ceruloplasmin. GES 06/2017: normal. S/p cholecystectomy in 2016 (chronic cholecystitis on path). H/o PID - admitted here for this in 02/2021 - reviewed many nursing notes. 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 Lives at home with her mother who lost her job and health insurance. Previously reported trigger point injection for right-sided abdominal pain that was ineffective. She is requesting a colonoscopy and says she will not follow-up as outpt because she is uninsured. Lots of ER visits. Has left AMA in the past.] History of Present Illness History of Present Illness Sofy is a 25-year-old female complaining of generalized abdominal pain. Mult prior abd surgeries, she is very upset about being covid tested and isolated and complains of extreme anxiety. She initially did not want to talk to the physician. Prior mult abd surgies, HX PCOS, insulin-dependent type 2 diabetes, numerous kidney stones, and gallbladder and appendix removal. marked worse pain for 2 weeks. Since he has been in the ER and treated for UTI twice recently was given PO abx here in the ER a week ago and was unable to complete, has severe abd pain and nausea and vomiting. She refuses PO meds as she feels she will vomit and that her abd pain worse. C/o generalized abdominal pain that is worse on the right side with radiation down to her groin. CT abdomen pelvis without contrast no acute abnormalities. GI consulted 06/06: Pain still severe LFTs still deranged AST 265 ALT 213 alkaline phosphatase 129, bilirubin 1.2, urine culture with mixed cindy. Patient counseled extensively on drug-seeking behavior given request for Ativan morphine and Benadryl. She strenuously emphasized that she does not take any illicit drugs and is taking a very old prescription of Adderall. I notified her drug-seeking behavior is insisting on specific medications by name and requesting nurses and physicians administer them in a way other than as prescribed. She notes that her entire family has problems with "dope" and she does not. I have emphasized the need to allow continued work-up of her presumptive diagnosis and on further questioning sexual history she does note that previously she has been treated for chlamydia. I discussed concerns for possibility of endometriosis or Blaine-Tyree See syndrome and she is amenable to testing for GC and chlamydia as well as syphilis. Patient very demanding of nurses. 50 still elevated. Tells me she is vomiting after eating offered metoclopramide as adjunctive therapy she says this was coadministered with Compazine previously and she went "psycho". She is not willing to try this and she is demanding her diet be advanced. Have advised her if she vomits and aspirates the risk of aspiration or severe she understands and is going to eat anyway. Continue IV antibiotics for presumptive PID awaiting PCR and GC chlamydia. Vitals/I&O Vitals/I&O: Vital Signs Date Time Temp Pulse Resp B/P (MAP) Pulse Ox O2 Delivery O2 Flow Rate FiO2 06/07/21 08:08 98.1 68 18 103/65 (78) 97 Room Air 98.1 I & O 06/06/21 06/06/21 06/07/21 15:00 23:00 07:00 Output Total 300 ml Balance -300 ml Physical Exam General: Alert, Cooperative, No acute distress Lungs: Clear, Other Abdomen: Other (guards, tender, ) Extremities: No edema, Normal pulses Skin: No significant lesion Labs Labs: Laboratory Tests Test 06/06/21 10:37 White Blood Count 5.1 x10^3/uL (4.0-11.0) Red Blood Count 4.31 x10^6/uL (3.50-5.40) Hemoglobin 13.5 g/dL (12.0-15.5) Hematocrit 39.5 % (36.0-47.0) Mean Corpuscular Volume 92 fL (79-100) Mean Corpuscular Hemoglobin 31 pg (25-35) Mean Corpuscular Hemoglobin Concent 34 g/dL (31-37) Red Cell Distribution Width 14.5 % (11.5-14.5) Platelet Count 183 x10^3/uL (140-400) Sodium Level 139 mmol/L (136-145) Potassium Level 3.9 mmol/L (3.5-5.1) Chloride Level 104 mmol/L (98-107) Carbon Dioxide Level 27 mmol/L (21-32) Anion Gap 8 (6-14) Blood Urea Nitrogen 6 mg/dL (7-20) Creatinine 0.8 mg/dL (0.6-1.0) Estimated GFR (Cockcroft-Gault) 88.9 BUN/Creatinine Ratio 8 (6-20) Glucose Level 89 mg/dL (70-99) Calcium Level 8.0 mg/dL (8.5-10.1) Total Bilirubin 1.2 mg/dL (0.2-1.0) Direct Bilirubin 0.6 mg/dL (0.0-0.2) Aspartate Amino Transf (AST/SGOT) 265 U/L (15-37) Alanine Aminotransferase (ALT/SGPT) 213 U/L (14-59) Alkaline Phosphatase 129 U/L (46-116) Total Protein 6.4 g/dL (6.4-8.2) Albumin 2.9 g/dL (3.4-5.0) Albumin/Globulin Ratio 0.8 (1.0-1.7) Treponema pallidum Antibody Nonreactive (Nonreactive) Assessment and Plan Assessmemt and Plan Problems Medical Problems: (1) Drug abuse Status: Acute (2) Hypokalemia Status: Acute (3) Pyelonephritis Status: Acute (4) Transaminitis Status: Acute Comment Review of Relevant I have reviewed the following items leticia (where applicable) has been applied. Medications: Current Medications Medications (Trade) Dose Ordered Sig/Kaelyn Route PRN Reason Start Time Stop Time Status Last Admin Dose Admin Barium Sulfate (Liquid E-Z Paque) 710 ml 1X ONCE PO 06/06/21 10:45 06/06/21 10:46 DC 06/06/21 10:45 Lorazepam (Ativan Inj) 0.5 mg PRN Q4HRS PRN IVP ANXIETY / AGITATION 06/06/21 14:45 06/07/21 00:29 Morphine Sulfate (Morphine Sulfate) 2 mg PRN Q3HRS PRN IVP MODERATE TO SEVERE PAIN 06/06/21 14:45 06/07/21 04:16 Cefoxitin Sodium (Mefoxin) 2 gm Q12HR IVP 06/06/21 16:00 06/07/21 00:12 Doxycycline Hyclate 100 mg/ Dextrose 100 ml @ 50 mls/hr Q12HR IV 06/06/21 16:00 06/07/21 00:13 Justifications for Admission Other Justification JAXSON VERDIN MD Jun 07, 2021 08:09
[2021-06-07 08:49] LABS: BILIRUBIN,URINE NEGATIVE (NEG); COLOR,URINE RED; NITRITE,URINE NEGATIVE (NEG); PH,URINE 6.5 (<5.0-8.0); PROTEIN,URINE 100 mg/dL (NEG-TRACE); UROBILINOGEN,URINE 0.2 mg/dL (0.2 mg/dL)
[2021-06-07 09:01] LABS: BASO % 0 % (0-3); EOS # 0.1 x10^3/uL (0.0-0.7); EOS % 2 % (0-3); HEMATOCRIT 41.1 % (36.0-47.0); HEMOGLOBIN 14.2 g/dL (12.0-15.5); LYMPH # 1.9 x10^3/uL (1.0-4.8); LYMPH % 30 % (24-48); MEAN CORPUSCULAR HEMOGLOBIN 32 pg (25-35); MEAN CORPUSCULAR HGB CONC 35 g/dL (31-37); MEAN CORPUSCULAR VOLUME 92 fL (79-100); MONO # 0.3 x10^3/uL (0.0-1.1); MONO % 5 % (0-9); NEUT # 4.1 x10^3/uL (1.8-7.7); NEUT % 63 % (31-73); PLATELET COUNT 191 x10^3/uL (140-400); RED CELL DISTRIBUTION WIDTH 14.4 % (11.5-14.5); WHITE BLOOD COUNT 6.5 x10^3/uL (4.0-11.0)
[2021-06-07 09:04] LABS: BACTERIA,URINE FEW /HPF (0-FEW); RBC,URINE TNTC /HPF (0-2)
[2021-06-07 09:07] LABS: CLARITY,URINE HAZY
[2021-06-07 09:21] LABS: ALBUMIN 3.2 g/dL (3.4-5.0); ALBUMIN/GLOBULIN RATIO 0.9 (1.0-1.7); CALCIUM 8.4 mg/dL (8.5-10.1); CREATININE 0.8 mg/dL (0.6-1.0); GFR 88.9; TOTAL BILIRUBIN 0.9 mg/dL (0.2-1.0); TOTAL PROTEIN 6.8 g/dL (6.4-8.2)
[2021-06-07 11:00] VITALS: BP 130/95
[2021-06-07 14:55] VITALS: BP 106/65
[2021-06-07 19:50] VITALS: BP 102/58
[2021-06-07] MEDS: LACTOBACILLUS RHAMNOSUS GG 1 CAPSULE. PO SCH (21:00)
--- NOTE | 2021-06-08 03:09 | NUR ---
Pt has been ambivalent on her iv site, in same breath she says her iv site hurts, she then wants her medications to be given iv (as morphine, ativan, etc), reported at 2039 that she didn't feel the morphine entering her vein, so at approximately 2344 (?), when patient asked for pain medications, this designer/writer had Mara Rehman rn, accompany for medication verification, monitoring...
[2021-06-08 03:16] VITALS: BP 105/63
[2021-06-08] MEDS: MORPHINE SULFATE 4 MG/ML INJ. IVP PRN (03:47)
[2021-06-08] MEDS: ONDANSETRON PF 4 MG/2 ML VIAL. IVP PRN ×2 (04:00→12:07)
[2021-06-08 06:39] LABS: BASO % 1 % (0-3); EOS # 0.1 x10^3/uL (0.0-0.7); EOS % 2 % (0-3); HEMATOCRIT 40.5 % (36.0-47.0); LYMPH # 1.9 x10^3/uL (1.0-4.8); LYMPH % 28 % (24-48); MEAN CORPUSCULAR HEMOGLOBIN 32 pg (25-35); MEAN CORPUSCULAR HGB CONC 35 g/dL (31-37); MEAN CORPUSCULAR VOLUME 91 fL (79-100); MONO # 0.4 x10^3/uL (0.0-1.1); MONO % 6 % (0-9); NEUT # 4.4 x10^3/uL (1.8-7.7); NEUT % 64 % (31-73); PLATELET COUNT 189 x10^3/uL (140-400); RED BLOOD COUNT 4.45 x10^6/uL (3.50-5.40); RED CELL DISTRIBUTION WIDTH 14.4 % (11.5-14.5); WHITE BLOOD COUNT 6.9 x10^3/uL (4.0-11.0)
[2021-06-08 07:00] VITALS: BP 100/68
[2021-06-08 07:14] LABS: ALBUMIN 3.2 g/dL (3.4-5.0); ALBUMIN/GLOBULIN RATIO 0.8 (1.0-1.7); CALCIUM 8.5 mg/dL (8.5-10.1); GFR 68.7; POTASSIUM 3.9 mmol/L (3.5-5.1); TOTAL BILIRUBIN 0.6 mg/dL (0.2-1.0)
[2021-06-08] MEDS: PANTOPRAZOLE IV PUSH 40 MG VIAL. IVP SCH (08:21)
[2021-06-08] MEDS: diphenhydrAMINE 50 MG/ML VIAL IVP PRN ×2 (08:27→16:20)
[2021-06-08] MEDS: LACTOBACILLUS RHAMNOSUS GG 1 CAPSULE. PO SCH ×2 (08:30→20:28)
[2021-06-08] MEDS: MORPHINE SULFATE 2 MG/ML INJ. IVP PRN ×4 (08:33→20:17)
[2021-06-08] MEDS: cefOXitin SODIUM IV Push 2 GM VIAL. IVP SCH ×2 (08:38→20:20)
[2021-06-08] MEDS: DOXYCYCLINE HYCLATE 100 MG in IV DEXTROSE 5% 100ML 100 ML IV SCH ×2 (08:54→20:25)
[2021-06-08] MEDS: METOCLOPRAMIDE HCL 10 MG/2 ML VIAL. IVP PRN (09:01)
[2021-06-08 11:00] VITALS: BP 102/72
[2021-06-08] MEDS: POTASSIUM CL 20MEQ D5-0.45NACL 1,000 ML IV SCH ×2 (12:09→23:50)
--- NOTE | 2021-06-08 13:46 | PDOC ---
[employer] [facility] PROGRESS NOTE Date of Service DOS: DATE: 06/08/21 TIME: 13:35 Chief Complaint Chief Complaint A/P: Abdominal pain -elevated transaminases could have been amphetamine toxicity though she denies illicit amphetamine use since his old prescription. Blaine-Tyree See syndrome is a possibility given her multiple STIs in the past endometriosis is on differential. diarrhea, vomiting, weight loss -gastroenteritis possibility Hypokalemia GERD - controlled w/ PPI Chronic diarrhea - S/p cholecystectomy. normal 2016 colonoscopy Elevated LFTs -could be from Blaine-Tyree See syndrome versus amphetamine toxicity versus endometriosis versus a variety of other differential diagnoses. Hepatic steatosis +amphetamines - she denies, says due to Adderall use. No fills noted within the past 4 years per pharmacy H/o cocaine use - tox positive 12/2020 FEN - ADA PPX - lovenox FULL CODE Dispo - inpatient [EGD and colonoscopy at [facility] in 04/2017: normal. Random biopsies negative for H. pylori, celiac, and microscopic colitis. She says she also had 'scopes here as inpt "for the same things" - I cannot find these records. Eleven CTs of abd/pelv here since 2014. Hepatic steatosis on past ultrasounds (last 03/2018). H/o elevated LFTs. Negative Hepatitis serologies and HUEY in the past along w/ normal ceruloplasmin. GES 06/2017: normal. S/p cholecystectomy in 2016 (chronic cholecystitis on path). H/o PID - admitted here for this in 02/2021 - reviewed many nursing notes. 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 Lives at home with her mother who lost her job and health insurance. Previously reported trigger point injection for right-sided abdominal pain that was ineffective. She is requesting a colonoscopy and says she will not follow-up as outpt because she is uninsured. Lots of ER visits. Has left AMA in the past.] History of Present Illness History of Present Illness Sofy is a 25-year-old female complaining of generalized abdominal pain. Mult prior abd surgeries, she is very upset about being covid tested and isolated and complains of extreme anxiety. She initially did not want to talk to the physician. Prior mult abd surgies, HX PCOS, insulin-dependent type 2 diabetes, numerous kidney stones, and gallbladder and appendix removal. marked worse pain for 2 weeks. Since he has been in the ER and treated for UTI twice recently was given PO abx here in the ER a week ago and was unable to complete, has severe abd pain and nausea and vomiting. She refuses PO meds as she feels she will vomit and that her abd pain worse. C/o generalized abdominal pain that is worse on the right side with radiation down to her groin. CT abdomen pelvis without contrast no acute abnormalities. GI consulted 06/06: Pain still severe LFTs still deranged AST 265 ALT 213 alkaline phosphatase 129, bilirubin 1.2, urine culture with mixed cindy. Patient counseled extensively on drug-seeking behavior given request for Ativan morphine and Benadryl. She strenuously emphasized that she does not take any illicit drugs and is taking a very old prescription of Adderall. I notified her drug-seeking behavior is insisting on specific medications by name and requesting nurses and physicians administer them in a way other than as prescribed. She notes that her entire family has problems with "dope" and she does not. I have emphasized the need to allow continued work-up of her presumptive diagnosis and on further questioning sexual history she does note that previously she has been treated for chlamydia. I discussed concerns for possibility of endometriosis or Blaine-Tyree See syndrome and she is amenable to testing for GC and chlamydia as well as syphilis. Patient very demanding of nurses. 06/07:LFT still elevated. Tells me she is vomiting after eating offered metoclopramide as adjunctive therapy she says this was coadministered with Compazine previously and she went "psycho". She is not willing to try this and she is demanding her diet be advanced. Have advised her if she vomits and aspirates the risk of aspiration or severe she understands and is going to eat anyway. Continue IV antibiotics for presumptive PID awaiting PCR and GC chlamydia. 06/08: Eating pretzels from home notes she does not vomit when she has these but has been vomiting her food no witnesses to this event her friend notes he did not know that she was vomiting still complains of pain and says it is improved. GC chlamydia PCR pending. She still has not had a bowel movement. Plan: Await vomiting to subside prior to transition to PO antibiotics Vitals/I&O Vitals/I&O: Vital Signs Date Time Temp Pulse Resp B/P (MAP) Pulse Ox O2 Delivery O2 Flow Rate FiO2 06/08/21 12:08 20 97 Room Air 06/08/21 07:00 98.9 74 100/68 (79) 98.9 I & O 06/07/21 06/07/21 06/08/21 15:00 23:00 07:00 Intake Total 100 ml Output Total 300 ml 1700 ml Balance -300 ml 100 ml -1700 ml Physical Exam General: Alert, Cooperative, No acute distress Lungs: Clear, Other Abdomen: Other (guards, tender, ) Extremities: No edema, Normal pulses Skin: No significant lesion Labs Labs: Laboratory Tests Test 06/08/21 06:00 White Blood Count 6.9 x10^3/uL (4.0-11.0) Red Blood Count 4.45 x10^6/uL (3.50-5.40) Hemoglobin 14.0 g/dL (12.0-15.5) Hematocrit 40.5 % (36.0-47.0) Mean Corpuscular Volume 91 fL (79-100) Mean Corpuscular Hemoglobin 32 pg (25-35) Mean Corpuscular Hemoglobin Concent 35 g/dL (31-37) Red Cell Distribution Width 14.4 % (11.5-14.5) Platelet Count 189 x10^3/uL (140-400) Neutrophils (%) (Auto) 64 % (31-73) Lymphocytes (%) (Auto) 28 % (24-48) Monocytes (%) (Auto) 6 % (0-9) Eosinophils (%) (Auto) 2 % (0-3) Basophils (%) (Auto) 1 % (0-3) Neutrophils # (Auto) 4.4 x10^3/uL (1.8-7.7) Lymphocytes # (Auto) 1.9 x10^3/uL (1.0-4.8) Monocytes # (Auto) 0.4 x10^3/uL (0.0-1.1) Eosinophils # (Auto) 0.1 x10^3/uL (0.0-0.7) Basophils # (Auto) 0.0 x10^3/uL (0.0-0.2) Sodium Level 140 mmol/L (136-145) Potassium Level 3.9 mmol/L (3.5-5.1) Chloride Level 104 mmol/L (98-107) Carbon Dioxide Level 28 mmol/L (21-32) Anion Gap 8 (6-14) Blood Urea Nitrogen 6 mg/dL (7-20) Creatinine 1.0 mg/dL (0.6-1.0) Estimated GFR (Cockcroft-Gault) 68.7 BUN/Creatinine Ratio 6 (6-20) Glucose Level 91 mg/dL (70-99) Calcium Level 8.5 mg/dL (8.5-10.1) Total Bilirubin 0.6 mg/dL (0.2-1.0) Aspartate Amino Transf (AST/SGOT) 143 U/L (15-37) Alanine Aminotransferase (ALT/SGPT) 187 U/L (14-59) Alkaline Phosphatase 121 U/L (46-116) Total Protein 7.0 g/dL (6.4-8.2) Albumin 3.2 g/dL (3.4-5.0) Albumin/Globulin Ratio 0.8 (1.0-1.7) Assessment and Plan Assessmemt and Plan Problems Medical Problems: (1) Drug abuse Status: Acute (2) Hypokalemia Status: Acute (3) Pyelonephritis Status: Acute (4) Transaminitis Status: Acute Comment Review of Relevant I have reviewed the following items leticia (where applicable) has been applied. Medications: Current Medications Medications (Trade) Dose Ordered Sig/Kaelyn Route PRN Reason Start Time Stop Time Status Last Admin Dose Admin Lactobacillus Rhamnosus (Culturelle) 1 cap BID PO 06/07/21 21:00 06/08/21 08:30 Morphine Sulfate (Morphine Sulfate) 2 mg PRN Q3HRS PRN IVP MODERATE TO SEVERE PAIN 06/08/21 07:45 06/08/21 12:08 Justifications for Admission Other Justification JAXSON VERDIN MD Jun 08, 2021 13:46
[2021-06-08] MEDS ORDERED: SENNOSIDES/DOCUSATE 8.6/50MG TABLET. PO PRN (14:00)
[2021-06-08] MEDS ORDERED: MAGNESIUM CITRATE 296 ML SOLUTION. PO PRN (14:00)
--- NOTE | 2021-06-08 14:00 | NUR ---
Pt stated to nurse "You know I am a diabetic don't you? "I take insulin" Reviewed home med list for insulins, pt then stated, "Well, I take it sometimes. I'm not very good about taking things" when trying to get more information from patient. Pt did not provide pharmacy or doses. Pt has requested regular soda's etc, does not want to alter diet other than allowed to eat anything.
[2021-06-08 15:00] VITALS: BP 98/57
[2021-06-08 19:00] VITALS: BP 100/60
[2021-06-08 23:52] VITALS: BP 94/45
[2021-06-09] MEDS: MORPHINE SULFATE 2 MG/ML INJ. IVP PRN ×5 (00:27→23:00)
[2021-06-09] MEDS: diphenhydrAMINE 50 MG/ML VIAL IVP PRN ×3 (00:29→15:22)
[2021-06-09] MEDS: ONDANSETRON PF 4 MG/2 ML VIAL. IVP PRN (00:32)
[2021-06-09 03:28] VITALS: BP 103/56
[2021-06-09 04:09] LABS: HEMOGLOBIN A1C 4.6 % (4.8-5.6)
[2021-06-09 07:00] VITALS: BP 117/69
[2021-06-09] MEDS: PANTOPRAZOLE IV PUSH 40 MG VIAL. IVP SCH (08:23)
[2021-06-09] MEDS: DOXYCYCLINE HYCLATE 100 MG in IV DEXTROSE 5% 100ML 100 ML IV SCH ×2 (08:24→19:36)
[2021-06-09] MEDS: cefOXitin SODIUM IV Push 2 GM VIAL. IVP SCH ×2 (08:24→19:34)
[2021-06-09] MEDS: LACTOBACILLUS RHAMNOSUS GG 1 CAPSULE. PO SCH ×2 (08:25→19:34)
[2021-06-09 11:00] VITALS: BP 113/62
--- NOTE | 2021-06-09 11:45 | PDOC ---
Date of Service: DATE: 06/09/21 TIME: 11:31 Subjective: Subjective: She was in the restroom when I stopped by earlier. She says she's "not doing too good" - says "same things." Objective: Objective: D/w nurse - hasn't asked for nausea meds today but asks for morphine, pt reported "solid white" stool. Doesn't believe any witnessed emesis. No reports of bleeding. Reviewed other notes - tolerates pretzels apparently. Vital Signs: Vital Signs Date Time Temp Pulse Resp B/P (MAP) Pulse Ox O2 Delivery O2 Flow Rate FiO2 06/09/21 07:00 98.6 69 18 117/69 (85) 99 Room Air 98.6 Labs: URINE CULTURE Final Final LESS THAN 10,000 CFU/ML Normal genitourinary cindy, not indicative of infection on 06/09/21 at 0753 Imaging: SBS 06/06 IMPRESSION: 1. Slightly delayed gastric emptying and delayed small bowel transit time (between 90 and 180 min). 2. Otherwise, unremarkable small bowel follow-through exam. PE: GEN: NAD - in restroom, we spoke through close door A/P: Abdominal pain, vomiting - chronic/recurrent Diarrhea - apparently resolved, now reports hard stool H/o elevated LFTs (better) and hepatic steatosis H/o PID, +amphetamines (she denies - reports taking an old Adderall Rx), concern for drug-seeking behavior -- Okay to cancel stool tests per discussion w/ nurse. Difficult situation now as in the past, ongoing complaints from patient w/ requests for pain medication without witnessed vomiting per staff. Extensive GI workup per consult note. Seems tolerating some PO meds - consider changing to PO PPI. ?advance diet - apparently eats pretzels. Ideally would back off on IV pain and anxiety meds, though I doubt pt would agree. 24 hr urine pending. Will return later w/ Dr. Espinosa. Justicifation of Admission Dx: Justifications for Admission: Justification of Admission Dx: Yes KIMBERLI CORLEY Jun 09, 2021 11:45
--- NOTE | 2021-06-09 12:00 | PDOC ---
[facility] PROGRESS NOTE Date of Service DOS: DATE: 06/09/21 TIME: 11:50 Chief Complaint Chief Complaint Pyelonephritis Transaminitis Abdominal pain Hypokalemia GERD Chronic diarrhea Elevated LFTs Hepatic steatosis +amphetamines H/o cocaine use Drug abuse History of Present Illness History of Present Illness Sofy is a 25-year-old female complaining of generalized abdominal pain. Mult prior abd surgeries, she is very upset about being covid tested and isolated and complains of extreme anxiety. She initially did not want to talk to the physician. Prior mult abd surgies, HX PCOS, insulin-dependent type 2 diabetes, numerous kidney stones, and gallbladder and appendix removal. marked worse pain for 2 weeks. Since he has been in the ER and treated for UTI twice recently was given PO abx here in the ER a week ago and was unable to complete, has severe abd pain and nausea and vomiting. She refuses PO meds as she feels she will vomit and that her abd pain worse. C/o generalized abdominal pain that is worse on the right side with radiation down to her groin. CT abdomen pelvis without contrast no acute abnormalities. GI consulted 06/06: Pain still severe LFTs still deranged AST 265 ALT 213 alkaline phosphatase 129, bilirubin 1.2, urine culture with mixed cindy. Patient derik ounseled extensively on drug-seeking behavior given request for Ativan morphine and Benadryl. She strenuously emphasized that she does not take any illicit drugs and is taking a very old prescription of Adderall. I notified her drug- seeking behavior is insisting on specific medications by name and requesting nurses and physicians administer them in a way other than as prescribed. She notes that her entire family has problems with "dope" and she does not. I have emphasized the need to allow continued work-up of her presumptive diagnosis and on further questioning sexual history she does note that previously she has been treated for chlamydia. I discussed concerns for possibility of endometriosis or Blaine-Tyree See syndrome and she is amenable to testing for GC and chlamydia as well as syphilis. Patient very demanding of nurses. 06/07:LFT still elevated. Tells me she is vomiting after eating offered metoclopramide as adjunctive therapy she says this was coadministered with Compazine previously and she went "psycho". She is not willing to try this and she is demanding her diet be advanced. Have advised her if she vomits and aspi rates the risk of aspiration or severe she understands and is going to eat anyway. Continue IV antibiotics for presumptive PID awaiting PCR and GC chlamydia. 06/08: Eating pretzels from home notes she does not vomit when she has these but has been vomiting her food no witnesses to this event her friend notes he did not know that she was vomiting still complains of pain and says it is improved. GC chlamydia PCR pending. She still has not had a bowel movement. 06/09 Patient seen and examined bedside. Patient tried creating confusion regarding management of pain and usage of pain medications. Chart reviewed Case discussed with RN and case management. Vitals/I&O Vitals/I&O: Vital Signs Date Time Temp Pulse Resp B/P (MAP) Pulse Ox O2 Delivery O2 Flow Rate FiO2 06/09/21 11:00 98.1 58 18 113/62 (79) 97 98.1 06/09/21 08:00 Room Air I & O 06/08/21 06/08/21 06/09/21 15:00 23:00 07:00 Intake Total 800 ml 0 ml Output Total 900 ml Balance -100 ml 0 ml Physical Exam General: Alert, Cooperative, No acute distress Lungs: Clear, Other Abdomen: Other (guards, tender, ) Extremities: No edema, Normal pulses Skin: No significant lesion Review of Systems Review of Systems: ROS negative except as noted in HPI. Assessment and Plan Assessmemt and Plan Assessment: Pyelonephritis Transaminitis Abdominal pain Hypokalemia GERD Chronic diarrhea Elevated LFTs Hepatic steatosis +amphetamines H/o cocaine use Drug abuse Plan: IV abx and fluids Trend labs Pain medication GERD - controlled w/ PPI FEN - ADA PPX - lovenox FULL CODE Dispo - inpatient Comment Review of Relevant I have reviewed the following items leticia (where applicable) has been applied. Medications: Current Medications Medications (Trade) Dose Ordered Sig/Kaelyn Route PRN Reason Start Time Stop Time Status Last Admin Dose Admin Senna/Docusate Sodium (Senna Plus) 2 tab PRN BID PRN PO CONSTIPATION, 1ST CHOICE 06/08/21 14:00 06/08/21 16:30 Magnesium Citrate (Citroma) 296 ml PRN 1X PRN PO CONSTIPATION-2ND CHOICE 06/08/21 14:00 06/08/21 16:30 Lorazepam (Ativan Inj) 1 mg PRN Q4HRS PRN IVP ANXIETY / AGITATION 06/09/21 10:15 06/09/21 10:29 Justifications for Admission Other Justification DANGELO ROBLES III DO Jun 09, 2021 12:00
[2021-06-09] MEDS: POTASSIUM CL 20MEQ D5-0.45NACL 1,000 ML IV SCH ×2 (13:50→17:00)
[2021-06-09 15:00] VITALS: BP 111/60
--- NOTE | 2021-06-09 17:22 | NUR ---
Previous IV infusion still running with approx 750 mL remaining. Non-administered 1700 dose of fluids. Will continue to monitor.
[2021-06-09 19:00] VITALS: BP 103/47
[2021-06-09] MEDS: METOCLOPRAMIDE HCL 10 MG/2 ML VIAL. IVP PRN (19:34)
[2021-06-09 23:18] VITALS: BP 101/52
[2021-06-10] MEDS: POTASSIUM CL 20MEQ D5-0.45NACL 1,000 ML IV SCH ×2 (02:52→09:31)
[2021-06-10 07:00] VITALS: BP 150/88
[2021-06-10] MEDS: PANTOPRAZOLE IV PUSH 40 MG VIAL. IVP SCH ×2 (07:30→07:57)
[2021-06-10] MEDS: cefOXitin SODIUM IV Push 2 GM VIAL. IVP SCH ×2 (07:57→09:00)
[2021-06-10] MEDS: DOXYCYCLINE HYCLATE 100 MG in IV DEXTROSE 5% 100ML 100 ML IV SCH ×2 (07:57→09:00)
[2021-06-10] MEDS: LACTOBACILLUS RHAMNOSUS GG 1 CAPSULE. PO SCH (07:58)
[2021-06-10] MEDS: MORPHINE SULFATE 2 MG/ML INJ. IVP PRN (07:58)
--- NOTE | 2021-06-10 08:20 | NUR ---
Pt requesting "my medications that are due." Pt requesting to have PRN morphine, Ativan, and Benadryl at the same time. This junior technical writer explained that it is not appropriate to give 3 IV medications that have sedative effects. Pt asked "is that just a nurse preference to stagger them? Cause nobody has done it before." Pt then agrreable to have morphine and ativan becau Addendum: 06/10/21 at 0912 by DELMER AVENDANO RN and to stagger the Benadryl. Pt still expressed concern about IV hurting. This RN asked if patient was still having N/V. Pt stated she threw up this morning and still had some in her benson bucket. This RN did not note any emesis in her bucket at this time. This RN suggested to patient that if she is able to tolerate enough fluids and food to stay hydrated we can ask the MD to stop the continuous infusion. Pt stated "well I am drinking water." This RN told patient we would ask MD for cancellation. This RN flushed the IV slowly and pt stated "it doesn't hurt so bad now." No signs of infiltration seen around the IV. No redness, swelling, etc. This RN gave PRN medications and pt stated it was starting to burn, but "it doesn't look swollen." PRN medications administered. When attempting to administer Protonix IVP, pt yelled out and said "Oh my god stop stop stop, it hurts!" This RN stated that we would discuss with Dr. Sevilla about switching her medications to PO and possibly not having an IV anymore. Pt stated, "you don't have to be such a bitch. " This junior technical writer stated that there is no reason to be disrespectful or call me names, I am only here trying to take care of you. Pt then stated "well I can't take oral medications obviously lady." This RN stated she would discuss with MD plan and left room. As this RN was leaving room, pt yelling out "I'll just take my IV out myself and leave then." EAP COUNSELOR went to take IV out due to potential flight risk, pt stated "No, I want to talk to charge nurse first." JAME Horton notified. After discussion with charge nurse, pt is willing to have medications switched to PO and stay. Pt requesting we call MD NOW so "I can at least get my anxiety medication. It didn't go through, look its swollen and red!" JAME stated we would discuss with MD over 0930 Prime Time Rounds and remove IV per patient request. Pt agreeable to this. EAP COUNSELOR removed IV. Will continue to monitor.
--- NOTE | 2021-06-10 10:39 | PDOC ---
Date of Service: DATE: 06/10/21 TIME: 10:32 Subjective: Subjective: "I called someone a name earlier because I was upset and now I'm upset with myself." Says she feels better and is going to try to eat more. Vomited this morning due to "sour stomach" maybe. No diarrhea. Says the plan is to change to PO medications. Objective: Objective: Reviewed nursing notes and discussed pt's behavior w/ nurse in detail - lots of complaints/demands re: medication. No witnessed emesis. Vital Signs: Vital Signs Date Time Temp Pulse Resp B/P (MAP) Pulse Ox O2 Delivery O2 Flow Rate FiO2 06/10/21 08:00 Room Air 06/10/21 07:00 98.6 79 18 150/88 (108) 100 98.6 PE: GEN: NAD - in bed - visual exam done ABD: non-distended NEURO/PSYCH: A & O 3, seems less aggravated today A/P: Abdominal pain, vomiting - recurrent issue - better H/o elevated LFTs (favorable trend) and hepatic steatosis H/o PID, +amphetamines, concern for drug-seeking behavior -- Difficult situation as in the past. Okay to ADAT and DC per GI - would send with PPI Rx. Agree with plan to change meds to PO. 24 hr urine pending - can follow-up for results as outpt. Justicifation of Admission Dx: Justifications for Admission: Justification of Admission Dx: Yes KIMBERLI CORLEY Jun 10, 2021 10:39
--- NOTE | 2021-06-10 10:48 | PDOC ---
[facility] PROGRESS NOTE Date of Service DOS: DATE: 06/10/21 TIME: 10:46 Chief Complaint Chief Complaint Pyelonephritis Transaminitis Abdominal pain Hypokalemia GERD Chronic diarrhea Elevated LFTs Hepatic steatosis +amphetamines H/o cocaine use Drug abuse History of Present Illness History of Present Illness Sofy is a 25-year-old female complaining of generalized abdominal pain. Mult prior abd surgeries, she is very upset about being covid tested and isolated and complains of extreme anxiety. She initially did not want to talk to the physician. Prior mult abd surgies, HX PCOS, insulin-dependent type 2 diabetes, numerous kidney stones, and gallbladder and appendix removal. marked worse pain for 2 weeks. Since he has been in the ER and treated for UTI twice recently was given PO abx here in the ER a week ago and was unable to complete, has severe abd pain and nausea and vomiting. She refuses PO meds as she feels she will vomit and that her abd pain worse. C/o generalized abdominal pain that is worse on the right side with radiation down to her groin. CT abdomen pelvis without contrast no acute abnormalities. GI consulted 06/06: Pain still severe LFTs still deranged AST 265 ALT 213 alkaline phosphatase 129, bilirubin 1.2, urine culture with mixed cindy. Patient derik ounseled extensively on drug-seeking behavior given request for Ativan morphine and Benadryl. She strenuously emphasized that she does not take any illicit drugs and is taking a very old prescription of Adderall. I notified her drug- seeking behavior is insisting on specific medications by name and requesting nurses and physicians administer them in a way other than as prescribed. She notes that her entire family has problems with "dope" and she does not. I have emphasized the need to allow continued work-up of her presumptive diagnosis and on further questioning sexual history she does note that previously she has been treated for chlamydia. I discussed concerns for possibility of endometriosis or Blaine-Tyree See syndrome and she is amenable to testing for GC and chlamydia as well as syphilis. Patient very demanding of nurses. 06/07:LFT still elevated. Tells me she is vomiting after eating offered metoclopramide as adjunctive therapy she says this was coadministered with Compazine previously and she went "psycho". She is not willing to try this and she is demanding her diet be advanced. Have advised her if she vomits and aspi rates the risk of aspiration or severe she understands and is going to eat anyway. Continue IV antibiotics for presumptive PID awaiting PCR and GC chlamydia. 06/08: Eating pretzels from home notes she does not vomit when she has these but has been vomiting her food no witnesses to this event her friend notes he did not know that she was vomiting still complains of pain and says it is improved. GC chlamydia PCR pending. She still has not had a bowel movement. 06/09 Patient seen and examined bedside. Patient tried creating confusion regarding management of pain and usage of pain medications. Chart reviewed Case discussed with RN and case management. 06/10 Patient seen and examined bedside. Patient eating and cooperative and ready to be discharged. Chart reviewed Case discussed with RN and case management. Vitals/I&O Vitals/I&O: Vital Signs Date Time Temp Pulse Resp B/P (MAP) Pulse Ox O2 Delivery O2 Flow Rate FiO2 06/10/21 08:00 Room Air 06/10/21 07:00 98.6 79 18 150/88 (108) 100 98.6 I & O 06/09/21 06/09/21 06/10/21 15:00 23:00 07:00 Intake Total 490 ml 0 ml Balance 490 ml 0 ml Physical Exam General: Alert, Cooperative, No acute distress Lungs: Clear, Other Abdomen: Other (guards, tender, ) Extremities: No edema, Normal pulses Skin: No significant lesion Review of Systems Review of Systems: ROS negative except as otherwise noted in HPI. Assessment and Plan Assessmemt and Plan Assessment: Pyelonephritis Transaminitis Abdominal pain Hypokalemia GERD Chronic diarrhea Elevated LFTs Hepatic steatosis +amphetamines H/o cocaine use Drug abuse Plan: IV abx and fluids Trend labs Pain medication GERD - controlled w/ PPI FEN - ADA PPX - lovenox FULL CODE DC to home likely today. Comment Review of Relevant I have reviewed the following items leticia (where applicable) has been applied. Justifications for Admission Other Justification DANGELO ROBLES III, DO Jun 10, 2021 10:48
[2021-06-10] MEDS ORDERED: DOXY50CA PO (10:52)
[2021-06-10] MEDS ORDERED: ALPR2TAB5 PO (10:52)
[2021-06-10] MEDS ORDERED: HYDR-2761 PO (10:52)
--- NOTE | 2021-06-10 11:00 | NUR ---
SW following. Discussed with RN, pt from home, room air, GI soft diet. Discharge order for home with self care. Med Assist following for self pay status.
--- NOTE | 2021-06-10 11:10 | NUR ---
Discharge Note: IRAJ MONET WISHON Discharge instructions and discharge home medications reviewed with Patient and a copy given. All questions have been answered and understanding verbalized. The following instructions and handouts were given: f/u with PCP within two weeks. Discontinued lines and drains: Peripheral IV intact. Patient discharged to Home or Self Care with Family Member via [facility].
--- NOTE | 2021-06-10 11:21 | DS ---
DATE OF DISCHARGE: 06/10/2021 ADMISSION DIAGNOSIS: Pyelonephritis. DISCHARGE DIAGNOSES: Resolving pyelonephritis, transaminitis, chronic pain, probable narcotic dependence, probable benzodiazepine dependence, gastroesophageal reflux disease, chronic diarrhea, hepatic steatosis, history of cocaine use, drug abuse, history of amphetamine abuse. HOSPITAL COURSE: The patient is a pleasant, middle-aged female well known to our service. She once again presented with abdominal pain, was noted to have pyelonephritis. She also has severe problems with anxiety and has some narcotic-seeking behavior. She was admitted. We gave her IV antibiotics, fluids and pain meds and benzos and anxiolytics. Today, I saw and examined her. She is at her baseline. We plan to discharge. DISPOSITION: Home. ACTIVITY: As tolerated. DIET: Low sodium. MEDICATIONS: Lortab 5 q. 6 p.r.n. Xanax 2 mg q. 12 p.r.n., budesonide, cetirizine 10 a day, doxycycline 100 p.o. b.i.d., gabapentin 600 t.i.d., Singulair 10 a day, p.r.n. Naprosyn, nicotine patches, omeprazole 40 a day, ondansetron 4 q. 6 p.r.n. TOTAL TIME: [address]: SASHA/binta TID: [id number]
[2021-06-11] MEDS ORDERED: PANTOPRAZOLE 40 MG TABLET.DR. PO SCH (07:30)
[2021-06-12 13:40] LABS: COPORPHYRIN 51 ug/L (Undefined); HEPATACARBOXYLPORPH 4 ug/L (Undefined); HEXCARBOXYLPORPHYRIN <1 ug/L (Undefined); PENTACARBOXYLPORPH 3 ug/L (Undefined); UROPORPHYRIN 19 ug/L (Undefined)
== END 2021-06-10 11:10 | disposition home or self-care (01) | DRG 872 ==
LOC: ER 06:51 → 5 NORTH 11:38
PROVIDERS: ADMIT Internal Medicine; ATTEND Internal Medicine
DX: A41.9 Sepsis, unspecified organism (principal); F11.20 Opioid dependence, uncomplicated; F13.20 Sedative, hypnotic or anxiolytic dependence, uncomplicated; N10 Acute pyelonephritis; E11.9 Type 2 diabetes mellitus without complications; E66.9 Obesity, unspecified; Z68.35 Body mass index [BMI] 35.0-35.9, adult; E87.6 Hypokalemia; F17.210 Nicotine dependence, cigarettes, uncomplicated; F41.9 Anxiety disorder, unspecified; G89.29 Other chronic pain; J45.909 Unspecified asthma, uncomplicated; K21.9 Gastro-esophageal reflux disease without esophagitis; K52.9 Noninfective gastroenteritis and colitis, unspecified; Z53.29 Procedure and treatment not carried out because of patient's decision for other reasons; R79.89 Other specified abnormal findings of blood chemistry; F19.10 Other psychoactive substance abuse, uncomplicated; Z20.822 Contact with and (suspected) exposure to COVID-19; K76.0 Fatty (change of) liver, not elsewhere classified; Z76.5 Malingerer [conscious simulation]; Z79.4 Long term (current) use of insulin; Z82.49 Family history of ischemic heart disease and other diseases of the circulatory system; Z83.3 Family history of diabetes mellitus; Z87.442 Personal history of urinary calculi; Z90.49 Acquired absence of other specified parts of digestive tract; Z98.1 Arthrodesis status; Z88.8 Allergy status to other drugs, medicaments and biological substances; Z91.041 Radiographic dye allergy status; Z91.040 Latex allergy status; Z91.013 Allergy to seafood
CPT/HCPCS: 36415; 71045; 74176; 74250; 80053; 80076; 80307; 81001; 83036; 83690; 84120; 85025; 85027; 86592; 86705; 86709; 86803; 87086; 87340; 87426; 96361; 96374; 96375; C9113; J0694; J0696; J1200; J2060; J2270; J2405; J2765; J3475; J3480; J3490; J7030; J7060; U0003; U0005; 99285-25; G0378

== ENCOUNTER 2021-07-21 16:47 | Emergency (ER) | payer SELFPAY ==
[~2021-07-21] VITALS: Ht 175.3 cm; Wt 100.0 kg
[~2021-07-21 16:47] MED LIST changes: +ALPR2TAB5 PO; +DOXY50CA PO
--- NOTE | 2021-07-21 18:24 | PHYS DOC ---
Past Medical History Past Medical History: Anxiety, Asthma, Cystic Fibrosis, Diabetes-Type II, Kidney Stone, UTI, Additional Disease Additional Past Medical Histor: PCOS Past Surgical History: Appendectomy, Cholecystectomy, Other Additional Past Surgical Histo: spinal fusion Smoking Status: Current Every Day Smoker Alcohol Use: Heavy Drug Use: None General Adult EDM: Chief Complaint: ABDOMINAL PAIN HPI: HPI: Patient is a 26 year old female who presents with subjective sensation of swelling in her right upper quadrant of her abdomen. She reports "lots of vomiting." Times began today. She has chronic abdominal pain, chronic pain, chronic opioid dependence. She has had a previous cholecystectomy and a previous appendectomy. She has chronic diarrhea, reports slight increase in volume of diarrhea, with blood mixed in her stool, which she has experienced before. She denies fevers or chills. Denies chest pain or dyspnea. Denies cough. Denies urinary symptoms. LMP 3 months ago. She reports she has irregular periods secondary reportedly to PCOS. She is not taking any contraceptives. She immediately demands to know what is causing her pain. She drove herself here, does not have a ride, it was explained that no opioids could be administered to her until we know that she could have a ride, and she would not require hospitalization or admission. No previous known history of bowel obstruction. No previous known history of abdominal wall hernia. Review of Systems: Review of Systems: Constitutional: Denies fever or chills. [] Eyes: Denies change in visual acuity. [] HENT: Denies nasal congestion or sore throat. [] Respiratory: Denies cough or shortness of breath. [] Cardiovascular: Denies chest pain or edema. [] GI: Abdominal pain, nausea, vomiting, chronic diarrhea, hematochezia mixed with brown stool : Denies dysuria, pelvic pain or any other urinary symptoms. Denies vaginal discharge or bleeding. Musculoskeletal: Neck and unchanged back pain. Integument: Denies rash. [] Neurologic: Denies headache, focal weakness or sensory changes. [] Psychiatric: Chronic anxiety, reportedly unchanged [] Heart Score: C/O Chest Pain: No Risk Factors: Risk Factors: DM, Current or recent (<one month) smoker, HTN, HLP, family history of CAD, obesity. Risk Scores: Score 0 - 3: 2.5% MACE over next 6 weeks - Discharge Home Score 4 - 6: 20.3% MACE over next 6 weeks - Admit for Clinical Observation Score 7 - 10: 72.7% MACE over next 6 weeks - Early Invasive Strategies Allergies: Allergies: Allergies Coded Allergies Type Severity Reaction Last Updated Verified promethazine Allergy Severe 05/27/21 Yes Fish Containing Products Allergy Intermediate Rash 11/08/18 Yes coconut oil Allergy Intermediate 11/08/18 Yes iodine Allergy Intermediate Rash 02/13/21 Yes ketorolac Allergy Intermediate Rash 11/08/18 Yes latex Allergy Intermediate Rash 11/08/18 Yes mite-Dermatophagoides farinae, demetra Allergy Intermediate 02/13/21 Yes mold Allergy Intermediate 11/08/18 Yes tramadol Allergy Intermediate RASH/ITCHING 11/08/18 Yes fentanyl Allergy Unknown Unknown 05/27/21 Yes shellfish derived Adverse Reaction Intermediate 11/08/18 Yes prednisone Adverse Reaction Mild N/V 01/03/21 Yes Physical Exam: PE: Constitutional: Well developed, well nourished, no acute distress, non-toxic appearance. [] HENT: Normocephalic, atraumatic Eyes: Sclera are clear and anicteric Neck: Trachea is midline Cardiovascular:Heart rate regular rhythm, was 2 radial and +2 dorsalis pedis pulses bilaterally Lungs & Thorax: Bilateral breath sounds clear to auscultation [] Abdomen: Abdomen is obese, soft, nondistended, no visible deformity. Right upper quadrant tenderness. Mild and inconsistent voluntary guarding. No reboun d tenderness. No palpable mass, no palpable hernia, no palpable organomegaly. No flank or abdominal ecchymoses. No lower abdominal tenderness. Normal bowel sounds noted. Skin: Warm, dry, no erythema, no rash, no jaundice Back: No tenderness, no CVA tenderness. [] Extremities: No tenderness, no cyanosis, no clubbing, ROM intact, no edema. No calf tenderness Neurologic: Alert and oriented X 3, normal motor function, normal sensory function, no focal deficits noted. [] Psychologic: She is anxious [] EKG: EKG: [] Radiology/Procedures: Radiology/Procedures: IMAGING REPORT Signed PATIENT: IRAJ MONET RACCOUNT: [id number] : 1995 LOCATION: ER AGE: 26 SEX: F EXAM STATUS: PRE ER ORD. PHYSICIAN: DERRELL OCHOA DO REASON: right sided abdominal pain, subjective swelling PROCEDURE: CT ABDOMEN PELVIS WO CONTRAST CT abdomen pelvis without contrast dated 07/21/2021. COMPARISON: 06/05/2021. CLINICAL INDICATION: Right-sided abdominal pain and swelling. TECHNIQUE: Contiguous axial imaging the abdomen pelvis performed without the administration of IV or oral contrast. One or more of the following individualized dose reduction techniques were utilized for this examination: 1. Automated exposure control 2. Adjustment of the mA and/or kV according to patient size 3. Use of iterative reconstruction technique. FINDINGS: Limited images of lung bases are clear. Heart size within normal limits. No pleural or pericardial effusion. Solid abdominal viscera not well evaluated in the absence of contrast material. No apparent attenuation abnormality of the liver or spleen. Gallbladder is surgically absent. Adrenal glands and kidneys are unremarkable. No stone or hydronephrosis. Unopacified GI tract normal in caliber and contour. No focal bowel wall thickening. No inflammatory changes in the mesentery. The appendix is surgically absent. No ascites or lymphadenopathy. Abdominal aorta is normal in caliber. Images the pelvis show nondistended urinary bladder. Uterus and adnexa are unremarkable. No free fluid or pelvic lymphadenopathy. Bone windows show no acute finding. There is been prior thoracolumbar fusion. No apparent hardware complication. Mild multilevel spondylosis. IMPRESSION: 1. No acute abnormality of abdomen or pelvis. No renal stone or hydronephrosis. 2. Status post cholecystectomy and appendectomy. Electronically signed by: Raul Cavazos MD (07/21/2021 7:15 PM) [facility] [place] DICTATED and SIGNED BY: RAUL CAVAZOS MD DATE: 07/21/21 [id number] 0 Course & Med Decision Making: Course & Med Decision Making Pertinent Labs and Imaging studies reviewed. (See chart for details) IV fluid normal saline bolus given, IV Zofran, IV morphine given. She was able to procure a ride home. IV Rocephin empirically given for urinary tract infection. Urine culture is pending. I have discussed all the findings, differential diagnosis and plan of care with the patient. There is no objective evidence of surgical abdominal exam findings, CT of the abdomen pelvis is unrem arkable for any acute life-threatening or surgical process. Laboratory exams are unremarkable. There is currently no indication for further invasive exams, imaging or admission at this time. She understands that urine culture is pending, and if any change in treatment is required, she should be notified of this. I have strongly encouraged her to follow-up with her primary care physician. She is given outpatient resources for this. She reports that she is "pissed off" because I cannot find the underlying etiology for her subjective sensation of swelling in her right upper quadrant. I explained that there is no obvious emergency cause for her symptoms, though I did express to her, multiple times, that I am not negating her subjective sense of discomfort, nor am I negating her subjective sense of abdominal swelling. I explained that she must follow-up with outpatient resources for further delineation, further evaluation and further treatment. Return precautions are given. Shortly after the patient received a dose of IV Rocephin, she began experiencing redness of her face, neck and chest, with some itching. She is given a dose of IV Benadryl, which improved her symptoms significantly. She did not demonstrate any facial or oral swelling, no dyspnea or wheezing. She was observed for a while after treatment. Rocephin was added to her allergy list. I canceled the order to the pharmacy for cefdinir, and I replaced it with Macrobid. The patient reports that the reaction made her very anxious, she is requesting a dose of Xanax, this is given prior to her discharge. After observation, the patient is not manifesting any evidence of anaphylaxis. No evidence of airway compromise. She understands that Rocephin is being placed on her allergy list. She has received this medication multiple times, as confirmed to me before I can order the medication, and she reports that she frequently receives IV Benadryl concomitantly with antibiotics, secondary to nausea and vomiting and litany of other allergies, so it is possible the Benadryl abated any previous reaction. Nonetheless she should not receive this medication in the future. She is still insistent on leaving, demanding discharge, she appears stable. She is given outpatient resources for primary care services. Return precautions once again given. Romelia Disclaimer: Romelia Disclaimer: This electronic medical record was generated, in whole or in part, using a voice recognition dictation system. Departure Departure Impression: Primary Impression: UTI (urinary tract infection) Additional Impression: Right upper quadrant abdominal pain Disposition: 01 HOME / SELF CARE / HOMELESS Condition: STABLE Referrals: NO PCP (PCP) Patient Instructions: Abdominal Pain (Nonspecific), Urinary Tract Infection Additional Instructions: Take the prescribed medications as directed. Your urine culture is currently pending, and if there is any need to change your treatment or antibiotics based on these results, you should be notified, within about 48 hours. Return for any worsening pain, uncontrolled vomiting, dehydration, temperature 100.4 or higher or for any other concerns. Please follow-up with your primary care physician for routine health care and also follow-up of this chronic condition. Please also follow-up with outpatient GI services. Scripts Nitrofurantoin Monohyd/M-Cryst (MACROBID 100 MG CAPSULE) 100 Mg Capsule 1 CAP PO BID for 7 Days, #14 CAP 0 Refills Prov: DERRELL OCHOA DO 07/21/21 Hydrocodone Bit/Acetaminophen (HYDROCODONE-APAP 5-325 ) 1 Tab Tablet 1 TAB PO PRN Q6HRS PRN for PAIN, #8 TAB 0 Refills Prov: DERRELL OCHOA DO 07/21/21 Ondansetron Hcl (ZOFRAN) 4 Mg Tablet 4 MG PO PRN TID PRN for VOMITING, #20 TAB nausea/vomiting Prov: DERRELL OCHOA DO 07/21/21 DERRELL OCHOA DO Jul 21, 2021 18:24
[2021-07-21 18:40] LABS: BILIRUBIN,URINE NEGATIVE (NEG); CLARITY,URINE CLOUDY; COLOR,URINE YELLOW; NITRITE,URINE NEGATIVE (NEG); PROTEIN,URINE NEGATIVE (NEG-TRACE); UROBILINOGEN,URINE 0.2 mg/dL (0.2 mg/dL)
[2021-07-21] MEDS ORDERED: IV NORMAL SALINE 1000ML BAG 1,000 ML IV ONE (18:45)
[2021-07-21] MEDS ORDERED: ONDANSETRON PF 4 MG/2 ML VIAL. IVP ONE (18:45)
[2021-07-21 18:52] LABS: BARBITURATES NEG (NEG); BENZODIAZEPINES NEG (NEG); CANNABINOIDS NEG (NEG); COCAINE POS (NEG); METHADONE NEG (NEG); OPIATES NEG (NEG); PHENCYCLIDINE NEG (NEG)
[2021-07-21 18:56] LABS: AMPHETAMINE/METHAMPHETAMINE NEG (NEG)
[2021-07-21 18:58] LABS: BASO # 0.1 x10^3/uL (0.0-0.2); BASO % 1 % (0-3); EOS # 0.1 x10^3/uL (0.0-0.7); EOS % 1 % (0-3); HEMATOCRIT 41.8 % (36.0-47.0); HEMOGLOBIN 14.4 g/dL (12.0-15.5); LYMPH # 2.6 x10^3/uL (1.0-4.8); LYMPH % 30 % (24-48); MEAN CORPUSCULAR HEMOGLOBIN 32 pg (25-35); MEAN CORPUSCULAR HGB CONC 35 g/dL (31-37); MEAN CORPUSCULAR VOLUME 91 fL (79-100); MONO # 0.5 x10^3/uL (0.0-1.1); MONO % 6 % (0-9); NEUT # 5.5 x10^3/uL (1.8-7.7); NEUT % 62 % (31-73); PLATELET COUNT 250 x10^3/uL (140-400); RED BLOOD COUNT 4.57 x10^6/uL (3.50-5.40); RED CELL DISTRIBUTION WIDTH 14.1 % (11.5-14.5); WHITE BLOOD COUNT 8.8 x10^3/uL (4.0-11.0)
[2021-07-21 19:00] LABS: AMORPHOUS SEDIMENT,UR PRESENT /HPF; BACTERIA,URINE MODERATE /HPF (0-FEW); WBC,URINE TNTC /HPF (0-4)
[2021-07-21 19:10] LABS: CREATININE 0.8 mg/dL (0.6-1.0); GFR 88.1; POTASSIUM 3.6 mmol/L (3.5-5.1)
[2021-07-21 19:14] LABS: ALBUMIN 3.5 g/dL (3.4-5.0); ALBUMIN/GLOBULIN RATIO 0.8 (1.0-1.7); TOTAL BILIRUBIN 0.7 mg/dL (0.2-1.0)
--- NOTE | 2021-07-21 19:17 | RAD ---
CT abdomen pelvis without contrast dated 07/21/2021. COMPARISON: 06/05/2021. CLINICAL INDICATION: Right-sided abdominal pain and swelling. TECHNIQUE: Contiguous axial imaging the abdomen pelvis performed without the administration of IV or oral contra st. One or more of the following individualized dose reduction techniques were utilized for this examinat ion: 1. Automated exposure control 2. Adjustment of the mA and/or kV according to patient size 3. Use of iterative reconstruction technique. FINDINGS: Limited images of lung bases are clear. Heart size within normal limits. No pleural or pericardial ef fusion. Solid abdominal viscera not well evaluated in the absence of contrast material. No apparent attenuati on abnormality of the liver or spleen. Gallbladder is surgically absent. Adrenal glands and kidneys a re unremarkable. No stone or hydronephrosis. Unopacified GI tract normal in caliber and contour. No focal bowel wall thickening. No inflammatory c hanges in the mesentery. The appendix is surgically absent. No ascites or lymphadenopathy. Abdominal aorta is normal in caliber. Images the pelvis show nondistended urinary bladder. Uterus and adnexa are unremarkable. No free flui d or pelvic lymphadenopathy. Bone windows show no acute finding. There is been prior thoracolumbar fusion. No apparent hardware co mplication. Mild multilevel spondylosis. IMPRESSION: 1. No acute abnormality of abdomen or pelvis. No renal stone or hydronephrosis. 2. Status post cholecystectomy and appendectomy. Electronically signed by: Raul Cavazos MD (07/21/2021 7:15 PM) [facility], [address] [place]
[2021-07-21] MEDS ORDERED: cefTRIAXone IV Push 1 GM VIAL. IVP ONE (19:45)
[2021-07-21] MEDS ORDERED: MORPHINE SULFATE 4 MG/ML INJ. IVP ONE (19:45)
[2021-07-21] MEDS ORDERED: ONDA4TAB7 PO (20:07)
[2021-07-21] MEDS ORDERED: HYDR-2761 PO (20:07)
[2021-07-21] MEDS ORDERED: CEFD300C PO (20:07)
[2021-07-21] MEDS ORDERED: diphenhydrAMINE 50 MG/ML VIAL IVP ONE (21:00)
[2021-07-21] MEDS ORDERED: NITR100C62 PO (21:34)
[2021-07-21 21:45] VITALS: BP 145/87
[2021-07-21] MEDS ORDERED: ALPRAZolam 0.5 MG TABLET PO ONE (21:45)
== END 2021-07-21 21:58 | disposition home or self-care (01) ==
LOC: ER 16:47
DX: N39.0 Urinary tract infection, site not specified (principal); J45.909 Unspecified asthma, uncomplicated; E11.9 Type 2 diabetes mellitus without complications; F17.200 Nicotine dependence, unspecified, uncomplicated; Z90.89 Acquired absence of other organs; Z90.49 Acquired absence of other specified parts of digestive tract; Z87.442 Personal history of urinary calculi; Z88.4 Allergy status to anesthetic agent; Z88.5 Allergy status to narcotic agent; Z88.6 Allergy status to analgesic agent; Z91.040 Latex allergy status; Z88.8 Allergy status to other drugs, medicaments and biological substances; Z91.013 Allergy to seafood; Z91.018 Allergy to other foods
CPT/HCPCS: 36415; 74176; 80053; 80307; 81001; 81025; 83690; 85025; 87086; 96361; 96374; 96375; 99285; G0480; J0696; J1200; J2270; J2405; J7030; 87077

== ENCOUNTER 2021-08-09 15:21 | Emergency (ER) | payer SELFPAY ==
[~2021-08-09] VITALS: Ht 175.3 cm; Wt 111.5 kg
[2021-08-09 16:35] LABS: BASO # 0.1 x10^3/uL (0.0-0.2); BASO % 1 % (0-3); EOS # 0.2 x10^3/uL (0.0-0.7); EOS % 2 % (0-3); HEMATOCRIT 41.3 % (36.0-47.0); HEMOGLOBIN 14.6 g/dL (12.0-15.5); LYMPH # 1.5 x10^3/uL (1.0-4.8); LYMPH % 16 % (24-48); MEAN CORPUSCULAR HEMOGLOBIN 32 pg (25-35); MEAN CORPUSCULAR HGB CONC 36 g/dL (31-37); MEAN CORPUSCULAR VOLUME 90 fL (79-100); MONO # 0.6 x10^3/uL (0.0-1.1); MONO % 7 % (0-9); NEUT # 6.7 x10^3/uL (1.8-7.7); NEUT % 74 % (31-73); PLATELET COUNT 190 x10^3/uL (140-400); RED BLOOD COUNT 4.61 x10^6/uL (3.50-5.40); RED CELL DISTRIBUTION WIDTH 13.8 % (11.5-14.5); WHITE BLOOD COUNT 9.1 x10^3/uL (4.0-11.0)
[2021-08-09 16:39] LABS: INFLUENZA A PATIENT NEGATIVE (NEGATIVE); INFLUENZA B PATIENT NEGATIVE (NEGATIVE)
[2021-08-09 16:53] LABS: CALCIUM 8.9 mg/dL (8.5-10.1); CREATININE 0.8 mg/dL (0.6-1.0); GFR 88.1; POTASSIUM 3.9 mmol/L (3.5-5.1)
[2021-08-09 16:59] LABS: ALBUMIN 3.7 g/dL (3.4-5.0); ALBUMIN/GLOBULIN RATIO 0.9 (1.0-1.7); TOTAL BILIRUBIN 0.6 mg/dL (0.2-1.0); TOTAL PROTEIN 7.7 g/dL (6.4-8.2)
--- NOTE | 2021-08-09 17:20 | RAD ---
Chest AP portable at 1653: Reason for examination: Short of breath with crackles. Comparison is made to previous study dated 06/05/2021. Hardware is again seen in the thoracolumbar spine. The heart size is normal. Mediastinum is unremarka ble. Lung navarro are clear. No acute bony abnormalities are seen. Impression: No acute cardiopulmonary disease. Electronically signed by: Linda Spring MD (08/09/2021 5:17 PM) [facility]
--- NOTE | 2021-08-09 17:36 | PHYS DOC ---
Past Medical History Past Medical History: Anxiety, Asthma, Diabetes-Type II, Kidney Stone, UTI, Additional Disease Additional Past Medical Histor: PCOS (NAOMI HEATH MD) Past Surgical History: No Surgical History Additional Past Surgical Histo: spinal fusion (NAOMI HEATH MD) Smoking Status: Current Every Day Smoker Alcohol Use: Rarely Drug Use: None (NAOMI HEATH MD) General Adult EDM: Chief Complaint: SHORTNESS OF BREATH HPI: HPI: Patient is a 26 year old female with remote history of asthma, DM (noncompliant with Metformin) who presents with multiple complaints including shortness of breath. Patient received her second dose of mRNA vaccine yesterday. Throughout the day had some fever and generalized malaise. This morning awoke with sore throat, runny nose, and progressed to chest pain and shortness of breath. She noticed wet sounding respirations and presented to the emergency department for evaluation. States the chest pain is central, constant pressure. Present since noon today. (NAOMI HEATH MD) Review of Systems: Review of Systems: Constitutional: Reports fever and chills Eyes: Denies change in visual acuity. [] HENT: Reports nasal congestion and sore throat Respiratory: Reports cough and shortness of breath Cardiovascular: Denies chest pain or edema. [] GI: Denies abdominal pain, nausea, vomiting, bloody stools or diarrhea. [] : Denies dysuria. [] Musculoskeletal: Denies back pain or joint pain. [] Integument: Denies rash. [] Neurologic: Denies headache, focal weakness or sensory changes. [] Endocrine: Denies polyuria or polydipsia. [] Lymphatic: Denies swollen glands. [] Psychiatric: Denies depression or anxiety. [] (NAOMI HEATH MD) Heart Score: C/O Chest Pain: Yes HEART Score for Chest Pain: HEART Score for Chest Pain Response (Comments) Value History Slighlty/Non-Suspicious 0 ECG Nonspecific Repolarizatio 1 Age < 45 0 Risk Factors 1 or 2 Risk Factors 1 Troponin < Normal Limit 0 Total 2 Risk Factors: Risk Factors: DM, obesity Risk Scores: Score 0 - 3: 2.5% MACE over next 6 weeks - Discharge Home (NAOMI HEATH MD) Allergies: Allergies: Allergies Coded Allergies Type Severity Reaction Last Updated Verified promethazine Allergy Severe 07/21/21 Yes Fish Containing Products Allergy Intermediate Rash 11/08/18 Yes ceftriaxone Allergy Intermediate REDNESS, ITCHING AND HIVES 07/21/21 Yes coconut oil Allergy Intermediate 07/21/21 Yes iodine Allergy Intermediate Rash 02/13/21 Yes ketorolac Allergy Intermediate Rash 07/21/21 Yes latex Allergy Intermediate Rash 07/21/21 Yes mite-Dermatophagoides farinae, demetra Allergy Intermediate 02/13/21 Yes mold Allergy Intermediate 11/08/18 Yes tramadol Allergy Intermediate RASH/ITCHING 11/08/18 Yes fentanyl Allergy Unknown Unknown 05/27/21 Yes prednisone Adverse Reaction Intermediate N/V 07/21/21 Yes shellfish derived Adverse Reaction Intermediate 11/08/18 Yes (NAOMI HEATH MD) Physical Exam: PE: Constitutional: Mild tachypnea, mild respiratory distress, wet sounding respirations audible from doorway. Neck: Normal range of motion, no tenderness, supple, no stridor. [] Cardiovascular:Heart rate regular rhythm, no murmur [] Lungs & Thorax: Bilateral rhonchi, mild tachypnea. Satting well on room air. Abdomen: Bowel sounds normal, soft, no tenderness, no masses, no pulsatile masses. [] Skin: Warm, dry, no erythema, no rash. [] Back: No tenderness, no CVA tenderness. [] Extremities: No tenderness, no cyanosis, no clubbing, ROM intact, no edema. [] Neurologic: Alert and oriented X 3, normal motor function, normal sensory function, no focal deficits noted. [] Psychologic: Affect normal, judgement normal, mood normal. [] (NAOMI HEATH MD) PE: Constitutional: Well developed, obese, anxious, non-toxic appearance HENT: Normocephalic, atraumatic Eyes: Conjunctiva normal, no discharge Neck: Normal range of motion, supple Lungs & Thorax: Equal chest rise and fall, auditory rhonchi noted with insp iration Skin: Warm, dry, no erythema, no rash Extremities: No tenderness, ROM intact, no edema Neurologic: Alert and oriented X 3, no focal deficits noted Psychologic: Affect anxious, judgment normal (KAYLA VELAZQUEZ DO) Current Patient Data: Labs: Laboratory Tests Test 08/09/21 15:42 08/09/21 15:45 08/09/21 16:24 POC Urine HCG, Qualitative Hcg negative (Negative) Influenza Type A Antigen Negative (NEGATIVE) Influenza Type B Antigen Negative (NEGATIVE) SARS-CoV-2 Antigen (Rapid) Negative (NEGATIVE) White Blood Count 9.1 x10^3/uL (4.0-11.0) Red Blood Count 4.61 x10^6/uL (3.50-5.40) Hemoglobin 14.6 g/dL (12.0-15.5) Hematocrit 41.3 % (36.0-47.0) Mean Corpuscular Volume 90 fL (79-100) Mean Corpuscular Hemoglobin 32 pg (25-35) Mean Corpuscular Hemoglobin Concent 36 g/dL (31-37) Red Cell Distribution Width 13.8 % (11.5-14.5) Platelet Count 190 x10^3/uL (140-400) Neutrophils (%) (Auto) 74 % (31-73) H Lymphocytes (%) (Auto) 16 % (24-48) L Monocytes (%) (Auto) 7 % (0-9) Eosinophils (%) (Auto) 2 % (0-3) Basophils (%) (Auto) 1 % (0-3) Neutrophils # (Auto) 6.7 x10^3/uL (1.8-7.7) Lymphocytes # (Auto) 1.5 x10^3/uL (1.0-4.8) Monocytes # (Auto) 0.6 x10^3/uL (0.0-1.1) Eosinophils # (Auto) 0.2 x10^3/uL (0.0-0.7) Basophils # (Auto) 0.1 x10^3/uL (0.0-0.2) Sodium Level 139 mmol/L (136-145) Potassium Level 3.9 mmol/L (3.5-5.1) Chloride Level 103 mmol/L (98-107) Carbon Dioxide Level 24 mmol/L (21-32) Anion Gap 12 (6-14) Blood Urea Nitrogen 13 mg/dL (7-20) Creatinine 0.8 mg/dL (0.6-1.0) Estimated GFR (Cockcroft-Gault) 88.1 BUN/Creatinine Ratio 16 (6-20) Glucose Level 86 mg/dL (70-99) Calcium Level 8.9 mg/dL (8.5-10.1) Total Bilirubin 0.6 mg/dL (0.2-1.0) Aspartate Amino Transferase (AST) 61 U/L (15-37) H Alanine Aminotransferase (ALT) 82 U/L (14-59) H Alkaline Phosphatase 138 U/L (46-116) H Troponin I High Sensitivity 6 ng/L (4-50) AE-Lkc-O-Type Natriuretic Peptide 47 pg/mL (0-124) Total Protein 7.7 g/dL (6.4-8.2) Albumin 3.7 g/dL (3.4-5.0) Albumin/Globulin Ratio 0.9 (1.0-1.7) L Laboratory Tests 08/09/21 16:24 Laboratory Tests 08/09/21 16:24 Vital Signs: Vital Signs Date Time Temp Pulse Resp B/P (MAP) Pulse Ox O2 Delivery O2 Flow Rate FiO2 08/09/21 15:50 99.0 86 32 148/79 (102) 96 Room Air 99.0 (NAOMI HEATH MD) EKG: EKG: Sinus rhythm. Q waves in 1, 2 and aVL []. No acute ST elevation or depression. Rate 84. QTc 438. Otherwise normal intervals. (NAOMI HEATH MD) Radiology/Procedures: Radiology/Procedures: [] Impression: [facility] [address] [place] [address] IMAGING REPORT Signed PATIENT: IRAJ MONET RACCOUNT: [id number] : 1995 LOCATION: ER AGE: 26 SEX: F EXAM STATUS: REG ER ORD. PHYSICIAN: NAOMI HEATH MD REASON: SOB, CRACKLES PROCEDURE: CHEST AP ONLY Chest AP portable at 1653: Reason for examination: Short of breath with crackles. Comparison is made to previous study dated 06/05/2021. Hardware is again seen in the thoracolumbar spine. The heart size is normal. Mediastinum is unremarkable. Lung navarro are clear. No acute bony abnormalities are seen. Impression: No acute cardiopulmonary disease. Electronically signed by: Brie Johnson MD (08/09/2021 5:17 PM) [facility] DICTATED and SIGNED BY: BRIE JOHNSON MD DATE: 08/09/21 [id number] [facility] [address] [place] [address] IMAGING REPORT Signed PATIENT: IRAJ MONET RACCOUNT: [id number] : 1995 LOCATION: ER AGE: 26 SEX: F EXAM STATUS: REG ER ORD. PHYSICIAN: NAOMI HEATH MD REASON: dyspnea, chest pain, concern for occult pulm edema, pneumonia PROCEDURE: CT CHEST WO CONTRAST CT THORAX WO History: Chest pain, concern for occult pulmonary edema, pneumonia Technique: CT of the chest was performed with intravenous contrast. Coronal and sagittal reconstructions were performed. Exposure: One or more of the following individualized dose reduction techniques were utilized for this examination: 1. Automated exposure control 2. Adjustment of the mA and/or kV according to patient size 3. Use of iterative reconstruction technique. Comparison: Same day chest radiograph FINDINGS: LUNGS/PLEURA: There are tree-in-bud opacities in a bronchovascular distribution in the anterior segment of the right upper lobe. No focal consolidation. No suspicious pulmonary nodules are visualized. No pleural effusion or focal pleural lesion. Central airways clear. MEDIASTINUM: No pathologic mediastinal or hilar adenopathy. The thoracic aorta and pulmonary arteries are normal in caliber. The heart is normal in size. No pericardial effusion. No detectable calcified coronary atherosclerosis. The visualized thyroid and the esophagus are unremarkable. AXILLA/SOFT TISSUE: No supraclavicular or axillary adenopathy. Regional soft tissues are within normal limits. OSSEOUS: Unremarkable. Thoracolumbar fusion construct. No apparent hardware com plication. Mild multilevel spondylosis ABDOMEN: The visualized portions of the upper abdomen are unremarkable. IMPRESSION: 1. Tree-in-bud opacities in the right upper lobe consistent with infectio us/inflammatory bronchiolitis. Electronically signed by: Simon Garcia DO (08/09/2021 8:11 PM) [facility] DICTATED and SIGNED BY: SIMON GARCIA DO DATE: 08/09/[id number] 0 (NAOMI HEATH MD) Radiology/Procedures: PROCEDURE: CT CHEST WO CONTRAST CT THORAX WO History: Chest pain, concern for occult pulmonary edema, pneumonia Technique: CT of the chest was performed with intravenous contrast. Coronal and sagittal reconstructions were performed. Exposure: One or more of the following individualized dose reduction techniques were utilized for this examination: 1. Automated exposure control 2. Adjustment of the mA and/or kV according to patient size 3. Use of iterative reconstruction technique. Comparison: Same day chest radiograph FINDINGS: LUNGS/PLEURA: There are tree-in-bud opacities in a bronchovascular distribution in the anterior segment of the right upper lobe. No focal consolidation. No suspicious pulmonary nodules are visualized. No pleural effusion or focal pleural lesion. Central airways clear. MEDIASTINUM: No pathologic mediastinal or hilar adenopathy. The thoracic aorta and pulmonary arteries are normal in caliber. The heart is normal in size. No pericardial effusion. No detectable calcified coronary atherosclerosis. The visualized thyroid and the esophagus are unremarkable. AXILLA/SOFT TISSUE: No supraclavicular or axillary adenopathy. Regional soft tissues are within normal limits. OSSEOUS: Unremarkable. Thoracolumbar fusion construct. No apparent hardware complication. Mild multilevel spondylosis ABDOMEN: The visualized portions of the upper abdomen are unremarkable. IMPRESSION: 1. Tree-in-bud opacities in the right upper lobe consistent with infectious/inflammatory bronchiolitis. Electronically signed by: Simon Garcia DO (08/09/2021 8:11 PM) [facility] (KAYLA VELAZQUEZ DO) Course & Med Decision Making: Course & Med Decision Making Pertinent Labs and Imaging studies reviewed. (See chart for details) Patient a 26-year-old female who presents with cough, chest pain, shortness of breath within 24 hours of receiving COVID-19 vaccination. On arrival is afebrile, hemodynamically stable, satting well on room air. Morales smita, does have mild tachypnea, rhonchorous breath sounds bilaterally, and wet sounding cough. EKG with same bilateral Q waves, but no acute ST segment changes. Troponins negative, given duration of symptoms is sufficient to rule out myocardial injury. Would be too early for myocarditis. Chest x-ray negative. Blood work unremarkable. Rapid flu Covid test negative. PCR pending. Given persistent respiratory exam abnormalities, CT chest was ordered for further evaluation. Signed out to oncoming physician at 8pm at the end of my shift. (NAOMI HEATH MD) Course & Med Decision Making 2000- Sign out received from Dr. Heath for patient with concern for respiratory complaint. During ED stay patient's sats have been stable. Labs reviewed noted troponin x2 within normal limits. BMP also within normal limits. Chest x-ray clear. Rapid COVID testing negative. Patient did receive second dose of COVID 19 vaccination yesterday. Patient testing negative for rapid influenza. Patient pending CT imaging. CT imaging notes signs of right upper lobe infectious versus inflammatory bronchitis. Patient is allergic to steroids reporting intractable nausea and vo miting. Decision to start patient on azithromycin and to provide mucolytic/expectorant medication. Patient is reporting some chest discomfort requesting Tylenol. Patient also reports some anxiety. Tylenol and anxiety medication provided. Patient stable for discharge with outpatient follow-up with PCP. Discussed findings and plan with patient, who acknowledges understanding and agreement. (KAYLA VELAZQUEZ DO) Dragon Disclaimer: Dragon Disclaimer: This electronic medical record was generated, in whole or in part, using a voice recognition dictation system. (NAOMI HEATH MD) Departure Departure Impression: Primary Impression: Bronchitis Additional Impression: Suspected 2019 novel coronavirus infection Disposition: HOME / SELF CARE / HOMELESS Condition: STABLE Referrals: NO PCP (PCP) Patient Instructions: Acute Bronchitis, [id number] Additional Instructions: You have been tested for or diagnosed with COVID-19. It is an infection caused by a new type of coronavirus. COVID-19 will cause cold-like or mild flu symptoms in most. It can cause more severe symptoms like problems breathing in some. There is no treatment for COVID-19. The body will clear the infection over time. Self-care will help to ease discomfort. Steps to Take: Self-Care Rest as needed. Healthy habits may help you feel better. Steps include: Choose healthy foods including fruits and vegetables. Drink water throughout the day. Get plenty of sleep each night. If you smoke, try to quit. It may ease breathing. Avoid alcohol. Keep Others Healthy The virus can spread to others. Droplets are released every time you sneeze or cough. The droplets can get into the mouth, nose, or eyes of people near you and lead to infection. To lower the chances of spreading COVID-19 to others: Stay at home until your doctor has said it is safe to leave. If you tested positive this will mean staying isolated until both of the following are true: At least 7 days have passed since the start of illness. You are free of fever for at least 72 hours without the use of medicine. During this time: - Avoid public areas, events, or transportation. Do not return to work or school until your doctor has said it is safe to do so. - Call ahead if you need to go to a medical center. Let them know you may have COVID-19. It will help them guide you where to go. They may also ask you to wear a facemask when you come to the office. - If you call for emergency medical services, let them know you may have COVID- 19. While at home: - Try to avoid close contact with others. Stay about 6 feet away. - If possible, spend most of your time in a separate room from others. - Use a face mask if you will be in close contact with others such as sharing a room or vehicle. - Have someone wipe down common surfaces in the home. Use household social work administrator ev keanu day on areas like doorknobs, counters, or sinks. - Cough or sneeze into a tissue. Throw the tissue away right after use. If a tissue is not available, cough or sneeze into your elbow. - Wash your hands often. Wash them after sneezing or coughing. Use soap and water and wash for at least 20 seconds. Alcohol based hand house cleaner supervisor can be used if soap and water is not available. - Do not prepare food for others. Avoid sharing personal items like forks, spoons, or toothbrushes. - Avoid close contact with pets while you are sick. There is no evidence of the virus passing to pets. This is a safety step until more is known about this virus. Isolation can be frustrating. Social interaction can help. Keep in touch with friends and family through phone and tech options. You can still interact with others in your home, just keep a safe distance of about 6 feet. Follow-up: Your doctors office will check in with you to see if there are any changes in your health. You may be asked to keep track of symptoms to share with them. They will also let you know when you are clear to be in public again. Problems to Look Out For: Contact your doctor if your recovery is not going as you expect. Get emergency care if you have problems such as: - Trouble breathing - Nonstop chest pain or pressure - Changes in awareness, confusion, or problems waking - Lips or face have bluish color - Worsening of symptoms If you think you have an emergency, call for emergency medical services right away. [facility] Benzonatate (BENZONATATE) 200 Mg Capsule 1 CAP PO PRN TID PRN for cough, #30 CAP 0 Refills Prov: KAYLA VELAZQUEZ DO 08/09/21 Guaifenesin/Codeine Phosphate (GUAIFENESIN-CODEINE SYRUP) 118 Ml Liquid 5-10 ML PO Q4HRS PRN for COUGH, #240 ML Prov: KAYLA VELAZQUEZ DO 08/09/21 Azithromycin (ZITHROMAX) 250 Mg Tablet 1 PKG PO UD for bronchitis, #6 TAB Take 2 tablets on day 1 and then 1 tablet each day for the next 4 days as directed Prov: KAYLA VELAZQUEZ DO 08/09/21 NAOMI HEATH MD Aug 09, 2021 17:36 KAYLA VELAZQUEZ DO Aug 09, 2021 20:38
[2021-08-09] MEDS ORDERED: FUROSEMIDE 20 MG/2 ML VIAL. IVP ONE (18:00)
--- NOTE | 2021-08-09 19:58 | EKG ---
[facility] [address] [place] [address] Test Date: 2021-08-09 Test Time: 16:29:18 Pat Name: IRAJ MONET Department: Room: Gender: F Tourist Adviser: : 1995 Requested By: NAOMI HEATH Order Number: [id number] Reading MD: [facility] Measurements Intervals [place] Rate: 84 P: 180 CA: 136 QRS: 174 QRSD: 92 T: 167 QT: 368 QTc: 438 Interpretive Statements SINUS RHYTHM Electronically Signed On 08-10-2021 10:09:44 MULTI SKILLED OPERATOR by [facility]
--- NOTE | 2021-08-09 20:14 | RAD ---
CT THORAX WO History: Chest pain, concern for occult pulmonary edema, pneumonia Technique: CT of the chest was performed with intravenous contrast. Coronal and sagittal reconstructi ons were performed. Exposure: One or more of the following individualized dose reduction techniques were utilized for thi s examination: 1. Automated exposure control 2. Adjustment of the mA and/or kV according to patient size 3. Use of iterative reconstruction technique. Comparison: Same day chest radiograph FINDINGS: LUNGS/PLEURA: There are tree-in-bud opacities in a bronchovascular distribution in the anterior segme nt of the right upper lobe. No focal consolidation. No suspicious pulmonary nodules are visualized. N o pleural effusion or focal pleural lesion. Central airways clear. MEDIASTINUM: No pathologic mediastinal or hilar adenopathy. The thoracic aorta and pulmonary arteries are normal in caliber. The heart is normal in size. No pericardial effusion. No detectable calcified coronary atherosclerosis. The visualized thyroid and the esophagus are unremarkable. AXILLA/SOFT TISSUE: No supraclavicular or axillary adenopathy. Regional soft tissues are within annalise l limits. OSSEOUS: Unremarkable. Thoracolumbar fusion construct. No apparent hardware complication. Mild multil evel spondylosis ABDOMEN: The visualized portions of the upper abdomen are unremarkable. IMPRESSION: 1. Tree-in-bud opacities in the right upper lobe consistent with infectious/inflammatory bronchioliti s. Electronically signed by: Stephen Garcia DO (08/09/2021 8:11 PM) [facility]
[2021-08-09] MEDS ORDERED: ACETAMINOPHEN 500 MG TABLET PO ONE (20:30)
[2021-08-09] MEDS ORDERED: BENZ200C47 PO (20:37)
[2021-08-09] MEDS ORDERED: GUAI118L13 PO (20:37)
[2021-08-09] MEDS ORDERED: AZIT250T PO (20:37)
[2021-08-09 20:41] VITALS: BP 127/79
--- NOTE | 2021-08-11 13:36 | NUR ---
IP: Informed pt of negative covid test. Pt verbalized understanding.
== END 2021-08-09 20:52 | disposition home or self-care (01) ==
LOC: ER 15:21
DX: J45.909 Unspecified asthma, uncomplicated (principal); Z20.822 Contact with and (suspected) exposure to COVID-19; E11.9 Type 2 diabetes mellitus without complications; F17.200 Nicotine dependence, unspecified, uncomplicated; Z88.4 Allergy status to anesthetic agent; Z88.5 Allergy status to narcotic agent; Z88.6 Allergy status to analgesic agent; Z91.040 Latex allergy status; Z91.013 Allergy to seafood; Z88.1 Allergy status to other antibiotic agents; Z88.8 Allergy status to other drugs, medicaments and biological substances
CPT/HCPCS: 36415; 71045; 71250; 80053; 81025; 83880; 84484; 85025; 85379; 87426; 87804; 93005; 96374; 96375; 99285; J1940; J2060; U0003; U0005